=== PATIENT | female | born 1960 | race Caucasian/White ===

== ENCOUNTER 2017-04-11 11:42 | Inpatient (IN) | payer OTHER ==
[2017-04-11] MEDS ORDERED: Sodium Chloride 0.9% 10 ML Syringe FLUSH PRN ×2 (11:57→14:54)
[2017-04-11] MEDS ORDERED: Albuterol/Ipratropium 3.0-0.5 MG/3 ML Neb Soln NEB ONE (11:59)
[2017-04-11] MEDS ORDERED: methylPREDNISolone Sodium Succinate 125 MG/2 ML SDV IVPUSH ONE (12:00)
--- NOTE | 2017-04-11 12:42 | CR ---
Chest: Portable view of the chest was obtained. Comparison: Prior chest x-ray of 04/10/13. Heart size and mediastinum are within normal limits for portable technique. Slight parenchymal density is noted within the right lung base. Lungs otherwise are clear. Bony structures are unremarkable. Impression: 1. Mild increased density within the medial right lung base. Small area of pneumonia is possible if patient has infectious symptoms. Findings otherwise due to mild atelectasis. 2. Nothing acute is otherwise seen on portable chest x-ray. Diagnostic code #3
[2017-04-11] MEDS ORDERED: Levofloxacin/Dextrose 5%-Water 750 MG in Premix Bag 1 BAG IV ONE (13:39)
[2017-04-11] MEDS ORDERED: Sodium Chloride 0.9% 500 ML IV ONE (13:40)
[2017-04-11] MEDS ORDERED: Sodium Chloride 0.9% 1,500 ML IV ONE (13:47)
--- NOTE | 2017-04-11 13:48 | EDM.PDOC ---
ED HPI GENERAL MEDICAL PROBLEM - General Chief Complaint: Respiratory Problem Stated Complaint: CHEST PAIN Time Seen by Provider: 04/11/17 11:48 Source of Information: Reports: Patient, Family History Limitations: Reports: No Limitations - History of Present Illness INITIAL COMMENTS - FREE TEXT/NARRATIVE: The patient presents with right sided chest pain and shortness of breath. This started a few days ago. She also has a cough that started today. She does smoke. She does not have a history of asthma, COPD or emphysema. She has no heart problems. She has no abdominal pain, nausea or vomiting. She has no fever but she does have chills. Onset: Gradual Duration: Day(s): Location: Reports: Chest Quality: Reports: Sharp Severity: Moderate Improves with: Reports: None Worsens with: Reports: None Associated Symptoms: Reports: Chest Pain, Cough, Fever/Chills, Shortness of Breath. Denies: Nausea/Vomiting right under breast/epigastric/midchest Pain Score (Numeric/FACES): 8 - Related Data Allergies Allergy/AdvReac Type Severity Reaction Status Date / Time No Known Allergies Allergy Verified 04/11/17 12:03 Home Meds: Home Meds Calcium Carbonate/Vitamin D3 [Calcium 600 + D Tablet] 1 each PO DAILY 11/27/14 [ History] Ferrous Gluconate 324 mg PO BID 11/27/14 [History] Folic Acid 1 mg PO DAILY 11/27/14 [History] Magnesium Oxide [Magnesium] 400 mg PO BID 11/27/14 [History] Multivitamin [Multi-Vitamin Daily] 1 each PO DAILY 11/27/14 [History] Potassium Chloride [Klor-Con M20] 20 meq PO BID 11/27/14 [History] Vit B1 Mn/B2/B3/B5/B6/B12/C/Fa [B Complex with Vitamin C] 1 each PO DAILY [History] Vit D3 & K/Berberine HCl/Hops [Ostera] 1 tab PO DAILY 11/27/14 [History] Pantoprazole Sodium [Protonix] 40 mg PO DAILY 04/11/17 [History] Past Medical History HEENT History: Reports: Impaired Vision Respiratory History: Reports: SOB, Other (See Below) Other Respiratory History: patient is a 1/2 pack to full pack smoker Musculoskeletal History: Reports: Other (See Below) Other Musculoskeletal History: feet cramps Psychiatric History: Reports: Addiction Other Psychiatric History: currently states has alcohol problem Social & Family History - Family History Family Medical History: Noncontributory - Tobacco Use Smoking Status *Q: Current Every Day Smoker Years of Tobacco use: 30 Packs/Tins Daily: 1 - Caffeine Use Caffeine Use: Reports: Tea - Alcohol Use Days Per Week of Alcohol Use: 7 Number of Drinks Per Day: 4 Total Drinks Per Week: 28 - Recreational Drug Use Recreational Drug Use: No ED ROS GENERAL - Review of Systems Review Of Systems: See Below Constitutional: Reports: Chills, Malaise, Weakness, Fatigue. Denies: Fever HEENT: Reports: No Symptoms Respiratory: Reports: Shortness of Breath, Cough Cardiovascular: Reports: Chest Pain Endocrine: Reports: No Symptoms GI/Abdominal: Reports: No Symptoms : Reports: No Symptoms Musculoskeletal: Reports: No Symptoms ED EXAM, GENERAL - Physical Exam Exam: See Below Exam Limited By: Intoxication General Appearance: Alert, No Apparent Distress Ears: Normal External Exam Nose: Normal Inspection Head: Atraumatic, Normocephalic Neck: Normal Inspection Respiratory/Chest: No Respiratory Distress, Rhonchi Cardiovascular: Regular Rate, Rhythm, No Edema, No Murmur GI/Abdominal: Soft, Non-Tender, No Organomegaly, No Mass Back Exam: Normal Inspection Extremities: Normal Inspection Neurological: Alert, Oriented, No Motor/Sensory Deficits Skin Exam: Warm, Dry EKG INTERPRETATION EKG Date: 04/11/17 Time: 12:38 Rhythm: NSR Rate (Beats/Min): 95 [place]: LAD-Left [place] Deviation P-Wave: Present QRS: Normal ST-T: Normal QT: Normal Course - Vital Signs Last Recorded V/S: Last Vital Signs Temp 96.7 F 04/11/17 11:43 Pulse 96 04/11/17 11:43 Resp 24 H 04/11/17 11:43 BP 137/63 04/11/17 11:43 Pulse Ox 92 L 04/11/17 12:00 - Orders/Labs/Meds Orders: Active Orders 24 hr Category Date Time Status Cardiac Monitoring [RC] . DIRECTED Care 04/11/17 11:57 Active EKG Documentation Completion [RC] STAT Care 04/11/17 11:58 Active Oxygen Therapy [RC] PRN Care 04/11/17 11:58 Active Peripheral IV Care [RC] . DIRECTED Care 04/11/17 11:58 Active RT Aerosol Therapy [RC] ASDIRECTED Care 04/11/17 12:00 Active Ang Chest [CT] Stat Exams 04/11/17 14:40 Taken CULTURE BLOOD [BC] Stat Lab 04/11/17 14:15 Received CULTURE BLOOD [BC] Stat Lab 04/11/17 14:28 Received CULTURE URINE [RM] Stat Lab 04/11/17 13:55 Received UA W/MICROSCOPIC [URIN] Stat Lab 04/11/17 13:55 Results Sodium Chloride 0.9% [Normal Saline] 100 ml Med 04/11/17 15:00 Active IV ASDIRECTED Sodium Chloride 0.9% [Saline Flush] Med 04/11/17 11:57 Active 10 ml FLUSH ASDIRECTED PRN Sodium Chloride 0.9% [Saline Flush] Med 04/11/17 14:54 Active 10 ml FLUSH ONETIME PRN Blood Culture x2 Reflex Set [OM.PC] Stat Oth 04/11/17 13:39 Ordered Peripheral IV Insertion Adult [OM.PC] Stat Oth 04/11/17 11:57 Ordered Medication Orders Sodium Chloride (Normal Saline) 100 mls @ 80 mls/hr IV ASDIRECTED DORINA Last Admin: 04/11/17 14:56 Dose: 80 mls/hr Sodium Chloride (Saline Flush) 10 ml FLUSH ASDIRECTED PRN PRN Reason: Keep Vein Open Last Admin: 04/11/17 12:42 Dose: 10 ml Sodium Chloride (Saline Flush) 10 ml FLUSH ONETIME PRN PRN Reason: IV FLUSH Last Admin: 04/11/17 14:56 Dose: 10 ml Labs: Laboratory Tests 04/11/17 04/11/17 04/11/17 Range/Units 12:27 12:27 12:27 WBC 25.62 H (3.98-10.04) K/mm3 RBC 3.97 L (3.98-5.22) M/mm3 Hgb 13.4 (11.2-15.7) gm/L Hct 39.7 (34.1-44.9) % MCV 100.0 H (79.4-94.8) fl MCH 33.8 H (25.6-32.2) pg MCHC 33.8 (32.2-35.5) g/dl RDW Std Deviation 65.6 H (36.4-46.3) fL Plt Count 52 L (182-369) K/mm3 MPV 11.5 (9.4-12.3) fl Neut % (Auto) 93.5 H (34.0-71.1) % Lymph % (Auto) 1.2 L (19.3-51.7) % [place] % (Auto) 3.8 L (4.7-12.5) % Eos % (Auto) 0 L (0.7-5.8) Baso % (Auto) 0.2 (0.1-1.2) % Neut # (Auto) 23.96 H (1.56-6.13) K/mm3 Lymph # (Auto) 0.31 L (1.18-3.74) K/mm3 [place] # (Auto) 0.97 H (0.24-0.36) K/mm3 Eos # (Auto) 0.01 L (0.04-0.36) K/mm3 Baso # (Auto) 0.04 (0.01-0.08) K/mm3 Manual Slide Review Abnormal smear D-Dimer, Quantitative 2.35 H (0.19-0.59) mg/L Sodium 139 (136-145) mEq/L Potassium 3.9 (3.5-5.1) mEq/L Chloride 104 (98-107) mEq/L Carbon Dioxide 12 L (21-32) mEq/L Anion Gap 26.9 H (5-15) BUN 21 H (7-18) mg/dL Creatinine 1.6 H (0.55-1.02) mg/dL Est Cr Clr Drug Dosing 33.09 mL/min Estimated GFR (MDRD) 33 (>60) mL/min BUN/Creatinine Ratio 13.1 L (14-18) Glucose 92 (74-106) mg/dL Lactic Acid (0.4-2.0) mmol/L Calcium 8.2 L (8.5-10.1) mg/dL Total Bilirubin 6.8 H (0.2-1.0) mg/dL AST 91 H (15-37) U/L ALT 23 (14-59) U/L Alkaline Phosphatase 200 H (46-116) U/L Troponin I < 0.017 (0.00-0.056) ng/mL Total Protein 6.8 (6.4-8.2) g/dl Albumin 2.7 L (3.4-5.0) g/dl Globulin 4.1 gm/dL Albumin/Globulin Ratio 0.7 L (1-2) Urine Color (Yellow) Urine Appearance (Clear) Urine pH (5.0-8.0) Ur Specific [place] (1.005-1.030) Urine Protein (Negative) Urine Glucose (UA) (Negative) Urine Ketones (Negative) Urine Occult Blood (Negative) Urine Nitrite (Negative) Urine Bilirubin (Negative) Urine Urobilinogen (0.2-1.0) Ur Leukocyte Esterase (Negative) Urine RBC (0-5) /hpf Urine WBC (0-5) /hpf Ur Epithelial Cells (0-5) /hpf 04/11/17 04/11/17 Range/Units 13:55 14:15 WBC (3.98-10.04) K/mm3 RBC (3.98-5.22) M/mm3 Hgb (11.2-15.7) gm/L Hct (34.1-44.9) % MCV (79.4-94.8) fl MCH (25.6-32.2) pg MCHC (32.2-35.5) g/dl RDW Std Deviation (36.4-46.3) fL Plt Count (182-369) K/mm3 MPV (9.4-12.3) fl Neut % (Auto) (34.0-71.1) % Lymph % (Auto) (19.3-51.7) % [place] % (Auto) (4.7-12.5) % Eos % (Auto) (0.7-5.8) Baso % (Auto) (0.1-1.2) % Neut # (Auto) (1.56-6.13) K/mm3 Lymph # (Auto) (1.18-3.74) K/mm3 [place] # (Auto) (0.24-0.36) K/mm3 Eos # (Auto) (0.04-0.36) K/mm3 Baso # (Auto) (0.01-0.08) K/mm3 Manual Slide Review D-Dimer, Quantitative (0.19-0.59) mg/L Sodium (136-145) mEq/L Potassium (3.5-5.1) mEq/L Chloride (98-107) mEq/L Carbon Dioxide (21-32) mEq/L Anion Gap (5-15) BUN (7-18) mg/dL Creatinine (0.55-1.02) mg/dL Est Cr Clr Drug Dosing mL/min Estimated GFR (MDRD) (>60) mL/min BUN/Creatinine Ratio (14-18) Glucose (74-106) mg/dL Lactic Acid 6.8 H (0.4-2.0) mmol/L Calcium (8.5-10.1) mg/dL Total Bilirubin (0.2-1.0) mg/dL AST (15-37) U/L ALT (14-59) U/L Alkaline Phosphatase (46-116) U/L Troponin I (0.00-0.056) ng/mL Total Protein (6.4-8.2) g/dl Albumin (3.4-5.0) g/dl Globulin gm/dL Albumin/Globulin Ratio (1-2) Urine Color Dark yellow (Yellow) Urine Appearance Cloudy H (Clear) Urine pH 6.0 (5.0-8.0) Ur Specific [place] 1.025 (1.005-1.030) Urine Protein 1+ H (Negative) Urine Glucose (UA) Negative (Negative) Urine Ketones Negative (Negative) Urine Occult Blood Trace-lysed H (Negative) Urine Nitrite Negative (Negative) Urine Bilirubin 2+ H (Negative) Urine Urobilinogen 1.0 (0.2-1.0) Ur Leukocyte Esterase 1+ H (Negative) Urine RBC 5-10 H (0-5) /hpf Urine WBC 10-20 H (0-5) /hpf Ur Epithelial Cells 20-30 H (0-5) /hpf Meds: Medications Generic Name Dose Route Start Last Admin Trade Name Freq PRN Reason Stop Dose Admin Sodium Chloride 100 mls @ 80 mls/hr 04/11/17 15:00 04/11/17 14:56 Normal Saline IV 80 mls/hr ASDIRECTED DORINA Administration Sodium Chloride 10 ml 04/11/17 11:57 04/11/17 12:42 Saline Flush FLUSH 10 ml ASDIRECTED PRN Administration Keep Vein Open Sodium Chloride 10 ml 04/11/17 14:54 04/11/17 14:56 Saline Flush FLUSH 10 ml ONETIME PRN Administration IV FLUSH Discontinued Medications Generic Name Dose Route Start Last Admin Trade Name Georgina PRN Reason Stop Dose Admin Albuterol/Ipratropium 3 ml 04/11/17 11:59 04/11/17 12:35 Duoneb 3.0-0.5 Mg/3 Ml NEB 04/11/17 12:00 3 ml ONETIME ONE Administration Hydromorphone HCl 0.5 mg 04/11/17 14:44 04/11/17 15:00 Dilaudid IVPUSH 04/11/17 14:45 0.5 mg ONETIME ONE Administration Levofloxacin/Dextrose 750 mg/ 150 mls @ 100 mls/hr 04/11/17 13:39 04/11/17 14 :40 Premix IV 04/11/17 15:08 100 mls/hr ONETIME ONE Administration Sodium Chloride 500 mls @ 1,000 mls/hr 04/11/17 13:40 Normal Saline IV 04/11/17 14:09 .BOLUS ONE Sodium Chloride 1,500 mls @ 1,000 mls/hr 04/11/17 13:47 04/11/17 14:00 Normal Saline IV 04/11/17 15:16 1,000 mls/hr ONETIME ONE Administration Sodium Chloride Confirm 04/11/17 14:55 04/11/17 14:56 Normal Saline Administered 04/11/17 14:56 Not Given Dose 1,000 mls @ as directed .ROUTE .STK-MED ONE Iopamidol 100 ml 04/11/17 14:54 04/11/17 14:55 Isovue-370 (76%) IVPUSH 04/11/17 14:55 100 ml ONETIME ONE Administration Methylprednisolone Sodium Succinate 125 mg 04/11/17 12:00 04/11/17 12:40 Solu-Medrol IVPUSH 04/11/17 12:01 125 mg ONETIME ONE Administration Oseltamivir Phosphate 75 mg 04/11/17 15:00 04/11/17 15:11 Tamiflu PO 04/11/17 15:01 75 mg ONETIME ONE Administration - Re-Assessments/Exams Free Text/Narrative Re-Assessment/Exam: 04/11/17 14:52 I ordered an IV NS, oxygen, duoneb, labs, EKG, and CXR. Her EKG shows a NSR with no acute changes. Her CXR shows a RML infiltrate. Her WBC was elevated at 25.62. Her Hgb was normal at 13.4. Her platelets were low at 52. Her D- dimer was elevated at 2.35. Her anion gap is elevated at 26.9. Her creatinine is elevated at 1.6. Her total bili is elevated at 6.8. Her alk phos was elevated at 200. Her troponin was negative. Her UA shows a UTI. 04/11/17 15:38 I ordered blood cultures and urine culture. I ordered a 2L bolus for the 30mL/ kg bolus and levaquin 750mg IV. She is also influenza A and B positive. I ordered some tamiflu 75mg by move. Her CT shows no definite filling defects are seen to indicate PE. Small right sided pleural effusion which may have some loculations. Consolidation within the right lower lung, difficult to exclude pneumonia as the etiology. Slight parenchymal density within the lingula either due to atelectasis or scarring. I feel she needs to be admitted. I called Dr Pete and she agreed to the admission. She has pneumonia , hypoxia, UTI and influenza A and B. Departure - Departure Time of Disposition: 15:45 Disposition: Admitted As Inpatient 64 Condition: Serious Clinical Impression: Influenza A, Influenza B, Hypoxia Pneumonia Qualifiers: Pneumonia type: due to unspecified organism Laterality: right Lung location: middle lobe of lung Qualified Code(s): J18.1 - Lobar pneumonia, unspecified organism Sepsis Qualifiers: Sepsis type: sepsis due to unspecified organism Qualified Code(s): A41.9 - Sepsis, unspecified organism UTI (urinary tract infection) Qualifiers: Urinary tract infection type: site unspecified Hematuria presence: without hematuria Qualified Code(s): N39.0 - Urinary tract infection, site not specified - Discharge Information Referrals: Goldie Mcclure, [employer] [Primary Care Provider] - Forms: ED Department Discharge - My Orders Last 24 Hours: My Active Orders 04/11/17 11:57 Cardiac Monitoring [RC] . DIRECTED Sodium Chloride 0.9% [Saline Flush] 10 ml FLUSH ASDIRECTED PRN Peripheral IV Insertion Adult [OM.PC] Stat 04/11/17 11:58 EKG Documentation Completion [RC] STAT Oxygen Therapy [RC] PRN Peripheral IV Care [RC] . DIRECTED 04/11/17 12:00 RT Aerosol Therapy [RC] ASDIRECTED 04/11/17 13:39 Blood Culture x2 Reflex Set [OM.PC] Stat 04/11/17 13:55 CULTURE URINE [RM] Stat UA W/MICROSCOPIC [URIN] Stat 04/11/17 14:15 CULTURE BLOOD [BC] Stat 04/11/17 14:28 CULTURE BLOOD [BC] Stat 04/11/17 14:40 Ang Chest [CT] Stat 04/11/17 14:54 Sodium Chloride 0.9% [Saline Flush] 10 ml FLUSH ONETIME PRN 04/11/17 15:00 Sodium Chloride 0.9% [Normal Saline] 100 ml IV ASDIRECTED - Assessment/Plan Last 24 Hours: My Active Orders 04/11/17 11:57 Cardiac Monitoring [RC] . DIRECTED Sodium Chloride 0.9% [Saline Flush] 10 ml FLUSH ASDIRECTED PRN Peripheral IV Insertion Adult [OM.PC] Stat 04/11/17 11:58 EKG Documentation Completion [RC] STAT Oxygen Therapy [RC] PRN Peripheral IV Care [RC] . DIRECTED 04/11/17 12:00 RT Aerosol Therapy [RC] ASDIRECTED 04/11/17 13:39 Blood Culture x2 Reflex Set [OM.PC] Stat 04/11/17 13:55 CULTURE URINE [RM] Stat UA W/MICROSCOPIC [URIN] Stat 04/11/17 14:15 CULTURE BLOOD [BC] Stat 04/11/17 14:28 CULTURE BLOOD [BC] Stat 04/11/17 14:40 Ang Chest [CT] Stat 04/11/17 14:54 Sodium Chloride 0.9% [Saline Flush] 10 ml FLUSH ONETIME PRN 04/11/17 15:00 Sodium Chloride 0.9% [Normal Saline] 100 ml IV ASDIRECTED
[2017-04-11] MEDS ORDERED: HYDROmorphone 0.5 MG/0.5 ML Syringe IVPUSH ONE (14:44)
[2017-04-11] MEDS ORDERED: Iopamidol 755 Mg/ML 100 ML Bottle IVPUSH ONE (14:54)
[2017-04-11] MEDS ORDERED: Sodium Chloride 0.9% 1,000 ML ONE (14:55)
[2017-04-11] MEDS ORDERED: Oseltamivir 75 MG Cap PO ONE (15:00)
[2017-04-11] MEDS ORDERED: Sodium Chloride 0.9% 100 ML IV SCH (15:00)
--- NOTE | 2017-04-11 15:38 | CT ---
CT chest Technique: Multiple axial sections through the chest were obtained. Intravenous contrast was utilized. Study has been performed as a pulmonary angiogram protocol. Findings: Slightly less than optimal opacification of pulmonary arteries are noted. I do not see a discrete filling defect to indicate pulmonary embolism. Small mediastinal lymph nodes are seen which are within normal limits. No axillary adenopathy is seen. Mild coronary artery calcification is seen. Small right sided pleural effusion is seen. Consolidation is seen within a portion of the right lower lung. Some portions of the right-sided pleural effusion may be loculated. Slight parenchymal density is noted within the lingula which is most likely due to scarring or atelectasis. Lungs otherwise are clear. Degenerative spurring is noted within the spine. Impression: 1. No definite filling defects are seen to indicate pulmonary embolism. 2. Small right sided pleural effusion which may have some loculations. 2. Consolidation within the right lower lung, difficult to exclude pneumonia as the etiology. 3. Slight parenchymal density within the lingula either due to atelectasis or scarring. Diagnostic code #3
[2017-04-11] MEDS ORDERED: Albuterol/Ipratropium 3.0-0.5 MG/3 ML Neb Soln NEB PRN (18:31)
[2017-04-11] MEDS ORDERED: Acetaminophen 325 MG Tab PO PRN (18:31)
[2017-04-11] MEDS ORDERED: Bisacodyl 5 MG Tab PO PRN (18:31)
[2017-04-11] MEDS ORDERED: HYDROmorphone 0.5 MG/0.5 ML Syringe IVPUSH PRN (18:31)
[2017-04-11] MEDS ORDERED: Ondansetron 4 MG Tab.DIS PO PRN (18:31)
[2017-04-11] MEDS ORDERED: Polyethylene Glycol 3350 Powder 17 GM Packet PO PRN (18:31)
[2017-04-11] MEDS ORDERED: Ondansetron 4 MG/2 ML SDV IV PRN (18:31)
[2017-04-11] MEDS ORDERED: Docusate Sodium 100 MG Cap PO PRN (18:31)
[2017-04-11] MEDS ORDERED: Piperacillin/Tazobactam 4.5 GM in Sodium Chloride 0.9% 100 ML IV ONE (19:00)
[2017-04-11] MEDS ORDERED: LORazepam 2 MG/ML SDV IVPUSH PRN ×2 (19:18→19:19)
--- NOTE | 2017-04-11 19:30 | PCM.HP ---
H&P History of Present Illness - General Date of Service: 04/11/17 Admit Problem/Dx: Admission Diagnosis/Problem Admission Diagnosis/Problem Sepsis Source of Information: Patient, Old Records, Provider, RN, RN Notes Reviewed History Limitations: Reports: No Limitations - History of Present Illness Initial Comments - Free Text/Narative: Evette Jasso is a 56 yo female who presents to our ED today with right-sided chest pain and shortness of breath has been lasting for a few days. She is also a productive cough today. She is a smoker daily smoker. Denies any history of asthma, COPD, or emphysema. She has no heart problems. Denies abdominal pain, nausea, vomiting, fever, but she has had chills. Upon arrival she was afebrile with a temp of 96.7. Respirations were 24. BP 137/63. Pulse ox is 92%. Heart rate of 96. 12-lead EKG was obtained which shows a normal sinus rhythm at a rate of 95. There is some left axis deviation. Labs are obtained: White count was elevated at 25.62. Hemoglobin normal at 13.4. Hematocrit 39.7. She is macrocytic with MCV of 100.0. Pulse are low at 52,000. Neutrophils are elevated at 93.5%. D-dimer was elevated at 2.35. Sodium was good at 139. Potassium 3.9. Chloride 104. Carbon dioxide 12. Anion gap is very high at 26.9. BUN is high at 21. Creatinine high at 1.6. EGFR is 33. Glucose is normal at 92. Lactic acid was high at 6.8. Calcium low at 8.2. AST is high at 91, ALT 23, alkaline phosphatase 200. Troponin negative at less than 0.017. Albumin is low at 2.7. UA is positive, as it is dark yellow and cloudy, 1+ protein, trace lysed occult blood, 2+ bilirubin, 1+ leukocyte esterase, 5-10 urine RBCs, 10-20 urine WBCs, 20-30 urine epithelial cells. Urine culture is pending. Blood cultures are pending. She was given a DuoNeb, 2.5 Dilaudid, Levaquin, Solu-Medrol 125 mg, Tamiflu 75 mg, and 2 L saline bolus for the 30 mg liter per kilogram bolus. Informed a and B are both positive. Due to the elevated d-dimer a CTA was performed and shows no definite filling defects to indicate a PE. There is a small right- sided pleural effusion which may have some loculations. Consult elevation within the right lower lung is noted and is difficult to exclude pneumonia as etiology. There is also slight parenchymal density within the lingula either due to atelectasis or scarring. She does carry a history of: Impaired vision, tobacco use disorder - one half to one full pack a day smoker, and alcohol addiction, as she underwent in patient treatment 3 years ago in [place]. She subsequently admitted to the medical floor with telemetry. She is a full code. Her PCP is AYAH Francois, here at [facility]. right under breast/epigastric/midchest Pain Score (Numeric/FACES): 2 - Related Data Allergies/Adverse Reactions: Allergies Allergy/AdvReac Type Severity Reaction Status Date / Time No Known Allergies Allergy Verified 04/11/17 12:03 Home Medications: Home Meds Calcium Carbonate/Vitamin D3 [Calcium 600 + D Tablet] 1 each PO DAILY 11/27/14 [ History] Ferrous Gluconate 324 mg PO BID 11/27/14 [History] Folic Acid 1 mg PO DAILY 11/27/14 [History] Magnesium Oxide [Magnesium] 400 mg PO BID 11/27/14 [History] Multivitamin [Multi-Vitamin Daily] 1 each PO DAILY 11/27/14 [History] Potassium Chloride [Klor-Con M20] 20 meq PO BID 11/27/14 [History] Vit B1 Mn/B2/B3/B5/B6/B12/C/Fa [B Complex with Vitamin C] 1 each PO DAILY [History] Vit D3 & K/Berberine HCl/Hops [Ostera] 1 tab PO DAILY 11/27/14 [History] Pantoprazole Sodium [Protonix] 40 mg PO DAILY 04/11/17 [History] Past Medical History HEENT History: Reports: Glaucoma, Impaired Vision Other HEENT History: Wear glasses Respiratory History: Reports: SOB, Other (See Below) Other Respiratory History: patient is a 1/2 pack to full pack smoker Musculoskeletal History: Reports: Other (See Below) Other Musculoskeletal History: feet cramps Psychiatric History: Reports: Addiction Other Psychiatric History: currently states has alcohol problem, patient reports having a couple drinks New Year's [place] Endocrine/Metabolic History: Reports: Vitamin D Deficiency Hematologic History: Reports: Iron Deficiency - Infectious Disease History Infectious Disease History: Reports: Chicken Pox, Measles, Mumps - Past Surgical History HEENT Surgical History: Reports: None Endocrine Surgical History: Reports: None Musculoskeletal Surgical History: Reports: None Social & Family History - Family History Family Medical History: Noncontributory HEENT: Reports: Glaucoma - Tobacco Use Smoking Status *Q: Current Every Day Smoker Years of Tobacco use: 30 Packs/Tins Daily: 0.5 Used Tobacco, but Quit: No Second Hand Smoke Exposure: No - Caffeine Use Caffeine Use: Reports: Tea Other Caffeine Use: daily basis - Alcohol Use Days Per Week of Alcohol Use: 7 Number of Drinks Per Day: 4 Total Drinks Per Week: 28 Date of Last Drink: 04/09/17 Time of Last Drink: 21:00 - Recreational Drug Use Recreational Drug Use: No H&P Review of Systems - Review of Systems: Review Of Systems: See Below General: Reports: Chills, Malaise, Weakness, Fatigue, Diaphoresis, Decreased Appetite. Denies: Fever HEENT: Reports: No Symptoms. Denies: Ear Pain, Eye Pain, Headaches, Rhinitis, Post Nasal Drip, Sinus Congestion, Sore Throat, Visual Changes Pulmonary: Reports: Shortness of Breath, Pleuritic Chest Pain (after coughing ) , Cough, Sputum Cardiovascular: Reports: No Symptoms, Chest Pain, Dyspnea on Exertion. Denies: Palpitations, Orthopnea, Edema, Lightheadedness, Syncope Gastrointestinal: Reports: No Symptoms, Nausea, Vomiting. Denies: Abdominal Pain, Constipation, Diarrhea Genitourinary: Reports: Flank Pain, Other (Foul smelling urine ). Denies: Dysuria, Frequency, Burning, Pain, Urgency Musculoskeletal: Reports: Back Pain (right sided - after coughing ). Denies: Neck Pain, Shoulder Pain, Arm Pain, Leg Pain, Muscle Pain, Muscle Stiffness Skin: Reports: No Symptoms Psychiatric: Reports: No Symptoms Neurological: Reports: No Symptoms Hematologic/Lymphatic: Reports: No Symptoms Immunologic: Reports: No Symptoms Exam - Exam Exam: See Below - Vital Signs Vital Signs: Last Vital Signs Temp 96.7 F 04/11/17 11:43 Pulse 91 04/11/17 17:09 Resp 24 H 04/11/17 17:09 BP 126/62 04/11/17 17:09 Pulse Ox 93 L 04/11/17 17:09 Weight: 158 lb - Exam Quality Assessment: Supplemental Oxygen, DVT Prophylaxis General: Alert, Oriented, Cooperative, Mild Distress HEENT: Conjunctiva Clear, EACs Clear, EOMI, Hearing Intact, Mucosa Moist & [place] , Nares Patent, Normal Nasal Septum, Posterior Pharynx Clear, PERRLA Neck: Supple, Trachea Midline. No: JVD, Thyromegaly Lungs: Rhonchi, Other (tachypneic ). No: Normal Respiratory Effort, Wheezing Cardiovascular: Regular Rate, Regular Rhythm. No: Systolic Murmur, Diastolic Murmur GI/Abdominal Exam: Normal Bowel Sounds, Soft, Non-Tender, No Organomegaly, No Distention, No Abnormal Bruit, No Mass, Pelvis Stable (Female) Exam: Deferred Rectal (Female) Exam: Deferred Back Exam: Normal Inspection, Full Range of Motion. No: CVA Tenderness (L), CVA Tenderness (R) Extremities: Normal Inspection, Normal Range of Motion, Non-Tender, No Pedal Edema, Normal Capillary Refill Peripheral Pulses: 2+: Radial (L), Radial (R), Posterior Tibial (L), Posterior Tibial (R), Dorsalis Pedis (L), Dorsalis Pedis (R) Skin: Warm, Dry, Intact Neurological: Cranial Nerves Intact (Grossly ) Neuro Extensive - Mental Status: Alert, Oriented x3, Normal Mood/Affect, Normal Cognition, Memory Intact Neuro Extensive - Motor, Sensory, Reflexes: CN II-XII Intact (grossly ), Normal Gait Psychiatric: Alert, Normal Affect, Normal Mood - Patient Data Result Diagrams: 04/11/17 12:27 04/11/17 12:27 *Q Meaningful Use (ADM) - VTE *Q VTE Criteria *Q: - Stroke *Q Stroke Criteria *Q: - AMI *Q AMI Criteria *Q: - Problem List (1) Pneumonia SNOMED Code(s): 202373757 ICD Code: J18.9 - PNEUMONIA, UNSPECIFIED ORGANISM Status: Acute Priority : High Current Visit: Yes Qualifiers: Pneumonia type: due to unspecified organism Laterality: right Lung location: middle lobe of lung Qualified Code(s): J18.1 - Lobar pneumonia, unspecified organism (2) UTI (urinary tract infection) SNOMED Code(s): 35632872 ICD Code: N39.0 - URINARY TRACT INFECTION, SITE NOT SPECIFIED Status: Acute Priority: High Current Visit: Yes Qualifiers: Urinary tract infection type: site unspecified Hematuria presence: without hematuria Qualified Code(s): N39.0 - Urinary tract infection, site not specified (3) Sepsis SNOMED Code(s): 74378995 ICD Code: A41.9 - SEPSIS, UNSPECIFIED ORGANISM Status: Acute Priority: High Current Visit: Yes Qualifiers: Sepsis type: sepsis due to unspecified organism Qualified Code(s): A41.9 - Sepsis, unspecified organism (4) Influenza B SNOMED Code(s): 20444921 ICD Code: J10.1 - FLU DUE TO OTH IDENT INFLUENZA VIRUS W OTH RESP MANIFEST Status: Acute Priority: High Current Visit: Yes (5) Influenza A SNOMED Code(s): 486819756 ICD Code: J10.1 - FLU DUE TO OTH IDENT INFLUENZA VIRUS W OTH RESP MANIFEST Status: Acute Priority: High Current Visit: Yes (6) Hypoxia SNOMED Code(s): 127971249 ICD Code: R09.02 - HYPOXEMIA Status: Acute Priority: High Current Visit : Yes (7) Tobacco use disorder SNOMED Code(s): 709716341 ICD Code: F17.200 - NICOTINE DEPENDENCE, UNSPECIFIED, UNCOMPLICATED Status : Chronic Priority: Low Current Visit: Yes (8) Personal history of alcoholism SNOMED Code(s): 860489569 ICD Code: F10.21 - ALCOHOL DEPENDENCE, IN REMISSION Status: Chronic Priority: Low Current Visit: Yes (9) Thrombocytopenia SNOMED Code(s): 590734901 ICD Code: D69.6 - THROMBOCYTOPENIA, UNSPECIFIED Status: Acute Priority: Medium Current Visit: Yes (10) Acute renal failure SNOMED Code(s): 57860662 ICD Code: N17.9 - ACUTE KIDNEY FAILURE, UNSPECIFIED Status: Acute Priority: High Current Visit: Yes Qualifiers: Acute renal failure type: unspecified Qualified Code(s): N17.9 - Acute kidney failure, unspecified Problem List Initiated/Reviewed/Updated: Yes Orders Last 24hrs: Active Orders 24 hr Category Date Time Status Patient Status [ADT] Routine ADT 04/11/17 16:47 Active Acapella [RT Chest Physiotherapy] [RC] ASDIRECTED Care 04/11/17 18:38 Active Ambulate [RC] PER UNIT ROUTINE Care 04/11/17 18:32 Active Antiembolic Devices [RC] PER UNIT ROUTINE Care 04/11/17 18:32 Active Height and Weight [RC] DAILY Care 04/11/17 18:31 Active Incentive Spirometry [RT Incentive Spirometry] [RC] Care 04/11/17 18:39 Active ASDIRECTED Intake and Output [RC] QSHIFT Care 04/11/17 18:32 Active RT Aerosol Therapy [RC] ASDIRECTED Care 04/11/17 18:35 Active Up With Assistance [RC] ASDIRECTED Care 04/11/17 18:31 Active VTE/DVT Education [RC] PER UNIT ROUTINE Care 04/11/17 18:31 Active Vital Signs [RC] Q4HR Care 04/11/17 18:31 Active Consult to Case Management [CONS] Routine Cons 04/11/17 18:31 Active OT Evaluation and Treatment [CONS] Routine Cons 04/11/17 18:31 Active PT Evaluation and Treatment [CONS] Routine Cons 04/11/17 18:31 Active Respiratory Care Assess and Treatment [CONS] Routine Cons 04/11/17 18:31 Active Heart Healthy Diet [DIET] Diet 04/11/17 Dinner Active Chest 2V [CR] AM Exams 04/13/17 05:11 Ordered BASIC METABOLIC PANEL,BMP [CHEM] AM Lab 04/12/17 05:11 Ordered BASIC METABOLIC PANEL,BMP [CHEM] AM Lab 04/13/17 05:11 Ordered BASIC METABOLIC PANEL,BMP [CHEM] AM Lab 04/14/17 05:11 Ordered BASIC METABOLIC PANEL,BMP [CHEM] AM Lab 04/15/17 05:11 Ordered CBC WITH AUTO DIFF [HEME] AM Lab 04/12/17 05:11 Ordered CBC WITH AUTO DIFF [HEME] AM Lab 04/13/17 05:11 Ordered CBC WITH AUTO DIFF [HEME] AM Lab 04/14/17 05:11 Ordered CBC WITH AUTO DIFF [HEME] AM Lab 04/15/17 05:11 Ordered CRP [C-REACTIVE PROTEIN] [CHEM] AM Lab 04/12/17 05:11 Ordered CRP [C-REACTIVE PROTEIN] [CHEM] AM Lab 04/13/17 05:11 Ordered CRP [C-REACTIVE PROTEIN] [CHEM] AM Lab 04/14/17 05:11 Ordered CRP [C-REACTIVE PROTEIN] [CHEM] AM Lab 04/15/17 05:11 Ordered CULTURE SPUTUM + SMEAR [RM] Routine Lab 04/11/17 18:39 Uncollected DRUG SCREEN, URINE [URCHEM] Routine Lab 04/11/17 13:55 Received ETOH [ETHANOL BLOOD MEDICAL] [CHEM] Routine Lab 04/11/17 19:16 Ordered LACTIC ACID [CHEM] Stat Lab 04/11/17 19:16 Ordered MAGNESIUM [CHEM] AM Lab 04/12/17 05:11 Ordered MAGNESIUM [CHEM] AM Lab 04/13/17 05:11 Ordered MAGNESIUM [CHEM] AM Lab 04/14/17 05:11 Ordered MAGNESIUM [CHEM] AM Lab 04/15/17 05:11 Ordered Acetaminophen [Tylenol] Med 04/11/17 18:31 Active 650 mg PO Q4H PRN Acetaminophen/HYDROcodone [[place] 325-5 MG] Med 04/11/17 18:31 Active 1 tab PO Q4H PRN Albuterol/Ipratropium [DuoNeb 3.0-0.5 MG/3 ML] Med 04/11/17 18:31 Active 3 ml NEB Q4H PRN Bisacodyl [Dulcolax] Med 04/11/17 18:31 Active 5 mg PO DAILY PRN Docusate Sodium [Colace] Med 04/11/17 18:31 Active 100 mg PO BID PRN Docusate Sodium/Sennosides [Senna Plus] Med 04/11/17 18:31 Active 1 tab PO BID PRN HYDROmorphone [Dilaudid] Med 04/11/17 18:31 Active 0.25 mg IVPUSH Q2H PRN LORazepam [Ativan] Med 04/11/17 19:19 Active 2 mg IVPUSH Q4H PRN LORazepam [Ativan] Med 04/11/17 19:18 Active See Protocol IVPUSH Q2H PRN Levofloxacin/Dextrose 5%-Water [Levaquin in D5W 750 MG/ Med 04/13/17 12:00 Active 150 ML] 750 mg Premix Bag 1 bag IV Q48H Multivitamins,Therapeutic [Thera] Med 04/11/17 19:30 Active 1 each PO DAILY Nicotine [Habitrol] Med 04/11/17 18:45 Active 21 mg TRDERM DAILY Ondansetron [Zofran ODT] Med 04/11/17 18:31 Active 4 mg PO Q6H PRN Ondansetron [Zofran] Med 04/11/17 18:31 Active 4 mg IV Q6H PRN Oseltamivir [Tamiflu] Med 04/11/17 21:00 Pending 75 mg PO BID Piperacillin/Tazobactam [Zosyn] 4.5 gm Med 04/12/17 03:00 Active Sodium Chloride 0.9% [Normal Saline] 100 ml IV Q8H Polyethylene Glycol 3350 [MiraLAX] Med 04/11/17 18:31 Active 17 gm PO DAILY PRN Remove Patch Med 04/12/17 09:00 Active 1 ea TRDERM DAILY Temazepam [Restoril] Med 04/11/17 18:31 Active 7.5 mg PO BEDTIME PRN Thiamine [Vitamin B-1] Med 04/11/17 19:30 Active 100 mg PO DAILY Antiembolic Hose [OM.PC] Per Unit Routine Oth 04/11/17 18:32 Ordered Resuscitation Status Routine Resus Stat 04/11/17 18:31 Ordered Medication Orders Acetaminophen (Tylenol) 650 mg PO Q4H PRN PRN Reason: Pain (Mild 1-3)/fever Hydrocodone Bitart/Acetaminophen ([place] 325-5 Mg) 1 tab PO Q4H PRN PRN Reason: Pain (moderate 4-6) Albuterol/Ipratropium (Duoneb 3.0-0.5 Mg/3 Ml) 3 ml NEB Q4H PRN PRN Reason: Shortness Of Breath/wheezing Bisacodyl (Dulcolax) 5 mg PO DAILY PRN PRN Reason: Constipation Docusate Sodium (Colace) 100 mg PO BID PRN PRN Reason: Constipation Hydromorphone HCl (Dilaudid) 0.25 mg IVPUSH Q2H PRN PRN Reason: Pain (severe 7-10) Sodium Chloride (Normal Saline) 100 mls @ 80 mls/hr IV ASDIRECTED [facility] Last Admin: 04/11/17 14:56 Dose: 80 mls/hr Levofloxacin/Dextrose 750 mg/ (Premix) 150 mls @ 100 mls/hr IV Q48H DORINA Piperacillin Sod/Tazobactam (Sod 4.5 gm/ Sodium Chloride) 100 mls @ 25 mls/hr IV Q8H DORINA Lorazepam (Ativan) 0 mg IVPUSH Q2H PRN; Protocol PRN Reason: withdrawl Lorazepam (Ativan) 2 mg IVPUSH Q4H PRN PRN Reason: Seizures Miscellaneous Information (Remove Patch) 1 ea TRDERM DAILY [facility] Multivitamins (Thera) 1 each PO DAILY [facility] Nicotine (Habitrol) 21 mg TRDERM DAILY [facility] Ondansetron HCl (Zofran Odt) 4 mg PO Q6H PRN PRN Reason: nausea, able to take PO Ondansetron HCl (Zofran) 4 mg IV Q6H PRN PRN Reason: Nausea/Vomiting Oseltamivir Phosphate (Tamiflu) 75 mg PO BID [facility] Stop: 04/15/17 21:01 Polyethylene Glycol (Miralax) 17 gm PO DAILY PRN PRN Reason: Constipation Senna/Docusate Sodium (Senna Plus) 1 tab PO BID PRN PRN Reason: Constipation Sodium Chloride (Saline Flush) 10 ml FLUSH ASDIRECTED PRN PRN Reason: Keep Vein Open Last Admin: 04/11/17 12:42 Dose: 10 ml Sodium Chloride (Saline Flush) 10 ml FLUSH ONETIME PRN PRN Reason: IV FLUSH Last Admin: 04/11/17 14:56 Dose: 10 ml Temazepam (Restoril) 7.5 mg PO BEDTIME PRN PRN Reason: Sleep Thiamine HCl (Vitamin B-1) 100 mg PO DAILY [facility] Assessment/Plan Comment:: I/P: Acute: Community-acquired pneumonia: -Productive cough, chills, SOB, chest pain with cough -Denies fever -WBC 25.62 -D-dimer 2.35 - CTA negative for PE -CRP- ordered -CXR on 04/11/17 shows RML infiltrate -Chest CTA on 04/11/17 -Right pleural effusion which may have loculations -Consolidation Rlower lung, difficult to exclude PNA as etiology -Slight parenchymal denisty within the lingula either due to atelectasis or scarring -Sputum culture - ordered -Levaquin/zosyn -RT/IS/Acapella -Duo-nebs QID -Solu-medrol -Repeat CXR in 48 hrs Sepsis -likely 2/2 pneumonia -Tachypneic, HR>90, UTI, Pneumonia -eGFR 33, Creatinine 1.6 (Baseline WNL) -Anion gap 26.9 -2L fluid bolus given in ED (30mL/kg) -Lactic acid 6.8 --> Repeat 3.2 -Fluids as ordered -Blood cultures -pending -IV antibiotics and other treatment as above Influenza A and B -Cough, chills, malaise, generalzed weakness, loss of appetite, chest pain with cough -Onset within last 48 hours -Tamiflu 75mg BID for 5 days -Encourage oral hydration -Supportive care UTI -Reports foul smelling urine -Denies increased frequency, dysuria, nocturia, prior UTIs. -UA in ED (04/11/17) suggests UTI, although also suggests some contamination -Urine culture ordered -Levaquin/zosyn as above will cover for this as well Acute Renal Failure -Creatinine 1.6, BUN 21, eGFR 33 -Baseline from prior visits shows creatinine 0.7, eGFR >60 -2L fluid bolus given in ED -IV fluids as ordered -Encourage oral hydration -Pharmacy to renally dose medications -Avoid nephrotoxic medications Hx/o alcohol abuse -Reportedly drank 4 drinks daily -Per patient report underwent inpatient treatment in [place] 3 years ago -She reports she "only drinks socially now" - Last ETOH use over New Years ( 2 days ago) -[facility] protocol - precautionary -Multivitamin, thiamine, folic acid -Ativan as needed for seizure and withdrawl symptoms -UDS negative -Serum ethyl alcohol 0.00 -Continue to monitor -Psychiatric and SA consult if patient displays withdrawl symptoms -Continue to monitor Thrombocytopenia -Acute on chronic -Baseline platelets appear to be around 75-80,000 -Platelets 52,000 in ED -No melena, hematochezia, hematemesis, or obvious bleeding -Continue to monitor -Consider hematology consult after discharge Chronic: Tobacco use disorder - Nicotine patch, smoking cessation counseling Impaired vision Hx/o ETOH addiction - as above Plan: Admit to medical floor with telemetry CM for discharge planning PT/OT Other orders as indicated above Routine AM labs DVT/PE prophylaxis - RUTH hose and Ambulate (Lovenox contraindicated due to thrombocytopenia) Home medications as indicated Code status: Full code, Her PCP is AYAH Leon, here at the [facility]
[2017-04-11] MEDS: Multivitamins,Therapeutic Tab PO SCH (21:21)
[2017-04-11] MEDS: Nicotine 21 MG/24 Hr Patch TRDERM SCH (21:21)
[2017-04-11] MEDS: Thiamine 100 MG Tab PO SCH (21:22)
[2017-04-11] MEDS: Temazepam 7.5 MG Cap PO PRN (21:22)
[2017-04-11] MEDS ORDERED: Sodium Chloride 0.9% 1,000 ML IV SCH ×2 (21:30→22:00)
[2017-04-11] MEDS: Acetaminophen/HYDROcodone 325-5 MG Tab PO PRN (21:33)
[2017-04-11] MEDS: Oseltamivir 30 MG Cap PO SCH (22:22)
[2017-04-11] MEDS: Albuterol/Ipratropium 3.0-0.5 MG/3 ML Neb Soln NEB SCH (23:43)
[2017-04-12] MEDS ORDERED: Piperacillin/Tazobactam 4.5 GM in Sodium Chloride 0.9% 100 ML IV SCH (03:00)
[2017-04-12] MEDS: Albuterol/Ipratropium 3.0-0.5 MG/3 ML Neb Soln NEB SCH ×4 (03:20→20:38)
[2017-04-12] MEDS: Acetaminophen/HYDROcodone 325-5 MG Tab PO PRN ×2 (07:55→16:55)
[2017-04-12] MEDS: methylPREDNISolone Sodium Succinate 125 MG/2 ML SDV IVPUSH SCH (07:59)
[2017-04-12] MEDS: Magnesium Oxide 400 MG Tab PO SCH ×2 (07:59→20:52)
[2017-04-12] MEDS: Thiamine 100 MG Tab PO SCH (08:00)
[2017-04-12] MEDS: Pantoprazole 40 MG Tab.CR PO SCH (08:00)
[2017-04-12] MEDS: Ferrous Sulfate 325 MG Tab PO SCH ×2 (08:00→20:52)
[2017-04-12] MEDS: Oseltamivir 30 MG Cap PO SCH ×2 (08:00→20:52)
[2017-04-12] MEDS: Folic Acid 1 MG Tab PO SCH (08:00)
[2017-04-12] MEDS: Multivitamins,Therapeutic Tab PO SCH (08:00)
[2017-04-12] MEDS: Potassium Chloride 20 MEQ Tab.ER PO SCH ×2 (08:00→20:52)
[2017-04-12] MEDS: Nicotine 21 MG/24 Hr Patch TRDERM SCH (08:39)
[2017-04-12] MEDS ORDERED: Piperacillin/Tazobactam 4.5 GM in Dextrose 5% in Water 100 ML IV SCH ×2 (09:10)
[2017-04-12] MEDS: Piperacillin/Tazobactam 4.5 GM in Dextrose 5% in Water 100 ML IV SCH ×4 (10:05→18:08)
[2017-04-12] MEDS: Sodium Chloride 0.9% 1,000 ML IV SCH ×3 (11:25→21:30)
[2017-04-12] MEDS ORDERED: Sodium Chloride 0.9% 1,000 ML IV SCH (15:45)
[2017-04-12] MEDS ORDERED: Magnesium Oxide 400 MG Tab PO ONE (17:14)
--- NOTE | 2017-04-12 17:22 | PCM.PN ---
- General Info Date of Service: 04/12/17 Admission Dx/Problem (Free Text): Admission Diagnosis/Problem Admission Diagnosis/Problem Sepsis Subjective Update: In to see Evette. She has been transferred to ICU. CIWAs have been 4-6. She has a tremor after movement. She has been receiving aggressive fluid resuscitation. Vitals have been stable although her O2 has been titrated up. Reports SOB with movement. Cough is improving. No complaints or concerns. Magnesium was low and was supplemented. Urine shows gram negative rods. Functional Status: Reports: Pain Controlled, Tolerating Diet, Ambulating, Urinating, Incentive Spirometry. Denies: New Symptoms - Review of Systems General: Reports: Weakness, Fatigue, Malaise. Denies: Fever, Chills, Night Sweats, Appetite HEENT: Denies: Ear Pain, Eye Pain, Glasses, Sore Throat, Visual Changes Pulmonary: Reports: Pleuritic Chest Pain, Cough, Wheezing. Denies: Shortness of Breath (when still ), Sputum Cardiovascular: Reports: Dyspnea on Exertion. Denies: Chest Pain, Palpitations Gastrointestinal: Denies: Abdominal Pain, Constipation, Diarrhea, Nausea, Vomiting Genitourinary: Denies: Dysuria, Frequency, Burning, Urgency Musculoskeletal: Reports: Back Pain (right side when coughing ) Skin: Reports: No Symptoms Neurological: Reports: No Symptoms Psychiatric: Reports: No Symptoms - Patient Data Vitals - Most Recent: Last Vital Signs Temp 98.8 F 04/12/17 16:03 Pulse 88 04/12/17 16:03 Resp 17 04/12/17 16:03 BP 108/65 04/12/17 16:03 Pulse Ox 93 L 04/12/17 16:03 Weight - Most Recent: 155 lb 11.2 oz I&O - Last 24 Hours: Intake & Output 04/12/17 04/12/17 04/12/17 06:59 14:59 22:59 Intake Total 1650 60 3550 Output Total 1050 1200 Balance 950 04 8258 Lab Results Last 24 Hours: Laboratory Results - last 24 hr 04/11/17 04/11/17 04/12/17 Range/Units 19:35 19:35 05:54 WBC 20.12 H (3.98-10.04) K/mm3 RBC 3.76 L (3.98-5.22) M/mm3 Hgb 12.5 (11.2-15.7) gm/L Hct 37.8 (34.1-44.9) % MCV 100.5 H (79.4-94.8) fl MCH 33.2 H (25.6-32.2) pg MCHC 33.1 (32.2-35.5) g/dl RDW Std Deviation 66.8 H (36.4-46.3) fL Plt Count 56 L (182-369) K/mm3 MPV 12.1 (9.4-12.3) fl Neut % (Auto) 93.6 H (34.0-71.1) % Lymph % (Auto) 1.6 L (19.3-51.7) % [place] % (Auto) 3.7 L (4.7-12.5) % Eos % (Auto) 0 L (0.7-5.8) Baso % (Auto) 0.1 (0.1-1.2) % Neut # (Auto) 18.82 H (1.56-6.13) K/mm3 Lymph # (Auto) 0.33 L (1.18-3.74) K/mm3 [place] # (Auto) 0.74 H (0.24-0.36) K/mm3 Eos # (Auto) 0.01 L (0.04-0.36) K/mm3 Baso # (Auto) 0.02 (0.01-0.08) K/mm3 Manual Slide Review Abnormal smear Sodium (136-145) mEq/L Potassium (3.5-5.1) mEq/L Chloride (98-107) mEq/L Carbon Dioxide (21-32) mEq/L Anion Gap (5-15) BUN (7-18) mg/dL Creatinine (0.55-1.02) mg/dL Est Cr Clr Drug Dosing mL/min Estimated GFR (MDRD) (>60) mL/min BUN/Creatinine Ratio (14-18) Glucose (74-106) mg/dL POC Glucose (70-105) mg/dL Lactic Acid 3.2 H (0.4-2.0) mmol/L Calcium (8.5-10.1) mg/dL Magnesium (1.8-2.4) mg/dl C-Reactive Protein (<1.0) mg/dL Ethyl Alcohol 0.00 (0.00) gm% 04/12/17 04/12/17 Range/Units 05:54 16:47 WBC (3.98-10.04) K/mm3 RBC (3.98-5.22) M/mm3 Hgb (11.2-15.7) gm/L Hct (34.1-44.9) % MCV (79.4-94.8) fl MCH (25.6-32.2) pg MCHC (32.2-35.5) g/dl RDW Std Deviation (36.4-46.3) fL Plt Count (182-369) K/mm3 MPV (9.4-12.3) fl Neut % (Auto) (34.0-71.1) % Lymph % (Auto) (19.3-51.7) % [place] % (Auto) (4.7-12.5) % Eos % (Auto) (0.7-5.8) Baso % (Auto) (0.1-1.2) % Neut # (Auto) (1.56-6.13) K/mm3 Lymph # (Auto) (1.18-3.74) K/mm3 [place] # (Auto) (0.24-0.36) K/mm3 Eos # (Auto) (0.04-0.36) K/mm3 Baso # (Auto) (0.01-0.08) K/mm3 Manual Slide Review Sodium 142 (136-145) mEq/L Potassium 3.7 (3.5-5.1) mEq/L Chloride 109 H (98-107) mEq/L Carbon Dioxide 16 L (21-32) mEq/L Anion Gap 20.7 H (5-15) BUN 27 H (7-18) mg/dL Creatinine 1.3 H (0.55-1.02) mg/dL Est Cr Clr Drug Dosing 40.73 mL/min Estimated GFR (MDRD) 42 (>60) mL/min BUN/Creatinine Ratio 20.8 H (14-18) Glucose 138 H (74-106) mg/dL POC Glucose 144 H (70-105) mg/dL Lactic Acid (0.4-2.0) mmol/L Calcium 7.4 L (8.5-10.1) mg/dL Magnesium 1.2 L (1.8-2.4) mg/dl C-Reactive Protein 22.1 H* (<1.0) mg/dL Ethyl Alcohol (0.00) gm% Med Orders - Current: Current Medications Acetaminophen (Tylenol) 650 mg PO Q4H PRN PRN Reason: Pain (Mild 1-3)/fever Hydrocodone Bitart/Acetaminophen (Ivor 325-5 Mg) 1 tab PO Q4H PRN PRN Reason: Pain (moderate 4-6) Last Admin: 04/12/17 16:55 Dose: 1 tab Albuterol/Ipratropium (Duoneb 3.0-0.5 Mg/3 Ml) 3 ml NEB Q4H PRN PRN Reason: Shortness Of Breath/wheezing Albuterol/Ipratropium (Duoneb 3.0-0.5 Mg/3 Ml) 3 ml NEB Q6HRRT [facility] Last Admin: 04/12/17 14:08 Dose: 3 ml Bisacodyl (Dulcolax) 5 mg PO DAILY PRN PRN Reason: Constipation Docusate Sodium (Colace) 100 mg PO BID PRN PRN Reason: Constipation Ferrous Sulfate (Ferrous Sulfate) 325 mg PO BID [facility] Last Admin: 04/12/17 08:00 Dose: 325 mg Folic Acid (Folic Acid) 1 mg PO DAILY [facility] Last Admin: 04/12/17 08:00 Dose: 1 mg Hydromorphone HCl (Dilaudid) 0.25 mg IVPUSH Q2H PRN PRN Reason: Pain (severe 7-10) Levofloxacin/Dextrose 750 mg/ (Premix) 150 mls @ 100 mls/hr IV Q48H [facility] Sodium Chloride (Normal Saline) 1,000 mls @ 100 mls/hr IV ASDIRECTED [facility] Stop: 04/13/17 07:59 Last Admin: 04/12/17 07:35 Dose: 100 mls/hr Piperacillin Sod/Tazobactam (Sod 4.5 gm/ Dextrose/Water) 100 mls @ 25 mls/hr IV Q8H [facility] Last Admin: 04/12/17 10:05 Dose: 25 mls/hr Lorazepam (Ativan) 0 mg IVPUSH Q2H PRN; Protocol PRN Reason: withdrawl Lorazepam (Ativan) 2 mg IVPUSH Q4H PRN PRN Reason: Seizures Magnesium Oxide (Magnesium Oxide) 400 mg PO BID [facility] Last Admin: 04/12/17 07:59 Dose: 400 mg Methylprednisolone Sodium Succinate (Solu-Medrol) 85 mg IVPUSH DAILY [facility] Last Admin: 04/12/17 07:59 Dose: 85 mg Miscellaneous Information (Remove Patch) 0 ea TRDERM DAILY [facility] Last Admin: 04/12/17 07:59 Dose: Not Given Multivitamins (Thera) 1 each PO DAILY [facility] Last Admin: 04/12/17 08:00 Dose: 1 each Nicotine (Habitrol) 21 mg TRDERM DAILY [facility] Last Admin: 04/12/17 08:39 Dose: Not Given Ondansetron HCl (Zofran Odt) 4 mg PO Q6H PRN PRN Reason: nausea, able to take PO Ondansetron HCl (Zofran) 4 mg IV Q6H PRN PRN Reason: Nausea/Vomiting Oseltamivir Phosphate (Tamiflu) 30 mg PO BID [facility] Stop: 04/15/17 21:01 Last Admin: 04/12/17 08:00 Dose: 30 mg Pantoprazole Sodium (Protonix) 40 mg PO DAILY [facility] Last Admin: 04/12/17 08:00 Dose: 40 mg Polyethylene Glycol (Miralax) 17 gm PO DAILY PRN PRN Reason: Constipation Potassium Chloride (Klor-Con M20) 20 meq PO BID [facility] Last Admin: 04/12/17 08:00 Dose: 20 meq Senna/Docusate Sodium (Senna Plus) 1 tab PO BID PRN PRN Reason: Constipation Sodium Chloride (Saline Flush) 10 ml FLUSH ONETIME PRN PRN Reason: IV FLUSH Last Admin: 04/11/17 14:56 Dose: 10 ml Temazepam (Restoril) 7.5 mg PO BEDTIME PRN PRN Reason: Sleep Last Admin: 04/11/17 21:22 Dose: 7.5 mg Thiamine HCl (Vitamin B-1) 100 mg PO DAILY [facility] Last Admin: 04/12/17 08:00 Dose: 100 mg Discontinued Medications Albuterol/Ipratropium (Duoneb 3.0-0.5 Mg/3 Ml) 3 ml NEB ONETIME ONE Stop: 04/11/17 12:00 Last Admin: 04/11/17 12:35 Dose: 3 ml Hydromorphone HCl (Dilaudid) 0.5 mg IVPUSH ONETIME ONE Stop: 04/11/17 14:45 Last Admin: 04/11/17 15:00 Dose: 0.5 mg Levofloxacin/Dextrose 750 mg/ (Premix) 150 mls @ 100 mls/hr IV ONETIME ONE Stop: 04/11/17 15:08 Last Admin: 04/11/17 14:40 Dose: 100 mls/hr Sodium Chloride (Normal Saline) 500 mls @ 1,000 mls/hr IV .BOLUS ONE Stop: 04/11/17 14:09 Last Admin: 04/11/17 15:45 Dose: 1,000 mls/hr Sodium Chloride (Normal Saline) 1,500 mls @ 1,000 mls/hr IV ONETIME ONE Stop: 04/11/17 15:16 Last Admin: 04/11/17 14:00 Dose: 1,000 mls/hr Sodium Chloride (Normal Saline) Confirm Administered Dose 1,000 mls @ as directed .ROUTE [facility] Stop: 04/11/17 14:56 Last Admin: 04/11/17 14:56 Dose: Not Given Sodium Chloride (Normal Saline) 100 mls @ 80 mls/hr IV ASDIRECTED [facility] Last Admin: 04/11/17 14:56 Dose: 80 mls/hr Piperacillin Sod/Tazobactam (Sod 4.5 gm/ Sodium Chloride) 100 mls @ 200 mls/hr IV ONETIME ONE Stop: 04/11/17 19:29 Last Admin: 04/11/17 21:21 Dose: 200 mls/hr Piperacillin Sod/Tazobactam (Sod 4.5 gm/ Sodium Chloride) 100 mls @ 25 mls/hr IV Q8H [facility] Last Admin: 04/12/17 03:59 Dose: 25 mls/hr Sodium Chloride (Normal Saline) 1,000 mls @ 80 mls/hr IV ASDIRECTED [facility] Last Admin: 04/11/17 21:34 Dose: 80 mls/hr Piperacillin Sod/Tazobactam (Sod 4.5 gm/ Dextrose/Water) 100 mls @ 25 mls/hr IV Q8H [facility] Sodium Chloride (Normal Saline) 1,000 mls @ 999 mls/hr IV ASDIRECTED [facility] Stop: 04/12/17 13:00 Last Admin: 04/12/17 13:01 Dose: 999 mls/hr Sodium Chloride (Normal Saline) 1,000 mls @ 999 mls/hr IV ASDIRECTED [facility] Stop: 04/12/17 16:46 Last Admin: 04/12/17 16:10 Dose: 999 mls/hr Iopamidol (Isovue-370 (76%)) 100 ml IVPUSH ONETIME ONE Stop: 04/11/17 14:55 Last Admin: 04/11/17 14:55 Dose: 100 ml Methylprednisolone Sodium Succinate (Solu-Medrol) 125 mg IVPUSH ONETIME ONE Stop: 04/11/17 12:01 Last Admin: 04/11/17 12:40 Dose: 125 mg Oseltamivir Phosphate (Tamiflu) 75 mg PO ONETIME ONE Stop: 04/11/17 15:01 Last Admin: 04/11/17 15:11 Dose: 75 mg Sodium Chloride (Saline Flush) 10 ml FLUSH ASDIRECTED PRN PRN Reason: Keep Vein Open Last Admin: 04/11/17 12:42 Dose: 10 ml - Exam Quality Assessment: Supplemental Oxygen, Urine Catheter, DVT Prophylaxis General: Alert, Oriented, Cooperative, No Acute Distress HEENT: Pupils Equal, Pupils Reactive, EOMI, Mucous Membr. Moist/[place] Neck: Supple, Trachea Midline, No JVD, No Thyromegaly Lungs: Normal Respiratory Effort, Decreased Breath Sounds, Rhonchi, Wheezing Cardiovascular: Regular Rate, Regular Rhythm, No Murmurs GI/Abdominal Exam: Normal Bowel Sounds, Soft, Non-Tender, No Organomegaly, No Distention, No Abnormal Bruit, No Mass, Pelvis Stable (Female) Exam: Deferred Back Exam: Normal Inspection, Full Range of Motion Extremities: Normal Inspection, Normal Range of Motion, Non-Tender, No Pedal Edema, Normal Capillary Refill Peripheral Pulses: 2+: Radial (L), Radial (R), Posterior Tibial (L), Posterior Tibial (R), Dorsalis Pedis (L), Dorsalis Pedis (R) Skin: Warm, Dry, Intact Neurological: No New Focal Deficit Psy/Mental Status: Alert, Normal Affect, Normal Mood - Problem List & Annotations (1) Pneumonia SNOMED Code(s): 487324155 Code(s): J18.9 - PNEUMONIA, UNSPECIFIED ORGANISM Status: Acute Priority: High Current Visit: Yes Qualifiers: Pneumonia type: due to unspecified organism Laterality: right Lung location: middle lobe of lung Qualified Code(s): J18.1 - Lobar pneumonia, unspecified organism (2) UTI (urinary tract infection) SNOMED Code(s): 11882072 Code(s): N39.0 - URINARY TRACT INFECTION, SITE NOT SPECIFIED Status: Acute Priority: High Current Visit: Yes Qualifiers: Urinary tract infection type: site unspecified Hematuria presence: without hematuria Qualified Code(s): N39.0 - Urinary tract infection, site not specified (3) Sepsis SNOMED Code(s): 75796012 Code(s): A41.9 - SEPSIS, UNSPECIFIED ORGANISM Status: Acute Priority: High Current Visit: Yes Qualifiers: Sepsis type: sepsis due to unspecified organism Qualified Code(s): A41.9 - Sepsis, unspecified organism (4) Influenza B SNOMED Code(s): 40255235 Code(s): J10.1 - FLU DUE TO OTH IDENT INFLUENZA VIRUS W OTH RESP MANIFEST Status: Acute Priority: High Current Visit: Yes (5) Influenza A SNOMED Code(s): 631224007 Code(s): J10.1 - FLU DUE TO OTH IDENT INFLUENZA VIRUS W OTH RESP MANIFEST Status: Acute Priority: High Current Visit: Yes (6) Hypoxia SNOMED Code(s): 554763356 Code(s): R09.02 - HYPOXEMIA Status: Acute Priority: High Current Visit : Yes (7) Tobacco use disorder SNOMED Code(s): 267576590 Code(s): F17.200 - NICOTINE DEPENDENCE, UNSPECIFIED, UNCOMPLICATED Status: Chronic Priority: Low Current Visit: Yes (8) Personal history of alcoholism SNOMED Code(s): 846439558 Code(s): F10.21 - ALCOHOL DEPENDENCE, IN REMISSION Status: Chronic Priority: Low Current Visit: Yes (9) Thrombocytopenia SNOMED Code(s): 812819677 Code(s): D69.6 - THROMBOCYTOPENIA, UNSPECIFIED Status: Acute Priority: Medium Current Visit: Yes (10) Acute renal failure SNOMED Code(s): 98644115 Code(s): N17.9 - ACUTE KIDNEY FAILURE, UNSPECIFIED Status: Acute Priority : High Current Visit: Yes Qualifiers: Acute renal failure type: unspecified Qualified Code(s): N17.9 - Acute kidney failure, unspecified (11) Hypomagnesemia SNOMED Code(s): 442015466 Code(s): E83.42 - HYPOMAGNESEMIA Status: Acute Priority: Medium Current Visit: Yes - Problem List Review Problem List Initiated/Reviewed/Updated: Yes - My Orders Last 24 Hours: My Active Orders 04/11/17 18:31 Height and Weight [RC] 04 Up With Assistance [RC] ASDIRECTED VTE/DVT Education [RC] DAILY Vital Signs [RC] Q4HR Consult to Case Management [CONS] Routine OT Evaluation and Treatment [CONS] Routine PT Evaluation and Treatment [CONS] Routine Respiratory Care Assess and Treatment [CONS] Routine Acetaminophen [Tylenol] 650 mg PO Q4H PRN Acetaminophen/HYDROcodone [Ivor 325-5 MG] 1 tab PO Q4H PRN Albuterol/Ipratropium [DuoNeb 3.0-0.5 MG/3 ML] 3 ml NEB Q4H PRN Bisacodyl [Dulcolax] 5 mg PO DAILY PRN Docusate Sodium [Colace] 100 mg PO BID PRN Docusate Sodium/Sennosides [Senna Plus] 1 tab PO BID PRN HYDROmorphone [Dilaudid] 0.25 mg IVPUSH Q2H PRN Ondansetron [Zofran ODT] 4 mg PO Q6H PRN Ondansetron [Zofran] 4 mg IV Q6H PRN Polyethylene Glycol 3350 [MiraLAX] 17 gm PO DAILY PRN Temazepam [Restoril] 7.5 mg PO BEDTIME PRN Resuscitation Status Routine 04/11/17 18:32 Ambulate [RC] PER UNIT ROUTINE Antiembolic Devices [RC] PER UNIT ROUTINE Intake and Output [RC] 04,16 Antiembolic Hose [OM.PC] Per Unit Routine 04/11/17 18:38 Acapella [RT Chest Physiotherapy] [RC] ASDIRECTED 04/11/17 18:39 Incentive Spirometry [RT Incentive Spirometry] [RC] ASDIRECTED CULTURE SPUTUM + SMEAR [RM] Routine 04/11/17 18:45 Nicotine [Habitrol] 21 mg TRDERM DAILY 04/11/17 19:18 LORazepam [Ativan] See Protocol IVPUSH Q2H PRN 04/11/17 19:19 LORazepam [Ativan] 2 mg IVPUSH Q4H PRN 04/11/17 19:30 Multivitamins,Therapeutic [Thera] 1 each PO DAILY Thiamine [Vitamin B-1] 100 mg PO DAILY 04/11/17 20:37 RT Aerosol Therapy [RC] ASDIRECTED 04/11/17 21:00 Albuterol/Ipratropium [DuoNeb 3.0-0.5 MG/3 ML] 3 ml NEB Q6HRRT 04/11/17 22:00 Oseltamivir [Tamiflu] 30 mg PO BID Sodium Chloride 0.9% [Normal Saline] 1,000 ml IV ASDIRECTED 04/11/17 Dinner Heart Healthy Diet [DIET] 04/12/17 05:43 CIWAA Assessment [RC] Q4HR 04/12/17 09:00 Ferrous Sulfate 325 mg PO BID Folic Acid 1 mg PO DAILY Magnesium Oxide 400 mg PO BID Pantoprazole [ProTONIX] 40 mg PO DAILY Potassium Chloride [Klor-Con M20] 20 meq PO BID methylPREDNISolone Sod Succ [Solu-MEDROL] 85 mg IVPUSH DAILY 04/12/17 17:14 Magnesium Oxide 400 mg PO ONETIME ONE 04/13/17 05:11 Chest 2V [CR] AM BASIC METABOLIC PANEL,BMP [CHEM] AM CBC WITH AUTO DIFF [HEME] AM CRP [C-REACTIVE PROTEIN] [CHEM] AM MAGNESIUM [CHEM] AM 04/13/17 12:00 Levofloxacin/Dextrose 5%-Water [Levaquin in D5W 750 MG/150 ML] 750 mg Premix Bag 1 bag IV Q48H 04/14/17 05:11 BASIC METABOLIC PANEL,BMP [CHEM] AM CBC WITH AUTO DIFF [HEME] AM CRP [C-REACTIVE PROTEIN] [CHEM] AM MAGNESIUM [CHEM] AM 04/15/17 05:11 BASIC METABOLIC PANEL,BMP [CHEM] AM CBC WITH AUTO DIFF [HEME] AM CRP [C-REACTIVE PROTEIN] [CHEM] AM MAGNESIUM [CHEM] AM - Plan Plan:: I/P: Acute: Community-acquired pneumonia: -Productive cough, chills, SOB, chest pain with cough -Denies fever -WBC 25.62-->20.17 -D-dimer 2.35 - CTA negative for PE -CRP- 22.1 -CXR on 04/11/17 shows RML infiltrate -Chest CTA on 04/11/17 -Right pleural effusion which may have loculations -Consolidation Rlower lung, difficult to exclude PNA as etiology -Slight parenchymal denisty within the lingula either due to atelectasis or scarring -Sputum culture - ordered -Levaquin/zosyn -RT/IS/Acapella -Duo-nebs QID -Solu-medrol -Repeat CXR in 48 hrs Sepsis, improved -likely 2/2 pneumonia -Tachypneic, HR>90, UTI, Pneumonia -eGFR 33, Creatinine 1.6 (Baseline WNL) -Anion gap 26.9-->20.7 -2L fluid bolus given in ED (30mL/kg) -Lactic acid 6.8 --> Repeat 3.2 -Fluids as ordered -Blood cultures - no growth after one day -IV antibiotics and other treatment as above Influenza A and B -Cough, chills, malaise, generalzed weakness, loss of appetite, chest pain with cough -Onset within last 48 hours -Tamiflu 75mg BID for 5 days -Encourage oral hydration -Supportive care UTI -Reports foul smelling urine -Denies increased frequency, dysuria, nocturia, prior UTIs. -UA in ED (04/11/17) suggests UTI, although also suggests some contamination -Urine culture ordered - Gram negative rods -Levaquin/zosyn as above will likely cover for this Acute Renal Failure -Creatinine 1.6-->1.3, BUN 21-->27, eGFR 33-->42 -Baseline from prior visits shows creatinine 0.7, eGFR >60 -2L fluid bolus given in ED -IV fluids as ordered -Encourage oral hydration -Pharmacy to renally dose medications -Avoid nephrotoxic medications Hx/o alcohol abuse -Reportedly drank 4 drinks daily -Per patient report underwent inpatient treatment in [place] 3 years ago -She reports she "only drinks socially now" - Last ETOH use over New Years -[facility] protocol - precautionary -Multivitamin, thiamine, folic acid -Ativan as needed for seizure and withdrawl symptoms -UDS negative -Serum ethyl alcohol 0.00 -Continue to monitor -Psychiatric and SA consult if patient displays withdrawl symptoms -Continue to monitor Thrombocytopenia -Acute on chronic -Baseline platelets appear to be around 75-80,000 -Platelets 52,000 in ED-->56 -No melena, hematochezia, hematemesis, or obvious bleeding -Continue to monitor -Consider hematology consult after discharge Hypomagnesemia -Acute on chronic -Already on 400mg BID PO supplementation -Will give one additional 400mg dose -Continue to monitor Chronic: Tobacco use disorder - Nicotine patch, smoking cessation counseling Impaired vision Hx/o ETOH addiction - as above Plan: Admit to medical floor with telemetry CM for discharge planning PT/OT Other orders as indicated above Routine AM labs DVT/PE prophylaxis - RUTH hose and Ambulate (Lovenox contraindicated due to thrombocytopenia) Home medications as indicated Code status: Full code, Her PCP is AYAH Leon, here at the [facility]
[2017-04-12] MEDS: Temazepam 7.5 MG Cap PO PRN (20:54)
[2017-04-13] MEDS: Albuterol/Ipratropium 3.0-0.5 MG/3 ML Neb Soln NEB SCH ×4 (02:55→21:13)
[2017-04-13] MEDS: Piperacillin/Tazobactam 4.5 GM in Dextrose 5% in Water 100 ML IV SCH ×6 (04:02→18:08)
[2017-04-13] MEDS: Sodium Chloride 0.9% 1,000 ML IV SCH ×3 (04:06→17:55)
--- NOTE | 2017-04-13 08:47 | CR ---
Chest: Two views of the chest were obtained. Comparison: Prior chest x-ray of 04/11/17. Increased density within the right lung base is seen. This is more prominent than on prior exam. Perihilar markings are also worsening on both sides of the chest. Findings presumably represent worsening areas of pneumonia. Heart size at the upper limits of normal. Bony structures are unremarkable. Small pleural effusion is likely present. Impression: 1. Increasing density within the right lung base as well as increasing perihilar densities on both sides of the chest. Findings presumably represent worsening pneumonia. Please exclude any symptoms of pulmonary vascular congestion. 2. Heart at the upper limits of normal in size. Diagnostic code #3
[2017-04-13] MEDS: Thiamine 100 MG Tab PO SCH (09:20)
[2017-04-13] MEDS: Pantoprazole 40 MG Tab.CR PO SCH (09:21)
[2017-04-13] MEDS: Multivitamins,Therapeutic Tab PO SCH (09:21)
[2017-04-13] MEDS: Magnesium Oxide 400 MG Tab PO SCH ×2 (09:21→20:22)
[2017-04-13] MEDS: Oseltamivir 30 MG Cap PO SCH ×2 (09:22→20:22)
[2017-04-13] MEDS: Potassium Chloride 20 MEQ Tab.ER PO SCH ×2 (09:23→20:22)
[2017-04-13] MEDS: Acetaminophen/HYDROcodone 325-5 MG Tab PO PRN ×2 (09:23→17:55)
[2017-04-13] MEDS: Folic Acid 1 MG Tab PO SCH (09:24)
[2017-04-13] MEDS: Ferrous Sulfate 325 MG Tab PO SCH ×2 (09:24→20:22)
[2017-04-13] MEDS: Nicotine 21 MG/24 Hr Patch TRDERM SCH (09:25)
[2017-04-13] MEDS: methylPREDNISolone Sodium Succinate 125 MG/2 ML SDV IVPUSH SCH (09:25)
[2017-04-13] MEDS: Enoxaparin 40 MG/0.4 ML Syringe SUBCUT SCH (11:13)
[2017-04-13] MEDS ORDERED: Levofloxacin/Dextrose 5%-Water 750 MG in Premix Bag 1 BAG IV SCH (12:00)
[2017-04-13] MEDS ORDERED: Temazepam 15 MG Cap PO PRN (18:15)
--- NOTE | 2017-04-13 19:16 | PCM.PN ---
- General Info Date of Service: 04/13/17 Subjective Update: Patient and daughter are requesting transfer to [facility], spoke to Dr Stephens who has accepted the patient. The patient will be picked up at 0930 on 04/14. Functional Status: Reports: Tolerating Diet, Ambulating - Review of Systems General: Reports: Weakness, Malaise HEENT: Reports: No Symptoms Pulmonary: Reports: Shortness of Breath, Pleuritic Chest Pain Cardiovascular: Reports: No Symptoms Gastrointestinal: Reports: No Symptoms Genitourinary: Reports: No Symptoms Musculoskeletal: Reports: No Symptoms Skin: Reports: No Symptoms Neurological: Reports: No Symptoms Psychiatric: Reports: No Symptoms - Patient Data Vitals - Most Recent: Last Vital Signs Temp 36.5 C 04/13/17 16:00 Pulse 91 04/13/17 16:00 Resp 20 04/13/17 16:00 BP 134/77 04/13/17 16:00 Pulse Ox 91 L 04/13/17 16:00 Weight - Most Recent: 76.748 kg I&O - Last 24 Hours: Intake & Output 04/13/17 04/13/17 04/13/17 06:59 14:59 22:59 Intake Total 4453 018 9780 Output Total 200 Balance 6562 131 1219 Lab Results Last 24 Hours: Laboratory Results - last 24 hr 04/13/17 04/13/17 Range/Units 05:06 05:06 WBC 18.85 H (3.98-10.04) K/mm3 RBC 3.73 L (3.98-5.22) M/mm3 Hgb 12.5 (11.2-15.7) gm/L Hct 37.2 (34.1-44.9) % MCV 99.7 H (79.4-94.8) fl MCH 33.5 H (25.6-32.2) pg MCHC 33.6 (32.2-35.5) g/dl RDW Std Deviation 67.3 H (36.4-46.3) fL Plt Count 63 L (182-369) K/mm3 MPV 12.1 (9.4-12.3) fl Neut % (Auto) 91.4 H (34.0-71.1) % Lymph % (Auto) 2.5 L (19.3-51.7) % Sutton % (Auto) 5.5 (4.7-12.5) % Eos % (Auto) 0 L (0.7-5.8) Baso % (Auto) 0.1 (0.1-1.2) % Neut # (Auto) 17.22 H (1.56-6.13) K/mm3 Lymph # (Auto) 0.48 L (1.18-3.74) K/mm3 Sutton # (Auto) 1.04 H (0.24-0.36) K/mm3 Eos # (Auto) 0.00 L (0.04-0.36) K/mm3 Baso # (Auto) 0.02 (0.01-0.08) K/mm3 Manual Slide Review Abnormal smear Sodium 141 (136-145) mEq/L Potassium 3.9 (3.5-5.1) mEq/L Chloride 113 H (98-107) mEq/L Carbon Dioxide 16 L (21-32) mEq/L Anion Gap 15.9 H (5-15) BUN 26 H (7-18) mg/dL Creatinine 1.0 (0.55-1.02) mg/dL Est Cr Clr Drug Dosing 52.95 mL/min Estimated GFR (MDRD) 57 (>60) mL/min BUN/Creatinine Ratio 26.0 H (14-18) Glucose 128 H (74-106) mg/dL Calcium 7.0 L (8.5-10.1) mg/dL Magnesium 1.5 L (1.8-2.4) mg/dl C-Reactive Protein 20.3 H* (<1.0) mg/dL David Results Last 24 Hours: Microbiology 04/13/17 16:26 Gram Stain - Final Sputum - Expectorated Sputum Culture - Final Med Orders - Current: Current Medications Acetaminophen (Tylenol) 650 mg PO Q4H PRN PRN Reason: Pain (Mild 1-3)/fever Hydrocodone Bitart/Acetaminophen (Lindstrom 325-5 Mg) 1 tab PO Q4H PRN PRN Reason: Pain (moderate 4-6) Last Admin: 04/13/17 17:55 Dose: 1 tab Albuterol/Ipratropium (Duoneb 3.0-0.5 Mg/3 Ml) 3 ml NEB Q4H PRN PRN Reason: Shortness Of Breath/wheezing Albuterol/Ipratropium (Duoneb 3.0-0.5 Mg/3 Ml) 3 ml NEB Q6HRRT [facility] Last Admin: 04/13/17 14:47 Dose: 3 ml Bisacodyl (Dulcolax) 5 mg PO DAILY PRN PRN Reason: Constipation Docusate Sodium (Colace) 100 mg PO BID PRN PRN Reason: Constipation Enoxaparin Sodium (Lovenox) 40 mg SUBCUT DAILY [facility] Last Admin: 04/13/17 11:13 Dose: 40 mg Ferrous Sulfate (Ferrous Sulfate) 325 mg PO BID [facility] Last Admin: 04/13/17 09:24 Dose: 325 mg Folic Acid (Folic Acid) 1 mg PO DAILY [facility] Last Admin: 04/13/17 09:24 Dose: 1 mg Hydromorphone HCl (Dilaudid) 0.25 mg IVPUSH Q2H PRN PRN Reason: Pain (severe 7-10) Levofloxacin/Dextrose 750 mg/ (Premix) 150 mls @ 100 mls/hr IV Q24H [facility] Last Admin: 04/13/17 12:33 Dose: 100 mls/hr Piperacillin Sod/Tazobactam (Sod 4.5 gm/ Dextrose/Water) 100 mls @ 25 mls/hr IV Q8H [facility] Last Admin: 04/13/17 18:08 Dose: 25 mls/hr Sodium Chloride (Normal Saline) 1,000 mls @ 75 mls/hr IV ASDIRECTED [facility] Last Infusion: 04/13/17 18:17 Dose: 75 mls/hr Vancomycin HCl 1 gm/ Sodium (Chloride) 250 mls @ 250 mls/hr IV Q12H [facility] Last Admin: 04/13/17 16:03 Dose: 250 mls/hr Lorazepam (Ativan) 0 mg IVPUSH Q2H PRN; Protocol PRN Reason: withdrawl Lorazepam (Ativan) 2 mg IVPUSH Q4H PRN PRN Reason: Seizures Magnesium Oxide (Magnesium Oxide) 400 mg PO BID [facility] Last Admin: 04/13/17 09:21 Dose: 400 mg Methylprednisolone Sodium Succinate (Solu-Medrol) 80 mg IVPUSH Q12H [facility] Miscellaneous Information (Remove Patch) 0 ea TRDERM DAILY [facility] Last Admin: 04/13/17 11:04 Dose: Not Given Multivitamins (Thera) 1 each PO DAILY [facility] Last Admin: 04/13/17 09:21 Dose: 1 each Nicotine (Habitrol) 21 mg TRDERM DAILY [facility] Last Admin: 04/13/17 09:25 Dose: Not Given Ondansetron HCl (Zofran Odt) 4 mg PO Q6H PRN PRN Reason: nausea, able to take PO Ondansetron HCl (Zofran) 4 mg IV Q6H PRN PRN Reason: Nausea/Vomiting Oseltamivir Phosphate (Tamiflu) 30 mg PO BID [facility] Stop: 04/15/17 21:01 Last Admin: 04/13/17 09:22 Dose: 30 mg Pantoprazole Sodium (Protonix) 40 mg PO DAILY [facility] Last Admin: 04/13/17 09:21 Dose: 40 mg Polyethylene Glycol (Miralax) 17 gm PO DAILY PRN PRN Reason: Constipation Potassium Chloride (Klor-Con M20) 20 meq PO BID [facility] Last Admin: 04/13/17 09:23 Dose: 20 meq Senna/Docusate Sodium (Senna Plus) 1 tab PO BID PRN PRN Reason: Constipation Sodium Chloride (Saline Flush) 10 ml FLUSH ONETIME PRN PRN Reason: IV FLUSH Last Admin: 04/11/17 14:56 Dose: 10 ml Temazepam (Restoril) 15 mg PO BEDTIME PRN PRN Reason: SLEEP Thiamine HCl (Vitamin B-1) 100 mg PO DAILY [facility] Last Admin: 04/13/17 09:20 Dose: 100 mg Vancomycin HCl (Pharmacy To Dose - Vancomycin) 1 dose .XX ASDIRECTED [facility] Discontinued Medications Albuterol/Ipratropium (Duoneb 3.0-0.5 Mg/3 Ml) 3 ml NEB ONETIME ONE Stop: 04/11/17 12:00 Last Admin: 04/11/17 12:35 Dose: 3 ml Hydromorphone HCl (Dilaudid) 0.5 mg IVPUSH ONETIME ONE Stop: 04/11/17 14:45 Last Admin: 04/11/17 15:00 Dose: 0.5 mg Levofloxacin/Dextrose 750 mg/ (Premix) 150 mls @ 100 mls/hr IV ONETIME ONE Stop: 04/11/17 15:08 Last Admin: 04/11/17 14:40 Dose: 100 mls/hr Sodium Chloride (Normal Saline) 500 mls @ 1,000 mls/hr IV .BOLUS ONE Stop: 04/11/17 14:09 Last Admin: 04/11/17 15:45 Dose: 1,000 mls/hr Sodium Chloride (Normal Saline) 1,500 mls @ 1,000 mls/hr IV ONETIME ONE Stop: 04/11/17 15:16 Last Admin: 04/11/17 14:00 Dose: 1,000 mls/hr Sodium Chloride (Normal Saline) Confirm Administered Dose 1,000 mls @ as directed .ROUTE .K-MED ONE Stop: 04/11/17 14:56 Last Admin: 04/11/17 14:56 Dose: Not Given Sodium Chloride (Normal Saline) 100 mls @ 80 mls/hr IV ASDIRECTED [facility] Last Admin: 04/11/17 14:56 Dose: 80 mls/hr Piperacillin Sod/Tazobactam (Sod 4.5 gm/ Sodium Chloride) 100 mls @ 200 mls/hr IV ONETIME ONE Stop: 04/11/17 19:29 Last Admin: 04/11/17 21:21 Dose: 200 mls/hr Piperacillin Sod/Tazobactam (Sod 4.5 gm/ Sodium Chloride) 100 mls @ 25 mls/hr IV Q8H [facility] Last Admin: 04/12/17 03:59 Dose: 25 mls/hr Sodium Chloride (Normal Saline) 1,000 mls @ 80 mls/hr IV ASDIRECTED [facility] Last Admin: 04/11/17 21:34 Dose: 80 mls/hr Sodium Chloride (Normal Saline) 1,000 mls @ 100 mls/hr IV ASDIRECTED [facility] Stop: 04/13/17 07:59 Last Admin: 04/12/17 07:35 Dose: 100 mls/hr Piperacillin Sod/Tazobactam (Sod 4.5 gm/ Dextrose/Water) 100 mls @ 25 mls/hr IV Q8H [facility] Sodium Chloride (Normal Saline) 1,000 mls @ 999 mls/hr IV ASDIRECTED [facility] Stop: 04/12/17 13:00 Last Admin: 04/12/17 13:01 Dose: 999 mls/hr Sodium Chloride (Normal Saline) 1,000 mls @ 999 mls/hr IV ASDIRECTED [facility] Stop: 04/12/17 16:46 Last Admin: 04/12/17 16:10 Dose: 999 mls/hr Iopamidol (Isovue-370 (76%)) 100 ml IVPUSH ONETIME ONE Stop: 04/11/17 14:55 Last Admin: 04/11/17 14:55 Dose: 100 ml Magnesium Oxide (Magnesium Oxide) 400 mg PO ONETIME ONE Stop: 04/12/17 17:15 Last Admin: 04/12/17 18:07 Dose: 400 mg Methylprednisolone Sodium Succinate (Solu-Medrol) 125 mg IVPUSH ONETIME ONE Stop: 04/11/17 12:01 Last Admin: 04/11/17 12:40 Dose: 125 mg Methylprednisolone Sodium Succinate (Solu-Medrol) 85 mg IVPUSH DAILY [facility] Last Admin: 04/13/17 09:25 Dose: 85 mg Oseltamivir Phosphate (Tamiflu) 75 mg PO ONETIME ONE Stop: 04/11/17 15:01 Last Admin: 04/11/17 15:11 Dose: 75 mg Sodium Chloride (Saline Flush) 10 ml FLUSH ASDIRECTED PRN PRN Reason: Keep Vein Open Last Admin: 04/11/17 12:42 Dose: 10 ml Temazepam (Restoril) 7.5 mg PO BEDTIME PRN PRN Reason: Sleep Last Admin: 04/12/17 20:54 Dose: 7.5 mg - Exam Quality Assessment: Supplemental Oxygen, DVT Prophylaxis General: Alert, Oriented, Cooperative, No Acute Distress HEENT: Pupils Equal, Pupils Reactive, EOMI Neck: Trachea Midline Lungs: Decreased Breath Sounds, Wheezing, Other (tachypnea) Cardiovascular: Regular Rate, Regular Rhythm GI/Abdominal Exam: Normal Bowel Sounds, Soft, Non-Tender, No Organomegaly, No Distention (Female) Exam: Deferred Back Exam: Normal Inspection Extremities: Normal Inspection, Normal Capillary Refill Skin: Warm Neurological: No New Focal Deficit, Normal Gait, Normal Speech Psy/Mental Status: Alert, Anxious - Problem List Review Problem List Initiated/Reviewed/Updated: Yes - My Orders Last 24 Hours: My Active Orders 04/13/17 06:30 EKG 12 Lead [EK] Routine 04/13/17 10:00 Enoxaparin [Lovenox] 40 mg SUBCUT DAILY 04/13/17 15:45 Vancomycin Pharmacy to Dose [Pharmacy to Dose - Vancomycin] 1 dose .XX ASDIRECTED 04/13/17 16:00 Vancomycin [Vancocin] 1 gm Sodium Chloride 0.9% [Normal Saline] 250 ml IV Q12H 04/13/17 18:15 Temazepam [Restoril] 15 mg PO BEDTIME PRN 04/13/17 21:00 methylPREDNISolone Sod Succ [Solu-MEDROL] 80 mg IVPUSH Q12H 04/14/17 05:00 LACTIC ACID [CHEM] Routine - Plan Plan:: I/P: Acute: Community-acquired pneumonia: -Productive cough, chills, SOB, chest pain with cough -Denies fever -WBC 25.62-->20.17 -D-dimer 2.35 - CTA negative for PE -CRP- 22.1 -CXR on 04/11/17 shows RML infiltrate -Chest CTA on 04/11/17 -Right pleural effusion which may have loculations -Consolidation Rlower lung, difficult to exclude PNA as etiology -Slight parenchymal denisty within the lingula either due to atelectasis or scarring -Sputum culture - ordered -Levaquin/zosyn/vancomycin -RT/IS/Acapella -Duo-nebs QID -Solu-medrol -Repeat CXR in 48 hrs Sepsis, improved -likely 2/2 pneumonia -Tachypneic, HR>90, UTI, Pneumonia -eGFR 33, Creatinine 1.6 (Baseline WNL) -Anion gap 26.9-->20.7 -2L fluid bolus given in ED (30mL/kg) -Lactic acid 6.8 --> Repeat 3.2 -Fluids as ordered -Blood cultures - no growth after one day -IV antibiotics and other treatment as above Influenza A and B -Cough, chills, malaise, generalzed weakness, loss of appetite, chest pain with cough -Onset within last 48 hours -Tamiflu 75mg BID for 5 days -Encourage oral hydration -Supportive care UTI -Reports foul smelling urine -Denies increased frequency, dysuria, nocturia, prior UTIs. -UA in ED (04/11/17) suggests UTI, although also suggests some contamination -Urine culture ordered - Gram negative rods -Levaquin/zosyn as above will likely cover for this Acute Renal Failure -Creatinine 1.6-->1.3, BUN 21-->27, eGFR 33-->42 -Baseline from prior visits shows creatinine 0.7, eGFR >60 -2L fluid bolus given in ED -IV fluids as ordered -Encourage oral hydration -Pharmacy to renally dose medications -Avoid nephrotoxic medications Hx/o alcohol abuse -Reportedly drank 4 drinks daily -Per patient report underwent inpatient treatment in [place] 3 years ago -She reports she "only drinks socially now" - Last ETOH use over New Years -[facility] protocol - precautionary -Multivitamin, thiamine, folic acid -Ativan as needed for seizure and withdrawl symptoms -UDS negative -Serum ethyl alcohol 0.00 -Continue to monitor -Psychiatric and SA consult if patient displays withdrawl symptoms -Continue to monitor Thrombocytopenia -Acute on chronic -Baseline platelets appear to be around 75-80,000 -Platelets 52,000 in ED-->56 -No melena, hematochezia, hematemesis, or obvious bleeding -Continue to monitor -Consider hematology consult after discharge Hypomagnesemia -Acute on chronic -Already on 400mg BID PO supplementation -Will give one additional 400mg dose -Continue to monitor Chronic: Tobacco use disorder - Nicotine patch, smoking cessation counseling Impaired vision Hx/o ETOH addiction - as above Plan: Admit to medical floor with telemetry CM for discharge planning PT/OT Other orders as indicated above Routine AM labs DVT/PE prophylaxis - RUTH hose and Ambulate (Lovenox contraindicated due to thrombocytopenia) Home medications as indicated Code status: Full code, Her PCP is AYAH Leon, here at the [facility] Transfer to [facility] per patient request; accepting hospitalist, Dr Stephens; notify one call tomorrow of time of departure so her bed will be arranged and Dr Stephens can be notified; ONE CALL: [phone]
[2017-04-13] MEDS: methylPREDNISolone Sodium Succinate 40 MG/1 ML SDV IVPUSH SCH (20:22)
[2017-04-14] MEDS ORDERED: guaiFENesin/Dextromethorphan 100-10 MG/5 ML Soln 5 ML Cup PO PRN (00:52)
[2017-04-14] MEDS: Albuterol/Ipratropium 3.0-0.5 MG/3 ML Neb Soln NEB SCH ×2 (02:39→08:42)
[2017-04-14] MEDS: Piperacillin/Tazobactam 4.5 GM in Dextrose 5% in Water 100 ML IV SCH ×2 (02:51)
[2017-04-14] MEDS: Acetaminophen/HYDROcodone 325-5 MG Tab PO PRN (07:27)
[2017-04-14] MEDS: Sodium Chloride 0.9% 1,000 ML IV SCH (07:30)
[2017-04-14] MEDS: Enoxaparin 40 MG/0.4 ML Syringe SUBCUT SCH (08:23)
[2017-04-14] MEDS: Multivitamins,Therapeutic Tab PO SCH (08:25)
[2017-04-14] MEDS: Thiamine 100 MG Tab PO SCH (08:25)
[2017-04-14] MEDS: Ferrous Sulfate 325 MG Tab PO SCH (08:26)
[2017-04-14] MEDS: Potassium Chloride 20 MEQ Tab.ER PO SCH (08:26)
[2017-04-14] MEDS: Magnesium Oxide 400 MG Tab PO SCH (08:26)
[2017-04-14] MEDS: Folic Acid 1 MG Tab PO SCH (08:27)
[2017-04-14] MEDS: Pantoprazole 40 MG Tab.CR PO SCH (08:27)
[2017-04-14] MEDS: Oseltamivir 30 MG Cap PO SCH (08:27)
[2017-04-14] MEDS: Nicotine 21 MG/24 Hr Patch TRDERM SCH (08:28)
[2017-04-14] MEDS: methylPREDNISolone Sodium Succinate 40 MG/1 ML SDV IVPUSH SCH (08:30)
[2017-04-14] MEDS ORDERED: LORazepam 2 MG/ML SDV IVPUSH PRN (09:36)
[2017-04-14] MEDS ORDERED: hydrALAZINE 20 MG/ML SDV IVPUSH PRN (09:39)
--- NOTE | 2017-04-14 15:46 | PCM.DCSUM1 ---
Discharge Summary - Hospital Course Free Text/Narrative:: 56 yo female who presents to our ED today with right-sided chest pain and shortness of breath has been lasting for a few days. She had a productive cough and is a smoker daily smoker. Denied any history of asthma, COPD, or emphysema. She has no heart problems. Denied abdominal pain, nausea, vomiting , fever, but she had chills. Upon arrival she was afebrile with a temp of 96.7. Respirations were 24. BP 137/63. Pulse ox is 92%. Heart rate of 96. 12-lead EKG was obtained which shows a normal sinus rhythm at a rate of 95. Labs are obtained: White count was elevated at 25.62. Hemoglobin normal at 13.4. Hematocrit 39.7. She was macrocytic with MCV of 100.0. Pulse were low at 52,000. Neutrophils were elevated at 93.5%. D-dimer was elevated at 2.35. Sodium was good at 139. Potassium 3.9. Chloride 104. Carbon dioxide 12. Anion gap was very high at 26.9. BUN,21. Creatinine, 1.6. EGFR, 33. Glucose, 92. Lactic acid, 6.8. Calcium, 8.2. AST, 91, ALT, 23, alkaline phosphatase, 200. Troponin negative at less than 0.017. Albumin, 2.7. UA was positive: dark yellow and cloudy, 1 + protein, trace lysed occult blood, 2+ bilirubin, 1+ leukocyte esterase, 5-10 urine RBCs, 10-20 urine WBCs, 20-30 urine epithelial cells. Blood cultures/UC were drawn. She was given a DuoNeb, 2.5 Dilaudid, Levaquin, Solu-Medrol 125 mg, Tamiflu 75 mg, and 2 L saline bolus for the 30 mg liter per kilogram bolus. Informed a and B are both positive. Due to the elevated d-dimer a CTA was performed and showed no definite filling defects to indicate a PE. There was a small right-sided pleural effusion which may have had loculations. Difficult to exclude pneumonia as etiology; slight parenchymal density within the lingula either due to atelectasis or scarring. She carries a history of: Impaired vision, tobacco use disorder - one half to one full pack a day smoker, and alcohol addiction, as she underwent in patient treatment 3 years ago in [place]. She subsequently was admitted to the medical floor with telemetry. However she was transferred to the ICU, triple antibiotic were provided including vancomycin. CIWA protocol was also being performed for ETOH withdrawal. At the patient's request, [facility]; spoke to Dr Stephens who has accepted the patient. The patient was picked up at 0930 on 04/14/17. - Discharge Data Discharge Date: 04/14/17 Discharge Disposition: DC/Tfer to Acute Hospital 02 Condition: Stable - Patient Summary/Data Consults: Consultations 04/11/17 18:31 Consult to Case Management [CONS] Routine OT Evaluation and Treatment [CONS] Routine PT Evaluation and Treatment [CONS] Routine Respiratory Care Assess and Treatment [CONS] Routine - Patient Instructions Diet: Usual Diet as Tolerated Activity: Bedrest, May Use Bathroom Driving: Do Not Drive Showering/Bathing: May Shower Notify Provider of: Fever, Nausea and/or Vomiting - Discharge Plan Home Medications: Home Meds Calcium Carbonate/Vitamin D3 [Calcium 600 + D Tablet] 1 each PO DAILY 11/27/14 [ History] Ferrous Gluconate 324 mg PO BID 11/27/14 [History] Folic Acid 1 mg PO DAILY 11/27/14 [History] Magnesium Oxide [Magnesium] 400 mg PO BID 11/27/14 [History] Multivitamin [Multi-Vitamin Daily] 1 each PO DAILY 11/27/14 [History] Potassium Chloride [Klor-Con M20] 20 meq PO BID 11/27/14 [History] Vit B1 Mn/B2/B3/B5/B6/B12/C/Fa [B Complex with Vitamin C] 1 each PO DAILY [History] Vit D3 & K/Berberine HCl/Hops [Ostera] 1 tab PO DAILY 11/27/14 [History] Pantoprazole Sodium [Protonix] 40 mg PO DAILY 04/11/17 [History] Patient Handouts: Smoking Cessation, Tips for Success, [id number], Influenza , Adult, [id number], Sepsis, Adult Forms: ED Department Discharge Referrals: Goldie Mcclure, [employer] [Primary Care Provider] - - Discharge Summary/Plan Comment DC Time >30 min.: Yes (45 minutes) Discharge Summary/Plan Comment: Community-acquired pneumonia: -Productive cough, chills, SOB, chest pain with cough -Denies fever -WBC 25.62-->20.17 -D-dimer 2.35 - CTA negative for PE -CRP- 22.1 -CXR on 04/11/17 shows RML infiltrate -Chest CTA on 04/11/17 -Right pleural effusion which may have loculations -Consolidation Rlower lung, difficult to exclude PNA as etiology -Slight parenchymal denisty within the lingula either due to atelectasis or scarring -Sputum culture - ordered -Levaquin/zosyn/vancomycin -RT/IS/Acapella -Duo-nebs QID -Solu-medrol -Repeat CXR in 48 hrs Sepsis, improved -likely 2/2 pneumonia -Tachypneic, HR>90, UTI, Pneumonia -eGFR 33, Creatinine 1.6 (Baseline WNL) -Anion gap 26.9-->20.7 -2L fluid bolus given in ED (30mL/kg) -Lactic acid 6.8 --> Repeat 3.2 -Fluids as ordered -Blood cultures - no growth after one day -IV antibiotics and other treatment as above Influenza A and B -Cough, chills, malaise, generalzed weakness, loss of appetite, chest pain with cough -Onset within last 48 hours -Tamiflu 75mg BID for 5 days -Encourage oral hydration -Supportive care UTI -Reports foul smelling urine -Denies increased frequency, dysuria, nocturia, prior UTIs. -UA in ED (04/11/17) suggests UTI, although also suggests some contamination -Urine culture ordered - Gram negative rods -Levaquin/zosyn as above will likely cover for this cute Renal Failure -Creatinine 1.6-->1.3, BUN 21-->27, eGFR 33-->42 -Baseline from prior visits shows creatinine 0.7, eGFR >60 -2L fluid bolus given in ED -IV fluids as ordered -Encourage oral hydration -Pharmacy to renally dose medications -Avoid nephrotoxic medications Hx/o alcohol abuse -Reportedly drank 4 drinks daily -Per patient report underwent inpatient treatment in [place] 3 years ago -She reports she "only drinks socially now" - Last ETOH use over New Years -[facility] protocol - precautionary -Multivitamin, thiamine, folic acid -Ativan as needed for seizure and withdrawl symptoms -UDS negative -Serum ethyl alcohol 0.00 -Continue to monitor -Psychiatric and SA consult if patient displays withdrawl symptoms -Continue to monitor Thrombocytopenia -Acute on chronic -Baseline platelets appear to be around 75-80,000 -Platelets 52,000 in ED-->56 -No melena, hematochezia, hematemesis, or obvious bleeding -Continue to monitor -Consider hematology consult after discharge Hypomagnesemia -Acute on chronic -Already on 400mg BID PO supplementation -Will give one additional 400mg dose -Continue to monitor Chronic: Tobacco use disorder - Nicotine patch, smoking cessation counseling Impaired vision Hx/o ETOH addiction - as above Plan: SEE ABOVE, ACCEPTED FOR TRANSFER Routine AM labs DVT/PE prophylaxis - RUTH hose and Ambulate (Lovenox contraindicated due to thrombocytopenia) Home medications as indicated Code status: Full code, Her PCP is AYAH Leno, here at the [facility] Transfer to [facility] per patient request; accepting hospitalist, Dr Stephens ; notified [facility] of time of departure; discussed with Dr Stephens; [facility]: [phone] - General Info Date of Service: 04/11/17 Functional Status: Reports: Tolerating Diet, Urinating - Review of Systems General: Reports: Weakness, Fatigue, Malaise HEENT: Reports: No Symptoms Pulmonary: Reports: Shortness of Breath, Cough Cardiovascular: Reports: No Symptoms Gastrointestinal: Reports: No Symptoms Genitourinary: Reports: No Symptoms Musculoskeletal: Reports: No Symptoms Skin: Reports: No Symptoms Neurological: Reports: No Symptoms Psychiatric: Reports: Anxiety - Patient Data Vitals - Most Recent: Last Vital Signs Temp 36.6 C 04/14/17 09:55 Pulse 101 H 04/14/17 09:55 Resp 20 04/14/17 09:55 BP 165/86 H 04/14/17 09:55 Pulse Ox 90 L 04/14/17 09:55 Weight - Most Recent: 77.564 kg I&O - Last 24 hours: Intake & Output 04/14/17 04/14/17 04/14/17 06:59 14:59 22:59 Intake Total 1786 314 Output Total 700 300 Balance 1086 14 Lab Results - Last 24 hrs: Laboratory Results - last 24 hr 04/14/17 04/14/17 04/14/17 Range/Units 06:06 06:06 06:06 WBC 15.77 H (3.98-10.04) K/mm3 RBC 4.15 (3.98-5.22) M/mm3 Hgb 13.8 (11.2-15.7) gm/L Hct 42.0 (34.1-44.9) % MCV 101.2 H (79.4-94.8) fl MCH 33.3 H (25.6-32.2) pg MCHC 32.9 (32.2-35.5) g/dl RDW Std Deviation 68.5 H (36.4-46.3) fL Plt Count 59 L (182-369) K/mm3 MPV 11.3 (9.4-12.3) fl Neut % (Auto) 86.7 H (34.0-71.1) % Lymph % (Auto) 4.0 L (19.3-51.7) % Imperial % (Auto) 8.0 (4.7-12.5) % Eos % (Auto) 0 L (0.7-5.8) Baso % (Auto) 0.2 (0.1-1.2) % Neut # (Auto) 13.67 H (1.56-6.13) K/mm3 Lymph # (Auto) 0.63 L (1.18-3.74) K/mm3 Imperial # (Auto) 1.26 H (0.24-0.36) K/mm3 Eos # (Auto) 0.00 L (0.04-0.36) K/mm3 Baso # (Auto) 0.03 (0.01-0.08) K/mm3 Manual Slide Review Abnormal smear Sodium 141 (136-145) mEq/L Potassium 4.4 (3.5-5.1) mEq/L Chloride 113 H (98-107) mEq/L Carbon Dioxide 13 L (21-32) mEq/L Anion Gap 19.4 H (5-15) BUN 26 H (7-18) mg/dL Creatinine 0.9 (0.55-1.02) mg/dL Est Cr Clr Drug Dosing 58.84 mL/min Estimated GFR (MDRD) > 60 (>60) mL/min BUN/Creatinine Ratio 28.9 H (14-18) Glucose 146 H (74-106) mg/dL Lactic Acid 1.8 (0.4-2.0) mmol/L Calcium 7.7 L (8.5-10.1) mg/dL Magnesium 1.6 L (1.8-2.4) mg/dl C-Reactive Protein 15.4 H* (<1.0) mg/dL CAROL Results - Last 24 hrs: Microbiology 04/14/17 00:43 Gram Stain - Final Sputum - Expectorated Sputum Culture - Final 04/13/17 16:26 Gram Stain - Final Sputum - Expectorated Sputum Culture - Final Med Orders - Current: Current Medications Discontinued Medications Acetaminophen (Tylenol) 650 mg PO Q4H PRN PRN Reason: Pain (Mild 1-3)/fever Hydrocodone Bitart/Acetaminophen ([place] 325-5 Mg) 1 tab PO Q4H PRN PRN Reason: Pain (moderate 4-6) Last Admin: 04/14/17 07:27 Dose: 1 tab Albuterol/Ipratropium (Duoneb 3.0-0.5 Mg/3 Ml) 3 ml NEB ONETIME ONE Stop: 04/11/17 12:00 Last Admin: 04/11/17 12:35 Dose: 3 ml Albuterol/Ipratropium (Duoneb 3.0-0.5 Mg/3 Ml) 3 ml NEB Q4H PRN PRN Reason: Shortness Of Breath/wheezing Last Admin: 04/13/17 21:13 Dose: 3 ml Albuterol/Ipratropium (Duoneb 3.0-0.5 Mg/3 Ml) 3 ml NEB Q6HRRT [facility] Last Admin: 04/14/17 08:42 Dose: 3 ml Bisacodyl (Dulcolax) 5 mg PO DAILY PRN PRN Reason: Constipation Docusate Sodium (Colace) 100 mg PO BID PRN PRN Reason: Constipation Enoxaparin Sodium (Lovenox) 40 mg SUBCUT DAILY [facility] Last Admin: 04/14/17 08:23 Dose: 40 mg Ferrous Sulfate (Ferrous Sulfate) 325 mg PO BID [facility] Last Admin: 04/14/17 08:26 Dose: 325 mg Folic Acid (Folic Acid) 1 mg PO DAILY [facility] Last Admin: 04/14/17 08:27 Dose: 1 mg Guaifenesin/Phenylephrine HCl (Robitussin Dm) 10 ml PO QID PRN PRN Reason: Cough Last Admin: 04/14/17 01:03 Dose: 10 ml Hydralazine HCl (Apresoline) 20 mg IVPUSH Q1H PRN PRN Reason: Hypertension Last Admin: 04/14/17 09:50 Dose: 20 mg Hydromorphone HCl (Dilaudid) 0.5 mg IVPUSH ONETIME ONE Stop: 04/11/17 14:45 Last Admin: 04/11/17 15:00 Dose: 0.5 mg Hydromorphone HCl (Dilaudid) 0.25 mg IVPUSH Q2H PRN PRN Reason: Pain (severe 7-10) Levofloxacin/Dextrose 750 mg/ (Premix) 150 mls @ 100 mls/hr IV ONETIME ONE Stop: 04/11/17 15:08 Last Admin: 04/11/17 14:40 Dose: 100 mls/hr Sodium Chloride (Normal Saline) 500 mls @ 1,000 mls/hr IV .BOLUS ONE Stop: 04/11/17 14:09 Last Admin: 04/11/17 15:45 Dose: 1,000 mls/hr Sodium Chloride (Normal Saline) 1,500 mls @ 1,000 mls/hr IV ONETIME ONE Stop: 04/11/17 15:16 Last Admin: 04/11/17 14:00 Dose: 1,000 mls/hr Sodium Chloride (Normal Saline) Confirm Administered Dose 1,000 mls @ as directed .ROUTE .STK-MED ONE Stop: 04/11/17 14:56 Last Admin: 04/11/17 14:56 Dose: Not Given Sodium Chloride (Normal Saline) 100 mls @ 80 mls/hr IV ASDIRECTED [facility] Last Admin: 04/11/17 14:56 Dose: 80 mls/hr Levofloxacin/Dextrose 750 mg/ (Premix) 150 mls @ 100 mls/hr IV Q24H [facility] Last Admin: 04/13/17 12:33 Dose: 100 mls/hr Piperacillin Sod/Tazobactam (Sod 4.5 gm/ Sodium Chloride) 100 mls @ 200 mls/hr IV ONETIME ONE Stop: 04/11/17 19:29 Last Admin: 04/11/17 21:21 Dose: 200 mls/hr Piperacillin Sod/Tazobactam (Sod 4.5 gm/ Sodium Chloride) 100 mls @ 25 mls/hr IV Q8H [facility] Last Admin: 04/12/17 03:59 Dose: 25 mls/hr Sodium Chloride (Normal Saline) 1,000 mls @ 80 mls/hr IV ASDIRECTED [facility] Last Admin: 04/11/17 21:34 Dose: 80 mls/hr Sodium Chloride (Normal Saline) 1,000 mls @ 100 [facility] Stop: 04/13/17 07:59 Last Admin: 04/12/17 07:35 Dose: 100 mls/hr Piperacillin Sod/Tazobactam (Sod 4.5 gm/ Dextrose/Water) 100 mls @ 25 mls/hr IV Q8H [facility] Piperacillin Sod/Tazobactam (Sod 4.5 gm/ Dextrose/Water) 100 mls @ 25 mls/hr IV Q8H [facility] Last Admin: 04/14/17 02:51 Dose: 25 mls/hr Sodium Chloride (Normal Saline) 1,000 mls @ 999 mls/hr [facility] Stop: 04/12/17 13:00 Last Admin: 04/12/17 13:01 Dose: 999 mls/hr Sodium Chloride (Normal Saline) 1,000 mls @ 999 mls/hr [facility] Stop: 04/12/17 16:46 Last Admin: 04/12/17 16:10 Dose: 999 mls/hr Sodium Chloride (Normal Saline) 1,000 mls @ 75 mls[facility]hr [facility] Last Admin: 04/14/17 07:30 Dose: 75 mls/hr Vancomycin HCl 1 gm/ Sodium (Chloride) 250 mls @ 250 mls/hr IV Q12H [facility] Last Admin: 04/14/17 03:17 Dose: 250 mls/hr Iopamidol (Isovue-370 (76%)) 100 ml IVPUSH ONETIME ONE Stop: 04/11/17 14:55 Last Admin: 04/11/17 14:55 Dose: 100 ml Lorazepam (Ativan) 0 mg IVPUSH Q2H PRN; Protocol PRN Reason: withdrawl Lorazepam (Ativan) 2 mg IVPUSH Q4H PRN PRN Reason: Seizures Lorazepam (Ativan) 1 mg IVPUSH Q1H PRN PRN Reason: Anxiety Last Admin: 04/14/17 09:52 Dose: 1 mg Magnesium Oxide (Magnesium Oxide) 400 mg PO BID [facility] Last Admin: 04/14/17 08:26 Dose: 400 mg Magnesium Oxide (Magnesium Oxide) 400 mg PO ONETIME ONE Stop: 04/12/17 17:15 Last Admin: 04/12/17 18:07 Dose: 400 mg Methylprednisolone Sodium Succinate (Solu-Medrol) 125 mg IVPUSH ONETIME ONE Stop: 04/11/17 12:01 Last Admin: 04/11/17 12:40 Dose: 125 mg Methylprednisolone Sodium Succinate (Solu-Medrol) 85 mg IVPUSH DAILY [facility] Last Admin: 04/13/17 09:25 Dose: 85 mg Methylprednisolone Sodium Succinate (Solu-Medrol) 80 mg IVPUSH Q12H [facility] Last Admin: 04/14/17 08:30 Dose: 80 mg Miscellaneous Information (Remove Patch) 0 ea TRDERM DAILY [facility] Last Admin: 04/13/17 11:04 Dose: Not Given Multivitamins (Thera) 1 each PO DAILY [facility] Last Admin: 04/14/17 08:25 Dose: 1 each Nicotine (Habitrol) 21 mg TRDERM DAILY [facility] Last Admin: 04/14/17 08:28 Dose: Not Given Ondansetron HCl (Zofran Odt) 4 mg PO Q6H PRN PRN Reason: nausea, able to take PO Ondansetron HCl (Zofran) 4 mg IV Q6H PRN PRN Reason: Nausea/Vomiting Oseltamivir Phosphate (Tamiflu) 75 mg PO ONETIME ONE Stop: 04/11/17 15:01 Last Admin: 04/11/17 15:11 Dose: 75 mg Oseltamivir Phosphate (Tamiflu) 30 mg PO BID [facility] Stop: 04/15/17 21:01 Last Admin: 04/14/17 08:27 Dose: 30 mg Pantoprazole Sodium (Protonix) 40 mg PO DAILY [facility] Last Admin: 04/14/17 08:27 Dose: 40 mg Polyethylene Glycol (Miralax) 17 gm PO DAILY PRN PRN Reason: Constipation Potassium Chloride (Klor-Con M20) 20 meq PO BID [facility] Last Admin: 04/14/17 08:26 Dose: 20 meq Senna/Docusate Sodium (Senna Plus) 1 tab PO BID PRN PRN Reason: Constipation Sodium Chloride (Saline Flush) 10 ml FLUSH ASDIRECTED PRN PRN Reason: Keep Vein Open Last Admin: 04/11/17 12:42 Dose: 10 ml Sodium Chloride (Saline Flush) 10 ml FLUSH ONETIME PRN PRN Reason: IV FLUSH Last Admin: 04/11/17 14:56 Dose: 10 ml Temazepam (Restoril) 7.5 mg PO BEDTIME PRN PRN Reason: Sleep Last Admin: 04/12/17 20:54 Dose: 7.5 mg Temazepam (Restoril) 15 mg PO BEDTIME PRN PRN Reason: SLEEP Last Admin: 04/13/17 20:22 Dose: 15 mg Thiamine HCl (Vitamin B-1) 100 mg PO DAILY [facility] Last Admin: 04/14/17 08:25 Dose: 100 mg Vancomycin HCl (Pharmacy To Dose - Vancomycin) 1 dose .XX ASDIRECTED [facility] - Exam Quality Assessment: Reports: Supplemental Oxygen, DVT Prophylaxis General: Reports: Alert, Oriented, No Acute Distress HEENT: Reports: Pupils Equal, Pupils Reactive, EOMI Neck: Reports: Trachea Midline Lungs: Reports: Decreased Breath Sounds, Wheezing Cardiovascular: Reports: Regular Rate, Regular Rhythm, Tachycardia GI/Abdominal Exam: Normal Bowel Sounds, Soft, Non-Tender, No Organomegaly, No Distention (Female) Exam: Deferred Rectal (Female) Exam: Deferred Back Exam: Reports: Normal Inspection Extremities: Normal Inspection, Non-Tender Skin: Reports: Warm Neurological: Reports: Normal Speech Psy/Mental Status: Reports: Alert, Anxious *Q Meaningful Use (DIS) - VTE *Q VTE Criteria *Q: - Stroke *Q Stroke Criteria *Q: - AMI *Q AMI Criteria *Q:
== END 2017-04-14 10:02 | DRG 871 ==
LOC: JD.ED 11:42 → JD.MS 16:28 → JD.ICU 04-12 17:03
PROVIDERS: ADMIT Internal Medicine Cardiovascular Disease; ATTEND Internal Medicine Cardiovascular Disease
DX: A41.9 Sepsis, unspecified organism (principal); J11.00 Influenza due to unidentified influenza virus with unspecified type of pneumonia; N39.0 Urinary tract infection, site not specified; N17.9 Acute kidney failure, unspecified; E83.42 Hypomagnesemia; R09.02 Hypoxemia; F17.210 Nicotine dependence, cigarettes, uncomplicated; H54.7 Unspecified visual loss; E55.9 Vitamin D deficiency, unspecified; F10.21 Alcohol dependence, in remission; D69.6 Thrombocytopenia, unspecified; R53.1 Weakness
CPT/HCPCS: 36415; 71045; 71045-26; 71046; 71046-26; 71275; 71275-26; 80048; 80053; 80306; 81001; 82962; 83605; 83735; 84484; 85025; 85379; 86140; 87040; 87086; 87088; 87186; 87205; 87804; 93005; 93010; 94640; 94667; 94762; 96361; 96365; 96366; 96375; 97116-GP; 97162-GP; 97165-GO; 99285-25; A9270-GY; G0480; J0360; J1170; J1650; J1956; J2060; J2543; J2920; J2930; J3370; J7030; J7040; J7050; J7060; Q9967

== ENCOUNTER 2017-09-26 17:30 | Inpatient (IN) | payer OTHER ==
[2017-09-26] MEDS ORDERED: Potassium Chloride 10% 20 MEQ/15 ML Soln 30 ML UD Cup PO ONE (18:44)
[2017-09-26] MEDS ORDERED: Potassium Chloride 10 MEQ in Premix Bag 1 BAG IV ONE ×4 (18:46)
[2017-09-26] MEDS ORDERED: Lactulose Soln 10 GM/15 ML 30 ML UD Cup PO ONE (18:46)
[2017-09-26] MEDS ORDERED: Magnesium Sulfate/Water 2 GM in Premix Bag 1 BAG IV ONE (18:50)
[2017-09-26] MEDS ORDERED: Folic Acid 1 MG Tab PO ONE (18:53)
[2017-09-26] MEDS ORDERED: Thiamine 100 MG Tab PO ONE (18:53)
--- NOTE | 2017-09-26 18:57 | EDM.PDOC ---
ED HPI GENERAL MEDICAL PROBLEM - General Chief Complaint: Abdominal Pain Stated Complaint: LOW POTASSIUM Time Seen by Provider: 09/26/17 18:34 Source of Information: Reports: Patient, Family, Provider History Limitations: Reports: No Limitations - History of Present Illness INITIAL COMMENTS - FREE TEXT/NARRATIVE: Patient is a 57-year-old female with chronic liver disease secondary to alcohol use was evaluated in the clinic today by PCP with concerns of elevated amonia levels and low potassium.Patient states she ran out of most of her medications 2 months ago. She has been taking the potassium, PPI, and also two inhalers. Labs were obtained earlier today indicating that ammonia levels are quite elevated along with her potassium being low. She was sent to the ED for further evaluation. She has a history of alcohol addiction and admits to drinking alcohol this past . She's had a poor appetite, feeling dizzy, and being unsteady on her feet. Labs obtained today including: UA, CBC, urine drug screen , coag studies, CMP, magnesium, serum EtOH, and ammonia levels. - Related Data Allergies Allergy/AdvReac Type Severity Reaction Status Date / Time No Known Allergies Allergy Verified 09/27/17 00:34 Home Meds: Home Meds Ferrous Gluconate 650 mg PO DAILY 11/27/14 [History] Folic Acid 1 mg PO DAILY 11/27/14 [History] Magnesium Oxide [Magnesium] 400 mg PO BID 11/27/14 [History] Multivitamin [Multi-Vitamin Daily] 1 tab PO DAILY 11/27/14 [History] Potassium Chloride [Klor-Con M20] 40 meq PO BID 11/27/14 [History] Pantoprazole Sodium [Protonix] 40 mg PO BID 04/11/17 [History] Calcium Carbonate [Calcium] 600 mg PO DAILY 09/26/17 [History] Cholecalciferol (Vitamin D3) [Vitamin D3] 5,000 unit PO DAILY 09/26/17 [History] Lactulose [Chronulac] 15 ml PO DAILY 09/26/17 [History] Latanoprost [Xalatan] 1 drop EYEBOTH BEDTIME 09/26/17 [History] Spironolactone [Aldactone] 50 mg PO BID 09/26/17 [History] Tiotropium [Spiriva HandiHaler] 1 cap INH DAILY 09/26/17 [History] Thiamine HCl [Vitamin B-1] 100 mg PO DAILY 09/27/17 [History] Past Medical History HEENT History: Reports: Glaucoma, Impaired Vision Other HEENT History: Wear glasses Respiratory History: Reports: SOB, Other (See Below) Other Respiratory History: patient is a 1/2 pack to full pack smoker Gastrointestinal History: Reports: Hemorrhoids Musculoskeletal History: Reports: Other (See Below) Other Musculoskeletal History: feet cramps Psychiatric History: Reports: Addiction Other Psychiatric History: currently states has alcohol problem, patient reports having a couple drinks New Year's [place] Endocrine/Metabolic History: Reports: Vitamin D Deficiency Hematologic History: Reports: Iron Deficiency - Infectious Disease History Infectious Disease History: Reports: Chicken Pox, Measles, Mumps - Past Surgical History HEENT Surgical History: Reports: None GI Surgical History: Reports: Other (See Below) Other GI Surgeries/Procedures: hemorrhoids removed Endocrine Surgical History: Reports: None Musculoskeletal Surgical History: Reports: None Social & Family History - Family History Family Medical History: Noncontributory HEENT: Reports: Glaucoma - Tobacco Use Smoking Status *Q: Current Every Day Smoker Years of Tobacco use: 39 Packs/Tins Daily: 0.2 - Caffeine Use Caffeine Use: Reports: None Other Caffeine Use: daily basis - Recreational Drug Use Recreational Drug Use: No ED ROS GENERAL - Review of Systems Review Of Systems: See Below Constitutional: Denies: Fever Respiratory: Reports: No Symptoms Cardiovascular: Reports: No Symptoms GI/Abdominal: Reports: No Symptoms : Reports: No Symptoms Musculoskeletal: Reports: No Symptoms - Physical Exam Exam: See Below Exam Limited By: No Limitations General Appearance: Alert, WD/WN, No Apparent Distress Eye Exam: Bilateral Eye: Other (jaundice) Ears: Hearing Grossly Normal Nose: Normal Inspection Throat/Mouth: Normal Voice, No Airway Compromise Head Exam: Atraumatic, Normocephalic Neck: Normal Inspection, Supple Respiratory/Chest: No Respiratory Distress, Lungs Clear, Normal Breath Sounds, No Accessory Muscle Use Cardiovascular: Normal Peripheral Pulses, Regular Rate, Rhythm, No Murmur GI/Abdominal: Normal Bowel Sounds, Soft, Non-Tender, No Organomegaly, No Distention Neuro Exam (Abbreviated): Alert, Oriented, CN II-XII Intact, Normal Cognition, No Motor/Sensory Deficits Back Exam: Normal Inspection Extremities: Non-Tender, No Pedal Edema, Other (bruising to the anterior aspect of the lower legs from bruise sustained from putting together a wheel [place]. ) Psychiatric: Normal Affect, Normal Mood Skin Exam: Warm, Dry, Jaundice (mucous membranes and eyes. ). No: Normal Color (skin is dark in color) Course - Vital Signs Last Recorded V/S: Last Vital Signs Temp 98.4 F 09/27/17 07:32 Pulse 65 09/27/17 07:32 Resp 16 09/27/17 07:32 BP 96/69 09/27/17 07:32 Pulse Ox 99 09/27/17 07:32 - Orders/Labs/Meds Orders: Active Orders 24 hr Category Date Time Status Patient Status [ADT] Routine ADT 09/26/17 22:32 Active CULTURE URINE [RM] Stat Lab 09/26/17 20:54 Results Sodium Chloride 0.9% [Saline Flush] Med 09/26/17 19:08 Active 10 ml FLUSH ONETIME PRN Medication Orders Chlordiazepoxide HCl (Librium) 25 mg PO BID [facility] Erythromycin (Julian-Tab) 250 mg PO Q6HR [facility] Last Admin: 09/27/17 05:19 Dose: Folic Acid (Folic Acid) 1 mg PO DAILY [facility] Hydralazine HCl (Apresoline) 20 mg IVPUSH Q4H PRN PRN Reason: Hypertension Potassium Chloride 10 meq/ (Premix) 100 mls @ 100 mls/hr IV Q1H [facility] Stop: 09/27/17 13:59 Last Admin: 09/27/17 09:33 Dose: 100 mls/hr Infusion: 09/27/17 09:15 Dose: 100 mls/hr Admin: 09/27/17 08:15 Dose: 100 mls/hr Sodium Chloride (Normal Saline) 1,000 mls @ 100 mls/hr IV ASDIRECTED [facility] Last Admin: 09/27/17 08:14 Dose: 100 mls/hr Potassium Chloride/Sodium Chloride (Normal Saline With 20 Meq Kcl) 1,000 mls @ 125 mls/hr IV ASDIRECTED [facility] Magnesium Sulfate 2 gm/ Premix 50 mls @ 25 mls/hr IV Q2H [facility] Stop: 09/27/17 13:30 Ibuprofen (Motrin) 600 mg PO Q8H PRN PRN Reason: Pain/Fever Lactulose (Cephulac) 45 gm PO BID [facility] Last Admin: 06/20/18 08:22 Dose: 45 gm Metoprolol Tartrate (Lopressor) 5 mg IVPUSH Q4H PRN PRN Reason: Tachycardia Multivitamins (Thera) 1 each PO DAILY [facility] Ondansetron HCl (Zofran) 4 mg IVPUSH Q8H PRN PRN Reason: Nausea/Vomiting Ondansetron HCl (Zofran Odt) 4 mg PO Q6H PRN PRN Reason: nausea, able to take PO Potassium Chloride (Klor-Con M20) 40 meq PO DAILY [facility] Last Admin: 09/27/17 08:22 Dose: 40 meq Propranolol HCl (Inderal) 20 mg PO DAILY [facility] Sodium Chloride (Saline Flush) 10 ml FLUSH ONETIME PRN PRN Reason: IV FLUSH Last Admin: 09/26/17 20:34 Dose: 10 ml Spironolactone (Aldactone) 25 mg PO DAILY [facility] Thiamine HCl (Vitamin B-1) 100 mg PO DAILY [facility] Labs: Laboratory Tests 09/26/17 09/26/17 Range/Units 19:05 20:54 Puncture Site Rt radial ABG pH 7.49 H (7.35-7.45) ABG pCO2 18.2 L* (35.0-45.0) mmHg ABG pO2 86.0 (80.0-100.0) mmHg ABG HCO3 13.7 L (22.0-26.0) meq/L ABG O2 Saturation 97.7 H (96.0-97.0) % ABG Base Excess -7.5 L (-2-2.0) A-a Gradient 26 mmHg O2 Delivery Device Room air FiO2 21.00 (21.00-100.00) % Urine Color Yellow (Yellow) Urine Appearance Clear (Clear) Urine pH 7.0 (5.0-8.0) Ur Specific [place] 1.015 (1.005-1.030) Urine Protein Negative (Negative) Urine Glucose (UA) Negative (Negative) Urine Ketones Negative (Negative) Urine Occult Blood Negative (Negative) Urine Nitrite Negative (Negative) Urine Bilirubin Negative (Negative) Urine Urobilinogen 2.0 H (0.2-1.0) Ur Leukocyte Esterase 1+ H (Negative) Urine RBC 0-5 (0-5) /hpf Urine WBC 5-10 H (0-5) /hpf Ur Epithelial Cells 5-10 H (0-5) /hpf Urine Bacteria Many H (FEW) /hpf Urine Mucus Not seen (FEW) /hpf Meds: Medications Generic Name Dose Route Start Last Admin Trade Name Freq PRN Reason Stop Dose Admin Chlordiazepoxide HCl 25 mg 09/27/17 09:30 Librium PO BID [facility] Erythromycin 250 mg 09/27/17 06:00 09/27/17 05:19 Julian-Tab PO Not Given Q6HR [facility] Folic Acid 1 mg 09/27/17 09:30 Folic Acid PO DAILY [facility] Hydralazine HCl 20 mg 09/27/17 09:25 Apresoline IVPUSH Q4H PRN Hypertension Potassium Chloride 10 meq/ 100 mls @ 100 mls/hr 09/27/17 08:00 09/27/17 09:33 Premix IV 09/27/17 13:59 100 mls/hr Q1H [facility] Administration Sodium Chloride 1,000 mls @ 100 mls/hr 09/27/17 08:00 09/27/17 08:14 Normal Saline IV 100 mls/hr ASDIRECTED [facility] Administration Potassium Chloride/Sodium Chloride 1,000 mls @ 125 mls/hr 09/27/17 09:30 Normal Saline With 20 Meq Kcl IV ASDIRECTED [facility] Magnesium Sulfate 2 gm/ Premix 50 mls @ 25 mls/hr 09/27/17 09:31 IV 09/27/17 13:30 Q2H [facility] Ibuprofen 600 mg 09/27/17 00:48 Motrin PO Q8H PRN Pain/Fever Lactulose 45 gm 09/27/17 08:00 09/27/17 08:22 Cephulac PO 45 gm BID [facility] Administration Metoprolol Tartrate 5 mg 09/27/17 09:25 Lopressor IVPUSH Q4H PRN Tachycardia Multivitamins 1 each 09/27/17 09:30 Thera PO DAILY [facility] Ondansetron HCl 4 mg 09/27/17 00:46 Zofran IVPUSH Q8H PRN Nausea/Vomiting Ondansetron HCl 4 mg 09/27/17 09:22 Zofran Odt PO Q6H PRN nausea, able to take PO Potassium Chloride 40 meq 09/27/17 09:00 09/27/17 08:22 Klor-Con M20 PO 40 meq DAILY [facility] Administration Propranolol HCl 20 mg 09/27/17 10:00 Inderal PO DAILY [facility] Sodium Chloride 10 ml 09/26/17 19:08 09/26/17 20:34 Saline Flush FLUSH 10 ml ONETIME PRN Administration IV FLUSH Spironolactone 25 mg 09/28/17 09:00 Aldactone PO DAILY [facility] Thiamine HCl 100 mg 09/27/17 09:30 Vitamin B-1 PO DAILY [facility] Discontinued Medications Generic Name Dose Route Start Last Admin Trade Name Freq PRN Reason Stop Dose Admin Diatrizoate Meglum/Diatrizoate Sod 120 ml 09/26/17 19:08 09/26/17 20:34 Gastrografin 37% PO 09/26/17 19:09 90 ml ONETIME ONE Administration Folic Acid 1 mg 09/26/17 18:53 09/26/17 19:01 Folic Acid PO 09/26/17 18:54 1 mg ONETIME ONE Administration Potassium Chloride 10 meq/ 100 mls @ 100 mls/hr 09/26/17 18:46 09/26/17 18:55 Premix IV 09/26/17 19:45 100 mls/hr ASDIRECTED ONE Administration Potassium Chloride 10 meq/ 100 mls @ 100 mls/hr 09/26/17 18:46 09/26/17 19:17 Premix IV 09/26/17 19:45 100 mls/hr ASDIRECTED ONE Administration Magnesium Sulfate 2 gm/ Premix 50 mls @ 25 mls/hr 09/26/17 18:50 09/26/17 18: 58 IV 09/26/17 20:49 25 mls/hr ONETIME ONE Administration Ceftriaxone Sodium 2 gm/ 100 mls @ 100 mls/hr 09/26/17 23:04 09/26/17 23:27 Sodium Chloride IV 09/27/17 00:03 100 mls/hr ONETIME ONE Administration Magnesium Sulfate 2 gm/ Premix 50 mls @ 50 mls/hr 09/26/17 23:15 09/26/17 23: 27 IV 09/27/17 00:14 50 mls/hr Q1H [facility] Administration Potassium Chloride/Sodium Chloride 1,000 mls @ 75 mls/hr 09/26/17 23:15 09/26 23:26 Normal Saline With 20 Meq Kcl IV 09/27/17 05:15 75 mls/hr ASDIRECTED [facility] Administration Iopamidol 150 ml 09/26/17 19:08 09/26/17 20:34 Isovue-300 (61%) IVPUSH 09/26/17 19:09 100 ml ONETIME ONE Administration Lactulose 30 gm 09/26/17 18:46 09/26/17 19:01 Cephulac PO 09/26/17 18:47 30 gm ONETIME ONE Administration Potassium Chloride 40 meq 09/26/17 18:44 09/26/17 19:01 Potassium Chloride PO 09/26/17 18:45 40 meq ONETIME ONE Administration Thiamine HCl 100 mg 09/26/17 18:53 09/26/17 19:01 Vitamin B-1 PO 09/26/17 18:54 100 mg ONETIME ONE Administration - Re-Assessments/Exams Free Text/Narrative Re-Assessment/Exam: Reviewed todays clinic visit with PCP: UA positive for nitrates, leukocyte Estrace one plus. No micro results present. I have ordered UA be obtained. CBC indicated White blood cell count 4.79, hemoglobin 13.2, platelet count is low at 67, INR 1.40, potassium 1.8, CO2 20, creatinine 1.1, magnesium 1.6, serum EtOH 0.00, ammonia levels 106. Ordered peripheral IV with potassium riders 2. Oral potassium chloride 40 meq. Folic acid 1 mg by mouth, lactulose 30 g by mouth, magnesium sulfate 2 g IV, Thiamine [address] mouth[address] Per [address] Pete requested CT the abdomen and pelvis with IV contrast to evaluate fluid amount. I have also ordered abg. ABG: PH 7.49, PCO2 18.2, PO2 86, appears patient has compensated respiratory alkalosis. EKG sinus bradycardia with a DE interval 169 and QTc of 588. Previous EKG obtained generally second 2017 illustrated QTC of 503. UA came back with 2+ urobilinogen, leukocyte Estrace 1+, urine wbc's 5-10, urine epithelial cells 5-10, urine bacteria many. Appears to be contaminated. Urine culture ordered. For unknown reason there was a delay for the CT of the abdomen and pelvis to be obtained. 2147 CT abdomen/pelvis impression: 1. Hepatomegaly with prominent caudate and left lobes of the liver with a lobular contour along the anterior subcapsular margin consistent with hepatocellular disease such as cirrhosis. Findings stable. 2. Splenomegaly with maximum splenic span of 17.5 cm. No focal abnormalities demonstrated. Finding suggest the presence of portal hypertension. 3. Enlarged main portal vein measuring 1.9 cm. Prominent splenic vein demonstrated as well. No thrombosis. 4. Periportal lymphadenopathy measures up to 1.1 cm. 5. Minimal ascites. 6. Thickened gallbladder wall likely related to the presence of ascites. Small calculus in the lumen of the gallbladder. 7. Mild distention of the right colon. Increased feces in the left colon, findings consistent with constipation. [address] Pete. She has accepted the patient. Requested admission to [facility] with tele. 09/27/17 10:48 Departure - Departure Time of Disposition: 21:48 Disposition: Admitted As Inpatient 64 Condition: Fair Clinical Impression: Hypokalemia, Increased ammonia level, Elevated INR Cirrhosis of liver Qualifiers: Hepatic cirrhosis type: alcoholic cirrhosis Ascites presence: with ascites Qualified Code(s): K70.31 - Alcoholic cirrhosis of liver with ascites - Discharge Information - My Orders Last 24 Hours: My Active Orders 09/26/17 20:54 CULTURE URINE [RM] Stat 09/26/17 22:32 Patient Status [ADT] Routine - Assessment/Plan Last 24 Hours: My Active Orders 09/26/17 20:54 CULTURE URINE [RM] Stat 09/26/17 22:32 Patient Status [ADT] Routine
[2017-09-26] MEDS ORDERED: Diatrizoate Meglumine/Diatrizoate Sodium 37% 120 ML Bottle PO ONE (19:08)
[2017-09-26] MEDS ORDERED: Sodium Chloride 0.9% 10 ML Syringe FLUSH PRN (19:08)
[2017-09-26] MEDS ORDERED: Iopamidol 612 MG/ML 150 ML Bottle IVPUSH ONE (19:08)
[2017-09-26] MEDS ORDERED: cefTRIAXone 2 GM in Sodium Chloride 0.9% 100 ML IV ONE (23:04)
[2017-09-26] MEDS ORDERED: NS + KCl 20mEq/L 1,000 ML IV SCH (23:15)
[2017-09-26] MEDS ORDERED: Magnesium Sulfate/Water 2 GM in Premix Bag 1 BAG IV SCH (23:15)
[2017-09-27] MEDS ORDERED: Ondansetron 4 MG/2 ML SDV IVPUSH PRN (00:46)
[2017-09-27] MEDS ORDERED: Ibuprofen 600 MG Tab PO PRN (00:48)
[2017-09-27] MEDS: Sodium Chloride 0.9% 1,000 ML IV SCH ×2 (08:14→18:35)
[2017-09-27] MEDS: Potassium Chloride 10 MEQ in Premix Bag 1 BAG IV SCH ×6 (08:15→15:38)
[2017-09-27] MEDS: Lactulose Soln 10 GM/15 ML 30 ML UD Cup PO SCH ×3 (08:22→20:29)
--- NOTE | 2017-09-27 08:29 | CT ---
CT abdomen and pelvis Technique: Multiple axial sections were obtained from above the dome of the diaphragm inferiorly through the pubic symphysis. Intravenous contrast was utilized. Delayed images were also obtained through the bladder. Comparison: Prior CT abdomen exam of 01/18/13. Findings: Visualized lung bases show nothing acute. Liver is generous in size. Small low-density lesion noted within the right lobe measuring less than 1 cm. This is nonspecific regarding [employer] unit measurements but most likely represents a small cyst. Liver contour is minimally nodular. Spleen is enlarged. These findings are an interval change from prior study. Fatty infiltration is seen previously within the liver. Portal vein is enlarged which also is an interval change from previous exam. Several splenic varices are seen which are also an interval change. Gallbladder shows a small calcified gallstone. Adrenal glands show no nodule. Kidneys show symmetric contrast enhancement. Small low density finding seen within the mid left kidney which is felt compatible with a small cyst measuring approximately 8 mm. Slightly prominent adenopathy is seen within the upper mediastinum and periportal regions. Some of this is seen on previous exam and this is felt to be incidental. Several small scattered retroperitoneal lymph nodes are seen more inferiorly which are felt to be stable. Small fluid-containing umbilical hernia is noted. No pelvic mass or adenopathy is seen. Minimal ascites is seen. Small hiatal hernia is noted with gastroesophageal reflux of contrast. Delayed images show contrast within the bladder. Increased stool noted throughout the colon. Right colon and cecum are slightly dilated and contain stool. Bone window settings show scattered degenerative change throughout the spine with disc space narrowing and vacuum phenomena noted at L3-L4, L4-L5 and L5-S1. Mild spondylolisthesis noted at L4-L5 due to severe degenerative apophyseal change. Appendix not identified with certainty. Impression: 1. Findings suggest early cirrhosis with portal hypertension and splenomegaly as an interval change from previous exam. Minimal ascites is noted. 2. Mild adenopathy as noted above believed to be incidental and mostly chronic. 3. Small calcified gallstone within the gallbladder. 4. Increased stool within the colon and other incidental findings. Diagnostic code #3 I agree with preliminary report from [facility], finalized at 09/26/17, 10:41 PM Central Time
[2017-09-27] MEDS ORDERED: Potassium Chloride 20 MEQ Tab.ER PO SCH ×3 (09:00→21:00)
[2017-09-27] MEDS ORDERED: Ondansetron 4 MG Tab.DIS PO PRN (09:22)
[2017-09-27] MEDS ORDERED: Metoprolol Tartrate 5 MG/5 ML SDV IVPUSH PRN (09:25)
[2017-09-27] MEDS ORDERED: hydrALAZINE 20 MG/ML SDV IVPUSH PRN (09:25)
[2017-09-27] MEDS ORDERED: NS + KCl 20mEq/L 1,000 ML IV SCH (09:30)
--- NOTE | 2017-09-27 09:56 | PCM.HP ---
H&P History of Present Illness - General Date of Service: 09/26/17 Admit Problem/Dx: Admission Diagnosis/Problem Admission Diagnosis/Problem Hypokalemia Source of Information: Patient (gives conflicting answers), Provider - History of Present Illness Initial Comments - Free Text/Narative: 57 year old female seen by her provider in the clinic was sent to the ED as a possible direct admission. She has been confused and not taking her medication. An additional work up was initiated in the ED to identify treatable causes of her confusion. She has quinn-pulmonary hypertension, and cirrhosis. The patient has hepatic encephalopathy, labs were drawn by her provider to expedite her care. The ammonia level above 120, potassium less than 2, and magnesium level less that 1.5. She apparently has been charged with a DUI, [place] is less than 0.1. The patient changed her story multiple times before the end of the interview. Initially she stated that she had not had a drink since June , her birthday month. Later she stated that it was after moving her grass. She will be admitted for hepatic encephalopathy and abnormal electrolytes. A substance abuse and psychiatric consult will be ordered. Lactulose and her home meds will be resumed. An infectious source superimposed on her hepatic encephalopathy will also be checked. Additionally, a CT of abdomen and pelvis has been ordered. The patient will be admitted. The added testing will be started in the ED to expedite care; she will be admitted to [facility] with telemetry. The patient is a full code. Onset of Symptoms: Reports: Unknown/Unsure Symptom Onset Date: 09/26/17 (acute on chronic) Duration of Symptoms: Reports: Chronic Location: Reports: Generalized Quality: Reports: Same as Previous Episode Severity: Severe Improves with: Reports: Medication Worsens with: Reports: Other (no medication and drinking alcohol) Associated Symptoms: Reports: Confusion, Malaise, Weakness - Related Data Allergies/Adverse Reactions: Allergies Allergy/AdvReac Type Severity Reaction Status Date / Time No Known Allergies Allergy Verified 09/27/17 00:34 Home Medications: Home Meds Potassium Chloride [Klor-Con M20] 40 meq PO BID 11/27/14 [History] Pantoprazole Sodium [Protonix] 40 mg PO BID 04/11/17 [History] Past Medical History HEENT History: Reports: Glaucoma, Impaired Vision Other HEENT History: Wear glasses; has upper denutres and a lower partial Cardiovascular History: Reports: High Cholesterol Respiratory History: Reports: COPD, Pneumonia, Recurrent, SOB Other Respiratory History: patient is a 1/2 pack to full pack smoker Gastrointestinal History: Reports: GERD, Hemorrhoids, Other (See Below) Other Gastrointestinal History: liver disease Genitourinary History: Reports: None Musculoskeletal History: Reports: Other (See Below) Other Musculoskeletal History: feet cramps Psychiatric History: Reports: Addiction Other Psychiatric History: alcohol abuse Endocrine/Metabolic History: Reports: Vitamin D Deficiency, Other (See Below) Other Endocrine/Metabolic History: hypomagnesemia, hypokalemia Hematologic History: Reports: Anemia, Iron Deficiency - Infectious Disease History Infectious Disease History: Reports: Chicken Pox, Measles, Mumps - Past Surgical History HEENT Surgical History: Reports: None Cardiovascular Surgical History: Reports: None Respiratory Surgical History: Reports: None GI Surgical History: Reports: Other (See Below) Other GI Surgeries/Procedures: hemorrhoids removed Female Surgical History: Reports: Tubal Ligation Endocrine Surgical History: Reports: None Musculoskeletal Surgical History: Reports: None Social & Family History - Family History Family Medical History: Noncontributory HEENT: Reports: Glaucoma - Tobacco Use Smoking Status *Q: Current Every Day Smoker Years of Tobacco use: 40 Packs/Tins Daily: 0.2 Used Tobacco, but Quit: No Tobacco Use Comment: Pt. states she smokes 4 cigarettes a day, and refuses any smoking cessation education. - Caffeine Use Caffeine Use: Reports: None Other Caffeine Use: daily basis - Alcohol Use Date of Last Drink: 09/20/17 - Recreational Drug Use Recreational Drug Use: No H&P Review of Systems - Review of Systems: Review Of Systems: See Below General: Reports: Weakness, Decreased Appetite HEENT: Reports: No Symptoms Pulmonary: Reports: No Symptoms Cardiovascular: Reports: Palpitations Gastrointestinal: Reports: Diarrhea Genitourinary: Reports: No Symptoms Musculoskeletal: Reports: No Symptoms Skin: Reports: No Symptoms Psychiatric: Reports: Confusion Neurological: Reports: Confusion Hematologic/Lymphatic: Reports: No Symptoms Immunologic: Reports: No Symptoms Exam - Exam Exam: See Below - Vital Signs Vital Signs: Last Vital Signs Temp 36.9 C 09/27/17 07:32 Pulse 65 09/27/17 07:32 Resp 16 09/27/17 07:32 BP 96/69 09/27/17 07:32 Pulse Ox 99 09/27/17 07:32 Weight: 56.109 kg - Exam Quality Assessment: Supplemental Oxygen General: Lethargic HEENT: Pupils Equal, Pupils Reactive, Scleral Icterus, Other (dry mucosa), PERRLA Neck: Trachea Midline Lungs: Normal Respiratory Effort, Decreased Breath Sounds Cardiovascular: Regular Rate, Tachycardia GI/Abdominal Exam: Normal Bowel Sounds, Soft, Distended (mild), Guarding (no), Rigid (no), Rebound (no), Tender, Hepatomegaly, Splenomegaly (Female) Exam: Deferred Rectal (Female) Exam: Deferred Back Exam: Normal Inspection Extremities: Normal Inspection Skin: Warm Neurological: Cranial Nerves Intact, Normal Speech Neuro Extensive - Mental Status: Alert - Patient Data Lab Results Last 24 hrs: Laboratory Results - last 24 hr 09/26/17 09/26/17 09/27/17 Range/Units 19:05 20:54 06:07 WBC (3.98-10.04) K/mm3 RBC (3.98-5.22) M/mm3 Hgb (11.2-15.7) gm/L Hct (34.1-44.9) % MCV (79.4-94.8) fl MCH (25.6-32.2) pg MCHC (32.2-35.5) g/dl RDW Std Deviation (36.4-46.3) fL Plt Count (182-369) K/mm3 MPV (9.4-12.3) fl Neut % (Auto) (34.0-71.1) % Lymph % (Auto) (19.3-51.7) % [place] % (Auto) (4.7-12.5) % Eos % (Auto) (0.7-5.8) Baso % (Auto) (0.1-1.2) % Neut # (Auto) (1.56-6.13) K/mm3 Lymph # (Auto) (1.18-3.74) K/mm3 [place] # (Auto) (0.24-0.36) K/mm3 Eos # (Auto) (0.04-0.36) K/mm3 Baso # (Auto) (0.01-0.08) K/mm3 Puncture Site Rt radial ABG pH 7.49 H (7.35-7.45) ABG pCO2 18.2 L* (35.0-45.0) mmHg ABG pO2 86.0 (80.0-100.0) mmHg ABG HCO3 13.7 L (22.0-26.0) meq/L ABG O2 Saturation 97.7 H (96.0-97.0) % ABG Base Excess -7.5 L (-2-2.0) A-a Gradient 26 mmHg O2 Delivery Device Room air FiO2 21.00 (21.00-100.00) % Sodium 141 (136-145) mEq/L Potassium 1.7 L* (3.5-5.1) mEq/L Chloride 110 H (98-107) mEq/L Carbon Dioxide 16 L (21-32) mEq/L Anion Gap 16.7 H (5-15) BUN 8 (7-18) mg/dL Creatinine 0.8 (0.55-1.02) mg/dL Est Cr Clr Drug Dosing 62.63 mL/min Estimated GFR (MDRD) > 60 (>60) mL/min BUN/Creatinine Ratio 10.0 L (14-18) Glucose 98 (74-106) mg/dL Calcium 8.0 L (8.5-10.1) mg/dL Magnesium (1.8-2.4) mg/dl Ammonia (11-32) umol/L C-Reactive Protein 0.3 (<1.0) mg/dL Urine Color Yellow (Yellow) Urine Appearance Clear (Clear) Urine pH 7.0 (5.0-8.0) Ur Specific Mark [place] 1.015 (1.005-1.030) Urine Protein Negative (Negative) Urine Glucose (UA) Negative (Negative) Urine Ketones Negative (Negative) Urine Occult Blood Negative (Negative) Urine Nitrite Negative (Negative) Urine Bilirubin Negative (Negative) Urine Urobilinogen 2.0 H (0.2-1.0) Ur Leukocyte Esterase 1+ H (Negative) Urine RBC 0-5 (0-5) /hpf Urine WBC 5-10 H (0-5) /hpf Ur Epithelial Cells 5-10 H (0-5) /hpf Urine Bacteria Many H (FEW) /hpf Urine Mucus Not seen (FEW) /hpf 09/27/17 09/27/17 09/27/17 Range/Units 06:07 06:07 06:07 WBC 3.84 L (3.98-10.04) K/mm3 RBC 3.35 L (3.98-5.22) M/mm3 Hgb 11.7 (11.2-15.7) gm/L Hct 33.7 L (34.1-44.9) % MCV 100.6 H (79.4-94.8) fl MCH 34.9 H (25.6-32.2) pg MCHC 34.7 (32.2-35.5) g/dl RDW Std Deviation 59.8 H (36.4-46.3) fL Plt Count 52 L (182-369) K/mm3 MPV 11.6 (9.4-12.3) fl Neut % (Auto) 65.4 (34.0-71.1) % Lymph % (Auto) 14.8 L (19.3-51.7) % [place] % (Auto) 15.1 H (4.7-12.5) % Eos % (Auto) 2.9 (0.7-5.8) Baso % (Auto) 1.0 (0.1-1.2) % Neut # (Auto) 2.51 (1.56-6.13) K/mm3 Lymph # (Auto) 0.57 L (1.18-3.74) K/mm3 [place] # (Auto) 0.58 H (0.24-0.36) K/mm3 Eos # (Auto) 0.11 (0.04-0.36) K/mm3 Baso # (Auto) 0.04 (0.01-0.08) K/mm3 Puncture Site ABG pH (7.35-7.45) ABG pCO2 (35.0-45.0) mmHg ABG pO2 (80.0-100.0) mmHg ABG HCO3 (22.0-26.0) meq/L ABG O2 Saturation (96.0-97.0) % ABG Base Excess (-2-2.0) A-a Gradient mmHg O2 Delivery Device FiO2 (21.00-100.00) % Sodium (136-145) mEq/L Potassium (3.5-5.1) mEq/L Chloride (98-107) mEq/L Carbon Dioxide (21-32) mEq/L Anion Gap (5-15) BUN (7-18) mg/dL Creatinine (0.55-1.02) mg/dL Est Cr Clr Drug Dosing mL/min Estimated GFR (MDRD) (>60) mL/min BUN/Creatinine Ratio (14-18) Glucose (74-106) mg/dL Calcium (8.5-10.1) mg/dL Magnesium 2.4 (1.8-2.4) mg/dl Ammonia 127 H (11-32) umol/L C-Reactive Protein (<1.0) mg/dL Urine Color (Yellow) Urine Appearance (Clear) Urine pH (5.0-8.0) Ur Specific Mark [place] (1.005-1.030) Urine Protein (Negative) Urine Glucose (UA) (Negative) Urine Ketones (Negative) Urine Occult Blood (Negative) Urine Nitrite (Negative) Urine Bilirubin (Negative) Urine Urobilinogen (0.2-1.0) Ur Leukocyte Esterase (Negative) Urine RBC (0-5) /hpf Urine WBC (0-5) /hpf Ur Epithelial Cells (0-5) /hpf Urine Bacteria (FEW) /hpf Urine Mucus (FEW) /hpf Result Diagrams: 09/28/17 05:52 09/28/17 13:10 David Results Last 24 hrs: Microbiology 09/26/17 20:54 Urine Culture - Preliminary Urine, Clean Catch Gram Negative Rods - Problem List (1) Elevated INR SNOMED Code(s): 114628110 ICD Code: R79.1 - ABNORMAL COAGULATION PROFILE Status: Acute Priority: Medium Current Visit: Yes (2) Hepatic encephalopathy SNOMED Code(s): 18271024 ICD Code: K72.90 - HEPATIC FAILURE, UNSPECIFIED WITHOUT COMA Status: Acute Priority: High Current Visit: Yes (3) Hypokalemia SNOMED Code(s): 36516897 ICD Code: E87.6 - HYPOKALEMIA Status: Acute Priority: High Current Visit: Yes (4) Hypomagnesemia SNOMED Code(s): 024272238 ICD Code: E83.42 - HYPOMAGNESEMIA Status: Acute Priority: High Current Visit: Yes (5) Increased ammonia level SNOMED Code(s): 035776448, 010431552, 214404975 ICD Code: R79.89 - OTHER SPECIFIED ABNORMAL FINDINGS OF BLOOD CHEMISTRY Status: Acute Current Visit: Yes (6) Portal hypertension SNOMED Code(s): 73274106 ICD Code: K76.6 - PORTAL HYPERTENSION Status: Acute Priority: High Current Visit: Yes (7) Splenomegaly SNOMED Code(s): 76951993 ICD Code: R16.1 - SPLENOMEGALY, NOT ELSEWHERE CLASSIFIED Status: Acute Priority: High Current Visit: Yes (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 SNOMED Code(s): 77097240 ICD Code: D68.4 - ACQUIRED COAGULATION FACTOR DEFICIENCY Status: Chronic Priority: Medium Current Visit: Yes (9) Cirrhosis of liver SNOMED Code(s): 55303168 ICD Code: K74.60 - UNSPECIFIED CIRRHOSIS OF LIVER Status: Chronic Priority: High Current Visit: Yes Qualifiers: Hepatic cirrhosis type: alcoholic cirrhosis Ascites presence: with ascites Qualified Code(s): K70.31 - Alcoholic cirrhosis of liver with ascites (10) Personal history of alcoholism SNOMED Code(s): 871597882 ICD Code: F10.21 - ALCOHOL DEPENDENCE, IN REMISSION Status: Chronic Priority: Medium Current Visit: Yes (11) Tobacco use disorder SNOMED Code(s): 810070398 ICD Code: F17.200 - NICOTINE DEPENDENCE, UNSPECIFIED, UNCOMPLICATED Status : Chronic Priority: Medium Current Visit: Yes Problem List Initiated/Reviewed/Updated: Yes Orders Last 24hrs: Active Orders 24 hr Category Date Time Status Patient Status [ADT] Routine ADT 09/26/17 22:32 Active Activity as Tolerated [RC] .Routine Care 09/27/17 00:47 Active Cardiac Monitoring [RC] CONTINUOUS Care 09/27/17 09:22 Active Height and Weight [RC] DAILY Care 09/27/17 09:22 Active Intake and Output [RC] QSHIFT Care 09/27/17 09:22 Active Oxygen Therapy [RC] PRN Care 09/27/17 09:22 Active Pulse Oximetry [RC] PRN Care 09/27/17 09:22 Active Up With Assistance [RC] ASDIRECTED Care 09/27/17 09:22 Active VTE/DVT Education [RC] PER UNIT ROUTINE Care 09/27/17 09:22 Active Vital Signs [RC] Q4H Care 09/27/17 09:22 Active Consult to Case Management [CONS] Routine Cons 09/27/17 00:47 Active Consult to Occupational Therapy [OT Evaluation and Cons 09/27/17 00:48 Active Treatment] [CONS] Routine Consult to Physical Therapy [PT Evaluation and Cons 09/27/17 00:47 Active Treatment] [CONS] Routine Full Liquid Diet [DIET] Diet 09/27/17 Breakfast Active AMMONIA VENOUS [CHEM] Routine Lab 09/28/17 05:11 Ordered BASIC METABOLIC PANEL,BMP [CHEM] AM Lab 09/28/17 05:11 Ordered BASIC METABOLIC PANEL,BMP [CHEM] AM Lab 09/29/17 05:11 Ordered BASIC METABOLIC PANEL,BMP [CHEM] AM Lab 09/30/17 05:11 Ordered BASIC METABOLIC PANEL,BMP [CHEM] AM Lab 10/01/17 05:11 Ordered CBC WITH AUTO DIFF [HEME] AM Lab 09/28/17 05:11 Ordered CBC WITH AUTO DIFF [HEME] AM Lab 09/29/17 05:11 Ordered CBC WITH AUTO DIFF [HEME] AM Lab 09/30/17 05:11 Ordered CBC WITH AUTO DIFF [HEME] AM Lab 10/01/17 05:11 Ordered CBC WITH AUTO DIFF [HEME] Stat Lab 09/27/17 06:07 Results CULTURE URINE [RM] Stat Lab 09/26/17 20:54 Results MAGNESIUM [CHEM] AM Lab 09/28/17 05:11 Ordered MAGNESIUM [CHEM] AM Lab 09/29/17 05:11 Ordered MAGNESIUM [CHEM] AM Lab 09/30/17 05:11 Ordered MAGNESIUM [CHEM] AM Lab 10/01/17 05:11 Ordered Erythromycin Base [Julian-Tab] Med 09/27/17 06:00 Active 250 mg PO Q6HR Folic Acid Med 09/27/17 09:30 Active 1 mg PO DAILY Ibuprofen [Motrin] Med 09/27/17 00:48 Active 600 mg PO Q8H PRN Lactulose [Cephulac] Med 09/27/17 08:00 Active 45 gm PO BID Magnesium Sulfate/Water [Magnesium Sulfate 2 GM in Med 09/27/17 09:31 Active Water 50 ML] 2 gm Premix Bag 1 bag IV Q2H Metoprolol Tartrate [Lopressor] Med 09/27/17 09:25 Active 5 mg IVPUSH Q4H PRN Multivitamins,Therapeutic [Thera] Med 09/27/17 09:30 Active 1 each PO DAILY NS + KCl 20mEq/L [Normal Saline with 20 mEq KCl] 1,000 Med 09/27/17 09:30 Active ml IV ASDIRECTED Ondansetron [Zofran ODT] Med 09/27/17 09:22 Active 4 mg PO Q6H PRN Ondansetron [Zofran] Med 09/27/17 00:46 Active 4 mg IVPUSH Q8H PRN Potassium Chloride [KCl 10 MEQ in Water 100 ML] 10 meq Med 09/27/17 08:00 Active Premix Bag 1 bag IV Q1H Potassium Chloride [Klor-Con M20] Med 09/27/17 09:00 Active 40 meq PO DAILY Propranolol [Inderal] Med 09/27/17 10:00 Active 20 mg PO DAILY Sodium Chloride 0.9% [Normal Saline] 1,000 ml Med 09/27/17 08:00 Active IV ASDIRECTED Sodium Chloride 0.9% [Saline Flush] Med 09/26/17 19:08 Active 10 ml FLUSH ONETIME PRN Spironolactone [Aldactone] Med 09/28/17 09:00 Active 25 mg PO DAILY Thiamine [Vitamin B-1] Med 09/27/17 09:30 Active 100 mg PO DAILY chlordiazePOXIDE [Librium] Med 09/27/17 09:30 Active 25 mg PO BID hydrALAZINE [Apresoline] Med 09/27/17 09:25 Active 20 mg IVPUSH Q4H PRN RUTH Hose [Antiembolic Hose] [OM.PC] Routine Oth 09/27/17 00:47 Ordered Resuscitation Status Routine Resus Stat 09/26/17 23:34 Ordered Medication Orders Chlordiazepoxide HCl (Librium) 25 mg PO BID DORINA Erythromycin (Julian-Tab) 250 mg PO Q6HR DORINA Last Admin: 09/27/17 05:19 Dose: Folic Acid (Folic Acid) 1 mg PO DAILY [facility] Hydralazine HCl (Apresoline) 20 mg IVPUSH Q4H PRN PRN Reason: Hypertension Potassium Chloride 10 meq/ (Premix) 100 mls @ 100 mls/hr IV Q1H DORINA Stop: 09/27/17 13:59 Last Admin: 09/27/17 09:33 Dose: 100 mls/hr Infusion: 09/27/17 09:15 Dose: 100 mls/hr Admin: 09/27/17 08:15 Dose: 100 mls/hr Sodium Chloride (Normal Saline) 1,000 mls @ 100 mls/hr IV ASDIRECTED [facility] Last Admin: 09/27/17 08:14 Dose: 100 mls/hr Potassium Chloride/Sodium Chloride (Normal Saline With 20 Meq Kcl) 1,000 mls @ 125 mls/hr IV ASDIRECTED [facility] Magnesium Sulfate 2 gm/ Premix 50 mls @ 25 mls/hr IV Q2H [facility] Stop: 09/27/17 13:30 Ibuprofen (Motrin) 600 mg PO Q8H PRN PRN Reason: Pain/Fever Lactulose (Cephulac) 45 gm PO BID [facility] Last Admin: 09/27/17 08:22 Dose: 45 gm Metoprolol Tartrate (Lopressor) 5 mg IVPUSH Q4H PRN PRN Reason: Tachycardia Multivitamins (Thera) 1 each PO DAILY [facility] Ondansetron HCl (Zofran) 4 mg IVPUSH Q8H PRN PRN Reason: Nausea/Vomiting Ondansetron HCl (Zofran Odt) 4 mg PO Q6H PRN PRN Reason: nausea, able to take PO Potassium Chloride (Klor-Con M20) 40 meq PO DAILY [facility] Last Admin: 09/27/17 08:22 Dose: 40 meq Propranolol HCl (Inderal) 20 mg PO DAILY [facility] Sodium Chloride (Saline Flush) 10 ml FLUSH ONETIME PRN PRN Reason: IV FLUSH Last Admin: 09/26/17 20:34 Dose: 10 ml Spironolactone (Aldactone) 25 mg PO DAILY [facility] Thiamine HCl (Vitamin B-1) 100 mg PO DAILY [facility] Assessment/Plan Comment:: Impression: Alcohol abuse/dependence Hepatic encephalopathy Alcoholic cirrhosis Hypokalemia Hypomagnesemia Tobacco abuse/dependence CT of abdomen/pelvis Hepatomegaly Spleenomegaly Enlarged portal vein Periportal lymphadenopathy Minimal ascites Thickened gallbladder Plan: Clear liquids Antiemetics Correct electrolytes Benzodiazepines/CIWA protocol Consult SA, and Psychiatry Nicotine replacement and counseling DVT/GI prophylaxis
[2017-09-27] MEDS: Multivitamins,Therapeutic Tab PO SCH (11:19)
[2017-09-27] MEDS: chlordiazePOXIDE 25 MG Cap PO SCH ×2 (11:19→20:30)
[2017-09-27] MEDS: Thiamine 100 MG Tab PO SCH (11:20)
[2017-09-27] MEDS: Folic Acid 1 MG Tab PO SCH (11:20)
[2017-09-27] MEDS: Magnesium Sulfate/Water 2 GM in Premix Bag 1 BAG IV SCH ×2 (11:34→13:13)
[2017-09-27] MEDS ORDERED: LORazepam 2 MG/ML SDV IVPUSH PRN ×2 (11:56)
--- NOTE | 2017-09-27 12:20 | PCM.PN ---
- General Info Date of Service: 09/27/17 Admission Dx/Problem (Free Text): Admission Diagnosis/Problem Admission Diagnosis/Problem Hypokalemia Subjective Update: Discussed the events prior to admission with Evette's PCP who states when she arrived for her office visit yesterday she was very unsteady on her feet and had difficulty walking. She also reportedly had difficulty signing her name and was quite confused. Her labs were found to be very irregular and she was sent to the ED. Her ammonia was very high and her potassium and magnesium were low. In the ED she was found to have a possible UTI (culture returned today shows gram negative rods) and a CT scan of her abdomen was obtained. PCP reports patient does have a history of missing appointments and this is especially true when she is drinking. She has an extensive alcohol abuse history and was reportedly charged with DWI last week. She was hospitalized here in early April with respiratory symptoms and eventually transferred to [place]. She was in [facility] form 04/14/17 till 04/23/17 and was then transferred to [facility] in [place] on 04/23/17 until 05/12/17. She was diagnosed with MSSA sepsis with right sided empyema which required thoracenetsis and chest tube placement from 04/14/17 until 04/18/17. She also was diagnosed with Influenza A and B, acute hypoxemic respiratory failure, severely elevated right ventricular pressures, alcoholic cirrhosis, hepatic encephalopathy, hepatic coagulopathy, anemia and thrombocytopenia due to liver disease, E.coli UTI, and MOUNA. A PICC line was also reportedly placed and utilized. Her PCP reports the patient originally stated that she has not had anything to drink since June of this year, however when pressed further she reports her last drink was 09/20/17. (Of note: Her DWI charges were the afternoon of 09/21/17). Her PCP reports the patient has only been taking some of the medications she was prescribed and self doses many of these. She has reportedly only been taking half her dose of potassium. She has also had very poor follow-up since being discharged in [place]. I went in to talk with Evette about why she was here and her results. She reports she quite drinking hard in June and only has a beer or 2 here or there especially after she mows the grass. She reports she is fighting her DUI as she failed the field sobriety test but only blew a 0.01. She reportedly has a court date Monday afternoon and told me she will be leaving for that no matter what. I explained to her the importance of staying until she is medically ready. I also explained leaving AMA and how her insurance company will likely not pay for any of her stay here if she does that. We went over her CT scan in detail. She reports she knew she had liver problems. We discussed how this is likely directly related to her drinking. She reports she has not been taking most of her meds because there was not a refill listed and she thought she had completed treatment. She also did not like the size of her potassium pills (the are quite large) so she would only take a partial dose. I explained how this is why she is in the situation she is in and how she will likely be on many of those medications for the rest of her life. She reports she feels good now but knew something was not right earlier. We discussed her drinking and she says she only had a beer or two every now and again and does not have a problem. She reports she would like to be discharged tomorrow AM for a work event and I explained how her labs are still not good and she will likely need a few days to "be tuned up." She agrees to this plan but is still adamant about being discharged on Monday morning for her court date. Pharmacy was contacted to verify her medications. Apparently many medications were never filled and as she stated, many were only filled once. She has been refilling a few other medications including her PPI and potassium. Will adjust as necessary. Functional Status: Reports: Pain Controlled, Tolerating Diet, Ambulating, Urinating. Denies: New Symptoms - Review of Systems General: Reports: No Symptoms. Denies: Fever, Weakness, Fatigue, Malaise, Chills HEENT: Reports: No Symptoms. Denies: Eye Pain, Sinus Congestion, Sore Throat, Other Pulmonary: Reports: No Symptoms. Denies: Shortness of Breath, Cough, Sputum, Wheezing Cardiovascular: Reports: No Symptoms. Denies: Chest Pain, Palpitations, Dyspnea on Exertion, Edema, Other Gastrointestinal: Reports: Diarrhea. Denies: Abdominal Pain, Constipation, Nausea, Vomiting Genitourinary: Reports: No Symptoms. Denies: Dysuria, Frequency, Burning, Pain Musculoskeletal: Reports: No Symptoms Skin: Reports: No Symptoms Neurological: Reports: No Symptoms. Denies: Confusion, Dizziness, Headache, Numbness, Pre-Existing Deficit, Trouble Speaking, Difficulty Walking, Weakness, Gait Disturbance Psychiatric: Reports: No Symptoms - Patient Data Vitals - Most Recent: Last Vital Signs Temp 98.4 F 09/27/17 07:32 Pulse 65 09/27/17 07:32 Resp 16 09/27/17 07:32 BP 96/69 09/27/17 07:32 Pulse Ox 99 09/27/17 07:32 Weight - Most Recent: 123 lb 11.2 oz I&O - Last 24 Hours: Intake & Output 09/26/17 09/27/17 09/27/17 22:59 06:59 14:59 Intake Total 1174 780 Balance 1174 780 Lab Results Last 24 Hours: Laboratory Results - last 24 hr 09/26/17 09/26/17 09/27/17 Range/Units 19:05 20:54 06:07 WBC (3.98-10.04) K/mm3 RBC (3.98-5.22) M/mm3 Hgb (11.2-15.7) gm/L Hct (34.1-44.9) % MCV (79.4-94.8) fl MCH (25.6-32.2) pg MCHC (32.2-35.5) g/dl RDW Std Deviation (36.4-46.3) fL Plt Count (182-369) K/mm3 MPV (9.4-12.3) fl Neut % (Auto) (34.0-71.1) % Lymph % (Auto) (19.3-51.7) % [place] % (Auto) (4.7-12.5) % Eos % (Auto) (0.7-5.8) Baso % (Auto) (0.1-1.2) % Neut # (Auto) (1.56-6.13) K/mm3 Lymph # (Auto) (1.18-3.74) K/mm3 [place] # (Auto) (0.24-0.36) K/mm3 Eos # (Auto) (0.04-0.36) K/mm3 Baso # (Auto) (0.01-0.08) K/mm3 Manual Slide Review Puncture Site Rt radial ABG pH 7.49 H (7.35-7.45) ABG pCO2 18.2 L* (35.0-45.0) mmHg ABG pO2 86.0 (80.0-100.0) mmHg ABG HCO3 13.7 L (22.0-26.0) meq/L ABG O2 Saturation 97.7 H (96.0-97.0) % ABG Base Excess -7.5 L (-2-2.0) A-a Gradient 26 mmHg O2 Delivery Device Room air FiO2 21.00 (21.00-100.00) % Sodium 141 (136-145) mEq/L Potassium 1.7 L* (3.5-5.1) mEq/L Chloride 110 H (98-107) mEq/L Carbon Dioxide 16 L (21-32) mEq/L Anion Gap 16.7 H (5-15) BUN 8 (7-18) mg/dL Creatinine 0.8 (0.55-1.02) mg/dL Est Cr Clr Drug Dosing 62.63 mL/min Estimated GFR (MDRD) > 60 (>60) mL/min BUN/Creatinine Ratio 10.0 L (14-18) Glucose 98 (74-106) mg/dL Calcium 8.0 L (8.5-10.1) mg/dL Magnesium (1.8-2.4) mg/dl Ammonia (11-32) umol/L C-Reactive Protein 0.3 (<1.0) mg/dL Urine Color Yellow (Yellow) Urine Appearance Clear (Clear) Urine pH 7.0 (5.0-8.0) Ur Specific [place] 1.015 (1.005-1.030) Urine Protein Negative (Negative) Urine Glucose (UA) Negative (Negative) Urine Ketones Negative (Negative) Urine Occult Blood Negative (Negative) Urine Nitrite Negative (Negative) Urine Bilirubin Negative (Negative) Urine Urobilinogen 2.0 H (0.2-1.0) Ur Leukocyte Esterase 1+ H (Negative) Urine RBC 0-5 (0-5) /hpf Urine WBC 5-10 H (0-5) /hpf Ur Epithelial Cells 5-10 H (0-5) /hpf Urine Bacteria Many H (FEW) /hpf Urine Mucus Not seen (FEW) /hpf 09/27/17 09/27/1709/27/18 Range/Units 06:07 06:07 06:07 WBC 3.84 L (3.98-10.04) K/mm3 RBC 3.35 L (3.98-5.22) M/mm3 Hgb 11.7 (11.2-15.7) gm/L Hct 33.7 L (34.1-44.9) % MCV 100.6 H (79.4-94.8) fl MCH 34.9 H (25.6-32.2) pg MCHC 34.7 (32.2-35.5) g/dl RDW Std Deviation 59.8 H (36.4-46.3) fL Plt Count 52 L (182-369) K/mm3 MPV 11.6 (9.4-12.3) fl Neut % (Auto) 65.4 (34.0-71.1) % Lymph % (Auto) 14.8 L (19.3-51.7) % [place] % (Auto) 15.1 H (4.7-12.5) % Eos % (Auto) 2.9 (0.7-5.8) Baso % (Auto) 1.0 (0.1-1.2) % Neut # (Auto) 2.51 (1.56-6.13) K/mm3 Lymph # (Auto) 0.57 L (1.18-3.74) K/mm3 [place] # (Auto) 0.58 H (0.24-0.36) K/mm3 Eos # (Auto) 0.11 (0.04-0.36) K/mm3 Baso # (Auto) 0.04 (0.01-0.08) K/mm3 Manual Slide Review Abnormal smear Puncture Site ABG pH (7.35-7.45) ABG pCO2 (35.0-45.0) mmHg ABG pO2 (80.0-100.0) mmHg ABG HCO3 (22.0-26.0) meq/L ABG O2 Saturation (96.0-97.0) % ABG Base Excess (-2-2.0) A-a Gradient mmHg O2 Delivery Device FiO2 (21.00-100.00) % Sodium (136-145) mEq/L Potassium (3.5-5.1) mEq/L Chloride (98-107) mEq/L Carbon Dioxide (21-32) mEq/L Anion Gap (5-15) BUN (7-18) mg/dL Creatinine (0.55-1.02) mg/dL Est Cr Clr Drug Dosing mL/min Estimated GFR (MDRD) (>60) mL/min BUN/Creatinine Ratio (14-18) Glucose (74-106) mg/dL Calcium (8.5-10.1) mg/dL Magnesium 2.4 (1.8-2.4) mg/dl Ammonia 127 H (11-32) umol/L C-Reactive Protein (<1.0) mg/dL Urine Color (Yellow) Urine Appearance (Clear) Urine pH (5.0-8.0) Ur Specific [place] (1.005-1.030) Urine Protein (Negative) Urine Glucose (UA) (Negative) Urine Ketones (Negative) Urine Occult Blood (Negative) Urine Nitrite (Negative) Urine Bilirubin (Negative) Urine Urobilinogen (0.2-1.0) Ur Leukocyte Esterase (Negative) Urine RBC (0-5) /hpf Urine WBC (0-5) /hpf Ur Epithelial Cells (0-5) /hpf Urine Bacteria (FEW) /hpf Urine Mucus (FEW) /hpf David Results Last 24 Hours: Microbiology 09/26/17 20:54 Urine Culture - Preliminary Urine, Clean Catch Gram Negative Rods Med Orders - Current: Current Medications Calcium Carbonate/Glycine (Calcium Carbonate) 600 mg PO DAILY [facility] Chlordiazepoxide HCl (Librium) 25 mg PO BID [facility] Last Admin: 09/27/17 11:19 Dose: 25 mg Erythromycin (Julian-Tab) 250 mg PO Q6HR [facility] Last Admin: 09/27/17 11:19 Dose: 250 mg Folic Acid (Folic Acid) 1 mg PO DAILY [facility] Last Admin: 09/27/17 11:20 Dose: 1 mg Hydralazine HCl (Apresoline) 20 mg IVPUSH Q4H PRN PRN Reason: Hypertension Potassium Chloride 10 meq/ (Premix) 100 mls @ 100 mls/hr IV Q1H [facility] Stop: 09/27/17 13:59 Last Admin: 09/27/17 11:19 Dose: 100 mls/hr Sodium Chloride (Normal Saline) 1,000 mls @ 100 mls/hr IV ASDIRECTED [facility] Last Admin: 09/27/17 08:14 Dose: 100 mls/hr Magnesium Sulfate 2 gm/ Premix 50 mls @ 25 mls/hr IV Q2H [facility] Stop: 09/27/17 13:30 Last Admin: 09/27/17 11:34 Dose: 25 mls/hr Ceftriaxone Sodium 2 gm/ (Sodium Chloride) 100 mls @ 100 mls/hr IV Q24H [facility] Ibuprofen (Motrin) 600 mg PO Q8H PRN PRN Reason: Pain/Fever Lactulose (Cephulac) 45 gm PO BID [facility] Last Admin: 09/27/17 11:34 Dose: 45 gm Latanoprost (Xalatan 0.005% Ophth Soln) 0 ml EYEBOTH BEDTIME [facility] Lorazepam (Ativan) 2 mg IVPUSH Q4H PRN PRN Reason: Seizures Lorazepam (Ativan) 0 mg IVPUSH Q4H PRN; Protocol PRN Reason: withdrawl Metoprolol Tartrate (Lopressor) 5 mg IVPUSH Q4H PRN PRN Reason: Tachycardia Multivitamins (Thera) 1 each PO DAILY [facility] Last Admin: 09/27/17 11:19 Dose: 1 each Ondansetron HCl (Zofran) 4 mg IVPUSH Q8H PRN PRN Reason: Nausea/Vomiting Ondansetron HCl (Zofran Odt) 4 mg PO Q6H PRN PRN Reason: nausea, able to take PO Pantoprazole Sodium (Protonix) 40 mg PO BID [facility] Ferrous Gluconate [ Ferrous Gluconate] 650 Mg 0 each PO DAILY [facility] Potassium Chloride (Klor-Con M20) 40 meq PO DAILY [facility] Last Admin: 09/27/17 08:22 Dose: 40 meq Propranolol HCl (Inderal) 20 mg PO DAILY [facility] Sodium Chloride (Saline Flush) 10 ml FLUSH ONETIME PRN PRN Reason: IV FLUSH Last Admin: 09/26/17 20:34 Dose: 10 ml Spironolactone (Aldactone) 25 mg PO DAILY [facility] Thiamine HCl (Vitamin B-1) 100 mg PO DAILY [facility] Last Admin: 09/27/17 11:20 Dose: 100 mg Tiotropium Zoe (Spiriva Handihaler) 18 mcg INH DAILY [facility] Discontinued Medications Diatrizoate Meglum/Diatrizoate Sod (Gastrografin 37%) 120 ml PO ONETIME ONE Stop: 09/26/17 19:09 Last Admin: 09/26/17 20:34 Dose: 90 ml Folic Acid (Folic Acid) 1 mg PO ONETIME ONE Stop: 09/26/17 18:54 Last Admin: 09/26/17 19:01 Dose: 1 mg Potassium Chloride 10 meq/ (Premix) 100 mls @ 100 mls/hr IV ASDIRECTED ONE Stop: 09/26/17 19:45 Last Admin: 09/26/17 18:55 Dose: 100 mls/hr Potassium Chloride 10 meq/ (Premix) 100 mls @ 100 mls/hr IV ASDIRECTED ONE Stop: 09/26/17 19:45 Last Admin: 09/26/17 19:17 Dose: 100 mls/hr Magnesium Sulfate 2 gm/ Premix 50 mls @ 25 mls/hr IV ONETIME ONE Stop: 09/26/17 20:49 Last Admin: 09/26/17 18:58 Dose: 25 mls/hr Ceftriaxone Sodium 2 gm/ (Sodium Chloride) 100 mls @ 100 mls/hr IV ONETIME ONE Stop: 09/27/17 00:03 Last Admin: 09/26/17 23:27 Dose: 100 mls/hr Magnesium Sulfate 2 gm/ Premix 50 mls @ 50 mls/hr IV Q1H [facility] Stop: 09/27/17 00:14 Last Admin: 09/26/17 23:27 Dose: 50 mls/hr Potassium Chloride/Sodium Chloride (Normal Saline With 20 Meq Kcl) 1,000 mls @ 75 mls/hr IV ASDIRECTED [facility] Stop: 09/27/17 05:15 Last Admin: 09/26/17 23:26 Dose: 75 mls/hr Potassium Chloride/Sodium Chloride (Normal Saline With 20 Meq Kcl) 1,000 mls @ 125 mls/hr IV ASDIRECTED [facility] Iopamidol (Isovue-300 (61%)) 150 ml IVPUSH ONETIME ONE Stop: 09/26/17 19:09 Last Admin: 09/26/17 20:34 Dose: 100 ml Lactulose (Cephulac) 30 gm PO ONETIME ONE Stop: 09/26/17 18:47 Last Admin: 09/26/17 19:01 Dose: 30 gm Potassium Chloride (Potassium Chloride) 40 meq PO ONETIME ONE Stop: 09/26/17 18:45 Last Admin: 09/26/17 19:01 Dose: 40 meq Thiamine HCl (Vitamin B-1) 100 mg PO ONETIME ONE Stop: 09/26/17 18:54 Last Admin: 09/26/17 19:01 Dose: 100 mg - Exam Quality Assessment: DVT Prophylaxis General: Alert, Oriented, Cooperative, No Acute Distress HEENT: Pupils Equal, Pupils Reactive, EOMI, Mucous Membr. Moist/[place] Neck: Supple, Trachea Midline, No JVD Lungs: Clear to Auscultation, Normal Respiratory Effort Cardiovascular: Regular Rate, Regular Rhythm GI/Abdominal Exam: Normal Bowel Sounds, Soft, Non-Tender, No Distention, Hepatomegaly, Splenomegaly. No: Guarding (Female) Exam: Deferred Back Exam: Normal Inspection, Full Range of Motion Extremities: Normal Inspection, Normal Range of Motion, Non-Tender, No Pedal Edema, Normal Capillary Refill Peripheral Pulses: 2+: Posterior Tibial (L), Posterior Tibial (R), Dorsalis Pedis (L), Dorsalis Pedis (R), 3+: Radial (L), Radial (R) Skin: Warm, Dry, Intact Neurological: No New Focal Deficit, Cranial Nerves Intact (grossly ), Other ( Somewhat slurred speach, unsure of baseline. ) Psy/Mental Status: Alert, Normal Affect, Normal Mood. No: Anxious, Withdrawal Symptoms - Problem List & Annotations (1) Hypokalemia SNOMED Code(s): 69973935 Code(s): E87.6 - HYPOKALEMIA Status: Acute Priority: High Current Visit : Yes (2) Hepatic encephalopathy SNOMED Code(s): 41686515 Code(s): K72.90 - HEPATIC FAILURE, UNSPECIFIED WITHOUT COMA Status: Acute Priority: High Current Visit: Yes (3) Cirrhosis of liver SNOMED Code(s): 13368894 Code(s): K74.60 - UNSPECIFIED CIRRHOSIS OF LIVER Status: Chronic Priority : High Current Visit: Yes Qualifiers: Hepatic cirrhosis type: alcoholic cirrhosis Ascites presence: with ascites Qualified Code(s): K70.31 - Alcoholic cirrhosis of liver with ascites (4) Splenomegaly SNOMED Code(s): 96959198 Code(s): R16.1 - SPLENOMEGALY, NOT ELSEWHERE CLASSIFIED Status: Acute Priority: High Current Visit: Yes (5) Portal hypertension SNOMED Code(s): 64595071 Code(s): K76.6 - PORTAL HYPERTENSION Status: Acute Priority: High Current Visit: Yes (6) UTI (urinary tract infection) SNOMED Code(s): 09907050 Code(s): N39.0 - URINARY TRACT INFECTION, SITE NOT SPECIFIED Status: Acute Priority: High Current Visit: Yes Qualifiers: Urinary tract infection type: acute cystitis Hematuria presence: without hematuria Qualified Code(s): N30.00 - Acute cystitis without hematuria (7) Hypomagnesemia SNOMED Code(s): 758485603 Code(s): E83.42 - HYPOMAGNESEMIA Status: Acute Priority: High Current Visit: Yes (8) Vitamin D deficiency SNOMED Code(s): 03117987 Code(s): E55.9 - VITAMIN D DEFICIENCY, UNSPECIFIED Status: Chronic Priority: Low Current Visit: No (9) Iron deficiency anemia SNOMED Code(s): 32016351 Code(s): D50.9 - IRON DEFICIENCY ANEMIA, UNSPECIFIED Status: Chronic Priority: Medium Current Visit: Yes Qualifiers: Iron deficiency anemia type: unspecified iron deficiency Qualified Code(s) : D50.9 - Iron deficiency anemia, unspecified (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 SNOMED Code(s): 67038415 Code(s): D68.4 - ACQUIRED COAGULATION FACTOR DEFICIENCY Status: Chronic Priority: Medium Current Visit: Yes (11) Elevated INR SNOMED Code(s): 083472350 Code(s): R79.1 - ABNORMAL COAGULATION PROFILE Status: Acute Priority: Medium Current Visit: Yes (12) Increased ammonia level SNOMED Code(s): 680606945, 000263804, 275220848 Code(s): R79.89 - OTHER SPECIFIED ABNORMAL FINDINGS OF BLOOD CHEMISTRY Status: Acute Current Visit: Yes (13) Thrombocytopenia SNOMED Code(s): 120910176 Code(s): D69.6 - THROMBOCYTOPENIA, UNSPECIFIED Status: Chronic Priority: Medium Current Visit: Yes (14) Personal history of alcoholism SNOMED Code(s): 686814020 Code(s): F10.21 - ALCOHOL DEPENDENCE, IN REMISSION Status: Chronic Priority: Medium Current Visit: Yes (15) Tobacco use disorder SNOMED Code(s): 843775534 Code(s): F17.200 - NICOTINE DEPENDENCE, UNSPECIFIED, UNCOMPLICATED Status: Chronic Priority: Medium Current Visit: Yes - Problem List Review Problem List Initiated/Reviewed/Updated: Yes - My Orders Last 24 Hours: My Active Orders 09/27/17 08:00 Potassium Chloride [KCl 10 MEQ in Water 100 ML] 10 meq Premix Bag 1 bag IV Q1H Sodium Chloride 0.9% [Normal Saline] 1,000 ml IV ASDIRECTED 09/27/17 09:22 Cardiac Monitoring [RC] CONTINUOUS Height and Weight [RC] DAILY Intake and Output [RC] QSHIFT Oxygen Therapy [RC] PRN Pulse Oximetry [RC] PRN Up With Assistance [RC] ASDIRECTED VTE/DVT Education [RC] PER UNIT ROUTINE Vital Signs [RC] Q4H Ondansetron [Zofran ODT] 4 mg PO Q6H PRN 09/27/17 09:25 Metoprolol Tartrate [Lopressor] 5 mg IVPUSH Q4H PRN hydrALAZINE [Apresoline] 20 mg IVPUSH Q4H PRN 09/27/17 09:30 Folic Acid 1 mg PO DAILY Multivitamins,Therapeutic [Thera] 1 each PO DAILY Thiamine [Vitamin B-1] 100 mg PO DAILY chlordiazePOXIDE [Librium] 25 mg PO BID 09/27/17 09:31 Magnesium Sulfate/Water [Magnesium Sulfate 2 GM in Water 50 ML] 2 gm Premix Bag 1 bag IV Q2H 09/27/17 11:44 Notify Provider Consults [RC] ASDIRECTED Consult for Substance Abuse [CONS] Routine Consult to Physician [CONS] Routine Consult to Edgerman [CONS] Routine 09/27/17 11:56 CIWAA Assessment [RC] Q4HR LORazepam [Ativan] 2 mg IVPUSH Q4H PRN LORazepam [Ativan] See Protocol IVPUSH Q4H PRN 09/27/17 21:00 Latanoprost [Xalatan 0.005% Ophth Soln] 0 ml EYEBOTH BEDTIME Pantoprazole [ProTONIX] 40 mg PO BID 09/28/17 05:11 AMMONIA VENOUS [CHEM] Routine BASIC METABOLIC PANEL,BMP [CHEM] AM CBC WITH AUTO DIFF [HEME] AM MAGNESIUM [CHEM] AM 09/28/17 09:00 Calcium Carbonate 600 mg PO DAILY Patient's Own Medication [Ptom] 0 each PO DAILY Tiotropium [Spiriva HandiHaler] 18 mcg INH DAILY 09/29/17 05:11 BASIC METABOLIC PANEL,BMP [CHEM] AM CBC WITH AUTO DIFF [HEME] AM MAGNESIUM [CHEM] AM 09/30/17 05:11 BASIC METABOLIC PANEL,BMP [CHEM] AM CBC WITH AUTO DIFF [HEME] AM MAGNESIUM [CHEM] AM 10/01/17 05:11 BASIC METABOLIC PANEL,BMP [CHEM] AM CBC WITH AUTO DIFF [HEME] AM MAGNESIUM [CHEM] AM - Plan Plan:: I/P: Acute: Hepatic encephalopathy -Confused, difficulty with ambulation, difficulty writing on clinic visit with PCP -2/2 etoh use -CT in ED (09/26/17) 1. Findings suggest early cirrhosis with portal hypertension and splenomegaly as an interval change from previous exam. Minimal acites noted 2. Mild adenopathy as noted above believed to be incidental and mostly chronic 3. Small calcified gallstone within the gallbladder 4. Increased stool within the colon and other incidental findings -Ammonia 106-->127 -Per patient ran out of medication and did not have refills so thought she completed treatment -Lactulose and erythromycin -Investigate home medications and continue them -Spirionolactone for ascites Hypokalemia -Potassium 1.8-->1.7 -Supplement IV and oral route -Telemetry -Monitor and supplement Hypocalcemia -Calcium 8.5-->8.0 -Continue home supplementation Portal hypertension -2/2 ETOH use -Hx/o Hemorrhoids -CT scan as above - interval change from prior CT -Propranolol Transaminitis -AST 107 -ALT50 -Alkaline phosphatase 211 -Avoid heptotoxic medications -2/2 chronic ETOH use -CT scan as above -Hepatomegaly on physical exam -IV fluids as ordered -Resume home medications UTI -Weak UA in ED - 1+ leukocyte esterase, 5-10 WBCs, 5-10 Epithelial cells, Many bacteria -Culture growing gram negative rods, sensitivities pending -On prior visit in April was found to have E. Coli UTI which was booth sensitive -Rocephin 2gm given in ED - continue -IV fluids as ordered Pancytopenia -2/2 chronic ETOH use -Stable -Monitor Chronic ETOH abuse -Longstanding history of ETOH abuse and both inpatient and outpatient treatment -Strongly recommended outpatient treatment and avoiding ETOH at last hospital stay in May ([facility]) -Reportedly told PCP she has not drank since June but then changed story when pressed further; last beer 09/20/17 -"I still have a beer or two here or there... especially after mowing" -Reportedly charged with DUI last -Elevated liver enzymes, cirrhosis, and portal hypertension as above -SW/SA/Psych consult -Home thiamine/multivitamin/folic acid -Librium BID - Hold for sedation -CIWA protocol -PRN Ativan for withdrawl/seizure -IV fluids as ordered Tobacco use disorder -Daily smoker -Nicotine patch -Cessation counseling Chronic: Glaucoma Vitamin D Deficiency Iron Deficiency Anemia GERD Tobacco use disorder ETOH use Discharged form hospital 05/12/17 after lengthy stay for MSSA sepsis, right-sided empyema, Influenza A and B, and respiratory failure Plan: Admit to medical floor on telemetry Other orders as indicated above SW/SA/Psych consult Routine AM labs OT/PT Ambulation DVT/PE prophylaxis: Thrombocytopenia - medications contraindicated; RUTH corral, ambulate, SCDs GI prophylaxis: Home PPI Outpatient f/u with GI Code Status: Full code; PCP: AYAH Leon
[2017-09-27] MEDS: Propranolol 20 MG Tab PO SCH (12:29)
[2017-09-27] MEDS ORDERED: Magnesium Sulfate/Water 2 GM in Premix Bag 1 BAG IV ONE (13:00)
[2017-09-27] MEDS: Nicotine 21 MG/24 Hr Patch TRDERM SCH (13:17)
[2017-09-27] MEDS: Pantoprazole 40 MG Tab.CR PO SCH (20:30)
[2017-09-27] MEDS: Latanoprost 0.005% Ophth Soln 2.5 ML Bottle EYEBOTH SCH (20:30)
[2017-09-27] MEDS: Potassium Chloride 10% 20 MEQ/15 ML Soln 30 ML UD Cup PO SCH (20:30)
[2017-09-27] MEDS: Saccharomyces Boulardii (Probiotic) 250 MG Cap PO SCH (20:30)
[2017-09-27] MEDS: cefTRIAXone 2 GM in Sodium Chloride 0.9% 100 ML IV SCH (23:40)
[2017-09-28] MEDS: Sodium Chloride 0.9% 1,000 ML IV SCH ×2 (05:02→15:39)
--- NOTE | 2017-09-28 07:43 | PCM.PN ---
<Mathtew Moran - Last Filed: 09/28/17 12:31> - General Info Date of Service: 09/28/17 Admission Dx/Problem (Free Text): Admission Diagnosis/Problem Admission Diagnosis/Problem Hypokalemia Subjective Update: In to see Evette. Her potassium has improved very slightly and her ammonia is back up. Repeat labs have been ordered for 1300 today. Potassium and lactulose have been increased to TID. She is very nervous about a meeting with her immigration inspector tomorrow and a court date on Monday. We discussed the possibility of her immigration inspector coming to visit with her here. We had a lengthy discussion about her continued need for treatment and how this condition can be rapidly fatal. We also discussed her future Ayad consult and following up with KETTY about her ETOH use. She is in agreement at this point. Otherwise she has no concerns. No nursing concerns. Functional Status: Reports: Pain Controlled, Tolerating Diet, Ambulating, Urinating. Denies: New Symptoms - Review of Systems General: Reports: No Symptoms. Denies: Fever, Weakness, Fatigue, Malaise HEENT: Reports: No Symptoms. Denies: Ear Pain, Eye Pain, Headaches, Sore Throat Pulmonary: Reports: No Symptoms. Denies: Shortness of Breath, Pleuritic Chest Pain, Cough, Sputum, Wheezing Cardiovascular: Reports: No Symptoms. Denies: Chest Pain, Palpitations, Dyspnea on Exertion Gastrointestinal: Reports: Diarrhea. Denies: Abdominal Pain, Constipation, Nausea, Vomiting Genitourinary: Reports: No Symptoms. Denies: Dysuria, Frequency, Burning, Pain Musculoskeletal: Reports: No Symptoms Skin: Reports: No Symptoms Neurological: Reports: No Symptoms, Other (Still mildy slurred speach). Denies : Confusion, Numbness, Seizure, Tingling, Trouble Speaking, Difficulty Walking, Weakness, Gait Disturbance Psychiatric: Reports: No Symptoms - Patient Data Vitals - Most Recent: Last Vital Signs Temp 97.7 F 09/28/17 03:50 Pulse 58 L 09/28/17 03:50 Resp 15 09/28/17 03:50 BP 102/56 L 09/28/17 03:50 Pulse Ox 97 09/28/17 03:50 Weight - Most Recent: 56.518 kg I&O - Last 24 Hours: Intake & Output 09/27/17 09/28/17 09/28/17 22:59 06:59 14:59 Intake Total 2600 1911 Output Total 600 Balance 1999 1910 Lab Results Last 24 Hours: Laboratory Results - last 24 hr 09/27/17 09/27/17 09/27/17 Range/Units 06:07 06:07 06:07 WBC 3.84 L (3.98-10.04) K/mm3 RBC 3.35 L (3.98-5.22) M/mm3 Hgb 11.7 (11.2-15.7) gm/L Hct 33.7 L (34.1-44.9) % MCV 100.6 H (79.4-94.8) fl MCH 34.9 H (25.6-32.2) pg MCHC 34.7 (32.2-35.5) g/dl RDW Std Deviation 59.8 H (36.4-46.3) fL Plt Count 52 L (182-369) K/mm3 MPV 11.6 (9.4-12.3) fl Neut % (Auto) 65.4 (34.0-71.1) % Lymph % (Auto) 14.8 L (19.3-51.7) % [place] % (Auto) 15.1 H (4.7-12.5) % Eos % (Auto) 2.9 (0.7-5.8) Baso % (Auto) 1.0 (0.1-1.2) % Neut # (Auto) 2.51 (1.56-6.13) K/mm3 Lymph # (Auto) 0.57 L (1.18-3.74) K/mm3 [place] # (Auto) 0.58 H (0.24-0.36) K/mm3 Eos # (Auto) 0.11 (0.04-0.36) K/mm3 Baso # (Auto) 0.04 (0.01-0.08) K/mm3 Manual Slide Review Abnormal smear Sodium 141 (136-145) mEq/L Potassium 1.7 L* (3.5-5.1) mEq/L Chloride 110 H (98-107) mEq/L Carbon Dioxide 16 L (21-32) mEq/L Anion Gap 16.7 H (5-15) BUN 8 (7-18) mg/dL Creatinine 0.8 (0.55-1.02) mg/dL Est Cr Clr Drug Dosing 62.63 mL/min Estimated GFR (MDRD) > 60 (>60) mL/min BUN/Creatinine Ratio 10.0 L (14-18) Glucose 98 (74-106) mg/dL Calcium 8.0 L (8.5-10.1) mg/dL Magnesium (1.8-2.4) mg/dl Ammonia 127 H (11-32) umol/L C-Reactive Protein 0.3 (<1.0) mg/dL 09/27/17 09/27/17 09/27/17 Range/Units 06:07 16:05 16:05 WBC (3.98-10.04) K/mm3 RBC (3.98-5.22) M/mm3 Hgb (11.2-15.7) gm/L Hct (34.1-44.9) % MCV (79.4-94.8) fl MCH (25.6-32.2) pg MCHC (32.2-35.5) g/dl RDW Std Deviation (36.4-46.3) fL Plt Count (182-369) K/mm3 MPV (9.4-12.3) fl Neut % (Auto) (34.0-71.1) % Lymph % (Auto) (19.3-51.7) % [place] % (Auto) (4.7-12.5) % Eos % (Auto) (0.7-5.8) Baso % (Auto) (0.1-1.2) % Neut # (Auto) (1.56-6.13) K/mm3 Lymph # (Auto) (1.18-3.74) K/mm3 [place] # (Auto) (0.24-0.36) K/mm3 Eos # (Auto) (0.04-0.36) K/mm3 Baso # (Auto) (0.01-0.08) K/mm3 Manual Slide Review Sodium 143 (136-145) mEq/L Potassium 2.1 L* (3.5-5.1) mEq/L Chloride 111 H (98-107) mEq/L Carbon Dioxide 15 L (21-32) mEq/L Anion Gap 19.1 H (5-15) BUN 6 L (7-18) mg/dL Creatinine 1.2 H (0.55-1.02) mg/dL Est Cr Clr Drug Dosing 41.76 mL/min Estimated GFR (MDRD) 46 (>60) mL/min BUN/Creatinine Ratio 5.0 L (14-18) Glucose 124 H (74-106) mg/dL Calcium 7.9 L (8.5-10.1) mg/dL Magnesium 2.4 (1.8-2.4) mg/dl Ammonia 57 H (11-32) umol/L C-Reactive Protein (<1.0) mg/dL 09/28/17 09/28/17 09/28/17 Range/Units 05:52 05:52 05:52 WBC 3.27 L (3.98-10.04) K/mm3 RBC 3.20 L (3.98-5.22) M/mm3 Hgb 11.1 L (11.2-15.7) gm/L Hct 32.9 L (34.1-44.9) % MCV 102.8 H (79.4-94.8) fl MCH 34.7 H (25.6-32.2) pg MCHC 33.7 (32.2-35.5) g/dl RDW Std Deviation 62.2 H (36.4-46.3) fL Plt Count 54 L (182-369) K/mm3 MPV 11.6 (9.4-12.3) fl Neut % (Auto) 49.0 (34.0-71.1) % Lymph % (Auto) 26.6 (19.3-51.7) % [place] % (Auto) 18.0 H (4.7-12.5) % Eos % (Auto) 4.9 (0.7-5.8) Baso % (Auto) 1.2 (0.1-1.2) % Neut # (Auto) 1.60 (1.56-6.13) K/mm3 Lymph # (Auto) 0.87 L (1.18-3.74) K/mm3 [place] # (Auto) 0.59 H (0.24-0.36) K/mm3 Eos # (Auto) 0.16 (0.04-0.36) K/mm3 Baso # (Auto) 0.04 (0.01-0.08) K/mm3 Manual Slide Review Abnormal smear Sodium 144 (136-145) mEq/L Potassium 2.2 L* (3.5-5.1) mEq/L Chloride 115 H (98-107) mEq/L Carbon Dioxide 15 L (21-32) mEq/L Anion Gap 16.2 H (5-15) BUN 6 L (7-18) mg/dL Creatinine 0.8 (0.55-1.02) mg/dL Est Cr Clr Drug Dosing 62.63 mL/min Estimated GFR (MDRD) > 60 (>60) mL/min BUN/Creatinine Ratio 7.5 L (14-18) Glucose 97 (74-106) mg/dL Calcium 7.4 L (8.5-10.1) mg/dL Magnesium 1.7 L (1.8-2.4) mg/dl Ammonia 127 H (11-32) umol/L C-Reactive Protein < 0.2 (<1.0) mg/dL David Results Last 24 Hours: Microbiology 09/26/17 20:54 Urine Culture - Preliminary Urine, Clean Catch Gram Negative Rods Med Orders - Current: Current Medications Calcium Carbonate/Glycine (Calcium Carbonate) 600 mg PO DAILY [facility] Chlordiazepoxide HCl (Librium) 25 mg PO BID [facility] Last Admin: 09/27/17 20:30 Dose: 25 mg Erythromycin (Julian-Tab) 250 mg PO Q6HR [facility] Last Admin: 09/28/17 05:02 Dose: 250 mg Folic Acid (Folic Acid) 1 mg PO DAILY [facility] Last Admin: 09/27/17 11:20 Dose: 1 mg Hydralazine HCl (Apresoline) 20 mg IVPUSH Q4H PRN PRN Reason: Hypertension Sodium Chloride (Normal Saline) 1,000 mls @ 100 mls/hr IV ASDIRECTED [facility] Last Admin: 09/28/17 05:02 Dose: 100 mls/hr Ceftriaxone Sodium 2 gm/ (Sodium Chloride) 100 mls @ 100 mls/hr IV Q24H [facility] Last Admin: 09/27/17 23:40 Dose: 100 mls/hr Potassium Chloride 10 meq/ (Premix) 100 mls @ 100 mls/hr IV Q1H [facility] Stop: 09/28/17 13:29 Ibuprofen (Motrin) 600 mg PO Q8H PRN PRN Reason: Pain/Fever Lactulose (Cephulac) 45 gm PO BID [facility] Last Admin: 09/27/17 20:29 Dose: 45 gm Latanoprost (Xalatan 0.005% Ophth Soln) 0 ml EYEBOTH BEDTIME [facility] Last Admin: 09/27/17 20:30 Dose: Not Given Lorazepam (Ativan) 2 mg IVPUSH Q4H PRN PRN Reason: Seizures Lorazepam (Ativan) 0 mg IVPUSH Q4H PRN; Protocol PRN Reason: withdrawl Metoprolol Tartrate (Lopressor) 5 mg IVPUSH Q4H PRN PRN Reason: Tachycardia Multivitamins (Thera) 1 each PO DAILY [facility] Last Admin: 09/27/17 11:19 Dose: 1 each Nicotine (Habitrol) 21 mg TRDERM DAILY [facility] Last Admin: 09/27/17 13:17 Dose: Not Given Ondansetron HCl (Zofran) 4 mg IVPUSH Q8H PRN PRN Reason: Nausea/Vomiting Ondansetron HCl (Zofran Odt) 4 mg PO Q6H PRN PRN Reason: nausea, able to take PO Pantoprazole Sodium (Protonix) 40 mg PO BID [facility] Last Admin: 09/27/17 20:30 Dose: 40 mg Ferrous Gluconate [ Ferrous Gluconate] 650 Mg 0 each PO DAILY [facility] Potassium Chloride (Potassium Chloride) 60 meq PO BID [facility] Last Admin: 09/27/17 20:30 Dose: 60 meq Propranolol HCl (Inderal) 20 mg PO DAILY [facility] Last Admin: 09/27/17 12:29 Dose: Not Given Saccharomyces Boulardii (Florastor) 250 mg PO BID [facility] Last Admin: 09/27/17 20:30 Dose: 250 mg Sodium Chloride (Saline Flush) 10 ml FLUSH ONETIME PRN PRN Reason: IV FLUSH Last Admin: 09/26/17 20:34 Dose: 10 ml Spironolactone (Aldactone) 25 mg PO DAILY [facility] Thiamine HCl (Vitamin B-1) 100 mg PO DAILY [facility] Last Admin: 09/27/17 11:20 Dose: 100 mg Tiotropium [place] (Spiriva Handihaler) 18 mcg INH DAILY [facility] Discontinued Medications Diatrizoate Meglum/Diatrizoate Sod (Gastrografin 37%) 120 ml PO ONETIME ONE Stop: 06/19/18 19:09 Last Admin: 09/26/17 20:34 Dose: 90 ml Folic Acid (Folic Acid) 1 mg PO ONETIME ONE Stop: 09/26/17 18:54 Last Admin: 09/26/17 19:01 Dose: 1 mg Potassium Chloride 10 meq/ (Premix) 100 mls @ 100 mls/hr IV ASDIRECTED ONE Stop: 09/26/17 19:45 Last Admin: 09/26/17 18:55 Dose: 100 mls/hr Potassium Chloride 10 meq/ (Premix) 100 mls @ 100 mls/hr IV ASDIRECTED ONE Stop: 09/26/17 19:45 Last Admin: 09/26/17 19:17 Dose: 100 mls/hr Magnesium Sulfate 2 gm/ Premix 50 mls @ 25 mls/hr IV ONETIME ONE Stop: 09/26/17 20:49 Last Admin: 09/26/17 18:58 Dose: 25 mls/hr Ceftriaxone Sodium 2 gm/ (Sodium Chloride) 100 mls @ 100 mls/hr IV ONETIME ONE Stop: 09/27/17 00:03 Last Admin: 09/26/17 23:27 Dose: 100 mls/hr Magnesium Sulfate 2 gm/ Premix 50 mls @ 50 mls/hr IV Q1H [facility] Stop: 09/27/17 00:14 Last Admin: 09/26/17 23:27 Dose: 50 mls/hr Potassium Chloride/Sodium Chloride (Normal Saline With 20 Meq Kcl) 1,000 mls @ 75 mls/hr IV ASDIRECTED [facility] Stop: 09/27/17 05:15 Last Admin: 09/26/17 23:26 Dose: 75 mls/hr Potassium Chloride 10 meq/ (Premix) 100 mls @ 100 mls/hr IV Q1H [facility] Stop: 09/27/17 13:59 Last Admin: 09/27/17 15:38 Dose: 100 mls/hr Potassium Chloride/Sodium Chloride (Normal Saline With 20 Meq Kcl) 1,000 mls @ 125 mls/hr IV ASDIRECTED [facility] Magnesium Sulfate 2 gm/ Premix 50 mls @ 25 mls/hr IV Q2H [facility] Stop: 09/27/17 13:30 Last Admin: 09/27/17 13:13 Dose: 25 mls/hr Magnesium Sulfate 2 gm/ Premix 50 mls @ 25 mls/hr IV ONETIME ONE Stop: 09/27/17 14:59 Last Admin: 09/27/17 13:17 Dose: Not Given Iopamidol (Isovue-300 (61%)) 150 ml IVPUSH ONETIME ONE Stop: 09/26/17 19:09 Last Admin: 09/26/17 20:34 Dose: 100 ml Lactulose (Cephulac) 30 gm PO ONETIME ONE Stop: 09/26/17 18:47 Last Admin: 09/26/17 19:01 Dose: 30 gm Potassium Chloride (Potassium Chloride) 40 meq PO ONETIME ONE Stop: 09/26/17 18:45 Last Admin: 09/26/17 19:01 Dose: 40 meq Potassium Chloride (Klor-Con M20) 40 meq PO DAILY [facility] Last Admin: 09/27/17 08:22 Dose: 40 meq Potassium Chloride (Klor-Con M20) 40 meq PO BID [facility] Potassium Chloride (Klor-Con M20) 40 meq PO Q4H [facility] Stop: 09/27/17 20:46 Last Admin: 09/27/17 19:32 Dose: Not Given Thiamine HCl (Vitamin B-1) 100 mg PO ONETIME ONE Stop: 09/26/17 18:54 Last Admin: 09/26/17 19:01 Dose: 100 mg - Exam Quality Assessment: DVT Prophylaxis General: Alert, Oriented, Cooperative, No Acute Distress HEENT: Pupils Equal, Pupils Reactive, EOMI, Mucous Membr. Moist/[place] Neck: Supple, Trachea Midline, No JVD Lungs: Clear to Auscultation, Normal Respiratory Effort Cardiovascular: Regular Rate, Regular Rhythm GI/Abdominal Exam: Normal Bowel Sounds, Soft, Non-Tender, No Distention (Female) Exam: Deferred Back Exam: Normal Inspection, Full Range of Motion Extremities: Normal Inspection, Normal Range of Motion, Non-Tender, No Pedal Edema, Normal Capillary Refill Peripheral Pulses: 2+: Posterior Tibial (L), Posterior Tibial (R), Dorsalis Pedis (L), Dorsalis Pedis (R), 3+: Radial (L), Radial (R) Skin: Warm, Dry, Intact Neurological: No New Focal Deficit Psy/Mental Status: Alert, Normal Affect, Normal Mood - Problem List & Annotations (1) Hypokalemia SNOMED Code(s): 33584473 Code(s): E87.6 - HYPOKALEMIA Status: Acute Priority: High Current Visit : Yes (2) Hepatic encephalopathy SNOMED Code(s): 28435625 Code(s): K72.90 - HEPATIC FAILURE, UNSPECIFIED WITHOUT COMA Status: Acute Priority: High Current Visit: Yes (3) Cirrhosis of liver SNOMED Code(s): 52665660 Code(s): K74.60 - UNSPECIFIED CIRRHOSIS OF LIVER Status: Chronic Priority : High Current Visit: Yes Qualifiers: Hepatic cirrhosis type: alcoholic cirrhosis Ascites presence: with ascites Qualified Code(s): K70.31 - Alcoholic cirrhosis of liver with ascites (4) Splenomegaly SNOMED Code(s): 69258143 Code(s): R16.1 - SPLENOMEGALY, NOT ELSEWHERE CLASSIFIED Status: Acute Priority: High Current Visit: Yes (5) Portal hypertension SNOMED Code(s): 28829206 Code(s): K76.6 - PORTAL HYPERTENSION Status: Acute Priority: High Current Visit: Yes (6) UTI (urinary tract infection) SNOMED Code(s): 09127302 Code(s): N39.0 - URINARY TRACT INFECTION, SITE NOT SPECIFIED Status: Acute Priority: High Current Visit: Yes Qualifiers: Urinary tract infection type: acute cystitis Hematuria presence: without hematuria Qualified Code(s): N30.00 - Acute cystitis without hematuria (7) Hypomagnesemia SNOMED Code(s): 901355586 Code(s): E83.42 - HYPOMAGNESEMIA Status: Acute Priority: High Current Visit: Yes (8) Vitamin D deficiency SNOMED Code(s): 29771794 Code(s): E55.9 - VITAMIN D DEFICIENCY, UNSPECIFIED Status: Chronic Priority: Low Current Visit: No (9) Iron deficiency anemia SNOMED Code(s): 74795732 Code(s): D50.9 - IRON DEFICIENCY ANEMIA, UNSPECIFIED Status: Chronic Priority: Medium Current Visit: Yes Qualifiers: Iron deficiency anemia type: unspecified iron deficiency Qualified Code(s) : D50.9 - Iron deficiency anemia, unspecified (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 SNOMED Code(s): 45695192 Code(s): D68.4 - ACQUIRED COAGULATION FACTOR DEFICIENCY Status: Chronic Priority: Medium Current Visit: Yes (11) Elevated INR SNOMED Code(s): 376440870 Code(s): R79.1 - ABNORMAL COAGULATION PROFILE Status: Acute Priority: Medium Current Visit: Yes (12) Increased ammonia level SNOMED Code(s): 001375833, 931676917, 623764924 Code(s): R79.89 - OTHER SPECIFIED ABNORMAL FINDINGS OF BLOOD CHEMISTRY Status: Acute Current Visit: Yes (13) Thrombocytopenia SNOMED Code(s): 779309812 Code(s): D69.6 - THROMBOCYTOPENIA, UNSPECIFIED Status: Chronic Priority: Medium Current Visit: Yes (14) Personal history of alcoholism SNOMED Code(s): 584843912 Code(s): F10.21 - ALCOHOL DEPENDENCE, IN REMISSION Status: Chronic Priority: Medium Current Visit: Yes (15) Tobacco use disorder SNOMED Code(s): 684877472 Code(s): F17.200 - NICOTINE DEPENDENCE, UNSPECIFIED, UNCOMPLICATED Status: Chronic Priority: Medium Current Visit: Yes - Problem List Review Problem List Initiated/Reviewed/Updated: Yes - My Orders Last 24 Hours: My Active Orders 09/27/17 08:00 Sodium Chloride 0.9% [Normal Saline] 1,000 ml IV ASDIRECTED 09/27/17 09:22 Cardiac Monitoring [RC] CONTINUOUS Height and Weight [RC] 04 Intake and Output [RC] 04,16 Oxygen Therapy [RC] PRN Pulse Oximetry [RC] PRN Up With Assistance [RC] ASDIRECTED VTE/DVT Education [RC] PER UNIT ROUTINE Vital Signs [RC] Q4HR Ondansetron [Zofran ODT] 4 mg PO Q6H PRN 09/27/17 09:25 Metoprolol Tartrate [Lopressor] 5 mg IVPUSH Q4H PRN hydrALAZINE [Apresoline] 20 mg IVPUSH Q4H PRN 09/27/17 09:30 Folic Acid 1 mg PO DAILY Multivitamins,Therapeutic [Thera] 1 each PO DAILY Thiamine [Vitamin B-1] 100 mg PO DAILY chlordiazePOXIDE [Librium] 25 mg PO BID 09/27/17 11:44 Notify Provider Consults [RC] ASDIRECTED Consult for Substance Abuse [CONS] Routine Consult to Physician [CONS] Routine Consult to Vice President Of Human Resources [CONS] Routine 09/27/17 11:56 CIWAA Assessment [RC] Q4HR LORazepam [Ativan] 2 mg IVPUSH Q4H PRN LORazepam [Ativan] See Protocol IVPUSH Q4H PRN 09/27/17 12:24 SCD [Sequential Compression Device] [OM.PC] Routine 09/27/17 12:30 Nicotine [Habitrol] 21 mg TRDERM DAILY 09/27/17 21:00 Latanoprost [Xalatan 0.005% Ophth Soln] 0 ml EYEBOTH BEDTIME Pantoprazole [ProTONIX] 40 mg PO BID Saccharomyces Boulardii [Florastor] 250 mg PO BID 09/27/17 Dinner Heart Healthy Diet [DIET] 09/28/17 07:30 Potassium Chloride [KCl 10 MEQ in Water 100 ML] 10 meq Premix Bag 1 bag IV Q1H 09/28/17 09:00 Calcium Carbonate 600 mg PO DAILY Patient's Own Medication [Ptom] 0 each PO DAILY Tiotropium [Spiriva HandiHaler] 18 mcg INH DAILY 09/29/17 05:11 BASIC METABOLIC PANEL,BMP [CHEM] AM CBC WITH AUTO DIFF [HEME] AM CRP [C-REACTIVE PROTEIN] [CHEM] AM MAGNESIUM [CHEM] AM 09/30/17 05:11 BASIC METABOLIC PANEL,BMP [CHEM] AM CBC WITH AUTO DIFF [HEME] AM CRP [C-REACTIVE PROTEIN] [CHEM] AM MAGNESIUM [CHEM] AM 10/01/17 05:11 BASIC METABOLIC PANEL,BMP [CHEM] AM CBC WITH AUTO DIFF [HEME] AM CRP [C-REACTIVE PROTEIN] [CHEM] AM MAGNESIUM [CHEM] AM 10/02/17 05:11 CRP [C-REACTIVE PROTEIN] [CHEM] AM - Plan Plan:: I/P: Acute: Hepatic encephalopathy -Confused, difficulty with ambulation, difficulty writing on clinic visit with PCP -2/2 etoh use -CT in ED (09/26/17) 1. Findings suggest early cirrhosis with portal hypertension and splenomegaly as an interval change from previous exam. Minimal acites noted 2. Mild adenopathy as noted above believed to be incidental and mostly chronic 3. Small calcified gallstone within the gallbladder 4. Increased stool within the colon and other incidental findings -Ammonia 106-->127-->57-->127 -Per patient: ran out of medication and did not have refills so thought she completed treatment -Lactulose and erythromycin -> increase lactulose to TID -Investigate home medications and continue them -Spirionolactone for ascites Hypokalemia -Potassium 1.8-->1.7-->2.1-->2.2 -Supplement IV and oral route -> Increase oral to TID -Telemetry -Monitor and supplement Hypocalcemia -Calcium 8.5-->8.0-->7.4 -Continue home supplementation Portal hypertension -2/2 ETOH use -Hx/o Hemorrhoids -CT scan as above - interval change from prior CT -Propranolol Transaminitis -AST 107 -ALT 50 -Alkaline phosphatase 211 -Avoid heptotoxic medications -2/2 chronic ETOH use -CT scan as above -Hepatomegaly on physical exam -IV fluids as ordered -Resume home medications -Gallbladder ultrasound 09/28/17 UTI -Weak UA in ED - 1+ leukocyte esterase, 5-10 WBCs, 5-10 Epithelial cells, Many bacteria -Culture growing E. coli sensitive to Rocephin -On prior visit in April was found to have E. Coli UTI which was booth sensitive -Rocephin 2gm given in ED - continue -IV fluids as ordered Pancytopenia -2/2 chronic ETOH use -Stable -Monitor Chronic ETOH abuse -Longstanding history of ETOH abuse and both inpatient and outpatient treatment -Strongly recommended outpatient treatment and avoiding ETOH at last hospital stay in May ([facility]) -Reportedly told PCP she has not drank since June but then changed story when pressed further; last beer 09/20/17 -"I still have a beer or two here or there... especially after mowing" -Reportedly charged with DUI last -Elevated liver enzymes, cirrhosis, and portal hypertension as above -SW/SA/Psych consult -Home thiamine/multivitamin/folic acid -Librium BID - Hold for sedation if needed -CIWA protocol -PRN Ativan for withdrawl/seizure -IV fluids as ordered Tobacco use disorder -Daily smoker -Nicotine patch -Cessation counseling Chronic: Glaucoma Vitamin D Deficiency Iron Deficiency Anemia GERD Tobacco use disorder ETOH use Discharged form hospital 05/12/17 after lengthy stay for MSSA sepsis, right-sided empyema, Influenza A and B, and respiratory failure Plan: Admit to medical floor on telemetry Other orders as indicated above SW/SA/Psych consult Routine AM labs OT/PT Ambulation DVT/PE prophylaxis: Thrombocytopenia - medications contraindicated; RUTH cindye, ambulate, SCDs GI prophylaxis: Home PPI Outpatient f/u with GI Code Status: Full code; PCP: AYAH Leon <Riana Pete - Last Filed: 09/28/17 18:01> - Patient Data Vitals - Most Recent: Last Vital Signs Temp 36.3 C 09/28/17 15:50 Pulse 51 L 09/28/17 15:50 Resp 14 09/28/17 15:50 BP 100/63 09/28/17 15:50 Pulse Ox 100 09/28/17 15:50 I&O - Last 24 Hours: Intake & Output 09/28/17 09/28/17 09/28/17 06:59 14:59 22:59 Intake Total 1347 889 0657 Output Total 900 Balance 6715 949 3814 Lab Results Last 24 Hours: Laboratory Results - last 24 hr 09/28/17 09/28/17 09/28/17 Range/Units 05:52 05:52 05:52 WBC 3.27 L (3.98-10.04) K/mm3 RBC 3.20 L (3.98-5.22) M/mm3 Hgb 11.1 L (11.2-15.7) gm/L Hct 32.9 L (34.1-44.9) % MCV 102.8 H (79.4-94.8) fl MCH 34.7 H (25.6-32.2) pg MCHC 33.7 (32.2-35.5) g/dl RDW Std Deviation 62.2 H (36.4-46.3) fL Plt Count 54 L (182-369) K/mm3 MPV 11.6 (9.4-12.3) fl Neut % (Auto) 49.0 (34.0-71.1) % Lymph % (Auto) 26.6 (19.3-51.7) % [place] % (Auto) 18.0 H (4.7-12.5) % Eos % (Auto) 4.9 (0.7-5.8) Baso % (Auto) 1.2 (0.1-1.2) % Neut # (Auto) 1.60 (1.56-6.13) K/mm3 Lymph # (Auto) 0.87 L (1.18-3.74) K/mm3 [place] # (Auto) 0.59 H (0.24-0.36) K/mm3 Eos # (Auto) 0.16 (0.04-0.36) K/mm3 Baso # (Auto) 0.04 (0.01-0.08) K/mm3 Manual Slide Review Abnormal smear Sodium 144 (136-145) mEq/L Potassium 2.2 L* (3.5-5.1) mEq/L Chloride 115 H (98-107) mEq/L Carbon Dioxide 15 L (21-32) mEq/L Anion Gap 16.2 H (5-15) BUN 6 L (7-18) mg/dL Creatinine 0.8 (0.55-1.02) mg/dL Est Cr Clr Drug Dosing 62.63 mL/min Estimated GFR (MDRD) > 60 (>60) mL/min BUN/Creatinine Ratio 7.5 L (14-18) Glucose 97 (74-106) mg/dL Calcium 7.4 L (8.5-10.1) mg/dL Magnesium 1.7 L (1.8-2.4) mg/dl Total Bilirubin (0.2-1.0) mg/dL GGT (5-55) U/L AST (15-37) U/L ALT (14-59) U/L Alkaline Phosphatase (46-116) U/L Ammonia 127 H (11-32) umol/L C-Reactive Protein < 0.2 (<1.0) mg/dL Total Protein (6.4-8.2) g/dl Albumin (3.4-5.0) g/dl Globulin gm/dL Albumin/Globulin Ratio (1-2) 09/28/17 09/28/17 Range/Units 13:10 13:10 WBC (3.98-10.04) K/mm3 RBC (3.98-5.22) M/mm3 Hgb (11.2-15.7) gm/L Hct (34.1-44.9) % MCV (79.4-94.8) fl MCH (25.6-32.2) pg MCHC (32.2-35.5) g/dl RDW Std Deviation (36.4-46.3) fL Plt Count (182-369) K/mm3 MPV (9.4-12.3) fl Neut % (Auto) (34.0-71.1) % Lymph % (Auto) (19.3-51.7) % [place] % (Auto) (4.7-12.5) % Eos % (Auto) (0.7-5.8) Baso % (Auto) (0.1-1.2) % Neut # (Auto) (1.56-6.13) K/mm3 Lymph # (Auto) (1.18-3.74) K/mm3 [place] # (Auto) (0.24-0.36) K/mm3 Eos # (Auto) (0.04-0.36) K/mm3 Baso # (Auto) (0.01-0.08) K/mm3 Manual Slide Review Sodium 141 (136-145) mEq/L Potassium 3.7 (3.5-5.1) mEq/L Chloride 113 H (98-107) mEq/L Carbon Dioxide 15 L (21-32) mEq/L Anion Gap 16.7 H (5-15) BUN 6 L (7-18) mg/dL Creatinine 1.0 (0.55-1.02) mg/dL Est Cr Clr Drug Dosing 50.11 mL/min Estimated GFR (MDRD) 57 (>60) mL/min BUN/Creatinine Ratio 6.0 L (14-18) Glucose 116 H (74-106) mg/dL Calcium 7.7 L (8.5-10.1) mg/dL Magnesium (1.8-2.4) mg/dl Total Bilirubin 4.2 H (0.2-1.0) mg/dL GGT 317 H (5-55) U/L AST 81 H (15-37) U/L ALT 43 (14-59) U/L Alkaline Phosphatase 153 H (46-116) U/L Ammonia 83 H (11-32) umol/L C-Reactive Protein (<1.0) mg/dL Total Protein 6.6 (6.4-8.2) g/dl Albumin 2.9 L (3.4-5.0) g/dl Globulin 3.7 gm/dL Albumin/Globulin Ratio 0.8 L (1-2) David Results Last 24 Hours: Microbiology 09/26/17 20:54 Urine Culture - Final Urine, Clean Catch Escherichia Coli Med Orders - Current: Current Medications Calcium Carbonate/Glycine (Calcium Carbonate) 600 mg PO DAILY [facility] Last Admin: 09/28/17 09:04 Dose: 600 mg Chlordiazepoxide HCl (Librium) 25 mg PO BID [facility] Last Admin: 09/28/17 09:04 Dose: 25 mg Erythromycin (Julian-Tab) 250 mg PO Q6HR [facility] Last Admin: 09/28/17 17:45 Dose: 250 mg Folic Acid (Folic Acid) 1 mg PO DAILY [facility] Last Admin: 09/28/17 09:04 Dose: 1 mg Hydralazine HCl (Apresoline) 20 mg IVPUSH Q4H PRN PRN Reason: Hypertension Sodium Chloride (Normal Saline) 1,000 mls @ 100 mls/hr IV ASDIRECTED [facility] Last Admin: 09/28/17 15:39 Dose: 100 mls/hr Ceftriaxone Sodium 2 gm/ (Sodium Chloride) 100 mls @ 100 mls/hr IV Q24H [facility] Last Admin: 09/27/17 23:40 Dose: 100 mls/hr Ibuprofen (Motrin) 600 mg PO Q8H PRN PRN Reason: Pain/Fever Lactulose (Cephulac) 45 gm PO TID [facility] Last Admin: 09/28/17 14:37 Dose: 45 gm Latanoprost (Xalatan 0.005% Ophth Soln) 0 ml EYEBOTH BEDTIME [facility] Last Admin: 09/27/17 20:30 Dose: Not Given Lorazepam (Ativan) 2 mg IVPUSH Q4H PRN PRN Reason: Seizures Lorazepam (Ativan) 0 mg IVPUSH Q4H PRN; Protocol PRN Reason: withdrawl Metoprolol Tartrate (Lopressor) 5 mg IVPUSH Q4H PRN PRN Reason: Tachycardia Multivitamins (Thera) 1 each PO DAILY [facility] Last Admin: 09/28/17 09:04 Dose: 1 each Nicotine (Habitrol) 21 mg TRDERM DAILY [facility] Last Admin: 09/28/17 09:09 Dose: Not Given Ondansetron HCl (Zofran) 4 mg IVPUSH Q8H PRN PRN Reason: Nausea/Vomiting Ondansetron HCl (Zofran Odt) 4 mg PO Q6H PRN PRN Reason: nausea, able to take PO Pantoprazole Sodium (Protonix) 40 mg PO BID [facility] Last Admin: 09/28/17 09:04 Dose: 40 mg Ferrous Gluconate [ Ferrous Gluconate] 650 Mg 0 each PO DAILY [facility] Last Admin: 09/28/17 09:09 Dose: Not Given Potassium Chloride (Potassium Chloride) 60 meq PO BID [facility] Last Admin: 09/28/17 09:04 Dose: 60 meq Potassium Chloride (Potassium Chloride) 60 meq PO TID [facility] Last Admin: 09/28/17 14:36 Dose: 60 meq Propranolol HCl (Inderal) 20 mg PO DAILY [facility] Last Admin: 09/28/17 09:04 Dose: 20 mg Saccharomyces Boulardii (Florastor) 250 mg PO BID [facility] Last Admin: 09/28/17 09:04 Dose: 250 mg Sodium Chloride (Saline Flush) 10 ml FLUSH ONETIME PRN PRN Reason: IV FLUSH Last Admin: 09/26/17 20:34 Dose: 10 ml Spironolactone (Aldactone) 25 mg PO DAILY [facility] Last Admin: 09/28/17 09:04 Dose: 25 mg Thiamine HCl (Vitamin B-1) 100 mg PO DAILY [facility] Last Admin: 09/28/17 09:04 Dose: 100 mg Tiotropium [place] (Spiriva Handihaler) 18 mcg INH DAILY [facility] Last Admin: 09/28/17 08:41 Dose: 1 cap Discontinued Medications Diatrizoate Meglum/Diatrizoate Sod (Gastrografin 37%) 120 ml PO ONETIME ONE Stop: 09/26/17 19:09 Last Admin: 09/26/17 20:34 Dose: 90 ml Folic Acid (Folic Acid) 1 mg PO ONETIME ONE Stop: 09/26/17 18:54 Last Admin: 09/26/17 19:01 Dose: 1 mg Potassium Chloride 10 meq/ (Premix) 100 mls @ 100 mls/hr IV ASDIRECTED ONE Stop: 09/26/17 19:45 Last Admin: 09/26/17 18:55 Dose: 100 mls/hr Potassium Chloride 10 meq/ (Premix) 100 mls @ 100 mls/hr IV ASDIRECTED ONE Stop: 09/26/17 19:45 Last Admin: 09/26/17 19:17 Dose: 100 mls/hr Magnesium Sulfate 2 gm/ Premix 50 mls @ 25 mls/hr IV ONETIME ONE Stop: 09/26/17 20:49 Last Admin: 09/26/17 18:58 Dose: 25 mls/hr Ceftriaxone Sodium 2 gm/ (Sodium Chloride) 100 mls @ 100 mls/hr IV ONETIME ONE Stop: 09/27/17 00:03 Last Admin: 09/26/17 23:27 Dose: 100 mls/hr Magnesium Sulfate 2 gm/ Premix 50 mls @ 50 mls/hr IV Q1H [facility] Stop: 09/27/17 00:14 Last Admin: 09/26/17 23:27 Dose: 50 mls/hr Potassium Chloride/Sodium Chloride (Normal Saline With 20 Meq Kcl) 1,000 mls @ 75 mls/hr IV ASDIRECTED [facility] Stop: 09/27/17 05:15 Last Admin: 09/26/17 23:26 Dose: 75 mls/hr Potassium Chloride 10 meq/ (Premix) 100 mls @ 100 mls/hr IV Q1H [facility] Stop: 09/27/17 13:59 Last Admin: 09/27/17 15:38 Dose: 100 mls/hr Potassium Chloride/Sodium Chloride (Normal Saline With 20 Meq Kcl) 1,000 mls @ 125 mls/hr IV ASDIRECTED [facility] Magnesium Sulfate 2 gm/ Premix 50 mls @ 25 mls/hr IV Q2H [facility] Stop: 09/27/17 13:30 Last Admin: 09/27/17 13:13 Dose: 25 mls/hr Magnesium Sulfate 2 gm/ Premix 50 mls @ 25 mls/hr IV ONETIME ONE Stop: 09/27/17 14:59 Last Admin: 09/27/17 13:17 Dose: Not Given Potassium Chloride 10 meq/ (Premix) 100 mls @ 100 mls/hr IV Q1H [facility] Stop: 09/28/17 13:29 Last Admin: 09/28/17 14:01 Dose: 100 mls/hr Magnesium Sulfate 2 gm/ Premix 50 mls @ 25 mls/hr IV ONETIME ONE Stop: 09/28/17 09:59 Last Admin: 09/28/17 09:09 Dose: 25 mls/hr Magnesium Sulfate 2 gm/ Premix 50 mls @ 25 mls/hr IV ONETIME ONE Stop: 09/28/17 12:43 Last Admin: 09/28/17 11:28 Dose: 25 mls/hr Iopamidol (Isovue-300 (61%)) 150 ml IVPUSH ONETIME ONE Stop: 09/26/17 19:09 Last Admin: 09/26/17 20:34 Dose: 100 ml Lactulose (Cephulac) 30 gm PO ONETIME ONE Stop: 09/26/17 18:47 Last Admin: 09/26/17 19:01 Dose: 30 gm Lactulose (Cephulac) 45 gm PO BID [facility] Last Admin: 09/28/17 09:07 Dose: 45 gm Potassium Chloride (Potassium Chloride) 40 meq PO ONETIME ONE Stop: 09/26/17 18:45 Last Admin: 09/26/17 19:01 Dose: 40 meq Potassium Chloride (Klor-Con M20) 40 meq PO DAILY [facility] Last Admin: 09/27/17 08:22 Dose: 40 meq Potassium Chloride (Klor-Con M20) 40 meq PO BID [facility] Potassium Chloride (Klor-Con M20) 40 meq PO Q4H [facility] Stop: 09/27/17 20:46 Last Admin: 09/27/17 19:32 Dose: Not Given Thiamine HCl (Vitamin B-1) 100 mg PO ONETIME ONE Stop: 09/26/17 18:54 Last Admin: 09/26/17 19:01 Dose: 100 mg - Problem List & Annotations (1) Elevated INR SNOMED Code(s): 486707116 Code(s): R79.1 - ABNORMAL COAGULATION PROFILE Status: Acute Priority: Medium Current Visit: Yes (2) Hepatic encephalopathy SNOMED Code(s): 17126223 Code(s): K72.90 - HEPATIC FAILURE, UNSPECIFIED WITHOUT COMA Status: Acute Priority: High Current Visit: Yes (3) Hypokalemia SNOMED Code(s): 44081249 Code(s): E87.6 - HYPOKALEMIA Status: Acute Priority: High Current Visit : Yes (4) Hypomagnesemia SNOMED Code(s): 991949443 Code(s): E83.42 - HYPOMAGNESEMIA Status: Acute Priority: High Current Visit: Yes (5) Increased ammonia level SNOMED Code(s): 886958201, 586325654, 095776640 Code(s): R79.89 - OTHER SPECIFIED ABNORMAL FINDINGS OF BLOOD CHEMISTRY Status: Acute Current Visit: Yes (6) Portal hypertension SNOMED Code(s): 09789560 Code(s): K76.6 - PORTAL HYPERTENSION Status: Acute Priority: High Current Visit: Yes (7) Splenomegaly SNOMED Code(s): 13466985 Code(s): R16.1 - SPLENOMEGALY, NOT ELSEWHERE CLASSIFIED Status: Acute Priority: High Current Visit: Yes (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 SNOMED Code(s): 62409227 Code(s): D68.4 - ACQUIRED COAGULATION FACTOR DEFICIENCY Status: Chronic Priority: Medium Current Visit: Yes (9) Cirrhosis of liver SNOMED Code(s): 14692190 Code(s): K74.60 - UNSPECIFIED CIRRHOSIS OF LIVER Status: Chronic Priority : High Current Visit: Yes Qualifiers: Hepatic cirrhosis type: alcoholic cirrhosis Ascites presence: with ascites Qualified Code(s): K70.31 - Alcoholic cirrhosis of liver with ascites (10) Personal history of alcoholism SNOMED Code(s): 865360219 Code(s): F10.21 - ALCOHOL DEPENDENCE, IN REMISSION Status: Chronic Priority: Medium Current Visit: Yes (11) Tobacco use disorder SNOMED Code(s): 605102285 Code(s): F17.200 - NICOTINE DEPENDENCE, UNSPECIFIED, UNCOMPLICATED Status: Chronic Priority: Medium Current Visit: Yes - My Orders Last 24 Hours: My Active Orders 09/27/17 21:00 Potassium Chloride 60 meq PO BID 09/27/17 23:00 cefTRIAXone [Rocephin] 2 gm Sodium Chloride 0.9% [Normal Saline] 100 ml IV Q24H 09/28/17 09:00 Spironolactone [Aldactone] 25 mg PO DAILY - Plan Plan:: Patient displays poor insight with alcoholic disease process. Will try to reach additional providers for assessment of probable depression/anxiety. Substance Abuse counseling has been declined; the patient is aware that she would probably not be a candidate for outpatient rehab after multiple unsuccessful treatments.
[2017-09-28] MEDS: Potassium Chloride 10 MEQ in Premix Bag 1 BAG IV SCH ×6 (07:59→14:01)
[2017-09-28] MEDS ORDERED: Magnesium Sulfate/Water 2 GM in Premix Bag 1 BAG IV ONE ×2 (08:00→10:44)
[2017-09-28] MEDS: Tiotropium Inhaler 18 MCG Inhalation Powder Cap Kit of 5 INH SCH (08:41)
[2017-09-28] MEDS: Spironolactone 25 MG Tab PO SCH (09:04)
[2017-09-28] MEDS: Saccharomyces Boulardii (Probiotic) 250 MG Cap PO SCH ×2 (09:04→20:37)
[2017-09-28] MEDS: chlordiazePOXIDE 25 MG Cap PO SCH ×2 (09:04→20:37)
[2017-09-28] MEDS: Thiamine 100 MG Tab PO SCH (09:04)
[2017-09-28] MEDS: Pantoprazole 40 MG Tab.CR PO SCH ×2 (09:04→20:37)
[2017-09-28] MEDS: Calcium Carbonate 600 MG Tab PO SCH (09:04)
[2017-09-28] MEDS: Folic Acid 1 MG Tab PO SCH (09:04)
[2017-09-28] MEDS: Propranolol 20 MG Tab PO SCH (09:04)
[2017-09-28] MEDS: Multivitamins,Therapeutic Tab PO SCH (09:04)
[2017-09-28] MEDS: Potassium Chloride 10% 20 MEQ/15 ML Soln 30 ML UD Cup PO SCH ×4 (09:04→21:14)
[2017-09-28] MEDS: Lactulose Soln 10 GM/15 ML 30 ML UD Cup PO SCH ×3 (09:07→20:38)
[2017-09-28] MEDS: FERROUS GLUCONATE PO SCH (09:09)
[2017-09-28] MEDS: Nicotine 21 MG/24 Hr Patch TRDERM SCH (09:09)
--- NOTE | 2017-09-28 12:27 | US ---
Limited abdominal ultrasound: Multiple real-time images were obtained of the upper right abdomen. Comparison: Prior CT abdomen and pelvis exam of 09/26/17. Liver is slightly nodular in its contour. No focal abnormality is appreciated within the liver. Gallbladder wall is thickened with what appears to be small polyps or adherent sludge. No shadowing gallstones are seen. Common bile duct measures within normal limits. Gallbladder is not well distended. Small calcified gallstone seen on prior CT study is not visualized on this exam. Right kidney shows no hydronephrosis or mass and has a length of 13.4 cm. Pancreas appears within normal limits. Impression: 1. Gallbladder not well distended with gallbladder wall thickening. Several small intraluminal abnormalities are seen within the gallbladder either due to adherent sludge or small gallbladder polyps. Small stone noted on prior CT study is not appreciated with certainty on this exam. Gallbladder wall thickening could be further examined by biliary HIDA scan and ejection fraction. 2. Slightly nodular contour within the liver suggesting early cirrhosis. Diagnostic code #3
[2017-09-28] MEDS: Latanoprost 0.005% Ophth Soln 2.5 ML Bottle EYEBOTH SCH ×2 (20:37→21:30)
[2017-09-28] MEDS: cefTRIAXone 2 GM in Sodium Chloride 0.9% 100 ML IV SCH (23:40)
[2017-09-29] MEDS: Sodium Chloride 0.9% 1,000 ML IV SCH ×3 (00:46→23:10)
[2017-09-29] MEDS ORDERED: Magnesium Oxide 400 MG Tab PO ONE (08:03)
[2017-09-29] MEDS: Potassium Chloride 10% 20 MEQ/15 ML Soln 30 ML UD Cup PO SCH ×3 (08:36→20:56)
[2017-09-29] MEDS: Lactulose Soln 10 GM/15 ML 30 ML UD Cup PO SCH ×3 (08:38→20:54)
[2017-09-29] MEDS: Thiamine 100 MG Tab PO SCH (08:39)
[2017-09-29] MEDS: Multivitamins,Therapeutic Tab PO SCH (08:39)
[2017-09-29] MEDS: chlordiazePOXIDE 25 MG Cap PO SCH ×2 (08:39→20:56)
[2017-09-29] MEDS: Folic Acid 1 MG Tab PO SCH (08:39)
[2017-09-29] MEDS: Saccharomyces Boulardii (Probiotic) 250 MG Cap PO SCH ×2 (08:39→20:55)
[2017-09-29] MEDS: Propranolol 20 MG Tab PO SCH (08:39)
[2017-09-29] MEDS: Pantoprazole 40 MG Tab.CR PO SCH ×2 (08:39→20:58)
[2017-09-29] MEDS: Calcium Carbonate 600 MG Tab PO SCH (08:39)
[2017-09-29] MEDS: Spironolactone 25 MG Tab PO SCH (08:39)
[2017-09-29] MEDS: Nicotine 21 MG/24 Hr Patch TRDERM SCH (08:40)
[2017-09-29] MEDS: FERROUS GLUCONATE PO SCH (08:42)
[2017-09-29] MEDS: Tiotropium Inhaler 18 MCG Inhalation Powder Cap Kit of 5 INH SCH (09:00)
[2017-09-29] MEDS: Topiramate 25 MG Tab PO SCH ×2 (09:25→20:58)
[2017-09-29] MEDS ORDERED: Spironolactone 25 MG Tab PO ONE (12:25)
--- NOTE | 2017-09-29 13:27 | PCM.PN ---
- General Info Date of Service: 09/29/17 Admission Dx/Problem (Free Text): Admission Diagnosis/Problem Admission Diagnosis/Problem Hypokalemia Subjective Update: In to see Evette. She is sitting in bed about to get her morning medication from nursing. This is my first visit with Evette and she is not happy to see me. She feels that the other providers have "jumped ship" and does not want to be here but feels she has "no choice" as insurance won't pay for her stay if she leaves [place]. She also feels very anxious about meeting with her customer assistant but states she has not told him that she is in the hospital. I explained to her that the other providers are on scheduled leave and that it has nothing to do with her and that I am part of the care team. I also stated we are not forcing her to stay, but are only giving our professional opinion and we are only here to help her. I also explained that if she tells her customer assistant that she's in the hospital they can move both her meeting and court date until she is medically cleared. She would not look me in the eye and while I was talking with her she started looking up her customer assistant on her phone to call and hopefully reschedule. She has not yet agreed to meet with Neal in , but we did discuss the importance of it. Case Management also discussed this with her. Based off my interaction with her , she does not seem to understand the severity of her situation and seems to be in denial no matter what anyone says to her. I discussed the fatality of her situation and she did not react. She also had a consult with Dr. Lion this morning- he suggests AA office services representative to talk to her, Pastoral Care, Outpt psych, and started her on Abilify 1mg Q Daily, Topamax 25 BID, Remeron 15mg QHS. Her NH3 was highly elevated again today at 126, so we will increase her Lactulose 45 TID to 60 TID. Her potassium dropped from 3.8 to 3.3 and magnesium dropped from 2.2 to 1.5 today. We will replenish both. We will also increase her Aldactone from 25mg to 50mg daily starting tomorrow- her BP and pulse are too low right now (95/49 and 49bpm) to start it today, though she is asymptomatic. We will monitor her vitals for now. She will also be d/c'd off Rocephin and Erythromycin today. Repeat labs this afternoon. No other nursing concerns. Functional Status: Reports: Pain Controlled, Tolerating Diet, Ambulating, Urinating - Review of Systems General: Reports: No Symptoms. Denies: Fever, Chills HEENT: Reports: No Symptoms Pulmonary: Reports: No Symptoms. Denies: Shortness of Breath, Cough Cardiovascular: Reports: No Symptoms. Denies: Chest Pain, Palpitations, Dyspnea on Exertion Gastrointestinal: Reports: No Symptoms. Denies: Abdominal Pain, Diarrhea, Nausea, Vomiting Genitourinary: Reports: No Symptoms. Denies: Dysuria, Frequency, Burning, Pain , Urgency Musculoskeletal: Reports: No Symptoms Skin: Reports: No Symptoms Neurological: Reports: No Symptoms. Denies: Confusion, Dizziness, Weakness Psychiatric: Reports: Agitation - Patient Data Vitals - Most Recent: Last Vital Signs Temp 98.1 F 09/29/17 11:09 Pulse 49 L 09/29/17 11:09 Resp 20 09/29/17 11:09 BP 95/49 L 09/29/17 11:44 Pulse Ox 100 09/29/17 11:09 Weight - Most Recent: 131 lb I&O - Last 24 Hours: Intake & Output 09/28/17 09/29/17 09/29/17 22:59 06:59 14:59 Intake Total 3849 2975 270 Output Total 900 1850 Balance 2949 1125 270 Lab Results Last 24 Hours: Laboratory Results - last 24 hr 09/28/17 09/28/17 09/28/17 Range/Units 13:10 13:10 19:05 WBC (3.98-10.04) K/mm3 RBC (3.98-5.22) M/mm3 Hgb (11.2-15.7) gm/L Hct (34.1-44.9) % MCV (79.4-94.8) fl MCH (25.6-32.2) pg MCHC (32.2-35.5) g/dl RDW Std Deviation (36.4-46.3) fL Plt Count (182-369) K/mm3 MPV (9.4-12.3) fl Neut % (Auto) (34.0-71.1) % Lymph % (Auto) (19.3-51.7) % [place] % (Auto) (4.7-12.5) % Eos % (Auto) (0.7-5.8) Baso % (Auto) (0.1-1.2) % Neut # (Auto) (1.56-6.13) K/mm3 Lymph # (Auto) (1.18-3.74) K/mm3 [place] # (Auto) (0.24-0.36) K/mm3 Eos # (Auto) (0.04-0.36) K/mm3 Baso # (Auto) (0.01-0.08) K/mm3 Manual Slide Review Sodium 141 (136-145) mEq/L Potassium 3.7 3.8 (3.5-5.1) mEq/L Chloride 113 H (98-107) mEq/L Carbon Dioxide 15 L (21-32) mEq/L Anion Gap 16.7 H (5-15) BUN 6 L (7-18) mg/dL Creatinine 1.0 (0.55-1.02) mg/dL Est Cr Clr Drug Dosing 50.11 mL/min Estimated GFR (MDRD) 57 (>60) mL/min BUN/Creatinine Ratio 6.0 L (14-18) Glucose 116 H (74-106) mg/dL Calcium 7.7 L (8.5-10.1) mg/dL Magnesium 2.2 (1.8-2.4) mg/dl Total Bilirubin 4.2 H (0.2-1.0) mg/dL GGT 317 H (5-55) U/L AST 81 H (15-37) U/L ALT 43 (14-59) U/L Alkaline Phosphatase 153 H (46-116) U/L Ammonia 83 H (11-32) umol/L C-Reactive Protein (<1.0) mg/dL Total Protein 6.6 (6.4-8.2) g/dl Albumin 2.9 L (3.4-5.0) g/dl Globulin 3.7 gm/dL Albumin/Globulin Ratio 0.8 L (1-2) 09/28/17 09/29/17 09/29/17 Range/Units 19:05 06:45 06:45 WBC 3.62 L (3.98-10.04) K/mm3 RBC 3.38 L (3.98-5.22) M/mm3 Hgb 11.8 (11.2-15.7) gm/L Hct 35.5 (34.1-44.9) % MCV 105.0 H (79.4-94.8) fl MCH 34.9 H (25.6-32.2) pg MCHC 33.2 (32.2-35.5) g/dl RDW Std Deviation 63.1 H (36.4-46.3) fL Plt Count 55 L (182-369) K/mm3 MPV 11.4 (9.4-12.3) fl Neut % (Auto) 48.6 (34.0-71.1) % Lymph % (Auto) 25.4 (19.3-51.7) % [place] % (Auto) 18.8 H (4.7-12.5) % Eos % (Auto) 5.8 (0.7-5.8) Baso % (Auto) 1.4 H (0.1-1.2) % Neut # (Auto) 1.76 (1.56-6.13) K/mm3 Lymph # (Auto) 0.92 L (1.18-3.74) K/mm3 [place] # (Auto) 0.68 H (0.24-0.36) K/mm3 Eos # (Auto) 0.21 (0.04-0.36) K/mm3 Baso # (Auto) 0.05 (0.01-0.08) K/mm3 Manual Slide Review Abnormal smear Sodium 141 (136-145) mEq/L Potassium 3.3 L (3.5-5.1) mEq/L Chloride 115 H (98-107) mEq/L Carbon Dioxide 13 L (21-32) mEq/L Anion Gap 16.3 H (5-15) BUN 6 L (7-18) mg/dL Creatinine 0.8 (0.55-1.02) mg/dL Est Cr Clr Drug Dosing 62.63 mL/min Estimated GFR (MDRD) > 60 (>60) mL/min BUN/Creatinine Ratio 7.5 L (14-18) Glucose 97 (74-106) mg/dL Calcium 7.4 L (8.5-10.1) mg/dL Magnesium 1.5 L (1.8-2.4) mg/dl Total Bilirubin 3.2 H (0.2-1.0) mg/dL GGT (5-55) U/L AST 62 H (15-37) U/L ALT 37 (14-59) U/L Alkaline Phosphatase 136 H (46-116) U/L Ammonia 114 H (11-32) umol/L C-Reactive Protein < 0.2 (<1.0) mg/dL Total Protein 5.8 L (6.4-8.2) g/dl Albumin 2.4 L (3.4-5.0) g/dl Globulin 3.4 gm/dL Albumin/Globulin Ratio 0.7 L (1-2) 09/29/17 Range/Units 06:45 WBC (3.98-10.04) K/mm3 RBC (3.98-5.22) M/mm3 Hgb (11.2-15.7) gm/L Hct (34.1-44.9) % MCV (79.4-94.8) fl MCH (25.6-32.2) pg MCHC (32.2-35.5) g/dl RDW Std Deviation (36.4-46.3) fL Plt Count (182-369) K/mm3 MPV (9.4-12.3) fl Neut % (Auto) (34.0-71.1) % Lymph % (Auto) (19.3-51.7) % [place] % (Auto) (4.7-12.5) % Eos % (Auto) (0.7-5.8) Baso % (Auto) (0.1-1.2) % Neut # (Auto) (1.56-6.13) K/mm3 Lymph # (Auto) (1.18-3.74) K/mm3 [place] # (Auto) (0.24-0.36) K/mm3 Eos # (Auto) (0.04-0.36) K/mm3 Baso # (Auto) (0.01-0.08) K/mm3 Manual Slide Review Sodium (136-145) mEq/L Potassium (3.5-5.1) mEq/L Chloride (98-107) mEq/L Carbon Dioxide (21-32) mEq/L Anion Gap (5-15) BUN (7-18) mg/dL Creatinine (0.55-1.02) mg/dL Est Cr Clr Drug Dosing mL/min Estimated GFR (MDRD) (>60) mL/min BUN/Creatinine Ratio (14-18) Glucose (74-106) mg/dL Calcium (8.5-10.1) mg/dL Magnesium (1.8-2.4) mg/dl Total Bilirubin (0.2-1.0) mg/dL GGT (5-55) U/L AST (15-37) U/L ALT (14-59) U/L Alkaline Phosphatase (46-116) U/L Ammonia 126 H (11-32) umol/L C-Reactive Protein (<1.0) mg/dL Total Protein (6.4-8.2) g/dl Albumin (3.4-5.0) g/dl Globulin gm/dL Albumin/Globulin Ratio (1-2) David Results Last 24 Hours: Microbiology 09/26/17 20:54 Urine Culture - Final Urine, Clean Catch Escherichia Coli Med Orders - Current: Current Medications Aripiprazole (Abilify) 1 mg PO DAILY [facility] Last Admin: 09/29/17 09:24 Dose: 1 mg Calcium Carbonate/Glycine (Calcium Carbonate) 600 mg PO DAILY [facility] Last Admin: 09/29/17 08:39 Dose: 600 mg Chlordiazepoxide HCl (Librium) 25 mg PO BID [facility] Last Admin: 09/29/17 08:39 Dose: 25 mg Folic Acid (Folic Acid) 1 mg PO DAILY [facility] Last Admin: 09/29/17 08:39 Dose: 1 mg Hydralazine HCl (Apresoline) 20 mg IVPUSH Q4H PRN PRN Reason: Hypertension Sodium Chloride (Normal Saline) 1,000 mls @ 100 mls/hr IV ASDIRECTED [facility] Last Admin: 09/29/17 11:03 Dose: 100 mls/hr Ibuprofen (Motrin) 600 mg PO Q8H PRN PRN Reason: Pain/Fever Lactulose (Cephulac) 60 gm PO TID [facility] Last Admin: 09/29/17 08:38 Dose: 60 gm Latanoprost (Xalatan 0.005% Ophth Soln) 0 ml EYEBOTH BEDTIME [facility] Last Admin: 09/28/17 21:30 Dose: Not Given Lorazepam (Ativan) 2 mg IVPUSH Q4H PRN PRN Reason: Seizures Lorazepam (Ativan) 0 mg IVPUSH Q4H PRN; Protocol PRN Reason: withdrawl Metoprolol Tartrate (Lopressor) 5 mg IVPUSH Q4H PRN PRN Reason: Tachycardia Mirtazapine (Remeron) 15 mg PO BEDTIME [facility] Multivitamins (Thera) 1 each PO DAILY [facility] Last Admin: 09/29/17 08:39 Dose: 1 each Nicotine (Habitrol) 21 mg TRDERM DAILY [facility] Last Admin: 09/29/17 08:40 Dose: Not Given Ondansetron HCl (Zofran) 4 mg IVPUSH Q8H PRN PRN Reason: Nausea/Vomiting Ondansetron HCl (Zofran Odt) 4 mg PO Q6H PRN PRN Reason: nausea, able to take PO Pantoprazole Sodium (Protonix) 40 mg PO BID [facility] Last Admin: 09/29/17 08:39 Dose: 40 mg Ferrous Gluconate [ Ferrous Gluconate] 650 Mg 0 each PO DAILY [facility] Last Admin: 09/29/17 08:42 Dose: Not Given Potassium Chloride (Potassium Chloride) 60 meq PO TID [facility] Last Admin: 09/29/17 08:36 Dose: 60 meq Propranolol HCl (Inderal) 20 mg PO DAILY [facility] Last Admin: 09/29/17 08:39 Dose: 20 mg Saccharomyces Boulardii (Florastor) 250 mg PO BID [facility] Last Admin: 09/29/17 08:39 Dose: 250 mg Sodium Chloride (Saline Flush) 10 ml FLUSH ONETIME PRN PRN Reason: IV FLUSH Last Admin: 09/26/17 20:34 Dose: 10 ml Spironolactone (Aldactone) 50 mg PO DAILY [facility] Thiamine HCl (Vitamin B-1) 100 mg PO DAILY [facility] Last Admin: 09/29/17 08:39 Dose: 100 mg Tiotropium Homer (Spiriva Handihaler) 18 mcg INH DAILY [facility] Last Admin: 09/29/17 09:00 Dose: 1 cap Topiramate (Topamax) 25 mg PO BID [facility] Last Admin: 09/29/17 09:25 Dose: 25 mg Discontinued Medications Diatrizoate Meglum/Diatrizoate Sod (Gastrografin 37%) 120 ml PO ONETIME ONE Stop: 09/26/17 19:09 Last Admin: 09/26/17 20:34 Dose: 90 ml Erythromycin (Julina-Tab) 250 mg PO Q6HR [facility] Last Admin: 09/29/17 05:51 Dose: 250 mg Folic Acid (Folic Acid) 1 mg PO ONETIME ONE Stop: 09/26/17 18:54 Last Admin: 09/26/17 19:01 Dose: 1 mg Potassium Chloride 10 meq/ (Premix) 100 mls @ 100 mls/hr IV ASDIRECTED ONE Stop: 09/26/17 19:45 Last Admin: 09/26/17 18:55 Dose: 100 mls/hr Potassium Chloride 10 meq/ (Premix) 100 mls @ 100 mls/hr IV ASDIRECTED ONE Stop: 09/26/17 19:45 Last Admin: 09/26/17 19:17 Dose: 100 mls/hr Magnesium Sulfate 2 gm/ Premix 50 mls @ 25 mls/hr IV ONETIME ONE Stop: 09/26/17 20:49 Last Admin: 09/26/17 18:58 Dose: 25 mls/hr Ceftriaxone Sodium 2 gm/ (Sodium Chloride) 100 mls @ 100 mls/hr IV ONETIME ONE Stop: 09/27/17 00:03 Last Admin: 09/26/17 23:27 Dose: 100 mls/hr Magnesium Sulfate 2 gm/ Premix 50 mls @ 50 mls/hr IV Q1H [facility] Stop: 09/27/17 00:14 Last Admin: 09/26/17 23:27 Dose: 50 mls/hr Potassium Chloride/Sodium Chloride (Normal Saline With 20 Meq Kcl) 1,000 mls @ 75 mls/hr IV ASDIRECTED [facility] Stop: 09/27/17 05:15 Last Admin: 09/26/17 23:26 Dose: 75 mls/hr Potassium Chloride 10 meq/ (Premix) 100 mls @ 100 mls/hr IV Q1H [facility] Stop: 09/27/17 13:59 Last Admin: 09/27/17 15:38 Dose: 100 mls/hr Potassium Chloride/Sodium Chloride (Normal Saline With 20 Meq Kcl) 1,000 mls @ 125 mls/hr IV ASDIRECTED [facility] Magnesium Sulfate 2 gm/ Premix 50 mls @ 25 mls/hr IV Q2H [facility] Stop: 09/27/17 13:30 Last Admin: 09/27/17 13:13 Dose: 25 mls/hr Ceftriaxone Sodium 2 gm/ (Sodium Chloride) 100 mls @ 100 mls/hr IV Q24H [facility] Last Admin: 09/28/17 23:40 Dose: 100 mls/hr Magnesium Sulfate 2 gm/ Premix 50 mls @ 25 mls/hr IV ONETIME ONE Stop: 09/27/17 14:59 Last Admin: 09/27/17 13:17 Dose: Not Given Potassium Chloride 10 meq/ (Premix) 100 mls @ 100 mls/hr IV Q1H [facility] Stop: 09/28/17 13:29 Last Admin: 09/28/17 14:01 Dose: 100 mls/hr Magnesium Sulfate 2 gm/ Premix 50 mls @ 25 mls/hr IV ONETIME ONE Stop: 09/28/17 09:59 Last Admin: 09/28/17 09:09 Dose: 25 mls/hr Magnesium Sulfate 2 gm/ Premix 50 mls @ 25 mls/hr IV ONETIME ONE Stop: 09/28/17 12:43 Last Admin: 09/28/17 11:28 Dose: 25 mls/hr Iopamidol (Isovue-300 (61%)) 150 ml IVPUSH ONETIME ONE Stop: 09/26/17 19:09 Last Admin: 09/26/17 20:34 Dose: 100 ml Lactulose (Cephulac) 30 gm PO ONETIME ONE Stop: 09/26/17 18:47 Last Admin: 09/26/17 19:01 Dose: 30 gm Lactulose (Cephulac) 45 gm PO BID [facility] Last Admin: 09/28/17 09:07 Dose: 45 gm Lactulose (Cephulac) 45 gm PO TID [facility] Last Admin: 09/28/17 20:38 Dose: 45 gm Magnesium Oxide (Magnesium Oxide) 400 mg PO ONETIME ONE Stop: 09/29/17 08:04 Last Admin: 09/29/17 08:39 Dose: 400 mg Potassium Chloride (Potassium Chloride) 40 meq PO ONETIME ONE Stop: 09/26/17 18:45 Last Admin: 09/26/17 19:01 Dose: 40 meq Potassium Chloride (Klor-Con M20) 40 meq PO DAILY [facility] Last Admin: 09/27/17 08:22 Dose: 40 meq Potassium Chloride (Klor-Con M20) 40 meq PO BID [facility] Potassium Chloride (Potassium Chloride) 60 meq PO BID [facility] Last Admin: 09/28/17 21:14 Dose: Not Given Potassium Chloride (Klor-Con M20) 40 meq PO Q4H [facility] Stop: 09/27/17 20:46 Last Admin: 09/27/17 19:32 Dose: Not Given Spironolactone (Aldactone) 25 mg PO DAILY [facility] Last Admin: 09/29/17 08:39 Dose: 25 mg Spironolactone (Aldactone) 25 mg PO ONETIME ONE Stop: 09/29/17 12:26 Thiamine HCl (Vitamin B-1) 100 mg PO ONETIME ONE Stop: 09/26/17 18:54 Last Admin: 09/26/17 19:01 Dose: 100 mg - Exam Quality Assessment: DVT Prophylaxis General: Alert, Oriented. No: Cooperative (agitated with staff, does not want to be here) HEENT: Pupils Equal, Pupils Reactive, EOMI, Mucous Membr. Moist/[place] Neck: Supple Lungs: Clear to Auscultation, Normal Respiratory Effort Cardiovascular: Regular Rate, Regular Rhythm GI/Abdominal Exam: Normal Bowel Sounds, Soft, Non-Tender, No Organomegaly, No Distention, No Abnormal Bruit, No Mass, Pelvis Stable (Female) Exam: Deferred Back Exam: Normal Inspection, Full Range of Motion Extremities: Normal Inspection, Normal Range of Motion, Non-Tender, No Pedal Edema, Normal Capillary Refill Peripheral Pulses: 3+: Posterior Tibial (L), Posterior Tibial (R), Dorsalis Pedis (L), Dorsalis Pedis (R) Skin: Warm, Dry, Intact Neurological: No New Focal Deficit Psy/Mental Status: Alert, Agitated - Problem List & Annotations (1) Hepatic encephalopathy SNOMED Code(s): 05608601 Code(s): K72.90 - HEPATIC FAILURE, UNSPECIFIED WITHOUT COMA Status: Acute Priority: High Current Visit: Yes (2) Hypokalemia SNOMED Code(s): 81066569 Code(s): E87.6 - HYPOKALEMIA Status: Acute Priority: High Current Visit : Yes (3) Hypomagnesemia SNOMED Code(s): 656968011 Code(s): E83.42 - HYPOMAGNESEMIA Status: Acute Priority: High Current Visit: Yes (4) Increased ammonia level SNOMED Code(s): 039347970, 020714128, 537167293 Code(s): R79.89 - OTHER SPECIFIED ABNORMAL FINDINGS OF BLOOD CHEMISTRY Status: Acute Current Visit: Yes - Problem List Review Problem List Initiated/Reviewed/Updated: Yes - My Orders Last 24 Hours: My Active Orders 09/29/17 09:00 Lactulose [Cephulac] 60 gm PO TID 09/30/17 09:00 Spironolactone [Aldactone] 50 mg PO DAILY - Plan Plan:: I/P: Acute: Hepatic encephalopathy, Improving -Confused, difficulty with ambulation, difficulty writing on clinic visit with PCP--> improving -2/2 etoh use -CT in ED (09/26/17) 1. Findings suggest early cirrhosis with portal hypertension and splenomegaly as an interval change from previous exam. Minimal acites noted 2. Mild adenopathy as noted above believed to be incidental and mostly chronic 3. Small calcified gallstone within the gallbladder 4. Increased stool within the colon and other incidental findings -Ammonia 106-->126 -Per patient ran out of medication and did not have refills so thought she completed treatment -Lactulose and erythromycin--> DC erythromycin, increase lactulose from 45mg TID to 60mg TID -Investigate home medications and continue them -Spirionolactone for ascites--> Increase from 25mg to 50mg daily tomorrow ( BP too low today) Hypokalemia -Potassium 1.8-->1.7-->3.3 -Supplement IV and oral route -Telemetry -Monitor and supplement Hypocalcemia -Calcium 8.5-->8.0-->7.4 -Continue home supplementation Portal hypertension -2/2 ETOH use -Hx/o Hemorrhoids -CT scan as above - interval change from prior CT -Propranolol Transaminitis -AST 107 -ALT 50 -Alkaline phosphatase 211 -Avoid heptotoxic medications -2/2 chronic ETOH use -CT scan as above -Hepatomegaly on physical exam -IV fluids as ordered -Resume home medications Pancytopenia -2/2 chronic ETOH use -Stable -Monitor Chronic ETOH abuse -Longstanding history of ETOH abuse and both inpatient and outpatient treatment -Strongly recommended outpatient treatment and avoiding ETOH at last hospital stay in May ([facility]hupinder Donovan) -Reportedly told PCP she has not drank since June but then changed story when pressed further; last beer 09/20/17 -"I still have a beer or two here or there... especially after mowing" -Reportedly charged with DUI last -Elevated liver enzymes, cirrhosis, and portal hypertension as above -SW/SA/Psych consult--> Dr. Lion recommends AA rep, Pastoral Care, Outpt Psych, Abilify 1mg Qdaily, Topamax 25mg BID, Remeron 15mg QHS; Pt still refusing SA consult, but CM did discuss her going outpt and asked her to make an appointment for Monday or Monday -Home thiamine/multivitamin/folic acid -Librium BID - Hold for sedation -CIWA protocol -PRN Ativan for withdrawl/seizure -IV fluids as ordered Tobacco use disorder -Daily smoker -Nicotine patch -Cessation counseling Resolved: UTI -Weak UA in ED - 1+ leukocyte esterase, 5-10 WBCs, 5-10 Epithelial cells, Many bacteria -Urine Culture--> E Coli -On prior visit in April was found to have E. Coli UTI which was booth sensitive -Rocephin 2gm given in ED --> D/C today -IV fluids as ordered Chronic: Glaucoma Vitamin D Deficiency Iron Deficiency Anemia GERD Tobacco use disorder ETOH use Discharged form hospital 05/12/17 after lengthy stay for MSSA sepsis, right-sided empyema, Influenza A and B, and respiratory failure Plan: Admit to medical floor on telemetry Other orders as indicated above SW/SA/Psych consult Routine AM labs OT/PT Ambulation DVT/PE prophylaxis: Thrombocytopenia - medications contraindicated; RUTH corral, ambulate, SCDs GI prophylaxis: Home PPI Outpatient f/u with GI Code Status: Full code; PCP: AYAH Leon Patient displays poor insight with alcoholic disease process. Will try to reach additional providers for assessment of probable depression/anxiety. Substance Abuse counseling has been declined; the patient is aware that she would probably not be a candidate for outpatient rehab after multiple unsuccessful treatments.
[2017-09-29] MEDS ORDERED: Sodium Chloride 0.9% 1,000 ML IV ONE (16:00)
[2017-09-29] MEDS: Mirtazapine 15 MG Tab PO SCH (20:58)
[2017-09-29] MEDS: Latanoprost 0.005% Ophth Soln 2.5 ML Bottle EYEBOTH SCH (20:59)
--- NOTE | 2017-09-30 07:11 | PCM.PN ---
- General Info Date of Service: 09/30/17 Admission Dx/Problem (Free Text): Admission Diagnosis/Problem Admission Diagnosis/Problem Hypokalemia Subjective Update: Follow Up Functional Status: Reports: Pain Controlled, Tolerating Diet, Ambulating, Urinating. Denies: New Symptoms - Review of Systems General: Denies: Fever, Weakness, Fatigue, Malaise, Chills HEENT: Reports: No Symptoms Pulmonary: Denies: Shortness of Breath Cardiovascular: Denies: Chest Pain, Dyspnea on Exertion, Lightheadedness Gastrointestinal: Reports: Diarrhea. Denies: Abdominal Pain, Decreased Appetite , Nausea, Vomiting Genitourinary: Reports: No Symptoms Musculoskeletal: Reports: No Symptoms, Other (maybe mild palmar erythema) Skin: Reports: Other (Could not appreciate spider angiomata ). Denies: Cyanosis , Pallor, Diaphoresis, Pruritis, Rash Neurological: Reports: Confusion. Denies: Syncope, Weakness, Gait Disturbance Psychiatric: Denies: Depression, Anxiety, Agitation, Hallucinations Systems Review Comment:: No significant overnight or acute issues. She is somewhat lethargic with mild- moderate confusion. Her speech and response is slow. She wants to go home. Her morning labs is essentially the same. She remains bradycardia with relative hypotension. - Patient Data Vitals - Most Recent: Last Vital Signs Temp 37.0 C 09/30/17 00:10 Pulse 55 L 09/30/17 00:10 Resp 12 09/30/17 00:10 BP 100/51 L 09/30/17 00:10 Pulse Ox 99 09/30/17 00:10 Weight - Most Recent: 59.421 kg I&O - Last 24 Hours: Intake & Output 09/29/17 09/30/17 09/30/17 22:59 06:59 14:59 Intake Total 3480 Output Total 1700 Balance 1780 Lab Results Last 24 Hours: Laboratory Results - last 24 hr 09/29/17 09/29/17 09/29/17 Range/Units 06:45 06:45 06:45 WBC 3.62 L (3.98-10.04) K/mm3 RBC 3.38 L (3.98-5.22) M/mm3 Hgb 11.8 (11.2-15.7) gm/L Hct 35.5 (34.1-44.9) % MCV 105.0 H (79.4-94.8) fl MCH 34.9 H (25.6-32.2) pg MCHC 33.2 (32.2-35.5) g/dl RDW Std Deviation 63.1 H (36.4-46.3) fL Plt Count 55 L (182-369) K/mm3 MPV 11.4 (9.4-12.3) fl Neut % (Auto) 48.6 (34.0-71.1) % Lymph % (Auto) 25.4 (19.3-51.7) % [place] % (Auto) 18.8 H (4.7-12.5) % Eos % (Auto) 5.8 (0.7-5.8) Baso % (Auto) 1.4 H (0.1-1.2) % Neut # (Auto) 1.76 (1.56-6.13) K/mm3 Lymph # (Auto) 0.92 L (1.18-3.74) K/mm3 [place] # (Auto) 0.68 H (0.24-0.36) K/mm3 Eos # (Auto) 0.21 (0.04-0.36) K/mm3 Baso # (Auto) 0.05 (0.01-0.08) K/mm3 Manual Slide Review Abnormal smear Sodium 141 (136-145) mEq/L Potassium 3.3 L (3.5-5.1) mEq/L Chloride 115 H (98-107) mEq/L Carbon Dioxide 13 L (21-32) mEq/L Anion Gap 16.3 H (5-15) BUN 6 L (7-18) mg/dL Creatinine 0.8 (0.55-1.02) mg/dL Est Cr Clr Drug Dosing 62.63 mL/min Estimated GFR (MDRD) > 60 (>60) mL/min BUN/Creatinine Ratio 7.5 L (14-18) Glucose 97 (74-106) mg/dL Calcium 7.4 L (8.5-10.1) mg/dL Magnesium 1.5 L (1.8-2.4) mg/dl Total Bilirubin 3.2 H (0.2-1.0) mg/dL AST 62 H (15-37) U/L ALT 37 (14-59) U/L Alkaline Phosphatase 136 H (46-116) U/L Ammonia 126 H (11-32) umol/L C-Reactive Protein < 0.2 (<1.0) mg/dL Total Protein 5.8 L (6.4-8.2) g/dl Albumin 2.4 L (3.4-5.0) g/dl Globulin 3.4 gm/dL Albumin/Globulin Ratio 0.7 L (1-2) 09/29/17 09/30/17 Range/Units 13:44 05:50 WBC 3.21 L (3.98-10.04) K/mm3 RBC 3.48 L (3.98-5.22) M/mm3 Hgb 12.2 (11.2-15.7) gm/L Hct 36.9 (34.1-44.9) % MCV 106.0 H (79.4-94.8) fl MCH 35.1 H (25.6-32.2) pg MCHC 33.1 (32.2-35.5) g/dl RDW Std Deviation 62.9 H (36.4-46.3) fL Plt Count 61 L (182-369) K/mm3 MPV 11.2 (9.4-12.3) fl Neut % (Auto) 50.6 (34.0-71.1) % Lymph % (Auto) 24.9 (19.3-51.7) % [place] % (Auto) 16.8 H (4.7-12.5) % Eos % (Auto) 6.5 H (0.7-5.8) Baso % (Auto) 1.2 (0.1-1.2) % Neut # (Auto) 1.62 (1.56-6.13) K/mm3 Lymph # (Auto) 0.80 L (1.18-3.74) K/mm3 [place] # (Auto) 0.54 H (0.24-0.36) K/mm3 Eos # (Auto) 0.21 (0.04-0.36) K/mm3 Baso # (Auto) 0.04 (0.01-0.08) K/mm3 Manual Slide Review Abnormal smear Sodium 140 (136-145) mEq/L Potassium 4.3 (3.5-5.1) mEq/L Chloride 115 H (98-107) mEq/L Carbon Dioxide 13 L (21-32) mEq/L Anion Gap 16.3 H (5-15) BUN 6 L (7-18) mg/dL Creatinine 1.0 (0.55-1.02) mg/dL Est Cr Clr Drug Dosing 50.11 mL/min Estimated GFR (MDRD) 57 (>60) mL/min BUN/Creatinine Ratio 6.0 L (14-18) Glucose 105 (74-106) mg/dL Calcium 7.7 L (8.5-10.1) mg/dL Magnesium (1.8-2.4) mg/dl Total Bilirubin 3.2 H (0.2-1.0) mg/dL AST 65 H (15-37) U/L ALT 39 (14-59) U/L Alkaline Phosphatase 143 H (46-116) U/L Ammonia (11-32) umol/L C-Reactive Protein (<1.0) mg/dL Total Protein 6.2 L (6.4-8.2) g/dl Albumin 2.6 L (3.4-5.0) g/dl Globulin 3.6 gm/dL Albumin/Globulin Ratio 0.7 L (1-2) Med Orders - Current: Current Medications Aripiprazole (Abilify) 1 mg PO DAILY [facility] Last Admin: 09/29/17 09:24 Dose: 1 mg Calcium Carbonate/Glycine (Calcium Carbonate) 600 mg PO DAILY [facility] Last Admin: 09/29/17 08:39 Dose: 600 mg Chlordiazepoxide HCl (Librium) 25 mg PO BID [facility] Last Admin: 09/29/17 20:56 Dose: 25 mg Folic Acid (Folic Acid) 1 mg PO DAILY [facility] Last Admin: 09/29/17 08:39 Dose: 1 mg Hydralazine HCl (Apresoline) 20 mg IVPUSH Q4H PRN PRN Reason: Hypertension Sodium Chloride (Normal Saline) 1,000 mls @ 100 mls/hr IV ASDIRECTED [facility] Last Admin: 09/29/17 23:10 Dose: 100 mls/hr Ibuprofen (Motrin) 600 mg PO Q8H PRN PRN Reason: Pain/Fever Lactulose (Cephulac) 60 gm PO TID [facility] Last Admin: 09/29/17 20:54 Dose: 60 gm Latanoprost (Xalatan 0.005% Ophth Soln) 0 ml EYEBOTH BEDTIME [facility] Last Admin: 09/29/17 20:59 Dose: Not Given Lorazepam (Ativan) 2 mg IVPUSH Q4H PRN PRN Reason: Seizures Lorazepam (Ativan) 0 mg IVPUSH Q4H PRN; Protocol PRN Reason: withdrawl Metoprolol Tartrate (Lopressor) 5 mg IVPUSH Q4H PRN PRN Reason: Tachycardia Mirtazapine (Remeron) 15 mg PO BEDTIME [facility] Last Admin: 09/29/17 20:58 Dose: 15 mg Multivitamins (Thera) 1 each PO DAILY [facility] Last Admin: 09/29/17 08:39 Dose: 1 each Nicotine (Habitrol) 21 mg TRDERM DAILY [facility] Last Admin: 09/29/17 08:40 Dose: Not Given Ondansetron HCl (Zofran) 4 mg IVPUSH Q8H PRN PRN Reason: Nausea/Vomiting Ondansetron HCl (Zofran Odt) 4 mg PO Q6H PRN PRN Reason: nausea, able to take PO Pantoprazole Sodium (Protonix) 40 mg PO BID [facility] Last Admin: 09/29/17 20:58 Dose: 40 mg Ferrous Gluconate [ Ferrous Gluconate] 650 Mg 0 each PO DAILY [facility] Last Admin: 09/29/17 08:42 Dose: Not Given Potassium Chloride (Potassium Chloride) 60 meq PO TID [facility] Last Admin: 09/29/17 20:56 Dose: 60 meq Propranolol HCl (Inderal) 20 mg PO DAILY [facility] Last Admin: 09/29/17 08:39 Dose: 20 mg Saccharomyces Boulardii (Florastor) 250 mg PO BID [facility] Last Admin: 09/29/17 20:55 Dose: 250 mg Sodium Chloride (Saline Flush) 10 ml FLUSH ONETIME PRN PRN Reason: IV FLUSH Last Admin: 09/26/17 20:34 Dose: 10 ml Spironolactone (Aldactone) 50 mg PO DAILY [facility] Thiamine HCl (Vitamin B-1) 100 mg PO DAILY [facility] Last Admin: 09/29/17 08:39 Dose: 100 mg Tiotropium [place] (Spiriva Handihaler) 18 mcg INH DAILY [facility] Last Admin: 09/29/17 09:00 Dose: 1 cap Topiramate (Topamax) 25 mg PO BID [facility] Last Admin: 09/29/17 20:58 Dose: 25 mg Discontinued Medications Diatrizoate Meglum/Diatrizoate Sod (Gastrografin 37%) 120 ml PO ONETIME ONE Stop: 09/26/17 19:09 Last Admin: 09/26/17 20:34 Dose: 90 ml Erythromycin (Julian-Tab) 250 mg PO Q6HR [facility] Last Admin: 09/29/17 05:51 Dose: 250 mg Folic Acid (Folic Acid) 1 mg PO ONETIME ONE Stop: 09/26/17 18:54 Last Admin: 09/26/17 19:01 Dose: 1 mg Potassium Chloride 10 meq/ (Premix) 100 mls @ 100 mls/hr IV ASDIRECTED ONE Stop: 09/26/17 19:45 Last Admin: 09/26/17 18:55 Dose: 100 mls/hr Potassium Chloride 10 meq/ (Premix) 100 mls @ 100 mls/hr IV ASDIRECTED ONE Stop: 09/26/17 19:45 Last Admin: 09/26/17 19:17 Dose: 100 mls/hr Magnesium Sulfate 2 gm/ Premix 50 mls @ 25 mls/hr IV ONETIME ONE Stop: 09/26/17 20:49 Last Admin: 09/26/17 18:58 Dose: 25 mls/hr Ceftriaxone Sodium 2 gm/ (Sodium Chloride) 100 mls @ 100 mls/hr IV ONETIME ONE Stop: 09/27/17 00:03 Last Admin: 09/26/17 23:27 Dose: 100 mls/hr Magnesium Sulfate 2 gm/ Premix 50 mls @ 50 mls/hr IV Q1H [facility] Stop: 09/27/17 00:14 Last Admin: 09/26/17 23:27 Dose: 50 mls/hr Potassium Chloride/Sodium Chloride (Normal Saline With 20 Meq Kcl) 1,000 mls @ 75 mls/hr IV ASDIRECTED [facility] Stop: 09/27/17 05:15 Last Admin: 09/26/17 23:26 Dose: 75 mls/hr Potassium Chloride 10 meq/ (Premix) 100 mls @ 100 mls/hr IV Q1H [facility] Stop: 09/27/17 13:59 Last Admin: 09/27/17 15:38 Dose: 100 mls/hr Potassium Chloride/Sodium Chloride (Normal Saline With 20 Meq Kcl) 1,000 mls @ 125 mls/hr IV ASDIRECTED [facility] Magnesium Sulfate 2 gm/ Premix 50 mls @ 25 mls/hr IV Q2H [facility] Stop: 09/27/17 13:30 Last Admin: 09/27/17 13:13 Dose: 25 mls/hr Ceftriaxone Sodium 2 gm/ (Sodium Chloride) 100 mls @ 100 mls/hr IV Q24H [facility] Last Admin: 09/28/17 23:40 Dose: 100 mls/hr Magnesium Sulfate 2 gm/ Premix 50 mls @ 25 mls/hr IV ONETIME ONE Stop: 09/27/17 14:59 Last Admin: 09/27/17 13:17 Dose: Not Given Potassium Chloride 10 meq/ (Premix) 100 mls @ 100 mls/hr IV Q1H [facility] Stop: 09/28/17 13:29 Last Admin: 09/28/17 14:01 Dose: 100 mls/hr Magnesium Sulfate 2 gm/ Premix 50 mls @ 25 mls/hr IV ONETIME ONE Stop: 09/28/17 09:59 Last Admin: 09/28/17 09:09 Dose: 25 mls/hr Magnesium Sulfate 2 gm/ Premix 50 mls @ 25 mls/hr IV ONETIME ONE Stop: 09/28/17 12:43 Last Admin: 09/28/17 11:28 Dose: 25 mls/hr Sodium Chloride (Normal Saline) 1,000 mls @ 999 mls/hr IV ONETIME ONE Stop: 09/29/17 17:00 Last Admin: 09/29/17 16:19 Dose: 999 mls/hr Iopamidol (Isovue-300 (61%)) 150 ml IVPUSH ONETIME ONE Stop: 09/26/17 19:09 Last Admin: 09/26/17 20:34 Dose: 100 ml Lactulose (Cephulac) 30 gm PO ONETIME ONE Stop: 09/26/17 18:47 Last Admin: 09/26/17 19:01 Dose: 30 gm Lactulose (Cephulac) 45 gm PO BID [facility] Last Admin: 09/28/17 09:07 Dose: 45 gm Lactulose (Cephulac) 45 gm PO TID [facility] Last Admin: 06/21/18 20:38 Dose: 45 gm Magnesium Oxide (Magnesium Oxide) 400 mg PO ONETIME ONE Stop: 09/29/17 08:04 Last Admin: 09/29/17 08:39 Dose: 400 mg Potassium Chloride (Potassium Chloride) 40 meq PO ONETIME ONE Stop: 09/26/17 18:45 Last Admin: 09/26/17 19:01 Dose: 40 meq Potassium Chloride (Klor-Con M20) 40 meq PO DAILY [facility] Last Admin: 09/27/17 08:22 Dose: 40 meq Potassium Chloride (Klor-Con M20) 40 meq PO BID [facility] Potassium Chloride (Potassium Chloride) 60 meq PO BID [facility] Last Admin: 09/28/17 21:14 Dose: Not Given Potassium Chloride (Klor-Con M20) 40 meq PO Q4H [facility] Stop: 09/27/17 20:46 Last Admin: 09/27/17 19:32 Dose: Not Given Spironolactone (Aldactone) 25 mg PO DAILY [facility] Last Admin: 09/29/17 08:39 Dose: 25 mg Spironolactone (Aldactone) 25 mg PO ONETIME ONE Stop: 09/29/17 12:26 Last Admin: 09/29/17 14:27 Dose: Not Given Thiamine HCl (Vitamin B-1) 100 mg PO ONETIME ONE Stop: 09/26/17 18:54 Last Admin: 09/26/17 19:01 Dose: 100 mg - Exam General: Cooperative, No Acute Distress, Lethargic, Other (slow in response and speech) HEENT: Pupils Equal, Pupils Reactive, Mucous Membr. Moist/[place]. No: Scleral Icterus Neck: Supple, Trachea Midline, No JVD Lungs: Normal Respiratory Effort, Decreased Breath Sounds Cardiovascular: Regular Rate GI/Abdominal Exam: Normal Bowel Sounds, Soft, Non-Tender, No Organomegaly, No Distention, No Abnormal Bruit, No Mass (Female) Exam: Deferred Back Exam: Normal Inspection, Decreased Range of Motion Extremities: Normal Inspection, Normal Range of Motion, Normal Capillary Refill , Other (No asterixis) Peripheral Pulses: 2+: Dorsalis Pedis (L), Dorsalis Pedis (R) Skin: Warm, Dry, Intact, Other (no obvious jaundice) Neurological: No New Focal Deficit. No: Normal Gait Psy/Mental Status: Normal Affect, Normal Mood. 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 Her grand-daughter found her laying in bed unresponsive and could not move -Abdominal CT scan: enlarged liver, small low density lesion within the right lobe, and liver contour is minimally nodular; portal vein is enlarged (new ); enlarged spleen and several splenic varices are seen (new); minimal ascites-- > all point to early cirrhosis -Discontinue NSAIDs, Avoid Sedatives and Hepatotoxic drugs -Hepatitis Panel, Alpha-1- Anti-trypsin level, Iron Panel as well as INR -Increased Aldactone to 50 mg po BID -GI eval after discharge Refractory Hepatic Encephalopathy, Grade 2, Worse today--> Maddrey Discriminant Score of 18: she does not need steroid at this time -Confused, difficulty with ambulation, difficulty writing on clinic visit with PCP -2/2 Liver Cirrhosis -CT in ED (09/26/17) 1. Findings suggest early cirrhosis with portal hypertension and splenomegaly as an interval change from previous exam. Minimal ascites noted 2. Mild adenopathy as noted above believed to be incidental and mostly chronic 3. Small calcified gallstone within the gallbladder 4. Increased stool within the colon and other incidental findings -Ammonia 106-->126--> now 102 -Per patient ran out of medication and did not have refills so thought she completed treatment -Received erythromycin but now discontinued, will decrease lactulose to 45 mg TID form 60 mg -Spirionolactone for ascites and Hypokalemia--> Increase from 25 mg to 50 mg BID today -Start Rifaximin 500 mg po BID first dose tonight--> refractory HE and in preparation for discharge -Seizure Precautions End Stage Liver Disease -Likely 2/2 ETOH Cirrhosis -MELD score of 15 with 6% estimated 3-month mortality -Per patient she used to see GI in [place] and stop going in to see them because all they do is do scope her (an upper endoscopy) -Now it seems she is showing early signs of hepatic decompensation Hypocalcemia, Improved -Calcium 8.5-->8.0-->7.4--> now 8.4 -Continue home supplementation Portal hypertension -2/2 Liver Cirrhosis likely form long hx/o ETOH Abuse -Hx/o Hemorrhoids -CT scan as above - interval change from prior CT -Will change Propranolol dose to 10 mg po TID due to bradycardia Early Pancytopenia -2/2 Liver Cirrhosis -Hgb and Hct stable but RBC, WBC and Platelet are considerably low -Iron Panel in AM -Continue to Monitor Chronic ETOH Abuse -Longstanding history of ETOH abuse and both inpatient and outpatient treatment -Strongly recommended outpatient treatment and avoiding [facility] -Reportedly told PCP she has not drank since June but then changed story when pressed further; last beer 09/20/17 -"I still have a beer or two here or there... especially after mowing" -Reportedly charged with DUI last -Elevated liver enzymes, cirrhosis, and portal hypertension as above -SW/SA/Psych consult--> Dr. Lion recommends AA rep, Pastoral Care, Outpt Psych, Abilify 1mg Qdaily, and Remeron 15mg QHS; Pt still refusing SA consult, but CM did discuss her going outpt and asked her to make an appointment for Monday or Monday -Home thiamine/multivitamin/folic acid -Discontinue Librium, Topamax and CIWA Protocol-she has been here for 5 days now -PRN Ativan for withdrawl/seizure -IV fluids as ordered Tobacco Use Disorder -Daily smoker -Nicotine patch daily -Cessation counseling Resolved: UTI -Weak UA in ED - 1+ leukocyte esterase, 5-10 WBCs, 5-10 Epithelial cells, Many bacteria -Urine Culture--> E Coli -On prior visit in April was found to have E. Coli UTI which was booth sensitive -Rocephin 2gm given in ED --> D/C today -IV fluids as ordered S/p Hypokalemia -Potassium 1.8-->1.7--> 3.3 --> now 4.2 -2/2 GI loss from frequent diarrhea -Optimize K sparing medication -Replete and monitor Chronic: Glaucoma Vitamin D Deficiency Iron Deficiency Anemia GERD Tobacco use disorder ETOH use Discharged form hospital 05/12/17 after lengthy stay for MSSA sepsis, right-sided empyema, Influenza A and B, and respiratory failure Plan: Patient is clinically worse today than yesterday Will adjust treatment as above SA/Psych consulted Routine AM labs Ambulation as tolerated DVT/PE prophylaxis: Thrombocytopenia - medications contraindicated; RUTH hose, ambulate, SCDs GI prophylaxis: Home PPI Outpatient f/u with GI Code Status: Full code; PCP: AYAH Leon Patient is essentially not responding to current treatment. She has been here for 4 days now. I made changes to her routine inpatient medications. Also called and spoke to patient's daughter (Louise) and updated her briefly about mom's diagnosis, prognosis, current treatment and discharge care plan. Patient' s prognosis is guarded to very poor. Daughter was informed that patient's current clinical status is fairly stable but not good. I assured Louise that we will do everything we could to get Evette better but expect clinical deteriorate in the next 24-48 hours if she does not respond to current medical treatment. Encouraged Louise to call her brother and both come down here tomorrow to discuss further care and help direct treatment plan for Evette.
[2017-09-30] MEDS: Tiotropium Inhaler 18 MCG Inhalation Powder Cap Kit of 5 INH SCH (08:33)
[2017-09-30] MEDS ORDERED: Spironolactone 25 MG Tab PO SCH ×2 (09:00→10:00)
[2017-09-30] MEDS: Lactulose Soln 10 GM/15 ML 30 ML UD Cup PO SCH ×3 (09:06→21:53)
[2017-09-30] MEDS: Multivitamins,Therapeutic Tab PO SCH (09:07)
[2017-09-30] MEDS: Calcium Carbonate 600 MG Tab PO SCH (09:07)
[2017-09-30] MEDS: Folic Acid 1 MG Tab PO SCH (09:08)
[2017-09-30] MEDS: Pantoprazole 40 MG Tab.CR PO SCH ×2 (09:08→21:45)
[2017-09-30] MEDS: Thiamine 100 MG Tab PO SCH (09:08)
[2017-09-30] MEDS: Sodium Chloride 0.9% 1,000 ML IV SCH ×3 (09:25→22:10)
[2017-09-30] MEDS: FERROUS GLUCONATE PO SCH (09:48)
[2017-09-30] MEDS: Nicotine 21 MG/24 Hr Patch TRDERM SCH (09:48)
[2017-09-30] MEDS: Magnesium Sulfate/Water 2 GM in Premix Bag 1 BAG IV SCH ×2 (11:18→13:18)
[2017-09-30] MEDS ORDERED: Hydrocortisone 1% Crm 30 GM Tube TOP PRN (18:54)
[2017-09-30] MEDS ORDERED: Witch Hazel Medicated Pads 100/Jar TOP PRN (18:56)
[2017-09-30] MEDS ORDERED: LORazepam 2 MG/ML SDV IVPUSH PRN (20:34)
[2017-09-30] MEDS: Spironolactone 25 MG Tab PO SCH (21:44)
[2017-09-30] MEDS: Rifaximin 550 MG Tab PO SCH (21:45)
[2017-09-30] MEDS: Mirtazapine 15 MG Tab PO SCH (21:46)
[2017-09-30] MEDS: Latanoprost 0.005% Ophth Soln 2.5 ML Bottle EYEBOTH SCH (21:47)
[2017-10-01] MEDS: Sodium Chloride 0.9% 1,000 ML IV SCH ×5 (03:48→21:33)
[2017-10-01] MEDS: Spironolactone 25 MG Tab PO SCH ×2 (08:21→21:32)
[2017-10-01] MEDS: Rifaximin 550 MG Tab PO SCH ×2 (08:21→21:32)
[2017-10-01] MEDS: Multivitamins,Therapeutic Tab PO SCH (08:22)
[2017-10-01] MEDS: Propranolol 10 MG Tab PO SCH ×2 (08:22→16:08)
[2017-10-01] MEDS: Calcium Carbonate 600 MG Tab PO SCH (08:22)
[2017-10-01] MEDS: Folic Acid 1 MG Tab PO SCH (08:22)
[2017-10-01] MEDS: Pantoprazole 40 MG Tab.CR PO SCH ×2 (08:22→21:32)
[2017-10-01] MEDS: Lactulose Soln 10 GM/15 ML 30 ML UD Cup PO SCH ×3 (08:22→21:33)
[2017-10-01] MEDS: Thiamine 100 MG Tab PO SCH (08:22)
[2017-10-01] MEDS: Nicotine 21 MG/24 Hr Patch TRDERM SCH (08:23)
[2017-10-01] MEDS: FERROUS GLUCONATE PO SCH (08:23)
--- NOTE | 2017-10-01 08:33 | PCM.PN ---
- General Info Date of Service: 10/01/17 Admission Dx/Problem (Free Text): Admission Diagnosis/Problem Admission Diagnosis/Problem Hypokalemia Subjective Update: Follow Up Functional Status: Reports: Pain Controlled, Tolerating Diet, Ambulating, Urinating. Denies: New Symptoms - Review of Systems General: Reports: Weakness. Denies: Fever, Chills HEENT: Reports: No Symptoms Pulmonary: Denies: Shortness of Breath Cardiovascular: Denies: Chest Pain, Dyspnea on Exertion, Lightheadedness Gastrointestinal: Reports: Diarrhea. Denies: Abdominal Pain, Nausea, Vomiting Genitourinary: Reports: No Symptoms Musculoskeletal: Reports: No Symptoms Skin: Denies: Cyanosis, Mottled, Pallor, Diaphoresis, Rash Neurological: Reports: Confusion, Weakness, Gait Disturbance. Denies: Seizure, Difficulty Walking Psychiatric: Denies: No Symptoms, Depression, Mood Lability, Anxiety, Agitation , Hallucinations Systems Review Comment:: No significant overnight or acute issues. She slept pretty good last night. She is alert and awake. Her morning labs K, Ca and Mg are low and her Ammonia is now 73. - Patient Data Vitals - Most Recent: Last Vital Signs Temp 36.9 C 10/01/17 08:21 Pulse 69 10/01/17 08:22 Resp 16 10/01/17 08:21 BP 124/66 10/01/17 08:22 Pulse Ox 99 10/01/17 08:21 Weight - Most Recent: 59.421 kg I&O - Last 24 Hours: Intake & Output 09/30/17 10/01/17 10/01/17 22:59 06:59 14:59 Intake Total 3301 4262 Output Total 1700 1900 Balance 1601 2362 Lab Results Last 24 Hours: Laboratory Results - last 24 hr 09/30/17 10/01/17 10/01/17 Range/Units 20:10 05:10 05:10 WBC 4.06 (3.98-10.04) K/mm3 RBC 3.44 L (3.98-5.22) M/mm3 Hgb 12.8 (11.2-15.7) gm/L Hct 35.5 (34.1-44.9) % MCV 103.2 H (79.4-94.8) fl MCH 37.2 H (25.6-32.2) pg MCHC 36.1 H (32.2-35.5) g/dl RDW Std Deviation 59.3 H (36.4-46.3) fL Plt Count 56 L (182-369) K/mm3 MPV 11.1 (9.4-12.3) fl Neut % (Auto) 57.4 (34.0-71.1) % Lymph % (Auto) 20.0 (19.3-51.7) % [place] % (Auto) 16.7 H (4.7-12.5) % Eos % (Auto) 5.2 (0.7-5.8) Baso % (Auto) 0.7 (0.1-1.2) % Neut # (Auto) 2.33 (1.56-6.13) K/mm3 Lymph # (Auto) 0.81 L (1.18-3.74) K/mm3 [place] # (Auto) 0.68 H (0.24-0.36) K/mm3 Eos # (Auto) 0.21 (0.04-0.36) K/mm3 Baso # (Auto) 0.03 (0.01-0.08) K/mm3 Manual Slide Review Abnormal smear PT 15.1 H (9.5-12.1) SECONDS INR 1.39 Sodium 141 (136-145) mEq/L Potassium 3.2 L (3.5-5.1) mEq/L Chloride 114 H (98-107) mEq/L Carbon Dioxide 18 L (21-32) mEq/L Anion Gap 12.2 (5-15) BUN 6 L (7-18) mg/dL Creatinine 0.9 (0.55-1.02) mg/dL Est Cr Clr Drug Dosing 55.68 mL/min Estimated GFR (MDRD) > 60 (>60) mL/min BUN/Creatinine Ratio 6.7 L (14-18) Glucose 98 (74-106) mg/dL Calcium 7.9 L (8.5-10.1) mg/dL Magnesium 1.4 L (1.8-2.4) mg/dl Iron (50-170) ug/dL TIBC (100-400) ug/dL % Saturation (20-55) % Transferrin (202-364) mg/dL Total Bilirubin 3.9 H (0.2-1.0) mg/dL AST 49 H (15-37) U/L ALT 33 (14-59) U/L Alkaline Phosphatase 132 H (46-116) U/L Ammonia (11-32) umol/L C-Reactive Protein < 0.2 (<1.0) mg/dL Total Protein 5.9 L (6.4-8.2) g/dl Albumin 2.4 L (3.4-5.0) g/dl Globulin 3.5 gm/dL Albumin/Globulin Ratio 0.7 L (1-2) 10/01/17 10/01/17 10/01/17 Range/Units 05:10 05:10 05:10 WBC (3.98-10.04) K/mm3 RBC (3.98-5.22) M/mm3 Hgb (11.2-15.7) gm/L Hct (34.1-44.9) % MCV (79.4-94.8) fl MCH (25.6-32.2) pg MCHC (32.2-35.5) g/dl RDW Std Deviation (36.4-46.3) fL Plt Count (182-369) K/mm3 MPV (9.4-12.3) fl Neut % (Auto) (34.0-71.1) % Lymph % (Auto) (19.3-51.7) % Candler % (Auto) (4.7-12.5) % Eos % (Auto) (0.7-5.8) Baso % (Auto) (0.1-1.2) % Neut # (Auto) (1.56-6.13) K/mm3 Lymph # (Auto) (1.18-3.74) K/mm3 Candler # (Auto) (0.24-0.36) K/mm3 Eos # (Auto) (0.04-0.36) K/mm3 Baso # (Auto) (0.01-0.08) K/mm3 Manual Slide Review PT 15.3 H (9.5-12.1) SECONDS INR 1.41 Sodium (136-145) mEq/L Potassium (3.5-5.1) mEq/L Chloride (98-107) mEq/L Carbon Dioxide (21-32) mEq/L Anion Gap (5-15) BUN (7-18) mg/dL Creatinine (0.55-1.02) mg/dL Est Cr Clr Drug Dosing mL/min Estimated GFR (MDRD) (>60) mL/min BUN/Creatinine Ratio (14-18) Glucose (74-106) mg/dL Calcium (8.5-10.1) mg/dL Magnesium (1.8-2.4) mg/dl Iron 113 (50-170) ug/dL TIBC 218 (100-400) ug/dL % Saturation 52 (20-55) % Transferrin 174 L (202-364) mg/dL Total Bilirubin (0.2-1.0) mg/dL AST (15-37) U/L ALT (14-59) U/L Alkaline Phosphatase (46-116) U/L Ammonia 73 H (11-32) umol/L C-Reactive Protein (<1.0) mg/dL Total Protein (6.4-8.2) g/dl Albumin (3.4-5.0) g/dl Globulin gm/dL Albumin/Globulin Ratio (1-2) Med Orders - Current: Current Medications Aripiprazole (Abilify) 1 mg PO DAILY [facility] Last Admin: 10/01/17 08:21 Dose: 1 mg Calcium Carbonate/Glycine (Calcium Carbonate) 600 mg PO DAILY [facility] Last Admin: 10/01/17 08:22 Dose: 600 mg Folic Acid (Folic Acid) 1 mg PO DAILY [facility] Last Admin: 10/01/17 08:22 Dose: 1 mg Hydralazine HCl (Apresoline) 20 mg IVPUSH Q4H PRN PRN Reason: Hypertension Hydrocortisone (Hydrocortisone 1% Crm) 0 gm TOP ASDIRECTED PRN PRN Reason: Other Sodium Chloride (Normal Saline) 1,000 mls @ 250 mls/hr IV ASDIRECTED [facility] Last Admin: 10/01/17 06:18 Dose: 250 mls/hr Lactulose (Cephulac) 45 gm PO TID [facility] Last Admin: 10/01/17 08:22 Dose: 45 gm Latanoprost (Xalatan 0.005% Ophth Soln) 0 ml EYEBOTH BEDTIME [facility] Last Admin: 09/30/17 21:47 Dose: 1 drop Lorazepam (Ativan) 2 mg IVPUSH Q4H PRN PRN Reason: Seizures Lorazepam (Ativan) 2 mg IVPUSH Q4H PRN PRN Reason: Seizures Magnesium Sulfate (Pharmacy To Dose - Magnesium Replacement) 1 dose .XX ASDIRECTED PRN PRN Reason: RX to Dose Metoprolol Tartrate (Lopressor) 5 mg IVPUSH Q4H PRN PRN Reason: Tachycardia Mirtazapine (Remeron) 15 mg PO BEDTIME [facility] Last Admin: 09/30/17 21:46 Dose: 15 mg Multivitamins (Thera) 1 each PO DAILY [facility] Last Admin: 10/01/17 08:22 Dose: 1 each Nicotine (Habitrol) 21 mg TRDERM DAILY [facility] Last Admin: 10/01/17 08:23 Dose: Not Given Ondansetron HCl (Zofran) 4 mg IVPUSH Q8H PRN PRN Reason: Nausea/Vomiting Ondansetron HCl (Zofran Odt) 4 mg PO Q6H PRN PRN Reason: nausea, able to take PO Pantoprazole Sodium (Protonix) 40 mg PO BID [facility] Last Admin: 10/01/17 08:22 Dose: 40 mg Ferrous Gluconate [ Ferrous Gluconate] 650 Mg 0 each PO DAILY [facility] Last Admin: 10/01/17 08:23 Dose: Not Given Potassium Chloride (Pharmacy To Dose - Potassium Replacement) 1 dose .XX ASDIRECTED PRN PRN Reason: RX to Dose Propranolol HCl (Inderal) 10 mg PO Q8H [facility] Last Admin: 10/01/17 08:22 Dose: 10 mg Rifaximin (Xifaxan) 550 mg PO BID [facility] Last Admin: 10/01/17 08:21 Dose: 550 mg Sodium Chloride (Saline Flush) 10 ml FLUSH ONETIME PRN PRN Reason: IV FLUSH Last Admin: 09/26/17 20:34 Dose: 10 ml Spironolactone (Aldactone) 50 mg PO BID [facility] Last Admin: 10/01/17 08:21 Dose: 50 mg Thiamine HCl (Vitamin B-1) 100 mg PO DAILY [facility] Last Admin: 10/01/17 08:22 Dose: 100 mg Tiotropium [place] (Spiriva Handihaler) 18 mcg INH DAILY [facility] Last Admin: 09/30/17 08:33 Dose: 1 cap Witch Sunshine (Tucks) 1 pad TOP ASDIRECTED PRN PRN Reason: rectal excoriation Discontinued Medications Carvedilol (Coreg) 6.25 mg PO BID [facility] Chlordiazepoxide HCl (Librium) 25 mg PO BID [facility] Last Admin: 09/29/17 20:56 Dose: 25 mg Diatrizoate Meglum/Diatrizoate Sod (Gastrografin 37%) 120 ml PO ONETIME ONE Stop: 09/26/17 19:09 Last Admin: 09/26/17 20:34 Dose: 90 ml Erythromycin (Julian-Tab) 250 mg PO Q6HR [facility] Last Admin: 09/29/17 05:51 Dose: 250 mg Folic Acid (Folic Acid) 1 mg PO ONETIME ONE Stop: 09/26/17 18:54 Last Admin: 09/26/17 19:01 Dose: 1 mg Potassium Chloride 10 meq/ (Premix) 100 mls @ 100 mls/hr IV ASDIRECTED ONE Stop: 09/26/17 19:45 Last Admin: 09/26/17 18:55 Dose: 100 mls/hr Potassium Chloride 10 meq/ (Premix) 100 mls @ 100 mls/hr IV ASDIRECTED ONE Stop: 09/26/17 19:45 Last Admin: 09/26/17 19:17 Dose: 100 mls/hr Magnesium Sulfate 2 gm/ Premix 50 mls @ 25 mls/hr IV ONETIME ONE Stop: 09/26/17 20:49 Last Admin: 09/26/17 18:58 Dose: 25 mls/hr Ceftriaxone Sodium 2 gm/ (Sodium Chloride) 100 mls @ 100 mls/hr IV ONETIME ONE Stop: 09/27/17 00:03 Last Admin: 09/26/17 23:27 Dose: 100 mls/hr Magnesium Sulfate 2 gm/ Premix 50 mls @ 50 mls/hr IV Q1H [facility] Stop: 09/27/17 00:14 Last Admin: 09/26/17 23:27 Dose: 50 mls/hr Potassium Chloride/Sodium Chloride (Normal Saline With 20 Meq Kcl) 1,000 mls @ 75 mls/hr IV ASDIRECTED [facility] Stop: 09/27/17 05:15 Last Admin: 09/26/17 23:26 Dose: 75 mls/hr Potassium Chloride 10 meq/ (Premix) 100 mls @ 100 mls/hr IV Q1H [facility] Stop: 09/27/17 13:59 Last Admin: 09/27/17 15:38 Dose: 100 mls/hr Sodium Chloride (Normal Saline) 1,000 mls @ 100 mls/hr IV ASDIRECTED [facility] Last Admin: 09/30/17 09:25 Dose: 100 mls/hr Potassium Chloride/Sodium Chloride (Normal Saline With 20 Meq Kcl) 1,000 mls @ 125 mls/hr IV ASDIRECTED [facility] Magnesium Sulfate 2 gm/ Premix 50 mls @ 25 mls/hr IV Q2H [facility] Stop: 09/27/17 13:30 Last Admin: 09/27/17 13:13 Dose: 25 mls/hr Ceftriaxone Sodium 2 gm/ (Sodium Chloride) 100 mls @ 100 mls/hr IV Q24H [facility] Last Admin: 09/28/17 23:40 Dose: 100 mls/hr Magnesium Sulfate 2 gm/ Premix 50 mls @ 25 mls/hr IV ONETIME ONE Stop: 09/27/17 14:59 Last Admin: 09/27/17 13:17 Dose: Not Given Potassium Chloride 10 meq/ (Premix) 100 mls @ 100 mls/hr IV Q1H [facility] Stop: 09/28/17 13:29 Last Admin: 09/28/17 14:01 Dose: 100 mls/hr Magnesium Sulfate 2 gm/ Premix 50 mls @ 25 mls/hr IV ONETIME ONE Stop: 09/28/17 09:59 Last Admin: 09/28/17 09:09 Dose: 25 mls/hr Magnesium Sulfate 2 gm/ Premix 50 mls @ 25 mls/hr IV ONETIME ONE Stop: 09/28/17 12:43 Last Admin: 09/28/17 11:28 Dose: 25 mls/hr Sodium Chloride (Normal Saline) 1,000 mls @ 999 mls/hr IV ONETIME ONE Stop: 09/29/17 17:00 Last Admin: 09/29/17 16:19 Dose: 999 mls/hr Magnesium Sulfate 2 gm/ Premix 50 mls @ 25 mls/hr IV Q2H [facility] Stop: 09/30/17 13:59 Last Admin: 09/30/17 13:18 Dose: 25 mls/hr Ibuprofen (Motrin) 600 mg PO Q8H PRN PRN Reason: Pain/Fever Iopamidol (Isovue-300 (61%)) 150 ml IVPUSH ONETIME ONE Stop: 09/26/17 19:09 Last Admin: 09/26/17 20:34 Dose: 100 ml Lactulose (Cephulac) 30 gm PO ONETIME ONE Stop: 09/26/17 18:47 Last Admin: 09/26/17 19:01 Dose: 30 gm Lactulose (Cephulac) 45 gm PO BID [facility] Last Admin: 09/28/17 09:07 Dose: 45 gm Lactulose (Cephulac) 45 gm PO TID [facility] Last Admin: 09/28/17 20:38 Dose: 45 gm Lactulose (Cephulac) 60 gm PO TID [facility] Last Admin: 09/30/17 16:00 Dose: 60 gm Lorazepam (Ativan) 0 mg IVPUSH Q4H PRN; Protocol PRN Reason: withdrawl Magnesium Oxide (Magnesium Oxide) 400 mg PO ONETIME ONE Stop: 09/29/17 08:04 Last Admin: 09/29/17 08:39 Dose: 400 mg Potassium Chloride (Potassium Chloride) 40 meq PO ONETIME ONE Stop: 09/26/17 18:45 Last Admin: 09/26/17 19:01 Dose: 40 meq Potassium Chloride (Klor-Con M20) 40 meq PO DAILY [facility] Last Admin: 09/27/17 08:22 Dose: 40 meq Potassium Chloride (Klor-Con M20) 40 meq PO BID [facility] Potassium Chloride (Potassium Chloride) 60 meq PO BID [facility] Last Admin: 09/28/17 21:14 Dose: Not Given Potassium Chloride (Klor-Con M20) 40 meq PO Q4H [facility] Stop: 09/27/17 20:46 Last Admin: 09/27/17 19:32 Dose: Not Given Potassium Chloride (Potassium Chloride) 60 meq PO TID [facility] Last Admin: 09/29/17 20:56 Dose: 60 meq Propranolol HCl (Inderal) 20 mg PO DAILY [facility] Last Admin: 09/29/17 08:39 Dose: 20 mg Saccharomyces Boulardii (Florastor) 250 mg PO BID [facility] Last Admin: 09/29/17 20:55 Dose: 250 mg Spironolactone (Aldactone) 25 mg PO DAILY [facility] Last Admin: 09/29/17 08:39 Dose: 25 mg Spironolactone (Aldactone) 50 mg PO DAILY [facility] Spironolactone (Aldactone) 25 mg PO ONETIME ONE Stop: 09/29/17 12:26 Last Admin: 09/29/17 14:27 Dose: Not Given Spironolactone (Aldactone) 50 mg PO DAILY [facility] Last Admin: 09/30/17 09:34 Dose: 50 mg Thiamine HCl (Vitamin B-1) 100 mg PO ONETIME ONE Stop: 09/26/17 18:54 Last Admin: 09/26/17 19:01 Dose: 100 mg Topiramate (Topamax) 25 mg PO BID [facility] Last Admin: 09/29/17 20:58 Dose: 25 mg - Exam General: Alert, Cooperative, No Acute Distress, Other (no asterixis) HEENT: Pupils Equal, Pupils Reactive, EOMI, Mucous Membr. Moist/[place] Neck: Supple, Trachea Midline, No JVD, No Thyromegaly Lungs: Normal Respiratory Effort, Crackles (at the bases) Cardiovascular: Regular Rate, Regular Rhythm GI/Abdominal Exam: Normal Bowel Sounds, Soft, Non-Tender, No Distention, No Abnormal Bruit, No Mass, Hepatomegaly, Splenomegaly. No: Guarding, Rigid, Rebound (Female) Exam: Deferred Back Exam: Normal Inspection, Decreased Range of Motion Extremities: Normal Inspection, Normal Range of Motion, Non-Tender, No Pedal Edema, Normal Capillary Refill, Other (skin discoloration on bilateral lower extremity) Peripheral Pulses: 2+: Dorsalis Pedis (L), Dorsalis Pedis (R) Skin: Warm, Dry, Intact Neurological: No New Focal Deficit. No: Normal Gait Psy/Mental Status: Alert, Normal Affect, Normal Mood. No: Anxious, Agitated, Homicidal Ideation, Hallucinations - Problem List Review Problem List Initiated/Reviewed/Updated: Yes - My Orders Last 24 Hours: My Active Orders 09/30/17 09:30 Magnesium Rep Pharmacy to Dose [Pharmacy to Dose - Magnesium Replacement] 1 dose .XX ASDIRECTED PRN Potassium Rep Pharmacy to Dose [Pharmacy to Dose - Potassium Replacement] 1 dose .XX ASDIRECTED PRN 09/30/17 18:00 Sodium Chloride 0.9% [Normal Saline] 1,000 ml IV ASDIRECTED 09/30/17 18:54 Hydrocortisone [Hydrocortisone 1% Crm] 0 gm TOP ASDIRECTED PRN 09/30/17 18:56 Witch Sunshine [Samcks] 1 pad TOP ASDIRECTED PRN 09/30/17 20:34 LORazepam [Ativan] 2 mg IVPUSH Q4H PRN Precautions [COMM] Routine 09/30/17 21:00 Lactulose [Cephulac] 45 gm PO TID Rifaximin [Xifaxan] 550 mg PO BID Spironolactone [Aldactone] 50 mg PO BID 10/01/17 08:30 Propranolol [Inderal] 10 mg PO Q8H - Plan Plan:: I/P: Acute: Acute: Subacute Liver Failure with Early Signs of Hepatic Decompensation -Has persistent Hepatic Encephalopathy, Mild Abdominal Ascites, Elevated Bilirubin, Relative Hypotension and Persistent Bradycardia -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 Her grand-daughter found her laying in bed unresponsive and could not move -Abdominal CT scan: enlarged liver, small low density lesion within the right lobe, and liver contour is minimally nodular; portal vein is enlarged (new ); enlarged spleen and several splenic varices are seen (new); minimal ascites-- > all point to early cirrhosis -Discontinue NSAIDs, Avoid Sedatives and Hepatotoxic drugs -Hepatitis Panel, Alpha-1- Anti-trypsin level, Iron Panel as well as INR -Continue Aldactone to 50 mg po BID -GI eval after discharge Refractory Hepatic Encephalopathy, Grade 2, Worse today--> Maddrey Discriminant Score of 18: she does not need steroid at this time -Confused, difficulty with ambulation, difficulty writing on clinic visit with PCP -2/2 Liver Cirrhosis -CT in ED (09/26/17) 1. Findings suggest early cirrhosis with portal hypertension and splenomegaly as an interval change from previous exam. Minimal ascites noted 2. Mild adenopathy as noted above believed to be incidental and mostly chronic 3. Small calcified gallstone within the gallbladder 4. Increased stool within the colon and other incidental findings -Ammonia 106-->126--> now 102 -Per patient ran out of medication and did not have refills so thought she completed treatment -Received erythromycin but now discontinued, will decrease lactulose to 45 mg TID from 60 mg -Spirinolactone for ascites and Hypokalemia--> Continue 50 mg BID -Continue Rifaximin 500 mg po BID--> refractory HE and in preparation for discharge; Goal is BID on lactulose and augment with Rifaximin -Seizure Precautions End Stage Liver Disease -Likely 2/2 ETOH Cirrhosis -MELD score of 15 with 6% estimated 3-month mortality -Per patient she used to see GI in [place] and stop going in to see them because all they do is scope her (upper endoscopy) -Now it seems she is showing early signs of hepatic decompensation Hypocalcemia, Chronic -Calcium 8.5-->8.0-->7.4--> 8.4--> 7.9 -Continue home supplementation Portal hypertension -2/2 Liver Cirrhosis likely form long hx/o ETOH Abuse -Hx/o Hemorrhoids -CT scan as above - interval change from prior CT -Continue Propranolol dose to 10 mg po TID due to bradycardia Early Pancytopenia -2/2 Liver Cirrhosis -Hgb and Hct stable but RBC, WBC and Platelet are considerably low -Iron Panel -mostly normal except transferrin level whic is low -Continue to Monitor Chronic ETOH Abuse -Longstanding history of ETOH abuse and both inpatient and outpatient treatment -Strongly recommended outpatient treatment and avoiding ETOH at last hospital stay in May ([facility]) -Reportedly told PCP she has not drank since June but then changed story when pressed further; last beer 09/20/17 -"I still have a beer or two here or there... especially after mowing" -Reportedly charged with DUI last -Elevated liver enzymes, cirrhosis, and portal hypertension as above -SW/SA/Psych consult--> Dr. Lion recommends AA rep, Pastoral Care, Outpt Psych, Abilify 1mg Qdaily, and Remeron 15mg QHS; Pt still refusing SA consult, but CM did discuss her going outpt and asked her to make an appointment for Monday or Monday -Home thiamine/multivitamin/folic acid -Discontinue Librium, Topamax and CIWA Protocol-she has been here for 5 days now -PRN Ativan for withdrawl/seizure -IV fluids as ordered Tobacco Use Disorder -Daily smoker -Nicotine patch daily -Cessation counseling Resolved: UTI -Weak UA in ED - 1+ leukocyte esterase, 5-10 WBCs, 5-10 Epithelial cells, Many bacteria -Urine Culture--> E Coli -On prior visit in April was found to have E. Coli UTI which was booth sensitive -Rocephin 2gm given in ED --> D/C today -IV fluids as ordered S/p Hypokalemia -Potassium 1.8-->1.7--> 3.3 --> now 4.2 -2/2 GI loss from frequent diarrhea -Optimize K sparing medication -Replete and monitor Chronic: Glaucoma Vitamin D Deficiency Iron Deficiency Anemia GERD Tobacco use disorder ETOH use Discharged form hospital 05/12/17 after lengthy stay for MSSA sepsis, right-sided empyema, Influenza A and B, and respiratory failure Plan: Patient is clinically better today SA/Psych consulted Routine AM labs Ambulation as tolerated DVT/PE prophylaxis: Thrombocytopenia - medications contraindicated; RUTH corral, ambulate, SCDs GI prophylaxis: Home PPI Outpatient f/u with GI Code Status: Full code; PCP: AYAH Leon Spoke to her children today and updated them about her diagnosis, prognosis, current treatment and discharge care plan. Informed them about the severity of her liver disease at this point and she is now showing signs of early hepatic decompensation, unclear if this chronic or new. She will continue to have chronic electrolytes abnormality from chronic GI loss. Our goal is make her Lactulose BID instead of 3-4x /day and add Rifaximin so she can have a decent qualify of life. If this regimen would not work then she could try TIPS procedure but this invasive treatment is known to worsen hepatic encephalopathy. Her only option is liver transplant but she is unlikely be a good candidate due to medical non-compliance and chronic etoh use/abuse. At this point, she would not do well going home on her own w/o any support. According to her family, she has been to inpatient rehab before x 2 and felt like she did not benefit at all. In fact her last hospitalization back 6-7 months ago, she stayed for a good amount of time in the hospital and then inpatient rehab (30 days) before she was sent home. Currently, patient is refusing rehab and wants to go home. She has been wanting to leave since Monday. After talking to her children, they now want her to go to [place] but patient is not in agreement. We informed her daughter, transfer is an option but does not guarantees acceptance of care. Overall prognosis is very poor. Will touch base with PCP in AM for further input.
[2017-10-01] MEDS: Tiotropium Inhaler 18 MCG Inhalation Powder Cap Kit of 5 INH SCH (08:54)
[2017-10-01] MEDS ORDERED: Carvedilol 6.25 MG Tab PO SCH (09:00)
[2017-10-01] MEDS ORDERED: Potassium Chloride 20 MEQ Tab.ER PO ONE (09:00)
[2017-10-01] MEDS: Magnesium Sulfate/Water 2 GM in Premix Bag 1 BAG IV SCH ×2 (09:07→11:28)
[2017-10-01] MEDS: Potassium Chloride 10% 20 MEQ/15 ML Soln 30 ML UD Cup PO SCH ×2 (10:05→21:33)
[2017-10-01] MEDS: Latanoprost 0.005% Ophth Soln 2.5 ML Bottle EYEBOTH SCH (21:34)
[2017-10-01] MEDS: Mirtazapine 15 MG Tab PO SCH (21:34)
[2017-10-02] MEDS: Sodium Chloride 0.9% 1,000 ML IV SCH ×2 (01:34→05:59)
[2017-10-02] MEDS: Propranolol 10 MG Tab PO SCH ×3 (01:38→17:37)
[2017-10-02] MEDS: Thiamine 100 MG Tab PO SCH (08:37)
[2017-10-02] MEDS: Rifaximin 550 MG Tab PO SCH ×2 (08:37→20:31)
[2017-10-02] MEDS: Spironolactone 25 MG Tab PO SCH ×2 (08:37→20:31)
[2017-10-02] MEDS: Calcium Carbonate 600 MG Tab PO SCH (08:37)
[2017-10-02] MEDS: Folic Acid 1 MG Tab PO SCH (08:37)
[2017-10-02] MEDS: Pantoprazole 40 MG Tab.CR PO SCH ×2 (08:37→20:31)
[2017-10-02] MEDS: Multivitamins,Therapeutic Tab PO SCH (08:38)
[2017-10-02] MEDS: Nicotine 21 MG/24 Hr Patch TRDERM SCH (08:40)
[2017-10-02] MEDS: Potassium Chloride 10% 20 MEQ/15 ML Soln 30 ML UD Cup PO SCH ×2 (08:40→20:30)
[2017-10-02] MEDS: Lactulose Soln 10 GM/15 ML 30 ML UD Cup PO SCH ×2 (08:42→20:29)
[2017-10-02] MEDS: FERROUS GLUCONATE PO SCH (08:45)
[2017-10-02] MEDS: Tiotropium Inhaler 18 MCG Inhalation Powder Cap Kit of 5 INH SCH (09:04)
[2017-10-02] MEDS: Magnesium Sulfate/Water 2 GM in Premix Bag 1 BAG IV SCH ×3 (11:14→14:56)
--- NOTE | 2017-10-02 12:15 | PCM.PN ---
- General Info Date of Service: 10/02/17 Admission Dx/Problem (Free Text): Admission Diagnosis/Problem Admission Diagnosis/Problem Hypokalemia Subjective Update: Follow Up Functional Status: Reports: Pain Controlled, Tolerating Diet, Ambulating, Urinating. Denies: New Symptoms - Review of Systems General: Denies: Fever, Chills HEENT: Reports: No Symptoms Pulmonary: Denies: Shortness of Breath Cardiovascular: Denies: Chest Pain, Dyspnea on Exertion, Lightheadedness Gastrointestinal: Reports: Diarrhea, Flatus. Denies: Abdominal Pain, Decreased Appetite, Nausea, Vomiting Genitourinary: Reports: No Symptoms Musculoskeletal: Reports: No Symptoms Skin: Denies: Cyanosis, Mottled, Pallor, Diaphoresis, Rash Neurological: Reports: Confusion (baseline intermittent confusion). Denies: Difficulty Walking, Weakness, Gait Disturbance Psychiatric: Reports: Depression, Hallucinations. Denies: Anxiety, Agitation Systems Review Comment:: No overnight or acute issues. She is alert and awake. She appears stable and appropriate with conversation. Her electrolytes are essentially the same. She has no acute issues. - Patient Data Vitals - Most Recent: Last Vital Signs Temp 36.7 C 10/02/17 08:33 Pulse 62 10/02/17 08:37 Resp 16 10/02/17 08:00 BP 116/61 10/02/17 08:37 Pulse Ox 97 10/02/17 09:04 Weight - Most Recent: 59.421 kg I&O - Last 24 Hours: Intake & Output 10/01/17 10/02/17 10/02/17 22:59 06:59 14:59 Intake Total 4565 2842 420 Output Total 2200 2050 Balance 2365 792 420 Lab Results Last 24 Hours: Laboratory Results - last 24 hr 10/02/17 10/02/17 10/02/17 Range/Units 05:30 05:30 05:30 PT 15.3 H (9.5-12.1) SECONDS INR 1.41 Sodium 147 H (136-145) mEq/L Potassium 4.0 (3.5-5.1) mEq/L Chloride 120 H (98-107) mEq/L Carbon Dioxide 13 L (21-32) mEq/L Anion Gap 18.0 H (5-15) BUN 7 (7-18) mg/dL Creatinine 0.8 (0.55-1.02) mg/dL Est Cr Clr Drug Dosing 62.63 mL/min Estimated GFR (MDRD) > 60 (>60) mL/min BUN/Creatinine Ratio 8.8 L (14-18) Glucose 109 H (74-106) mg/dL Calcium 8.0 L (8.5-10.1) mg/dL Magnesium 1.4 L (1.8-2.4) mg/dl Total Bilirubin 3.3 H (0.2-1.0) mg/dL AST 44 H (15-37) U/L ALT 26 (14-59) U/L Alkaline Phosphatase 128 H (46-116) U/L C-Reactive Protein < 0.2 (<1.0) mg/dL Total Protein 5.7 L (6.4-8.2) g/dl Albumin 2.3 L (3.4-5.0) g/dl Globulin 3.4 gm/dL Albumin/Globulin Ratio 0.7 L (1-2) Med Orders - Current: Current Medications Aripiprazole (Abilify) 1 mg PO DAILY [facility] Last Admin: 10/02/17 08:38 Dose: 1 mg Calcium Carbonate/Glycine (Calcium Carbonate) 600 mg PO DAILY [facility] Last Admin: 10/02/17 08:37 Dose: 600 mg Folic Acid (Folic Acid) 1 mg PO DAILY [facility] Last Admin: 10/02/17 08:37 Dose: 1 mg Hydralazine HCl (Apresoline) 20 mg IVPUSH Q4H PRN PRN Reason: Hypertension Hydrocortisone (Hydrocortisone 1% Crm) 0 gm TOP ASDIRECTED PRN PRN Reason: Other Magnesium Sulfate 2 gm/ Premix 50 mls @ 25 mls/hr IV Q2H [facility] Stop: 10/02/17 16:59 Last Admin: 10/02/17 11:14 Dose: 25 mls/hr Lactulose (Cephulac) 45 gm PO BID [facility] Last Admin: 10/02/17 08:42 Dose: 45 gm Latanoprost (Xalatan 0.005% Ophth Soln) 0 ml EYEBOTH BEDTIME [facility] Last Admin: 10/01/17 21:34 Dose: 1 drop Lorazepam (Ativan) 2 mg IVPUSH Q4H PRN PRN Reason: Seizures Lorazepam (Ativan) 2 mg IVPUSH Q4H PRN PRN Reason: Seizures Magnesium Sulfate (Pharmacy To Dose - Magnesium Replacement) 1 dose .XX ASDIRECTED PRN PRN Reason: RX to Dose Metoprolol Tartrate (Lopressor) 5 mg IVPUSH Q4H PRN PRN Reason: Tachycardia Mirtazapine (Remeron) 15 mg PO BEDTIME [facility] Last Admin: 10/01/17 21:34 Dose: 15 mg Multivitamins (Thera) 1 each PO DAILY [facility] Last Admin: 10/02/17 08:38 Dose: 1 each Nicotine (Habitrol) 21 mg TRDERM DAILY [facility] Last Admin: 10/02/17 08:40 Dose: Not Given Ondansetron HCl (Zofran) 4 mg IVPUSH Q8H PRN PRN Reason: Nausea/Vomiting Ondansetron HCl (Zofran Odt) 4 mg PO Q6H PRN PRN Reason: nausea, able to take PO Pantoprazole Sodium (Protonix) 40 mg PO BID [facility] Last Admin: 10/02/17 08:37 Dose: 40 mg Ferrous Gluconate [ Ferrous Gluconate] 650 Mg 0 each PO DAILY [facility] Last Admin: 10/02/17 08:45 Dose: Not Given Potassium Chloride (Pharmacy To Dose - Potassium Replacement) 1 dose .XX ASDIRECTED PRN PRN Reason: RX to Dose Potassium Chloride (Potassium Chloride) 40 meq PO BID [facility] Last Admin: 10/02/17 08:40 Dose: 40 meq Propranolol HCl (Inderal) 10 mg PO Q8H [facility] Last Admin: 10/02/17 08:37 Dose: 10 mg Rifaximin (Xifaxan) 550 mg PO BID [facility] Last Admin: 10/02/17 08:37 Dose: 550 mg Sodium Chloride (Saline Flush) 10 ml FLUSH ONETIME PRN PRN Reason: IV FLUSH Last Admin: 09/26/17 20:34 Dose: 10 ml Spironolactone (Aldactone) 50 mg PO BID [facility] Last Admin: 10/02/17 08:37 Dose: 50 mg Thiamine HCl (Vitamin B-1) 100 mg PO DAILY [facility] Last Admin: 10/02/17 08:37 Dose: 100 mg Tiotropium [place] (Spiriva Handihaler) 18 mcg INH DAILY [facility] Last Admin: 10/02/17 09:04 Dose: 1 cap Witch Sunshine (Tucks) 1 pad TOP ASDIRECTED PRN PRN Reason: rectal excoriation Discontinued Medications Carvedilol (Coreg) 6.25 mg PO BID [facility] Chlordiazepoxide HCl (Librium) 25 mg PO BID [facility] Last Admin: 09/29/17 20:56 Dose: 25 mg Diatrizoate Meglum/Diatrizoate Sod (Gastrografin 37%) 120 ml PO ONETIME ONE Stop: 09/26/17 19:09 Last Admin: 09/26/17 20:34 Dose: 90 ml Erythromycin (Julian-Tab) 250 mg PO Q6HR [facility] Last Admin: 09/29/17 05:51 Dose: 250 mg Folic Acid (Folic Acid) 1 mg PO ONETIME ONE Stop: 09/26/17 18:54 Last Admin: 09/26/17 19:01 Dose: 1 mg Potassium Chloride 10 meq/ (Premix) 100 mls @ 100 mls/hr IV ASDIRECTED ONE Stop: 09/26/17 19:45 Last Admin: 09/26/17 18:55 Dose: 100 mls/hr Potassium Chloride 10 meq/ (Premix) 100 mls @ 100 mls/hr IV ASDIRECTED ONE Stop: 09/26/17 19:45 Last Admin: 09/26/17 19:17 Dose: 100 mls/hr Magnesium Sulfate 2 gm/ Premix 50 mls @ 25 mls/hr IV ONETIME ONE Stop: 09/26/17 20:49 Last Admin: 09/26/17 18:58 Dose: 25 mls/hr Ceftriaxone Sodium 2 gm/ (Sodium Chloride) 100 mls @ 100 mls/hr IV ONETIME ONE Stop: 09/27/17 00:03 Last Admin: 09/26/17 23:27 Dose: 100 mls/hr Magnesium Sulfate 2 gm/ Premix 50 mls @ 50 mls/hr IV Q1H [facility] Stop: 09/27/17 00:14 Last Admin: 09/26/17 23:27 Dose: 50 mls/hr Potassium Chloride/Sodium Chloride (Normal Saline With 20 Meq Kcl) 1,000 mls @ 75 mls/hr IV ASDIRECTED [facility] Stop: 09/27/17 05:15 Last Admin: 09/26/17 23:26 Dose: 75 mls/hr Potassium Chloride 10 meq/ (Premix) 100 mls @ 100 mls/hr IV Q1H [facility] Stop: 09/27/17 13:59 Last Admin: 09/27/17 15:38 Dose: 100 mls/hr Sodium Chloride (Normal Saline) 1,000 mls @ 100 mls/hr IV ASDIRECTED [facility] Last Admin: 09/30/17 09:25 Dose: 100 mls/hr Potassium Chloride/Sodium Chloride (Normal Saline With 20 Meq Kcl) 1,000 mls @ 125 mls/hr IV ASDIRECTED [facility] Magnesium Sulfate 2 gm/ Premix 50 mls @ 25 mls/hr IV Q2H [facility] Stop: 09/27/17 13:30 Last Admin: 09/27/17 13:13 Dose: 25 mls/hr Ceftriaxone Sodium 2 gm/ (Sodium Chloride) 100 mls @ 100 mls/hr IV Q24H [facility] Last Admin: 09/28/17 23:40 Dose: 100 mls/hr Magnesium Sulfate 2 gm/ Premix 50 mls @ 25 mls/hr IV ONETIME ONE Stop: 09/27/17 14:59 Last Admin: 09/27/17 13:17 Dose: Not Given Potassium Chloride 10 meq/ (Premix) 100 mls @ 100 mls/hr IV Q1H [facility] Stop: 09/28/17 13:29 Last Admin: 09/28/17 14:01 Dose: 100 mls/hr Magnesium Sulfate 2 gm/ Premix 50 mls @ 25 mls/hr IV ONETIME ONE Stop: 09/28/17 09:59 Last Admin: 09/28/17 09:09 Dose: 25 mls/hr Magnesium Sulfate 2 gm/ Premix 50 mls @ 25 mls/hr IV ONETIME ONE Stop: 09/28/17 12:43 Last Admin: 09/28/17 11:28 Dose: 25 mls/hr Sodium Chloride (Normal Saline) 1,000 mls @ 999 mls/hr IV ONETIME ONE Stop: 09/29/17 17:00 Last Admin: 09/29/17 16:19 Dose: 999 mls/hr Magnesium Sulfate 2 gm/ Premix 50 mls @ 25 mls/hr IV Q2H [facility] Stop: 09/30/17 13:59 Last Admin: 09/30/17 13:18 Dose: 25 mls/hr Sodium Chloride (Normal Saline) 1,000 mls @ 250 mls/hr IV ASDIRECTED [facility] Last Admin: 10/02/17 05:59 Dose: 250 mls/hr Magnesium Sulfate 2 gm/ Premix 50 mls @ 25 mls/hr IV Q2H [facility] Stop: 10/01/17 12:59 Last Admin: 10/01/17 11:28 Dose: 25 mls/hr Ibuprofen (Motrin) 600 mg PO Q8H PRN PRN Reason: Pain/Fever Iopamidol (Isovue-300 (61%)) 150 ml IVPUSH ONETIME ONE Stop: 09/26/17 19:09 Last Admin: 09/26/17 20:34 Dose: 100 ml Lactulose (Cephulac) 30 gm PO ONETIME ONE Stop: 09/26/17 18:47 Last Admin: 09/26/17 19:01 Dose: 30 gm Lactulose (Cephulac) 45 gm PO BID [facility] Last Admin: 09/28/17 09:07 Dose: 45 gm Lactulose (Cephulac) 45 gm PO TID [facility] Last Admin: 09/28/17 20:38 Dose: 45 gm Lactulose (Cephulac) 60 gm PO TID [facility] Last Admin: 09/30/17 16:00 Dose: 60 gm Lactulose (Cephulac) 45 gm PO TID [facility] Stop: 10/01/17 21:30 Last Admin: 10/01/17 21:33 Dose: 45 gm Lorazepam (Ativan) 0 mg IVPUSH Q4H PRN; Protocol PRN Reason: withdrawl Magnesium Oxide (Magnesium Oxide) 400 mg PO ONETIME ONE Stop: 09/29/17 08:04 Last Admin: 09/29/17 08:39 Dose: 400 mg Potassium Chloride (Potassium Chloride) 40 meq PO ONETIME ONE Stop: 09/26/17 18:45 Last Admin: 09/26/17 19:01 Dose: 40 meq Potassium Chloride (Klor-Con M20) 40 meq PO DAILY [facility] Last Admin: 09/27/17 08:22 Dose: 40 meq Potassium Chloride (Klor-Con M20) 40 meq PO BID [facility] Potassium Chloride (Potassium Chloride) 60 meq PO BID [facility] Last Admin: 09/28/17 21:14 Dose: Not Given Potassium Chloride (Klor-Con M20) 40 meq PO Q4H [facility] Stop: 06/20/18 20:46 Last Admin: 09/27/17 19:32 Dose: Not Given Potassium Chloride (Potassium Chloride) 60 meq PO TID [facility] Last Admin: 09/29/17 20:56 Dose: 60 meq Potassium Chloride (Klor-Con M20) 60 meq PO ONETIME ONE Stop: 10/01/17 09:01 Last Admin: 10/01/17 09:07 Dose: 60 meq Propranolol HCl (Inderal) 20 mg PO DAILY [facility] Last Admin: 09/29/17 08:39 Dose: 20 mg Saccharomyces Boulardii (Florastor) 250 mg PO BID [facility] Last Admin: 09/29/17 20:55 Dose: 250 mg Spironolactone (Aldactone) 25 mg PO DAILY [facility] Last Admin: 09/29/17 08:39 Dose: 25 mg Spironolactone (Aldactone) 50 mg PO DAILY [facility] Spironolactone (Aldactone) 25 mg PO ONETIME ONE Stop: 09/29/17 12:26 Last Admin: 09/29/17 14:27 Dose: Not Given Spironolactone (Aldactone) 50 mg PO DAILY [facility] Last Admin: 09/30/17 09:34 Dose: 50 mg Thiamine HCl (Vitamin B-1) 100 mg PO ONETIME ONE Stop: 09/26/17 18:54 Last Admin: 09/26/17 19:01 Dose: 100 mg Topiramate (Topamax) 25 mg PO BID [facility] Last Admin: 09/29/17 20:58 Dose: 25 mg - Exam General: Alert, Oriented, Cooperative, No Acute Distress HEENT: Pupils Equal, Pupils Reactive, EOMI, Mucous Membr. Moist/[place]ck: Supple Lungs: Normal Respiratory Effort, Decreased Breath Sounds, Crackles Cardiovascular: Regular Rate, Regular Rhythm GI/Abdominal Exam: Normal Bowel Sounds, Soft, Non-Tender, No Organomegaly, No Distention, No Abnormal Bruit (Female) Exam: Deferred Back Exam: Normal Inspection, Decreased Range of Motion Extremities: Normal Inspection, Normal Range of Motion, Non-Tender, No Pedal Edema, Normal Capillary Refill, Other (lower extremity skin pigmentation) Peripheral Pulses: 2+: Dorsalis Pedis (L), Dorsalis Pedis (R) Skin: Warm, Dry, Intact Neurological: No New Focal Deficit Psy/Mental Status: Alert, Normal Affect, Normal Mood Physical Findings Comments:: AA/Ox3 and appropriate and reasonable with conversation. - Problem List Review Problem List Initiated/Reviewed/Updated: Yes - My Orders Last 24 Hours: My Active Orders 10/02/17 09:00 Lactulose [Cephulac] 45 gm PO BID 10/02/17 11:00 Magnesium Sulfate/Water [Magnesium Sulfate 2 GM in Water 50 ML] 2 gm Premix Bag 1 bag IV Q2H 10/03/17 05:11 CMP [COMPREHENSIVE METABOLIC PN,CMP] [CHEM] AM MG [MAGNESIUM] [CHEM] AM 10/04/17 05:11 CMP [COMPREHENSIVE METABOLIC PN,CMP] [CHEM] AM MG [MAGNESIUM] [CHEM] AM 10/05/17 05:11 CMP [COMPREHENSIVE METABOLIC PN,CMP] [CHEM] AM MG [MAGNESIUM] [CHEM] AM 10/06/17 05:11 CMP [COMPREHENSIVE METABOLIC PN,CMP] [CHEM] AM MG [MAGNESIUM] [CHEM] AM - Plan Plan:: I/P: Acute: Acute: Subacute Liver Failure with Early Signs of Hepatic Decompensation -After talking to her GI specialist in [place], this maybe her baseline -Has persistent Hepatic Encephalopathy, Mild Abdominal Ascites, Elevated Bilirubin, Relative Hypotension and Persistent Bradycardia -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 Her grand-daughter found her laying in bed unresponsive and could not move -Abdominal CT scan: enlarged liver, small low density lesion within the right lobe, and liver contour is minimally nodular; portal vein is enlarged (new ); enlarged spleen and several splenic varices are seen (new); minimal ascites-- > all point to early cirrhosis -Discontinue NSAIDs, Avoid Sedatives and Hepatotoxic drugs -Hepatitis Panel, Alpha-1- Anti-trypsin level, Iron Panel as well as INR -Continue Aldactone to 50 mg po BID -GI eval after discharge Refractory Hepatic Encephalopathy, Grade 1 - Maddrey Discriminant Score of 18: she does not need steroid at this time -Confused, difficulty with ambulation, difficulty writing on clinic visit with PCP -2/2 Liver Cirrhosis -CT in ED (09/26/17) 1. Findings suggest early cirrhosis with portal hypertension and splenomegaly as an interval change from previous exam. Minimal ascites noted 2. Mild adenopathy as noted above believed to be incidental and mostly chronic 3. Small calcified gallstone within the gallbladder 4. Increased stool within the colon and other incidental findings -Ammonia 106-->126--> now 102 -Per patient ran out of medication and did not have refills so thought she completed treatment -Received erythromycin but now discontinued, will decrease lactulose to 45 mg TID from 60 mg -Spirinolactone for ascites and Hypokalemia--> Continue 50 mg BID -Continue Rifaximin 500 mg po BID--> refractory HE and in preparation for discharge; Goal is BID on lactulose and augment with Rifaximin -Seizure Precautions End Stage Liver Disease -Likely 2/2 ETOH Cirrhosis -MELD score of 15 with 6% estimated 3-month mortality -Per patient she used to see GI in [place] and stop going in to see them because all they do is scope her (upper endoscopy) -She maybe at her baseline Hypocalcemia, Chronic -Calcium 8.5-->8.0-->7.4--> 8.4--> 7.9 -Continue home supplementation Portal hypertension, Stable -2/2 Liver Cirrhosis likely form long hx/o ETOH Abuse -Hx/o Hemorrhoids -CT scan as above - interval change from prior CT -Continue Propranolol dose to 10 mg po TID due to bradycardia Pancytopenia, Stable -2/2 Liver Cirrhosis -Hgb and Hct stable but RBC, WBC and Platelet are considerably low -Iron Panel -mostly normal except transferrin level whic is low -Continue to Monitor Chronic ETOH Abuse -Longstanding history of ETOH abuse and both inpatient and outpatient treatment -Strongly recommended outpatient treatment and avoiding ETOH at last hospital stay in May ([facility]) -Reportedly told PCP she has not drank since June but then changed story when pressed further; last beer 09/20/17 -"I still have a beer or two here or there... especially after mowing" -Reportedly charged with DUI last -Elevated liver enzymes, cirrhosis, and portal hypertension as above -SW/SA/Psych consult--> Dr. Lion recommends AA rep, Pastoral Care, Outpt Psych, Abilify 1mg Qdaily, and Remeron 15mg QHS; Pt still refusing SA consult, but CM did discuss her going outpt and asked her to make an appointment for Monday or Monday -Home thiamine/multivitamin/folic acid -Discontinue Librium, Topamax and CIWA Protocol-she has been here for 5 days now -PRN Ativan for withdrawl/seizure -IV fluids as ordered Tobacco Use Disorder -Daily smoker -Nicotine patch daily -Cessation counseling Resolved: UTI -Weak UA in ED - 1+ leukocyte esterase, 5-10 WBCs, 5-10 Epithelial cells, Many bacteria -Urine Culture--> E Coli -On prior visit in April was found to have E. Coli UTI which was booth sensitive -Rocephin 2gm given in ED --> D/C today -IV fluids as ordered S/p Hypokalemia -Potassium 1.8-->1.7--> 3.3 --> now 4.2 -2/2 GI loss from frequent diarrhea -Optimize K sparing medication -Replete and monitor Chronic: Glaucoma Vitamin D Deficiency Iron Deficiency Anemia GERD Tobacco use disorder ETOH use Discharged form hospital 05/12/17 after lengthy stay for MSSA sepsis, right-sided empyema, Influenza A and B, and respiratory failure Plan: Patient remains clinically SA/Psych consulted Routine AM labs Ambulation as tolerated DVT/PE prophylaxis: Thrombocytopenia - medications contraindicated; RUTH corral, ambulate, SCDs GI prophylaxis: Home PPI Outpatient f/u with GI Code Status: Full code; PCP: AYAH Leon Spoke to patient this morning and she was very reasonable. If discharged today, she was asked how is she going to take care of herself. She responded, "I want to quit drinking" she further states that she would like to get better and see her grand-children grow up. I stressed the need for home support since she is by herself, she mentioned about her brother in [place] who agreed to move in with her. However she is unsure how soon can he come over. I did offer rehab/SNF for deconditioning in the meantime until she can get a clear answer from him. We'll try to reach her PCP and find out the specialist who she saw in the past for her Liver Disease.
--- NOTE | 2017-10-02 12:41 | PCM.SN ---
- Free Text/Narrative Note: Got a hold of her PCP (DEIDRE Leon) this morning morning and able to discuss care and obtained more health information about her. Her PCP told me patient has been non-compliant with medications as well as follow up or routine appointment. Goldie however told me she had seen Dr. Pino and Ms. De La Fuente, CHITO in the past regarding her liver disease.
--- NOTE | 2017-10-02 14:02 | CONS ---
CONSULTING PHYSICIAN: Fernando Lion MD DATE OF CONSULTATION: 09/29/2017 This is a 60-minute inpatient clinical event. IDENTIFICATION: The patient is a 57-year-old female who is admitted to the inpatient MICU at [facility] in [place], [place]. She is seen for psychiatric consult. CHIEF COMPLAINT: "My right foot was swollen. My daughter and son thought I should have it checked out." HISTORY OF PRESENT ILLNESS: The patient is a 57-year-old female who is admitted to the inpatient MICU at [facility] in [place], [place] on 09/26/2017, secondary to complications of hypokalemia, increased ammonia, and then low magnesium in the face of possible increased alcohol intake. For her part, the patient is stating that she likes to "have a beer after my yard work" and states that she has not been drinking more than that lately, although she does state in the past she had a problem where she was drinking pretty heavily, "but not in a long time." She does state that she may have picked up some DWI charges "last week" after she did finish her yard work and evidently drove after having drank some alcohol. She denies that she is suicidal or homicidal. She denies any psychotic, delusional, or paranoid symptoms. She does report that "according my daughter" she has significant mood swings. She does feel her mood is generally "okay" in her estimation, though she does state that she spends most of her time staying "busy at work." The patient does report low energy levels where she is "dragging" quite a bit of the time and she has "awful sleep" patterns involving poor sleep initiation and maintenance. The patient also states that she has a lot of racing thoughts, ruminations, particularly when she wakes up in the middle of the evening. She does have lack of appetite. Again, she is denying suicidal or homicidal ideation or any psychotic, delusional, or paranoid symptoms. She denies any illicit substance use complicating her clinical picture. She is open to talking with AA resources for her drinking and trying medications that might help reduce her worries and mood swings as well as improve her mood and energy going forward. MEDICATIONS: Prior to admission, 1. Protonix. 2. Potassium supplement. ALLERGIES: No known drug allergies. PAST MEDICAL HISTORY: Negative according to the patient. The patient is admitted for metabolic abnormalities and having high ammonia levels, hypokalemia, hypomagnesemia. REVIEW OF SYSTEMS: Aside from endocrine in past history of GI, all other major organ systems are negative at this point in time for acute difficulties or complications. FAMILY PSYCHIATRIC AND CD HISTORY: None reported. PAST PSYCHIATRIC AND CD HISTORY: The patient denies any previous psychiatric hospitalizations. She reports 3 chemical dependency treatments in the past for alcohol. She is drinking "every so often now" and states that her alcohol intake is "a beer here and there" and states that she usually stops at 1 beer at a time. She denies any previous detox admissions or any previous DWIs, although she states she is facing charges now. She denies any previous suicide attempts. Denies any past psychiatric medication history. SOCIAL HISTORY: The patient was born and raised in [place], [place]. She is x1, x1. She has a son and a daughter and a number of grandchildren. She lives in [place], [place] by herself. 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 Denies any prior service. Again, may be facing charges and possible DWI. She is raised [place]. She enjoys doing yard work in her spare time. MENTAL STATUS EXAM: The patient is a 57-year-old, soft-spoken, white female in no apparent distress. Speech is of regular rate and rhythm. The patient is cognitively oriented. Psychomotor activity is within normal limits. There is no abnormal motor movements or tics observed. Gait and station are not observed as this patient is lying in bed during the course of the interview. Mood is "okay." Affect is restricted, but cooperative overall for the purposes of the inpatient consult. There is no behavioral or stated evidence of acute suicidal or homicidal ideation or acute psychotic, delusional, or paranoid symptoms. Thought processes are significant for racing thoughts, ruminations, particularly in the evening. There are no manic symptoms or loose associations evident. Judgment and insight appear poor likely into the severity of her alcohol issues. Motivation for help appears fair to good. VITAL SIGNS: 100/63, 51, 14, 97.5 degrees. IMPRESSION: [place] I: 1. Alcohol dependence, F10.20. 2. Bipolar affective disease, mixed type, F31.60. 3. Rule out major depressive disorder. [place] II: None. [place] III: 1. Hypokalemia. 2. Hypomagnesemia. 3. High ammonia levels. 4. Report of swollen lower extremity. Coloma IV: Severe. Coloma V: 55-60. PLAN: 1. Sobriety. 2. Begin trial of Topamax 25 mg b.i.d. for mood instability, anxiety reduction and seizure prophylaxis. 3. Begin trial of Remeron 15 mg at bedtime to help with sleep initiation and maintenance and any symptoms of depression as well as for anxiety reduction and appetite stimulation. 4. Begin trial of Abilify 1 mg q.a.m. for clarity of thought and mood stability as well as energy production. 5. Recommend the AA rep to visit the patient while on unit. 6. Pastoral guidance. 7. Thiamine and folic acid supplementation. 8. Librium 25 mg b.i.d. for withdrawal symptoms. 9. Ativan per [facility] protocol; also for withdrawal symptoms. 10.Recommend that the patient is medically stabilized and ready for discharge back to community that she has an appointment scheduled with Outpatient Psychiatry. 11.If the patient is unable to stay sober on her own that inpatient chemical dependency treatment resources be made available for the patient going forward. 12.I will continue to follow up the patient on an as-needed basis while she remains on the inpatient MICU at [facility]. 13.We will follow up with the patient sooner if any complications in the interim. 14.Crisis plan is in place. FLAVIA /[id number]
[2017-10-02] MEDS: Latanoprost 0.005% Ophth Soln 2.5 ML Bottle EYEBOTH SCH (20:31)
[2017-10-02] MEDS: Mirtazapine 15 MG Tab PO SCH (20:31)
[2017-10-03] MEDS: Propranolol 10 MG Tab PO SCH ×2 (01:05→08:21)
[2017-10-03] MEDS ORDERED: Magnesium Sulfate/Water 2 GM in Premix Bag 1 BAG IV ONE (08:00)
[2017-10-03] MEDS: Tiotropium Inhaler 18 MCG Inhalation Powder Cap Kit of 5 INH SCH (08:03)
--- NOTE | 2017-10-03 08:13 | PCM.DCSUM1 ---
Discharge Summary - Hospital Course HPI Initial Comments: 57 year old female seen by her provider in the clinic was sent to the ED as a possible direct admission. She has been confused and not taking her medication. An additional work up was initiated in the ED to identify treatable causes of her confusion. She has quinn-pulmonary hypertension, and cirrhosis. The patient has hepatic encephalopathy, labs were drawn by her provider to expedite her care. The ammonia level above 120, potassium less than 2, and magnesium level less that 1.5. She apparently has been charged with a DUI, LAKEISHA is less than 0.1. The patient changed her story multiple times before the end of the interview. Initially she stated that she had not had a drink since June , her birthday month. Later she stated that it was after moving her grass. She will be admitted for hepatic encephalopathy and abnormal electrolytes. A substance abuse and psychiatric consult will be ordered. Lactulose and her home meds will be resumed. An infectious source superimposed on her hepatic encephalopathy will also be checked. Additionally, a CT of abdomen and pelvis has been ordered. The patient will be admitted. The added testing will be started in the ED to expedite care; she will be admitted to [facility] with telemetry. The patient is a full code. Diagnosis: Stroke: No - Discharge Data Discharge Date: 10/03/17 (Admit Date: 09/26/17) Discharge Disposition: Home, [facility] Condition: Poor - Discharge Diagnosis/Problem(s) (1) Hypokalemia SNOMED Code(s): 72622236 ICD Code: E87.6 - HYPOKALEMIA Status: Acute Priority: High Current Visit: Yes (2) Hepatic encephalopathy SNOMED Code(s): 09903930 ICD Code: K72.90 - HEPATIC FAILURE, UNSPECIFIED WITHOUT COMA Status: Acute Priority: High Current Visit: Yes (3) Cirrhosis of liver SNOMED Code(s): 64704039 ICD Code: K74.60 - UNSPECIFIED CIRRHOSIS OF LIVER Status: Chronic Priority: High Current Visit: Yes Qualifiers: Hepatic cirrhosis type: alcoholic cirrhosis Ascites presence: with ascites Qualified Code(s): K70.31 - Alcoholic cirrhosis of liver with ascites (4) Splenomegaly SNOMED Code(s): 96972904 ICD Code: R16.1 - SPLENOMEGALY, NOT ELSEWHERE CLASSIFIED Status: Acute Priority: High Current Visit: Yes (5) Portal hypertension SNOMED Code(s): 55404605 ICD Code: K76.6 - PORTAL HYPERTENSION Status: Acute Priority: High Current Visit: Yes (6) UTI (urinary tract infection) SNOMED Code(s): 70179893 ICD Code: N39.0 - URINARY TRACT INFECTION, SITE NOT SPECIFIED Status: Resolved Priority: High Current Visit: Yes Qualifiers: Urinary tract infection type: acute cystitis Hematuria presence: without hematuria Qualified Code(s): N30.00 - Acute cystitis without hematuria (7) Hypomagnesemia SNOMED Code(s): 171283977 ICD Code: E83.42 - HYPOMAGNESEMIA Status: Acute Priority: High Current Visit: Yes (8) Vitamin D deficiency SNOMED Code(s): 20362866 ICD Code: E55.9 - VITAMIN D DEFICIENCY, UNSPECIFIED Status: Chronic Priority: Low Current Visit: No (9) Iron deficiency anemia SNOMED Code(s): 16914261 ICD Code: D50.9 - IRON DEFICIENCY ANEMIA, UNSPECIFIED Status: Chronic Priority: Medium Current Visit: Yes Qualifiers: Iron deficiency anemia type: unspecified iron deficiency Qualified Code(s) : D50.9 - Iron deficiency anemia, unspecified (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 SNOMED Code(s): 13005133 ICD Code: D68.4 - ACQUIRED COAGULATION FACTOR DEFICIENCY Status: Chronic Priority: Medium Current Visit: Yes (11) Elevated INR SNOMED Code(s): 950548802 ICD Code: R79.1 - ABNORMAL COAGULATION PROFILE Status: Acute Priority: Medium Current Visit: Yes (12) Increased ammonia level SNOMED Code(s): 685670094, 164408644, 155499205 ICD Code: R79.89 - OTHER SPECIFIED ABNORMAL FINDINGS OF BLOOD CHEMISTRY Status: Acute Current Visit: Yes (13) Thrombocytopenia SNOMED Code(s): 989594317 ICD Code: D69.6 - THROMBOCYTOPENIA, UNSPECIFIED Status: Chronic Priority : Medium Current Visit: Yes (14) Personal history of alcoholism SNOMED Code(s): 349055818 ICD Code: F10.21 - ALCOHOL DEPENDENCE, IN REMISSION Status: Chronic Priority: Medium Current Visit: Yes (15) Tobacco use disorder SNOMED Code(s): 069329799 ICD Code: F17.200 - NICOTINE DEPENDENCE, UNSPECIFIED, UNCOMPLICATED Status : Chronic Priority: Medium Current Visit: Yes - Patient Summary/Data Consults: Consultations 09/27/17 00:47 Consult to Case Management [CONS] Routine Consult to Physical Therapy [PT Evaluation and Treatment] [CONS] Routine 09/27/17 00:48 Consult to Occupational Therapy [OT Evaluation and Treatment] [CONS] Routine 09/27/17 11:44 Consult for Substance Abuse [CONS] Routine Consult to Physician [CONS] Routine Consult to Pr Manager [CONS] Routine 09/28/17 12:10 Consult to Inseamer [CONS] Routine 09/29/17 08:48 Consult to Spiritual Care [CONS] Routine Labs Pending at D/C: None Recommended Follow-up Testing/Procedures: Follow-up with PCP within 7-10 days of discharge. Recommending follow-up with outpatient psychiatry as needed Hospital Course: I/P: Acute: Acute: Subacute Liver Failure with Early Signs of Hepatic Decompensation -After talking to her GI specialist in [place], this maybe her baseline -Has persistent Hepatic Encephalopathy, Mild Abdominal Ascites, Elevated Bilirubin, Relative Hypotension and Persistent Bradycardia -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 Her grand-daughter found her laying in bed unresponsive and could not move -Abdominal CT scan: enlarged liver, small low density lesion within the right lobe, and liver contour is minimally nodular; portal vein is enlarged (new ); enlarged spleen and several splenic varices are seen (new); minimal ascites-- > all point to early cirrhosis -Discontinue NSAIDs, Avoid Sedatives and Hepatotoxic drugs -Hepatitis Panel, Alpha-1- Anti-trypsin level, Iron Panel as well as INR -Continue Aldactone to 50 mg po BID -GI eval after discharge Refractory Hepatic Encephalopathy, Grade 1 - Maddrey Discriminant Score of 18: she does not need steroid at this time -Confused, difficulty with ambulation, difficulty writing on clinic visit with PCP -2/2 Liver Cirrhosis -CT in ED (09/26/17) 1. Findings suggest early cirrhosis with portal hypertension and splenomegaly as an interval change from previous exam. Minimal ascites noted 2. Mild adenopathy as noted above believed to be incidental and mostly chronic 3. Small calcified gallstone within the gallbladder 4. Increased stool within the colon and other incidental findings -Ammonia 106-->126--> 102-->73 -Per patient: ran out of medication and did not have refills so thought she completed treatment -Received erythromycin but now discontinued, will decrease lactulose to 45 mg TID from 60 mg -Spirinolactone for ascites and Hypokalemia--> Continue 50 mg BID -Continue Rifaximin 500 mg po BID--> refractory HE and in preparation for discharge; Goal is BID on lactulose and augment with Rifaximin -Seizure Precautions End Stage Liver Disease -Likely 2/2 ETOH Cirrhosis -MELD score of 15 with 6% estimated 3-month mortality -Per patient she used to see GI in [place] and stop going in to see them because all they do is scope her (upper endoscopy) -She maybe at her baseline Hypocalcemia, Chronic -Calcium 8.5-->8.0-->7.4--> 8.4--> 7.9-->8.0-->8.5 -Continue home supplementation Portal hypertension, Stable -2/2 Liver Cirrhosis likely form long hx/o ETOH Abuse -Hx/o Hemorrhoids -CT scan as above - interval change from prior CT -Change Propranolol dose to 10 mg po TID due to bradycardia Pancytopenia, Stable -2/2 Liver Cirrhosis -Hgb and Hct stable but RBC, WBC and Platelet are considerably low -Iron Panel -mostly normal except transferrin level which is low -Continue to Monitor Chronic ETOH Abuse -Longstanding history of ETOH abuse and both inpatient and outpatient treatment -Strongly recommended outpatient treatment and avoiding ETOH at last hospital stay in May ([facility]) -Reportedly told PCP she has not drank since June but then changed story when pressed further; last beer 09/20/17 -"I still have a beer or two here or there... especially after mowing" -Reportedly charged with DUI last -Elevated liver enzymes, cirrhosis, and portal hypertension as above -SW/SA/Psych consult--> Dr. Lion recommends AA rep, Pastoral Care, Outpt Psych, Abilify 1mg Qdaily, and Remeron 15mg QHS; Pt still refusing SA consult, but CM did discuss her going outpt and asked her to make an appointment for Monday or Monday -Home thiamine/multivitamin/folic acid -Discontinue Librium, Topamax and CIWA Protocol-she has been here for 5 days now -PRN Ativan for withdrawl/seizure -IV fluids as ordered Tobacco Use Disorder -Daily smoker -Nicotine patch daily -> refusing -Cessation counseling Medical non-compliance -Has had very poor follow-up after discharge from last hospital stay -PCP reports patient frequently misses appointments- especially when drinking -Stopped taking many home medications, reportedly thought she finished treatment Resolved: UTI -Weak UA in ED - 1+ leukocyte esterase, 5-10 WBCs, 5-10 Epithelial cells, Many bacteria -Urine Culture--> E Coli -On prior visit in April was found to have E. Coli UTI which was booth sensitive -Rocephin 2gm given in ED --> D/C today -IV fluids as ordered S/p Hypokalemia -Potassium 1.8-->1.7--> 3.3 --> now 4.2 -2/2 GI loss from frequent diarrhea -Optimize K sparing medication -Replete and monitor Chronic: Glaucoma Vitamin D Deficiency Iron Deficiency Anemia GERD Tobacco use disorder ETOH use Discharged form hospital 05/12/17 after lengthy stay for MSSA sepsis, right-sided empyema, Influenza A and B, and respiratory failure Plan: Patient remains clinically SA/Psych consulted Routine AM labs Ambulation as tolerated DVT/PE prophylaxis: Thrombocytopenia - medications contraindicated; RUTH corral, ambulate, SCDs GI prophylaxis: Home PPI Outpatient f/u with GI Code Status: Full code; PCP: AYAH Leon Overall Evette did ok. Her mental status has improved to where she can have a reasonable conversation, however she has been receiving large doses of lactulose and has essentially had non-stop diarrhea. Her lactulose was decreased to BID and Rifaximin as above. Dr. Del Rosario had a conversation with the patient and family about mentation and how decreasing her lactulose will likely improve the diarrhea frequency, however her mentation will wax and wane. The decision was made to decrease the lactulose as it will improve her quality of life. She will be sent home on multiple supplements including calcium, and magnesium. Refills were also sent for medications she was supposed to be taking for supplementation and her conditions. This includes multivitamin, folic acid, thiamine, and her spiriva. Dr. Lion was consulted and started her on abilify and remeron. She can follow-up with outpatient psych services as needed. She reported having multiple prior potassium pills, as she has just refilled these and was not taking them as prescribed. She was instructed to take 40mg BID. Over the weekend Evette's son and daughter came to visit and were updated on the patients status by Dr. Del Rosario. A meeting was held and Evette was included. The plan is to discharge home today with home health. Hospice was discussed and this is something the patient and her family would like to explore. This can be set-up through home health and her PCP when ready/needed. Her grim prognosis and condition were explained multiple times to Evette and her family. I personally contacted her PCP multiple times to provide updates and plan for after discharge. I personally met with Evette today prior to discharge to discuss her plan of care and discharge. She should not be driving due to her fluctuations in mentation. Due to the above listed conditions I feel she will be homebound. This is due to her difficulty with travel and living alone. 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 This can be monitored by Evette's PCP , AYAH Leon and adjusted as needed. I met with Evette to discuss her smoking status. She has not requested any nicotine patches while here however they were ordered. She states she was a very heavy smoker prior to her last hospitalization and then she started again slowly. She is not up to a quarter pack-a-day. She feels like patches would be a great option for her. She will be sent a prescription for one box of 14mg nicotine patches. We discussed practical ways to quit, including the [place] Tobacco Quit line and her PCP. Of course this all depends on her choice as she will likely be hospice before long due to her medical conditions. However, at this time she is in agreement to help with quitting. - Patient Instructions Diet: Heart Healthy Diet, No Alcoholic Beverages Activity: As Tolerated Driving: Do Not Drive Showering/Bathing: May Shower Notify Provider of: Fever, Increased Pain, Nausea and/or Vomiting - Discharge Plan Prescriptions/Med Rec: ARIPiprazole [Abilify] 1 mg PO DAILY #30 tablet Calcium Carbonate 600 mg PO DAILY #30 tablet Folic Acid 1 mg PO DAILY #30 tablet Lactulose [Cephulac] 45 gm PO BID #5 cup Latanoprost [Xalatan 0.005% Ophth Soln] 0 ml EYEBOTH BEDTIME #1 bottle Magnesium Oxide 400 mg PO BID #60 tab Mirtazapine [Remeron] 15 mg PO BEDTIME #30 tablet Multivitamins,Therapeutic [Thera] 1 each PO DAILY #30 tablet Nicotine [Nicotine Patch] 14 mg TD DAILY #1 box Propranolol HCl [Propranolol] 10 mg PO TID #60 tablet Rifaximin [Xifaxan] 550 mg PO BID #30 tablet Spironolactone [Aldactone] 50 mg PO BID #30 tablet Thiamine [Vitamin B-1] 100 mg PO DAILY #30 tablet Tiotropium [Spiriva HandiHaler] 18 mcg INH DAILY #30 cap Home Medications: Home Meds Potassium Chloride [Klor-Con M20] 40 meq PO BID 11/27/14 [History] Pantoprazole Sodium [Protonix] 40 mg PO BID 04/11/17 [History] ARIPiprazole [Abilify] 1 mg PO DAILY #30 tablet 10/03/17 [Rx] Calcium Carbonate 600 mg PO DAILY #30 tablet 10/03/17 [Rx] Folic Acid 1 mg PO DAILY #30 tablet 10/03/17 [Rx] Lactulose [Cephulac] 45 gm PO BID #5 cup 10/03/17 [Rx] Latanoprost [Xalatan 0.005% Ophth Soln] 0 ml EYEBOTH BEDTIME #1 bottle 10/03/17 [Rx] Magnesium Oxide 400 mg PO BID #60 tab 10/03/17 [Rx] Mirtazapine [Remeron] 15 mg PO BEDTIME #30 tablet 10/03/17 [Rx] Multivitamins,Therapeutic [Thera] 1 each PO DAILY #30 tablet 10/03/17 [Rx] Nicotine [Nicotine Patch] 14 mg TD DAILY #1 box 10/03/17 [Rx] Patient's Own Medication [Ptom] 0 each PO DAILY each 10/03/17 [Rx] Propranolol HCl [Propranolol] 10 mg PO TID #60 tablet 10/03/17 [Rx] Rifaximin [Xifaxan] 550 mg PO BID #30 tablet 10/03/17 [Rx] Spironolactone [Aldactone] 50 mg PO BID #30 tablet 10/03/17 [Rx] Thiamine [Vitamin B-1] 100 mg PO DAILY #30 tablet 10/03/17 [Rx] Tiotropium [Spiriva HandiHaler] 18 mcg INH DAILY #30 cap 10/03/17 [Rx] Patient Handouts: Alcoholic Liver Disease, Usga-kp-Loml, Hypomagnesemia, Hypokalemia, Steps to Quit Smoking Referrals: Goldie Mcclure, PROTECTIVE SIGNAL REPAIRER HELPER [Primary Care Provider] - 10/13/17 4:00 pm (Please follow up with Goldie Mcclure on October 13 at 1600.) - Discharge Summary/Plan Comment DC Time >30 min.: Yes (45 mins ) - General Info Date of Service: 10/03/17 Admission Dx/Problem (Free Text: Admission Diagnosis/Problem Admission Diagnosis/Problem Hypokalemia Subjective Update: In to see Evette. She is lying in bed. We had a long talk about her prognosis and plan of care, although she continues to say she is going to improve her life and take everything prescribed. We discussed how she is very sick and the damage is done. We also discussed how her condition will progress. We discussed her medications and refills needed for home meds that she has not been taking. She has no complaints. She is still having frequent bowel movements. Dr. Del Rosario discussed cutting down her lactulose for quality of life and this was agreed upon by the patient and her family. Her BP has been low and Dr. Del Rosario is aware however this is likely due to continuation of the disease process and treatment. No other nursing concerns. She will be discharged home today on home health with the likely need for hospice care in the near future. This was discussed with her PCP, Goldie Mcclure as well. Functional Status: Reports: Pain Controlled, Tolerating Diet, Ambulating, Urinating. Denies: New Symptoms - Review of Systems General: Reports: No Symptoms. Denies: Fever, Weakness, Fatigue, Malaise HEENT: Reports: No Symptoms. Denies: Eye Pain, Sinus Congestion, Sore Throat Pulmonary: Reports: No Symptoms. Denies: Cough, Sputum Cardiovascular: Reports: No Symptoms. Denies: Chest Pain, Palpitations, Dyspnea on Exertion, Edema Gastrointestinal: Reports: Diarrhea. Denies: Abdominal Pain, Constipation, Nausea, Vomiting Genitourinary: Reports: No Symptoms. Denies: Dysuria, Frequency, Burning, Pain Musculoskeletal: Reports: No Symptoms Skin: Reports: No Symptoms Neurological: Reports: Confusion (at times - forgetful of prior conversations ) . Denies: Dizziness, Headache, Numbness, Seizure, Syncope, Tingling, Trouble Speaking, Gait Disturbance Psychiatric: Reports: No Symptoms - Patient Data Vitals - Most Recent: Last Vital Signs Temp 99.0 F 10/03/17 03:57 Pulse 55 L 10/03/17 03:57 Resp 16 10/03/17 03:57 BP 93/47 L 10/03/17 03:57 Pulse Ox 100 10/03/17 08:04 Weight - Most Recent: 131 lb 8 oz I&O - Last 24 hours: Intake & Output 10/02/17 10/03/17 10/03/17 22:59 06:59 14:59 Intake Total 3490 800 Output Total 500 Balance 2990 800 Lab Results - Last 24 hrs: Laboratory Results - last 24 hr 10/02/17 10/03/17 Range/Units 05:30 04:51 Sodium 147 H 140 (136-145) mEq/L Potassium 4.0 4.2 (3.5-5.1) mEq/L Chloride 120 H 113 H (98-107) mEq/L Carbon Dioxide 13 L 14 L (21-32) mEq/L Anion Gap 18.0 H 17.2 H (5-15) BUN 7 7 (7-18) mg/dL Creatinine 0.8 0.8 (0.55-1.02) mg/dL Est Cr Clr Drug Dosing 62.63 62.63 mL/min Estimated GFR (MDRD) > 60 > 60 (>60) mL/min BUN/Creatinine Ratio 8.8 L 8.8 L (14-18) Glucose 109 H 98 (74-106) mg/dL Calcium 8.0 L 8.5 (8.5-10.1) mg/dL Magnesium 1.4 L 1.8 (1.8-2.4) mg/dl Total Bilirubin 3.3 H 3.6 H (0.2-1.0) mg/dL AST 44 H 48 H (15-37) U/L ALT 26 28 (14-59) U/L Alkaline Phosphatase 128 H 140 H (46-116) U/L Total Protein 5.7 L 6.0 L (6.4-8.2) g/dl Albumin 2.3 L 2.6 L (3.4-5.0) g/dl Globulin 3.4 3.4 gm/dL Albumin/Globulin Ratio 0.7 L 0.8 L (1-2) Med Orders - Current: Current Medications Aripiprazole (Abilify) 1 mg PO DAILY [facility] Last Admin: 10/02/17 08:38 Dose: 1 mg Calcium Carbonate/Glycine (Calcium Carbonate) 600 mg PO DAILY [facility] Last Admin: 10/02/17 08:37 Dose: 600 mg Folic Acid (Folic Acid) 1 mg PO DAILY [facility] Last Admin: 10/02/17 08:37 Dose: 1 mg Hydralazine HCl (Apresoline) 20 mg IVPUSH Q4H PRN PRN Reason: Hypertension Hydrocortisone (Hydrocortisone 1% Crm) 0 gm TOP ASDIRECTED PRN PRN Reason: Other Magnesium Sulfate 2 gm/ Premix 50 mls @ 25 mls/hr IV ONETIME ONE Stop: 10/03/17 09:59 Lactulose (Cephulac) 45 gm PO BID [facility] Last Admin: 10/02/17 20:29 Dose: 45 gm Latanoprost (Xalatan 0.005% Ophth Soln) 0 ml EYEBOTH BEDTIME [facility] Last Admin: 10/02/17 20:31 Dose: 1 drop Lorazepam (Ativan) 2 mg IVPUSH Q4H PRN PRN Reason: Seizures Magnesium Sulfate (Pharmacy To Dose - Magnesium Replacement) 1 dose .XX ASDIRECTED PRN PRN Reason: RX to Dose Metoprolol Tartrate (Lopressor) 5 mg IVPUSH Q4H PRN PRN Reason: Tachycardia Mirtazapine (Remeron) 15 mg PO BEDTIME [facility] Last Admin: 10/02/17 20:31 Dose: 15 mg Multivitamins (Thera) 1 each PO DAILY [facility] Last Admin: 10/02/17 08:38 Dose: 1 each Nicotine (Habitrol) 21 mg TRDERM DAILY [facility] Last Admin: 10/02/17 08:40 Dose: Not Given Ondansetron HCl (Zofran) 4 mg IVPUSH Q8H PRN PRN Reason: Nausea/Vomiting Ondansetron HCl (Zofran Odt) 4 mg PO Q6H PRN PRN Reason: nausea, able to take PO Pantoprazole Sodium (Protonix) 40 mg PO BID [facility] Last Admin: 10/02/17 20:31 Dose: 40 mg Ferrous Gluconate [ Ferrous Gluconate] 650 Mg 0 each PO DAILY [facility] Last Admin: 10/02/17 08:45 Dose: Not Given Potassium Chloride (Pharmacy To Dose - Potassium Replacement) 1 dose .XX ASDIRECTED PRN PRN Reason: RX to Dose Potassium Chloride (Potassium Chloride) 40 meq PO BID [facility] Last Admin: 10/02/17 20:30 Dose: 40 meq Propranolol HCl (Inderal) 10 mg PO Q8H [facility] Last Admin: 10/03/17 01:05 Dose: Not Given Rifaximin (Xifaxan) 550 mg PO BID [facility] Last Admin: 10/02/17 20:31 Dose: 550 mg Sodium Chloride (Saline Flush) 10 ml FLUSH ONETIME PRN PRN Reason: IV FLUSH Last Admin: 09/26/17 20:34 Dose: 10 ml Spironolactone (Aldactone) 50 mg PO BID [facility] Last Admin: 10/02/17 20:31 Dose: 50 mg Thiamine HCl (Vitamin B-1) 100 mg PO DAILY [facility] Last Admin: 10/02/17 08:37 Dose: 100 mg Tiotropium [place] (Spiriva Handihaler) 18 mcg INH DAILY [facility] Last Admin: 10/03/17 08:03 Dose: 1 cap Kevyn Gonsalez (Samcks) 1 pad TOP ASDIRECTED PRN PRN Reason: rectal excoriation Discontinued Medications Carvedilol (Coreg) 6.25 mg PO BID [facility] Chlordiazepoxide HCl (Librium) 25 mg PO BID [facility] Last Admin: 09/29/17 20:56 Dose: 25 mg Diatrizoate Meglum/Diatrizoate Sod (Gastrografin 37%) 120 ml PO ONETIME ONE Stop: 09/26/17 19:09 Last Admin: 09/26/17 20:34 Dose: 90 ml Erythromycin (Julian-Tab) 250 mg PO Q6HR [facility] Last Admin: 09/29/17 05:51 Dose: 250 mg Folic Acid (Folic Acid) 1 mg PO ONETIME ONE Stop: 09/26/17 18:54 Last Admin: 09/26/17 19:01 Dose: 1 mg Potassium Chloride 10 meq/ (Premix) 100 mls @ 100 mls/hr IV ASDIRECTED ONE Stop: 09/26/17 19:45 Last Admin: 09/26/17 18:55 Dose: 100 mls/hr Potassium Chloride 10 meq/ (Premix) 100 mls @ 100 mls/hr IV ASDIRECTED ONE Stop: 09/26/17 19:45 Last Admin: 09/26/17 19:17 Dose: 100 mls/hr Magnesium Sulfate 2 gm/ Premix 50 mls @ 25 mls/hr IV ONETIME ONE Stop: 09/26/17 20:49 Last Admin: 09/26/17 18:58 Dose: 25 mls/hr Ceftriaxone Sodium 2 gm/ (Sodium Chloride) 100 mls @ 100 mls/hr IV ONETIME ONE Stop: 09/27/17 00:03 Last Admin: 09/26/17 23:27 Dose: 100 mls/hr Magnesium Sulfate 2 gm/ Premix 50 mls @ 50 mls/hr IV Q1H [facility] Stop: 09/27/17 00:14 Last Admin: 09/26/17 23:27 Dose: 50 mls/hr Potassium Chloride/Sodium Chloride (Normal Saline With 20 Meq Kcl) 1,000 mls @ 75 mls/hr IV ASDIRECTED DORINA Stop: 09/27/17 05:15 Last Admin: 09/26/17 23:26 Dose: 75 mls/hr Potassium Chloride 10 meq/ (Premix) 100 mls @ 100 mls/hr IV Q1H [facility] Stop: 09/27/17 13:59 Last Admin: 09/27/17 15:38 Dose: 100 mls/hr Sodium Chloride (Normal Saline) 1,000 mls @ 100 mls/hr IV ASDIRECTED [facility] Last Admin: 09/30/17 09:25 Dose: 100 mls/hr Potassium Chloride/Sodium Chloride (Normal Saline With 20 Meq Kcl) 1,000 mls @ 125 mls/hr IV ASDIRECTED [facility] Magnesium Sulfate 2 gm/ Premix 50 mls @ 25 mls/hr IV Q2H [facility] Stop: 09/27/17 13:30 Last Admin: 09/27/17 13:13 Dose: 25 mls/hr Ceftriaxone Sodium 2 gm/ (Sodium Chloride) 100 mls @ 100 mls/hr IV Q24H [facility] Last Admin: 09/28/17 23:40 Dose: 100 mls/hr Magnesium Sulfate 2 gm/ Premix 50 mls @ 25 mls/hr IV ONETIME ONE Stop: 09/27/17 14:59 Last Admin: 09/27/17 13:17 Dose: Not Given Potassium Chloride 10 meq/ (Premix) 100 mls @ 100 mls/hr IV Q1H [facility] Stop: 09/28/17 13:29 Last Admin: 09/28/17 14:01 Dose: 100 mls/hr Magnesium Sulfate 2 gm/ Premix 50 mls @ 25 mls/hr IV ONETIME ONE Stop: 09/28/17 09:59 Last Admin: 09/28/17 09:09 Dose: 25 mls/hr Magnesium Sulfate 2 gm/ Premix 50 mls @ 25 mls/hr IV ONETIME ONE Stop: 09/28/17 12:43 Last Admin: 09/28/17 11:28 Dose: 25 mls/hr Sodium Chloride (Normal Saline) 1,000 mls @ 999 mls/hr IV ONETIME ONE Stop: 09/29/17 17:00 Last Admin: 09/29/17 16:19 Dose: 999 mls/hr Magnesium Sulfate 2 gm/ Premix 50 mls @ 25 mls/hr IV Q2H [facility] Stop: 09/30/17 13:59 Last Admin: 09/30/17 13:18 Dose: 25 mls/hr Sodium Chloride (Normal Saline) 1,000 mls @ 250 mls/hr IV ASDIRECTED [facility] Last Admin: 10/02/17 05:59 Dose: 250 mls/hr Magnesium Sulfate 2 gm/ Premix 50 mls @ 25 mls/hr IV Q2H [facility] Stop: 10/01/17 12:59 Last Admin: 10/01/17 11:28 Dose: 25 mls/hr Magnesium Sulfate 2 gm/ Premix 50 mls @ 25 mls/hr IV Q2H [facility] Stop: 10/02/17 16:59 Last Admin: 10/02/17 14:56 Dose: 25 mls/hr Ibuprofen (Motrin) 600 mg PO Q8H PRN PRN Reason: Pain/Fever Iopamidol (Isovue-300 (61%)) 150 ml IVPUSH ONETIME ONE Stop: 09/26/17 19:09 Last Admin: 09/26/17 20:34 Dose: 100 ml Lactulose (Cephulac) 30 gm PO ONETIME ONE Stop: 09/26/17 18:47 Last Admin: 09/26/17 19:01 Dose: 30 gm Lactulose (Cephulac) 45 gm PO BID [facility] Last Admin: 09/28/17 09:07 Dose: 45 gm Lactulose (Cephulac) 45 gm PO TID [facility] Last Admin: 09/28/17 20:38 Dose: 45 gm Lactulose (Cephulac) 60 gm PO TID [facility] Last Admin: 09/30/17 16:00 Dose: 60 gm Lactulose (Cephulac) 45 gm PO TID [facility] Stop: 10/01/17 21:30 Last Admin: 10/01/17 21:33 Dose: 45 gm Lorazepam (Ativan) 2 mg IVPUSH Q4H PRN PRN Reason: Seizures Lorazepam (Ativan) 0 mg IVPUSH Q4H PRN; Protocol PRN Reason: withdrawl Magnesium Oxide (Magnesium Oxide) 400 mg PO ONETIME ONE Stop: 09/29/17 08:04 Last Admin: 09/29/17 08:39 Dose: 400 mg Potassium Chloride (Potassium Chloride) 40 meq PO ONETIME ONE Stop: 09/26/17 18:45 Last Admin: 09/26/17 19:01 Dose: 40 meq Potassium Chloride (Klor-Con M20) 40 meq PO DAILY [facility] Last Admin: 09/27/17 08:22 Dose: 40 meq Potassium Chloride (Klor-Con M20) 40 meq PO BID [facility] Potassium Chloride (Potassium Chloride) 60 meq PO BID [facility] Last Admin: 09/28/17 21:14 Dose: Not Given Potassium Chloride (Klor-Con M20) 40 meq PO Q4H [facility] Stop: 09/27/17 20:46 Last Admin: 09/27/17 19:32 Dose: Not Given Potassium Chloride (Potassium Chloride) 60 meq PO TID [facility] Last Admin: 09/29/17 20:56 Dose: 60 meq Potassium Chloride (Klor-Con M20) 60 meq PO ONETIME ONE Stop: 10/01/17 09:01 Last Admin: 10/01/17 09:07 Dose: 60 meq Propranolol HCl (Inderal) 20 mg PO DAILY [facility] Last Admin: 09/29/17 08:39 Dose: 20 mg Saccharomyces Boulardii (Florastor) 250 mg PO BID [facility] Last Admin: 09/29/17 20:55 Dose: 250 mg Spironolactone (Aldactone) 25 mg PO DAILY [facility] Last Admin: 09/29/17 08:39 Dose: 25 mg Spironolactone (Aldactone) 50 mg PO DAILY [facility] Spironolactone (Aldactone) 25 mg PO ONETIME ONE Stop: 09/29/17 12:26 Last Admin: 09/29/17 14:27 Dose: Not Given Spironolactone (Aldactone) 50 mg PO DAILY [facility] Last Admin: 09/30/17 09:34 Dose: 50 mg Thiamine HCl (Vitamin B-1) 100 mg PO ONETIME ONE Stop: 09/26/17 18:54 Last Admin: 09/26/17 19:01 Dose: 100 mg Topiramate (Topamax) 25 mg PO BID [facility] Last Admin: 09/29/17 20:58 Dose: 25 mg - Exam Quality Assessment: Reports: DVT Prophylaxis General: Reports: Alert, Oriented, Cooperative, No Acute Distress, Other ( occasional confusion and forgetful of prior conversations, however overall A& Ox3.) HEENT: Reports: Pupils Equal, Pupils Reactive, EOMI Neck: Reports: Supple, Trachea Midline, No JVD, No Thyromegaly Lungs: Reports: Clear to Auscultation, Normal Respiratory Effort Cardiovascular: Reports: Regular Rate, Regular Rhythm GI/Abdominal Exam: Normal Bowel Sounds, Soft, Non-Tender, No Organomegaly, No Distention, No Abnormal Bruit, No Mass, Pelvis Stable (Female) Exam: Deferred Rectal (Female) Exam: Deferred Back Exam: Reports: Normal Inspection, Full Range of Motion Extremities: Normal Inspection, Normal Range of Motion, Non-Tender, No Pedal Edema, Normal Capillary Refill Skin: Reports: Warm, Dry, Intact Neurological: Reports: No New Focal Deficit Psy/Mental Status: Reports: Alert, Normal Affect, Depressed
[2017-10-03] MEDS: Multivitamins,Therapeutic Tab PO SCH (08:19)
[2017-10-03] MEDS: Potassium Chloride 10% 20 MEQ/15 ML Soln 30 ML UD Cup PO SCH (08:19)
[2017-10-03] MEDS: Lactulose Soln 10 GM/15 ML 30 ML UD Cup PO SCH (08:19)
[2017-10-03] MEDS: Calcium Carbonate 600 MG Tab PO SCH (08:20)
[2017-10-03] MEDS: Thiamine 100 MG Tab PO SCH (08:20)
[2017-10-03] MEDS: Rifaximin 550 MG Tab PO SCH (08:20)
[2017-10-03] MEDS: Pantoprazole 40 MG Tab.CR PO SCH (08:20)
[2017-10-03] MEDS: Nicotine 21 MG/24 Hr Patch TRDERM SCH ×2 (08:21→08:31)
[2017-10-03] MEDS: Folic Acid 1 MG Tab PO SCH (08:22)
[2017-10-03] MEDS: Spironolactone 25 MG Tab PO SCH (08:23)
[2017-10-03] MEDS: FERROUS GLUCONATE PO SCH (08:27)
== END 2017-10-03 15:05 | disposition home health service (06) | DRG 442 ==
LOC: JD.ED 17:30 → JD.MS 22:42
PROVIDERS: ADMIT Internal Medicine Cardiovascular Disease; ATTEND Internal Medicine Cardiovascular Disease
DX: K72.90 Hepatic failure, unspecified without coma (principal); K76.6 Portal hypertension; F31.60 Bipolar disorder, current episode mixed, unspecified; E87.3 Alkalosis; D61.818 Other pancytopenia; N39.0 Urinary tract infection, site not specified; E87.6 Hypokalemia; K70.31 Alcoholic cirrhosis of liver with ascites; E83.42 Hypomagnesemia; I27.20 Pulmonary hypertension, unspecified; F10.20 Alcohol dependence, uncomplicated; R00.1 Bradycardia, unspecified; Y90.0 Blood alcohol level of less than 20 mg/100 ml; E83.51 Hypocalcemia; F17.210 Nicotine dependence, cigarettes, uncomplicated; B96.20 Unspecified Escherichia coli [E. coli] as the cause of diseases classified elsewhere; J44.9 Chronic obstructive pulmonary disease, unspecified; H40.9 Unspecified glaucoma; D50.9 Iron deficiency anemia, unspecified; K80.20 Calculus of gallbladder without cholecystitis without obstruction; R79.1 Abnormal coagulation profile; Z79.899 Other long term (current) drug therapy; Z91.19 Patient's noncompliance with other medical treatment and regimen; Z86.19 Personal history of other infectious and parasitic diseases
CPT/HCPCS: 36415; 36600; 74177; 74177-26; 76705; 76705-26; 80048; 80053; 80074; 81001; 82103; 82140; 82803; 82977; 83540; 83735; 84132; 84466; 85025; 85610; 86140; 87086; 87088; 87186; 93005; 94640; 94664; 94760; 96365; 96368; 97112-GP; 97116-GP; 97161-GP; 97165-GO; 99285; 99285-25; A9270; A9270-GY; J0696; J3475; J3480; J7030; J7040; J7050; Q9963; Q9967

== ENCOUNTER 2019-06-19 17:24 | Emergency (ER) | payer OTHER ==
[2019-06-19] MEDS ORDERED: Sodium Chloride 0.9% 10 ML Syringe FLUSH PRN (18:11)
--- NOTE | 2019-06-19 18:20 | EDM.PDOC ---
ED HPI GENERAL MEDICAL PROBLEM - General Chief Complaint: General Stated Complaint: PT STS SHE NEEDS HER LEVELS IN HER BLOOD CHECKED Time Seen by Provider: 06/19/19 17:52 Source of Information: Reports: Patient, RN Notes Reviewed History Limitations: Reports: No Limitations - History of Present Illness INITIAL COMMENTS - FREE TEXT/NARRATIVE: Patient is a 58-year-old female who presents to the ED for evaluation of a couple different complaints. Patient does drink wine nightly, and states that her last intake was 1 glass at around 2 PM today. Patient states she has been drinking more in the last week, she cannot really relate why she has this increase in alcohol intake take. She is brought in by her family members as they are concerned that her electrolytes may be low, and that she might be sicker than she is letting on. Family states that she is not really been going to work or leaving her house much for the past 2 weeks, she has been a little bit more lethargic at home, and has had increasing cough with congestion. Patient notes that she last had a visit by her primary care provider, Danielle Mcclure, in April and her magnesium was found to be low so she was started on a magnesium supplement for this, she has not had her blood levels checked since then. Patient states she is also having some mild diarrhea-like symptoms for the past 4 days. She is not complaining of any chest pain or shortness of breath. She states she does have depression, she was on Remeron and Abilify for this, but Goldie Mcclure stopped her Remeron, the patient stopped her Abilify by herself, but recently started again last night. Patient states she has not had any falls, or hit her head at all. She is not complaining of any other symptoms at this time. - Related Data Allergies Allergy/AdvReac Type Severity Reaction Status Date / Time No Known Allergies Allergy Verified 06/19/19 17:49 Home Meds: Home Meds Potassium Chloride [Klor-Con M20] 40 meq PO BID 11/27/14 [History] Pantoprazole Sodium [Protonix] 40 mg PO BID 04/11/17 [History] Calcium Carbonate 600 mg PO DAILY #30 tablet 10/03/17 [Rx] Folic Acid 1 mg PO DAILY #30 tablet 10/03/17 [Rx] Latanoprost [Xalatan 0.005% Ophth Soln] 0 ml EYEBOTH BEDTIME #1 bottle 10/03/17 [Rx] Magnesium Oxide 400 mg PO BID #60 tab 10/03/17 [Rx] Multivitamins,Therapeutic [Thera] 1 each PO DAILY #30 tablet 10/03/17 [Rx] Propranolol HCl [Propranolol] 10 mg PO TID #60 tablet 10/03/17 [Rx] Rifaximin [Xifaxan] 550 mg PO BID #30 tablet 10/03/17 [Rx] Spironolactone [Aldactone] 50 mg PO BID #30 tablet 10/03/17 [Rx] Thiamine [Vitamin B-1] 100 mg PO DAILY #30 tablet 10/03/17 [Rx] Tiotropium [Spiriva HandiHaler] 18 mcg INH DAILY #30 cap 10/03/17 [Rx] Past Medical History HEENT History: Reports: Glaucoma, Impaired Vision Other HEENT History: Wear glasses; has upper denutres and a lower partial Cardiovascular History: Reports: High Cholesterol Respiratory History: Reports: COPD, Pneumonia, Recurrent, SOB Other Respiratory History: patient is a 1/2 pack to full pack smoker Gastrointestinal History: Reports: GERD, Hemorrhoids, Other (See Below) Other Gastrointestinal History: liver disease Genitourinary History: Reports: None Musculoskeletal History: Reports: Other (See Below) Other Musculoskeletal History: feet cramps Psychiatric History: Reports: Addiction Other Psychiatric History: alcohol abuse Endocrine/Metabolic History: Reports: Vitamin D Deficiency, Other (See Below) Other Endocrine/Metabolic History: hypomagnesemia, hypokalemia Hematologic History: Reports: Anemia, Iron Deficiency - Infectious Disease History Infectious Disease History: Reports: Chicken Pox, Measles, Mumps - Past Surgical History HEENT Surgical History: Reports: None Cardiovascular Surgical History: Reports: None Respiratory Surgical History: Reports: None GI Surgical History: Reports: Other (See Below) Other GI Surgeries/Procedures: hemorrhoids removed Female Surgical History: Reports: Tubal Ligation Endocrine Surgical History: Reports: None Musculoskeletal Surgical History: Reports: None Social & Family History - Family History Family Medical History: Noncontributory HEENT: Reports: Glaucoma - Tobacco Use Smoking Status *Q: Current Every Day Smoker Years of Tobacco use: 20 Packs/Tins Daily: 0.5 - Caffeine Use Caffeine Use: Reports: None Other Caffeine Use: daily basis - Recreational Drug Use Recreational Drug Use: No ED ROS GENERAL - Review of Systems Review Of Systems: See Below Constitutional: Reports: Decreased Appetite. Denies: Fever, Chills Respiratory: Reports: Cough. Denies: Shortness of Breath Cardiovascular: Denies: Chest Pain GI/Abdominal: Reports: Diarrhea. Denies: Abdominal Pain, Nausea, Vomiting : Denies: Dysuria, Frequency, Urgency Neurological: Denies: Confusion, Dizziness, Headache, Seizure, Syncope, Difficulty Walking Psychiatric: Reports: Depression. Denies: Suicidal Ideation ED EXAM, GENERAL - Physical Exam Exam: See Below Exam Limited By: No Limitations General Appearance: Alert, WD/WN, No Apparent Distress (pt appears acutely intoxicated from alcohol) Eye Exam: Bilateral Eye: EOMI, Normal Inspection, PERRL Ears: Normal External Exam Nose: Normal Inspection Throat/Mouth: Normal Inspection, Normal Lips, Normal Teeth, Normal Gums, Normal Oropharynx, Normal Voice, No Airway Compromise Head: Atraumatic, Normocephalic Neck: Normal Inspection Respiratory/Chest: No Respiratory Distress, Lungs Clear, Normal Breath Sounds, No Accessory Muscle Use, Chest Non-Tender Cardiovascular: Normal Peripheral Pulses, Regular Rate, Rhythm, No Edema, No Murmur Peripheral Pulses: 3+: Radial (L), Radial (R) GI/Abdominal: Normal Bowel Sounds, Soft, Non-Tender, No Distention, No Mass Extremities: Normal Inspection, Normal Capillary Refill Neurological: Alert, Oriented, Normal Cognition, No Motor/Sensory Deficits Psychiatric: Normal Affect, Normal Mood Skin Exam: Warm, Dry, Intact, Normal Color, No Rash Course - Vital Signs Last Recorded V/S: Last Vital Signs Temp 98.1 F 06/19/19 17:45 Pulse 72 06/19/19 17:45 Resp 20 06/19/19 17:45 BP 126/77 06/19/19 17:45 Pulse Ox 91 L 06/19/19 17:45 - Orders/Labs/Meds Orders: Active Orders 24 hr Category Date Time Status Peripheral IV Care [RC] . DIRECTED Care 06/19/19 18:11 Ordered Chest 2V [CR] Stat Exams 06/19/19 18:12 Ordered Sodium Chloride 0.9% [Saline Flush] Med 06/19/19 18:11 Ordered 10 ml FLUSH ASDIRECTED PRN Peripheral IV Insertion Adult [OM.PC] Stat Oth 06/19/19 18:11 Ordered Medication Orders Sodium Chloride (Saline Flush) 10 ml FLUSH ASDIRECTED PRN PRN Reason: Keep Vein Open Labs: Laboratory Tests 06/19/19 06/19/19 06/19/19 Range/Units 18:27 18:27 18:27 WBC 4.97 (3.98-10.04) K/mm3 RBC 4.53 (3.98-5.22) M/mm3 Hgb 16.2 H D (11.2-15.7) gm/dl Hct 47.6 H (34.1-44.9) % MCV 105.1 H D (79.4-94.8) fl MCH 35.8 H (25.6-32.2) pg MCHC 34.0 (32.2-35.5) g/dl RDW Std Deviation 60.8 H (36.4-46.3) fL Plt Count 39 L (182-369) K/mm3 MPV 10.4 (9.4-12.3) fl Neut % (Auto) 69.0 (34.0-71.1) % Lymph % (Auto) 14.7 L (19.3-51.7) % [place] % (Auto) 14.3 H (4.7-12.5) % Eos % (Auto) 1.0 (0.7-5.8) Baso % (Auto) 1.0 (0.1-1.2) % Neut # (Auto) 3.43 (1.56-6.13) K/mm3 Lymph # (Auto) 0.73 L (1.18-3.74) K/mm3 [place] # (Auto) 0.71 H (0.24-0.36) K/mm3 Eos # (Auto) 0.05 (0.04-0.36) K/mm3 Baso # (Auto) 0.05 (0.01-0.08) K/mm3 Manual Slide Review Abnormal smear PT 13.0 H (9.7-12.0) SECONDS INR 1.21 Sodium 139 (136-145) mEq/L Potassium 4.7 (3.5-5.1) mEq/L Chloride 103 (98-107) mEq/L Carbon Dioxide 22 (21-32) mEq/L Anion Gap 18.7 H (5-15) BUN 13 (7-18) mg/dL Creatinine 0.6 (0.55-1.02) mg/dL Est Cr Clr Drug Dosing 82.48 mL/min Estimated GFR (MDRD) > 60 (>60) mL/min BUN/Creatinine Ratio 21.7 H (14-18) Glucose 106 (74-106) mg/dL Calcium 9.1 (8.5-10.1) mg/dL Magnesium 1.6 L (1.8-2.4) mg/dl Total Bilirubin 3.5 H (0.2-1.0) mg/dL AST 165 H (15-37) U/L ALT 77 H (14-59) U/L Alkaline Phosphatase 240 H (46-116) U/L Total Protein 8.0 (6.4-8.2) g/dl Albumin 3.8 (3.4-5.0) g/dl Globulin 4.2 gm/dL Albumin/Globulin Ratio 0.9 L (1-2) Ethyl Alcohol 0.27 (0.00) gm% Meds: Medications Generic Name Dose Route Start Last Admin Trade Name Freq PRN Reason Stop Dose Admin Sodium Chloride 10 ml 06/19/19 18:11 Saline Flush FLUSH ASDIRECTED PRN Keep Vein Open - Re-Assessments/Exams Free Text/Narrative Re-Assessment/Exam: 06/19/19 18:20 Patient presents to the ED for basically laboratory evaluation per request of the family members. I will have an IV be placed, and get basic labs to include CBC, CMP, magnesium level, and PT/INR and PTT with blood alcohol level to be obtained. Chest x-ray will also be obtained as the family states that she had pneumonia in the past, and she presented similarly, so they were worried that she might be sicker than she thinks she is. 06/19/19 19:14 Patient's laboratory evaluation is back, demonstrates a white blood cell count within normal limits, macrocytic anemia. Metabolic panel demonstrates potassium within normal limits, magnesium is mildly low at 1.6. She is on magnesium supplementation for this. Liver enzymes are elevated, but she did just drinks of alcohol at 2 PM. Blood alcohol level 0.27. Anion gap is mildly elevated at 18.7. Patient's not having any nausea, or vomiting. I will see if she would like to stay for some IV fluids versus discharge home due to laboratory evaluation that is nonemergent at today's visit. Chest x-ray also demonstrates no obvious abnormalities, or consolidations. This was reviewed by myself and Dr. Toscano. Departure - Departure Time of Disposition: 19:29 Disposition: Home, Self-Care 01 Condition: Fair Clinical Impression: Encounter for laboratory test Alcohol intoxication Qualifiers: Complication of substance-induced condition: uncomplicated Qualified Code(s): F10.920 - Alcohol use, unspecified with intoxication, uncomplicated - Discharge Information *PRESCRIPTION DRUG MONITORING PROGRAM REVIEWED*: No *COPY OF PRESCRIPTION DRUG MONITORING REPORT IN PATIENT HOA: No Instructions: Alcohol Abuse and Nutrition Referrals: Goldie Mcclure [facility] [Primary Care Provider] - Forms: ED Department Discharge Additional Instructions: You were evaluated in the ER today regarding some laboratory evaluation. Labs were obtained at this time, and demonstrate no bacterial infection, a slightly low magnesium at 1.6. For which you are already taking magnesium., Slight liver enzyme abnormalities, but you did admit to drinking alcohol so this would be the reason for that. Blood alcohol was 0.27 at today's visit. Recommend you go home and drink some fluids that do not contain alcohol, and eat some foods that are high in magnesium/potassium. Like green leafy vegetables. Recommend that [facility], their telephone number [phone], their emergency crisis number [phone]. Recommend you call there tomorrow, to see about evaluation of your alcohol use and intake. As always please return to the ER at any time if your symptoms change or worsen. Sepsis Event Note - Evaluation Sepsis Screening Result: No Definite Risk - Focused Exam Vital Signs: Vital Signs Temp Pulse Resp BP Pulse Ox 06/19/19 17:45 98.1 F 72 20 126/77 91 L Date Exam was Performed: 06/19/19 Time Exam was Performed: 19:29 - My Orders Last 24 Hours: My Active Orders 06/19/19 18:11 Peripheral IV Care [RC] . DIRECTED Sodium Chloride 0.9% [Saline Flush] 10 ml FLUSH ASDIRECTED PRN Peripheral IV Insertion Adult [OM.PC] Stat 06/19/19 18:12 Chest 2V [CR] Stat - Assessment/Plan Last 24 Hours: My Active Orders 06/19/19 18:11 Peripheral IV Care [RC] . DIRECTED Sodium Chloride 0.9% [Saline Flush] 10 ml FLUSH ASDIRECTED PRN Peripheral IV Insertion Adult [OM.PC] Stat 06/19/19 18:12 Chest 2V [CR] Stat
--- NOTE | 2019-06-20 07:30 | CR ---
Chest: Two views of the chest were obtained. Comparison: Prior chest x-ray of 04/13/17. Heart size and mediastinum are within normal limits. Lungs are clear with no acute parenchymal change. Slight degenerative change is scattered within the spine with minimal scoliosis. Impression: 1. Nothing acute is appreciated on two-view chest x-ray. Chest x-ray is improved from previous exam. Diagnostic code #2 This report was dictated in MDT
== END 2019-06-19 19:55 | disposition home or self-care (01) ==
LOC: JD.ED 17:24
DX: F10.920 Alcohol use, unspecified with intoxication, uncomplicated (principal); J44.9 Chronic obstructive pulmonary disease, unspecified; K21.9 Gastro-esophageal reflux disease without esophagitis; F17.210 Nicotine dependence, cigarettes, uncomplicated; Z79.899 Other long term (current) drug therapy
CPT/HCPCS: 36415; 71046; 71046-26; 80053; 80307; 83735; 85025; 85610; 99283; 99284-25

== ENCOUNTER 2020-06-10 15:15 | Inpatient (IN) | payer OTHER ==
[2020-06-10] MEDS ORDERED: Sodium Chloride 0.9% 10 ML Syringe FLUSH PRN (16:02)
[2020-06-10] MEDS: Sodium Chloride 0.9% 1,000 ML IV SCH (16:48)
--- NOTE | 2020-06-10 16:48 | EDM.PDOCBH ---
ED HPI GENERAL MEDICAL PROBLEM - General Chief Complaint: Drug or Alcohol Abuse Stated Complaint: SHAKING/DISCOLORATION OF SKIN Time Seen by Provider: 06/10/20 15:36 Source of Information: Reports: Patient, Family History Limitations: Reports: No Limitations - History of Present Illness INITIAL COMMENTS - FREE TEXT/NARRATIVE: The patient presents with her son for possible liver failure. The patient is an alcoholic and she has been drinking heavily for about 6 weeks. She said she has been drinking 1/2 a fifth per day. She started noticing her skin turning yellow about 3 weeks ago and now it is worse. Her last drink was on Monday. She has a slight tremor now. She has no fever but she does have chills. She has no chest pain or shortness of breath. She has no abdominal pain, nausea or vomiting. She has no dysuria or diarrhea. Onset: Gradual Duration: Week(s): Severity: Moderate Improves with: Reports: None Worsens with: Reports: None Associated Symptoms: Reports: Fever/Chills. Denies: Chest Pain, Cough, Heada ches, Nausea/Vomiting, Shortness of Breath Left Upper Leg Pain Score (Numeric/FACES): 3 - Related Data Allergies Allergy/AdvReac Type Severity Reaction Status Date / Time No Known Allergies Allergy Verified 06/10/20 15:30 Home Meds: Home Meds Potassium Chloride [Klor-Con M20] 40 meq PO BID 11/27/14 [History] Pantoprazole Sodium [Protonix] 40 mg PO BID 04/11/17 [History] Calcium Carbonate 600 mg PO DAILY #30 tablet 10/03/17 [Rx] Folic Acid 1 mg PO DAILY #30 tablet 10/03/17 [Rx] Latanoprost [Xalatan 0.005% Ophth Soln] 0 ml EYEBOTH BEDTIME #1 bottle 10/03/17 [Rx] Magnesium Oxide 400 mg PO BID #60 tab 10/03/17 [Rx] Multivitamins,Therapeutic [Thera] 1 each PO DAILY #30 tablet 10/03/17 [Rx] Propranolol HCl [Propranolol] 10 mg PO TID #60 tablet 10/03/17 [Rx] Rifaximin [Xifaxan] 550 mg PO BID #30 tablet 10/03/17 [Rx] Spironolactone [Aldactone] 50 mg PO BID #30 tablet 10/03/17 [Rx] Thiamine [Vitamin B-1] 100 mg PO DAILY #30 tablet 10/03/17 [Rx] Tiotropium [Spiriva HandiHaler] 18 mcg INH DAILY #30 cap 10/03/17 [Rx] Past Medical History HEENT History: Reports: Glaucoma, Impaired Vision Other HEENT History: Wear glasses; has upper denutres and a lower partial Cardiovascular History: Reports: High Cholesterol Respiratory History: Reports: COPD, Pneumonia, Recurrent, SOB Other Respiratory History: patient is a 1/2 pack to full pack smoker Gastrointestinal History: Reports: Cirrhosis, GERD, Hemorrhoids, Other (See Below) Other Gastrointestinal History: liver disease, enlarged spleen. 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: Reports: Musculoskeletal History: Reports: Fracture, Other (See Below) Other Musculoskeletal History: feet cramps Psychiatric History: Reports: Addiction Other Psychiatric History: alcohol abuse Endocrine/Metabolic History: Reports: Vitamin D Deficiency, Other (See Below) Other Endocrine/Metabolic History: hypomagnesemia, hypokalemia Hematologic History: Reports: Anemia, Iron Deficiency - Infectious Disease History Infectious Disease History: Reports: Chicken Pox, Influenza, Measles, Mumps - Past Surgical History GI Surgical History: Reports: Other (See Below) Other GI Surgeries/Procedures: hemorrhoids removed Female Surgical History: Reports: Tubal Ligation Social & Family History - Family History Family Medical History: No Pertinent Family History HEENT: Reports: Glaucoma - Tobacco Use Tobacco Use Status *Q: Current Every Day Tobacco User Years of Tobacco use: 48 Packs/Tins Daily: 0.2 - Caffeine Use Caffeine Use: Reports: Coffee Other Caffeine Use: daily basis - Alcohol Use Days Per Week of Alcohol Use: 7 Number of Drinks Per Day: 10 Total Drinks Per Week: 70 Date of Last Drink: 06/08/20 - Recreational Drug Use Recreational Drug Use: No ED ROS GENERAL - Review of Systems Review Of Systems: See Below Constitutional: Reports: Chills, Weakness. Denies: Fever HEENT: Reports: No Symptoms Respiratory: Reports: No Symptoms Cardiovascular: Reports: No Symptoms Endocrine: Reports: No Symptoms GI/Abdominal: Reports: No Symptoms : Reports: No Symptoms Musculoskeletal: Reports: No Symptoms ED EXAM, BEHAVIORAL HEALTH - Physical Exam Exam: See Below Exam Limited By: No Limitations General Appearance: Alert, No Apparent Distress Eye Exam: Bilateral Eye: Other (Scleral ictirus) Ears: Normal External Exam Nose: Normal Inspection Head: Atraumatic, Normocephalic Neck: Normal Inspection Respiratory/Chest: No Respiratory Distress, Lungs Clear, Normal Breath Sounds Cardiovascular: Regular Rate, Rhythm, No Edema, No Murmur GI/Abdominal: Soft, Non-Tender, No Organomegaly, No Mass Back Exam: Normal Inspection Extremities: Normal Inspection Skin Exam: Jaundice COURSE, BEHAVIORAL HEALTH COMP - Course Vital Signs: Last Vital Signs Temp 100.5 F 06/10/20 15:20 Pulse 80 06/10/20 15:20 Resp 24 H 06/10/20 15:20 BP 100/79 06/10/20 15:20 Pulse Ox 97 06/10/20 15:20 Orders, Labs, Meds: Active Orders 24 hr Category Date Time Status Cardiac Monitoring [RC] . DIRECTED Care 06/10/20 16:02 Active Peripheral IV Care [RC] . DIRECTED Care 06/10/20 16:02 Active Abdomen Ltd [US] Stat Exams 06/10/20 16:04 Taken CULTURE URINE [RM] Stat Lab 06/10/20 18:15 Received Sodium Chloride 0.9% [Normal Saline] 1,000 ml Med 06/10/20 16:15 Active IV ASDIRECTED Sodium Chloride 0.9% [Saline Flush] Med 06/10/20 16:02 Active 10 ml FLUSH ASDIRECTED PRN cefTRIAXone [Rocephin] 2 gm Med 06/10/20 18:45 Active Sodium Chloride 0.9% [Normal Saline] 100 ml IV ONETIME Peripheral IV Insertion Adult [OM.PC] Stat Oth 06/10/20 16:02 Ordered Medication Orders Sodium Chloride (Normal Saline) 1,000 mls @ 125 mls/hr IV ASDIRECTED DORINA Last Admin: 06/10/20 16:48 Dose: 125 mls/hr Documented by: SANDRO Ceftriaxone Sodium 2 gm/ (Sodium Chloride) 100 mls @ 200 mls/hr IV ONETIME ONE Stop: 06/10/20 19:14 Sodium Chloride (Saline Flush) 10 ml FLUSH ASDIRECTED PRN PRN Reason: Keep Vein Open Last Admin: 06/10/20 16:51 Dose: 10 ml Documented by: SANDRO Laboratory Tests 06/10/20 06/10/20 06/10/20 Range/Units 16:45 16:45 16:45 WBC 5.96 (3.98-10.04) K/mm3 RBC 4.06 (3.98-5.22) M/mm3 Hgb 15.0 (11.2-15.7) gm/dl Hct 44.1 (34.1-44.9) % MCV 108.6 H D (79.4-94.8) fl MCH 36.9 H (25.6-32.2) pg MCHC 34.0 (32.2-35.5) g/dl RDW Std Deviation 77.4 H (36.4-46.3) fL Plt Count 48 L (182-369) K/mm3 MPV 11.8 (9.4-12.3) fl Neut % (Auto) 78.0 H (34.0-71.1) % Lymph % (Auto) 5.9 L (19.3-51.7) % [place] % (Auto) 15.1 H (4.7-12.5) % Eos % (Auto) 0.2 L (0.7-5.8) Baso % (Auto) 0.3 (0.1-1.2) % Neut # (Auto) 4.65 (1.56-6.13) K/mm3 Lymph # (Auto) 0.35 L (1.18-3.74) K/mm3 [place] # (Auto) 0.90 H (0.24-0.36) K/mm3 Eos # (Auto) 0.01 L (0.04-0.36) K/mm3 Baso # (Auto) 0.02 (0.01-0.08) K/mm3 Manual Slide Review Abnormal smear PT 19.8 H (9.7-12.0) SECONDS INR 1.87 APTT 30.9 (21.7-31.4) SECONDS Sodium 137 (136-145) mEq/L Potassium 3.8 (3.5-5.1) mEq/L Chloride 100 (98-107) mEq/L Carbon Dioxide 20 L (21-32) mEq/L Anion Gap 20.8 H (5-15) BUN 48 H D (7-18) mg/dL Creatinine 1.1 H (0.55-1.02) mg/dL Est Cr Clr Drug Dosing 44.43 mL/min Estimated GFR (MDRD) 50 (>60) mL/min BUN/Creatinine Ratio 43.6 H (14-18) Glucose 105 (80-115) mg/dL Calcium 9.2 (8.5-10.1) mg/dL Magnesium 1.2 L (1.8-2.4) mg/dl Total Bilirubin 31.2 H (0.2-1.0) mg/dL AST 131 H (15-37) U/L ALT 41 (14-59) U/L Alkaline Phosphatase 172 H (46-116) U/L Ammonia (11-32) umol/L Total Protein 6.4 (6.4-8.2) g/dl Albumin 2.6 L (3.4-5.0) g/dl Globulin 3.8 gm/dL Albumin/Globulin Ratio 0.7 L (1-2) Lipase 336 (73-393) U/L Urine Color (Yellow) Urine Appearance (Clear) Urine pH (5.0-8.0) Ur Specific [place] (1.005-1.030) Urine Protein (Negative) Urine Glucose (UA) (Negative) Urine Ketones (Negative) Urine Occult Blood (Negative) Urine Nitrite (Negative) Urine Bilirubin (Negative) Urine Urobilinogen (0.2-1.0) Ur Leukocyte Esterase (Negative) Urine RBC (0-5) /hpf Urine WBC (0-5) /hpf Ur Squamous Epith Cells (0-5) /hpf Urine Bacteria (FEW) /hpf Urine Mucus (FEW) /hpf Salicylates (2.8-20) mg/dL Urine Opiates Screen (ZHTEMH=787) Ur Buprenorphine Scrn (CUTOFF=10) Ur Oxycodone Screen (UUH9SE=573) Urine Methadone Screen (XJLJOF=453) Ur Propoxyphene Screen (JRSOHN=338) Acetaminophen 0 L (10-30) ug/mL Ur Barbiturates Screen (CCTFRX=748) Ur Tricyclics Screen (EPKGLU=335) Ur Phencyclidine Scrn (CUTOFF=25) Ur Amphetamine Screen (BKFUIS=387) U Methamphetamines Scrn (SSKULE=708) U Benzodiazepines Scrn (UJDCGW=440) U Cocaine Metab Screen (CJHOHP=128) U Marijuana (THC) Screen (CUTOFF=50) Ethyl Alcohol 0.00 (0.00) gm% SARS-CoV-2 RNA (JESENIA) (NEGATIVE) 06/10/20 06/10/20 06/10/20 Range/Units 16:45 16:45 16:45 WBC (3.98-10.04) K/mm3 RBC (3.98-5.22) M/mm3 Hgb (11.2-15.7) gm/dl Hct (34.1-44.9) % MCV (79.4-94.8) fl MCH (25.6-32.2) pg MCHC (32.2-35.5) g/dl RDW Std Deviation (36.4-46.3) fL Plt Count (182-369) K/mm3 MPV (9.4-12.3) fl Neut % (Auto) (34.0-71.1) % Lymph % (Auto) (19.3-51.7) % [place] % (Auto) (4.7-12.5) % Eos % (Auto) (0.7-5.8) Baso % (Auto) (0.1-1.2) % Neut # (Auto) (1.56-6.13) K/mm3 Lymph # (Auto) (1.18-3.74) K/mm3 [place] # (Auto) (0.24-0.36) K/mm3 Eos # (Auto) (0.04-0.36) K/mm3 Baso # (Auto) (0.01-0.08) K/mm3 Manual Slide Review PT (9.7-12.0) SECONDS INR APTT (21.7-31.4) SECONDS Sodium (136-145) mEq/L Potassium (3.5-5.1) mEq/L Chloride (98-107) mEq/L Carbon Dioxide (21-32) mEq/L Anion Gap (5-15) BUN (7-18) mg/dL Creatinine (0.55-1.02) mg/dL Est Cr Clr Drug Dosing mL/min Estimated GFR (MDRD) (>60) mL/min BUN/Creatinine Ratio (14-18) Glucose (80-115) mg/dL Calcium (8.5-10.1) mg/dL Magnesium (1.8-2.4) mg/dl Total Bilirubin (0.2-1.0) mg/dL AST (15-37) U/L ALT (14-59) U/L Alkaline Phosphatase (46-116) U/L Ammonia 14 (11-32) umol/L Total Protein (6.4-8.2) g/dl Albumin (3.4-5.0) g/dl Globulin gm/dL Albumin/Globulin Ratio (1-2) Lipase (73-393) U/L Urine Color (Yellow) Urine Appearance (Clear) Urine pH (5.0-8.0) Ur Specific [place] (1.005-1.030) Urine Protein (Negative) Urine Glucose (UA) (Negative) Urine Ketones (Negative) Urine Occult Blood (Negative) Urine Nitrite (Negative) Urine Bilirubin (Negative) Urine Urobilinogen (0.2-1.0) Ur Leukocyte Esterase (Negative) Urine RBC (0-5) /hpf Urine WBC (0-5) /hpf Ur Squamous Epith Cells (0-5) /hpf Urine Bacteria (FEW) /hpf Urine Mucus (FEW) /hpf Salicylates < 0.2 L (2.8-20) mg/dL Urine Opiates Screen (ECGLCQ=914) Ur Buprenorphine Scrn (CUTOFF=10) Ur Oxycodone Screen (YYM7JR=338) Urine Methadone Screen (CKPGXW=828) Ur Propoxyphene Screen (MWJMMJ=015) Acetaminophen (10-30) ug/mL Ur Barbiturates Screen (HWOQUT=784) Ur Tricyclics Screen (UQZUAV=887) Ur Phencyclidine Scrn (CUTOFF=25) Ur Amphetamine Screen (TIIPTV=434) U Methamphetamines Scrn (VXPWTT=776) U Benzodiazepines Scrn (YMZXGN=910) U Cocaine Metab Screen (OBPNJJ=501) U Marijuana (THC) Screen (CUTOFF=50) Ethyl Alcohol (0.00) gm% SARS-CoV-2 RNA (JESENIA) Negative (NEGATIVE) 06/10/20 06/10/20 Range/Units 18:15 18:15 WBC (3.98-10.04) K/mm3 RBC (3.98-5.22) M/mm3 Hgb (11.2-15.7) gm/dl Hct (34.1-44.9) % MCV (79.4-94.8) fl MCH (25.6-32.2) pg MCHC (32.2-35.5) g/dl RDW Std Deviation (36.4-46.3) fL Plt Count (182-369) K/mm3 MPV (9.4-12.3) fl Neut % (Auto) (34.0-71.1) % Lymph % (Auto) (19.3-51.7) % [place] % (Auto) (4.7-12.5) % Eos % (Auto) (0.7-5.8) Baso % (Auto) (0.1-1.2) % Neut # (Auto) (1.56-6.13) K/mm3 Lymph # (Auto) (1.18-3.74) K/mm3 [place] # (Auto) (0.24-0.36) K/mm3 Eos # (Auto) (0.04-0.36) K/mm3 Baso # (Auto) (0.01-0.08) K/mm3 Manual Slide Review PT (9.7-12.0) SECONDS INR APTT (21.7-31.4) SECONDS Sodium (136-145) mEq/L Potassium (3.5-5.1) mEq/L Chloride (98-107) mEq/L Carbon Dioxide (21-32) mEq/L Anion Gap (5-15) BUN (7-18) mg/dL Creatinine (0.55-1.02) mg/dL Est Cr Clr Drug Dosing mL/min Estimated GFR (MDRD) (>60) mL/min BUN/Creatinine Ratio (14-18) Glucose (80-115) mg/dL Calcium (8.5-10.1) mg/dL Magnesium (1.8-2.4) mg/dl Total Bilirubin (0.2-1.0) mg/dL AST (15-37) U/L ALT (14-59) U/L Alkaline Phosphatase (46-116) U/L Ammonia (11-32) umol/L Total Protein (6.4-8.2) g/dl Albumin (3.4-5.0) g/dl Globulin gm/dL Albumin/Globulin Ratio (1-2) Lipase (73-393) U/L Urine Color Jeana H (Yellow) Urine Appearance Slt cloudy H (Clear) Urine pH 6.5 (5.0-8.0) Ur Specific [place] 1.020 (1.005-1.030) Urine Protein 1+ H (Negative) Urine Glucose (UA) Trace H (Negative) Urine Ketones Trace H (Negative) Urine Occult Blood Trace-lysed H (Negative) Urine Nitrite Positive H (Negative) Urine Bilirubin 3+ H (Negative) Urine Urobilinogen 4.0 H (0.2-1.0) Ur Leukocyte Esterase 1+ H (Negative) Urine RBC 5-10 H (0-5) /hpf Urine WBC 10-20 H (0-5) /hpf Ur Squamous Epith Cells 0-5 (0-5) /hpf Urine Bacteria Many H (FEW) /hpf Urine Mucus Few (FEW) /hpf Salicylates (2.8-20) mg/dL Urine Opiates Screen Negative (XSKDTP=963) Ur Buprenorphine Scrn Negative (CUTOFF=10) Ur Oxycodone Screen Negative (LVF5JG=961) Urine Methadone Screen Negative (CKHQZR=564) Ur Propoxyphene Screen Negative (PVTAIJ=144) Acetaminophen (10-30) ug/mL Ur Barbiturates Screen Negative (PSJTUE=376) Ur Tricyclics Screen Negative (HFRUIT=017) Ur Phencyclidine Scrn Negative (CUTOFF=25) Ur Amphetamine Screen Negative (RSBFAD=526) U Methamphetamines Scrn Negative (NQFIAA=172) U Benzodiazepines Scrn Negative (FZFZNB=955) U Cocaine Metab Screen Negative (MRZWHF=357) U Marijuana (THC) Screen Negative (CUTOFF=50) Ethyl Alcohol (0.00) gm% SARS-CoV-2 RNA (JESENIA) (NEGATIVE) Medications Generic Name Dose Route Start Last Admin Trade Name Freq PRN Reason Stop Dose Admin Sodium Chloride 1,000 mls @ 125 mls/hr 06/10/20 16:15 06/10/20 16:48 Normal Saline IV 125 mls/hr ASDIRECTED DORINA Administration Ceftriaxone Sodium 2 gm/ 100 mls @ 200 mls/hr 06/10/20 18:45 Sodium Chloride IV 06/10/20 19:14 ONETIME ONE Sodium Chloride 10 ml 06/10/20 16:02 06/10/20 16:51 Saline Flush FLUSH 10 ml ASDIRECTED PRN Administration Keep Vein Open Re-Assessment/Re-Exam: I ordered an IV NS at 125mL/hr, labs, and an US of her right upper abdomen. Her WBC and Hgb look good. Her platelets are low at 48. Her PT is elevated at 19.8. Her INR is elevated at 1.87. Her COVID 19 is negative. Her US shows a 10mm stone in the gallbladder but no obstruction. There is also signs of cirrhosis. Her creatinine is 1.1. Her magnesium is low at 1.2. Her total bili is elevated at 31.2. Her AST is elevated at 131. Her alk phos is elevated at 172. Her albumin is low at 2.6. Her UA was positive for UTI. I have ordered rocephin 2 grams IV. Her UDS was negative. Her ETOH was negative. I feel she needs to be admitted. I talked with Dr Del Rosario and he agreed to the admission. He ammonia is 14. Departure - Departure Time of Disposition: 19:00 Disposition: Admitted As Inpatient 64 Condition: Poor Clinical Impression: Thrombocytopenia, Elevated INR, Hypomagnesemia, Elevated bilirubin, Jaundice Liver failure Qualifiers: Liver failure chronicity: acute Hepatic coma status: without hepatic coma Qualified Code(s): K72.00 - Acute and subacute hepatic failure without coma Alcohol dependence Qualifiers: Substance use status: unspecified alcohol-induced disorder Qualified Code(s): F10.29 - Alcohol dependence with unspecified alcohol-induced disorder - Discharge Information Referrals: Goldie Mcclure [employer] [Primary Care Provider] - Forms: ED Department Discharge Sepsis Event Note (ED) - Evaluation Sepsis Screening Result: No Definite Risk - Focused Exam Vital Signs: Vital Signs Temp Pulse Resp BP Pulse Ox 06/10/20 15:20 100.5 F 80 24 H 100/79 97 - My Orders Last 24 Hours: My Active Orders 06/10/20 16:02 Cardiac Monitoring [RC] . DIRECTED Peripheral IV Care [RC] . DIRECTED Sodium Chloride 0.9% [Saline Flush] 10 ml FLUSH ASDIRECTED PRN Peripheral IV Insertion Adult [OM.PC] Stat 06/10/20 16:04 Abdomen Ltd [US] Stat 06/10/20 16:15 Sodium Chloride 0.9% [Normal Saline] 1,000 ml IV ASDIRECTED 06/10/20 18:15 CULTURE URINE [RM] Stat 06/10/20 18:45 cefTRIAXone [Rocephin] 2 gm Sodium Chloride 0.9% [Normal Saline] 100 ml IV ONETIME - Assessment/Plan Last 24 Hours: My Active Orders 06/10/20 16:02 Cardiac Monitoring [RC] . DIRECTED Peripheral IV Care [RC] . DIRECTED Sodium Chloride 0.9% [Saline Flush] 10 ml FLUSH ASDIRECTED PRN Peripheral IV Insertion Adult [OM.PC] Stat 06/10/20 16:04 Abdomen Ltd [US] Stat 06/10/20 16:15 Sodium Chloride 0.9% [Normal Saline] 1,000 ml IV ASDIRECTED 06/10/20 18:15 CULTURE URINE [RM] Stat 06/10/20 18:45 cefTRIAXone [Rocephin] 2 gm Sodium Chloride 0.9% [Normal Saline] 100 ml IV ONETIME
[2020-06-10] MEDS ORDERED: cefTRIAXone 2 GM in Sodium Chloride 0.9% 100 ML IV ONE (18:45)
--- NOTE | 2020-06-10 19:16 | PCM.HP.2 ---
H&P History of Present Illness - General Date of Service: 06/10/20 Admit Problem/Dx: Admission Diagnosis/Problem Admission Diagnosis/Problem Liver failure Source of Information: Patient, Family, Old Records, Provider, RN Notes Reviewed History Limitations: Reports: Physical Impairment - History of Present Illness Initial Comments - Free Text/Narative: This is a 59 yo white female with past medical hx/o Impaired Vision, Liver Cirrhosis, Hypertension, Recurrent Pneumonia, Chronic SOB, Active Smoker, Chronic GERD, Hemorrhoids, Enlarged spleen, Recurrent UTI, Substance Abuse, Hx/o Gallstone, Vit D Deficiency, Anemia of chronic Disease, Chronic electrolytes abnormality and Chronic ETOH Abuse/Dependence who was brought in by family for evaluation of 2 week history of generalized weakness, gait instability as well as disorientation along with worsening yellowish color. She carries a hx/o liver cirrhosis. She still drinks hard liquor heavily. She apparently quit this past Monday. Her appetite has not been great. She was not having chest pain or shortness of breath. No GI or complaints. Her initial work up in ED shows a CBC remarkable for MCV of 1058.6, RDW of 77.4, Neutrophils of 78%, Lymphocyte of 5.9%, Monocytes of 15.1% and Eosinophils of 0.2%. Her coagulation study is notable for PT of 19.8. Her chemistry is significant for CO2 of 20, BUN of 48, Cr of 1.1, Mg of 1.2, Total Bilirubin of 31.2, AST of 131, ALT of 41, Alk Phos of 172, Total protein of 6.0 and Albumin of 2.6. Her UA is positive for UTI. Her UDS is < 0.2 for salicylates. Her LAKEISHA level is 0. Her Covid test is negative. Patient is coming in for further evaluation of jaundice and management of chronic alcohol abuse. Left Upper Leg Pain Score (Numeric/FACES): 3 - Related Data Allergies/Adverse Reactions: Allergies Allergy/AdvReac Type Severity Reaction Status Date / Time No Known Allergies Allergy Verified 06/10/20 15:30 Home Medications: Home Meds Potassium Chloride [Klor-Con M20] 20 meq PO BID 11/27/14 [History] Pantoprazole Sodium [Protonix] 40 mg PO BID 04/11/17 [History] Folic Acid 1 mg PO DAILY #30 tablet 06/26/18 [Rx] Magnesium Oxide 400 mg PO BID #60 tab 10/03/17 [Rx] Multivitamins,Therapeutic [Thera] 1 each PO DAILY #30 tablet 10/03/17 [Rx] Propranolol HCl [Propranolol] 10 mg PO TID #60 tablet 10/03/17 [Rx] Rifaximin [Xifaxan] 550 mg PO BID #30 tablet 10/03/17 [Rx] Spironolactone [Aldactone] 50 mg PO BID #30 tablet 10/03/17 [Rx] Thiamine [Vitamin B-1] 100 mg PO DAILY #30 tablet 10/03/17 [Rx] ARIPiprazole [Abilify] 1 mg PO DAILY 06/11/20 [History] Calcium Carbonate 600 mg PO BID 06/11/20 [History] Latanoprost [Xalatan 0.005% Ophth Soln] 1 drop EYEBOTH BEDTIME 06/11/20 [History] Tiotropium [place] [Spiriva Respimat] 2 inh PO DAILY 06/11/20 [History] Past Medical History HEENT History: Reports: Glaucoma, Impaired Vision Other HEENT History: Wear glasses; has upper denutres and a lower partial Cardiovascular History: Reports: High Cholesterol Respiratory History: Reports: COPD, Pneumonia, Recurrent, SOB Other Respiratory History: patient is a 1/2 pack to full pack smoker Gastrointestinal History: Reports: Cirrhosis, GERD, Hemorrhoids, Other (See Below) Other Gastrointestinal History: liver disease, enlarged spleen. 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: Musculoskeletal History: Reports: Fracture, Other (See Below) Other Musculoskeletal History: feet cramps Psychiatric History: Reports: Addiction Other Psychiatric History: alcohol abuse Endocrine/Metabolic History: Reports: Vitamin D Deficiency, Other (See Below) Other Endocrine/Metabolic History: hypomagnesemia, hypokalemia Hematologic History: Reports: Anemia, Iron Deficiency - Infectious Disease History Infectious Disease History: Reports: Chicken Pox, Influenza, Measles, Mumps - Past Surgical History GI Surgical History: Reports: Other (See Below) Other GI Surgeries/Procedures: hemorrhoids removed Female Surgical History: Reports: Tubal Ligation Social & Family History - Family History Family Medical History: No Pertinent Family History HEENT: Reports: Glaucoma - Tobacco Use Tobacco Use Status *Q: Current Every Day Tobacco User Years of Tobacco use: 48 Packs/Tins Daily: 0.2 - Caffeine Use Caffeine Use: Reports: Coffee Other Caffeine Use: daily basis - Alcohol Use Days Per Week of Alcohol Use: 7 Number of Drinks Per Day: 10 Total Drinks Per Week: 70 Date of Last Drink: 06/08/20 - Recreational Drug Use Recreational Drug Use: No H&P Review of Systems - Review of Systems: Review Of Systems: See Below General: Reports: Weakness. Denies: Fever, Chills, Malaise, Fatigue HEENT: Reports: No Symptoms Pulmonary: Reports: Cough. Denies: Shortness of Breath Cardiovascular: Denies: Chest Pain, Edema, Lightheadedness, Syncope Gastrointestinal: Denies: Abdominal Pain, Nausea, Vomiting Genitourinary: Denies: Frequency Musculoskeletal: Reports: Other (muscle weakness) Skin: Reports: Jaundice Psychiatric: Reports: Confusion. Denies: Depression, Anxiety Neurological: Reports: Difficulty Walking, Weakness, Gait Disturbance Hematologic/Lymphatic: Reports: No Symptoms Immunologic: Reports: No Symptoms Exam - Exam Exam: See Below - Vital Signs Vital Signs: Last Vital Signs Temp 38.1 C 06/10/20 15:20 Pulse 80 06/10/20 15:20 Resp 24 H 06/10/20 15:20 BP 100/79 06/10/20 15:20 Pulse Ox 97 06/10/20 15:20 Weight: 63.503 kg - Exam General: Alert, Oriented, Cooperative HEENT: Conjunctiva Clear, EACs Clear, EOMI, Hearing Intact, Mucosa Moist & [place], Nares Patent, Normal Nasal Septum, Posterior Pharynx Clear, Pupils Equal, Pupils Reactive, Scleral Icterus Neck: Supple, Trachea Midline Lungs: Normal Respiratory Effort, Decreased Breath Sounds Cardiovascular: Regular Rate, Regular Rhythm GI/Abdominal Exam: Normal Bowel Sounds, Soft, Non-Tender, No Organomegaly, No Abnormal Bruit, No Mass, Hepatomegaly, Splenomegaly, Other (no abdominal ascites). No: Distended, Hernia (Female) Exam: Deferred Rectal (Female) Exam: Deferred Back Exam: Normal Inspection, Decreased Range of Motion Extremities: Normal Inspection, Normal Range of Motion, Non-Tender, No Pedal Edema, Normal Capillary Refill Peripheral Pulses: 2+: Dorsalis Pedis (L), Dorsalis Pedis (R) Skin: Warm, Dry, Intact Neuro Extensive - Mental Status: Oriented x3, Normal Cognition, Memory Intact Neuro Extensive - Motor, Sensory, Reflexes: CN II-XII Intact, Abnormal Gait Psychiatric: Alert, Normal Affect, Normal Mood - Patient Data Lab Results Last 24 hrs: Laboratory Results - last 24 hr 06/10/20 06/10/20 06/10/20 Range/Units 16:45 16:45 16:45 WBC 5.96 (3.98-10.04) K/mm3 RBC 4.06 (3.98-5.22) M/mm3 Hgb 15.0 (11.2-15.7) gm/dl Hct 44.1 (34.1-44.9) % MCV 108.6 H D (79.4-94.8) fl MCH 36.9 H (25.6-32.2) pg MCHC 34.0 (32.2-35.5) g/dl RDW Std Deviation 77.4 H (36.4-46.3) fL Plt Count 48 L (182-369) K/mm3 MPV 11.8 (9.4-12.3) fl Neut % (Auto) 78.0 H (34.0-71.1) % Lymph % (Auto) 5.9 L (19.3-51.7) % Pershing % (Auto) 15.1 H (4.7-12.5) % Eos % (Auto) 0.2 L (0.7-5.8) Baso % (Auto) 0.3 (0.1-1.2) % Neut # (Auto) 4.65 (1.56-6.13) K/mm3 Lymph # (Auto) 0.35 L (1.18-3.74) K/mm3 Pershing # (Auto) 0.90 H (0.24-0.36) K/mm3 Eos # (Auto) 0.01 L (0.04-0.36) K/mm3 Baso # (Auto) 0.02 (0.01-0.08) K/mm3 Manual Slide Review Abnormal smear PT 19.8 H (9.7-12.0) SECONDS INR 1.87 APTT 30.9 (21.7-31.4) SECONDS Sodium 137 (136-145) mEq/L Potassium 3.8 (3.5-5.1) mEq/L Chloride 100 (98-107) mEq/L Carbon Dioxide 20 L (21-32) mEq/L Anion Gap 20.8 H (5-15) BUN 48 H D (7-18) mg/dL Creatinine 1.1 H (0.55-1.02) mg/dL Est Cr Clr Drug Dosing 44.43 mL/min Estimated GFR (MDRD) 50 (>60) mL/min BUN/Creatinine Ratio 43.6 H (14-18) Glucose 105 (80-115) mg/dL Calcium 9.2 (8.5-10.1) mg/dL Magnesium 1.2 L (1.8-2.4) mg/dl Total Bilirubin 31.2 H (0.2-1.0) mg/dL AST 131 H (15-37) U/L ALT 41 (14-59) U/L Alkaline Phosphatase 172 H (46-116) U/L Ammonia (11-32) umol/L Total Protein 6.0 L (6.4-8.2) g/dl Albumin 2.6 L (3.4-5.0) g/dl Globulin 3.4 gm/dL Albumin/Globulin Ratio 0.8 L (1-2) Lipase 336 (73-393) U/L Urine Color (Yellow) Urine Appearance (Clear) Urine pH (5.0-8.0) Ur Specific [place] (1.005-1.030) Urine Protein (Negative) Urine Glucose (UA) (Negative) Urine Ketones (Negative) Urine Occult Blood (Negative) Urine Nitrite (Negative) Urine Bilirubin (Negative) Urine Urobilinogen (0.2-1.0) Ur Leukocyte Esterase (Negative) Urine RBC (0-5) /hpf Urine WBC (0-5) /hpf Ur Squamous Epith Cells (0-5) /hpf Urine Bacteria (FEW) /hpf Urine Mucus (FEW) /hpf Salicylates (2.8-20) mg/dL Urine Opiates Screen (GQNOFD=758) Ur Buprenorphine Scrn (CUTOFF=10) Ur Oxycodone Screen (OAI8PV=786) Urine Methadone Screen (ZMVRQI=525) Ur Propoxyphene Screen (HCHZKY=134) Acetaminophen 0 L (10-30) ug/mL Ur Barbiturates Screen (PBWCUP=183) Ur Tricyclics Screen (CXDJND=730) Ur Phencyclidine Scrn (CUTOFF=25) Ur Amphetamine Screen (BNACSL=414) U Methamphetamines Scrn (UZCZTR=283) U Benzodiazepines Scrn (SVOILW=847) U Cocaine Metab Screen (ZFNKEN=029) U Marijuana (THC) Screen (CUTOFF=50) Ethyl Alcohol 0.00 (0.00) gm% SARS-CoV-2 RNA (JESENIA) (NEGATIVE) 06/10/20 06/10/20 06/10/20 Range/Units 16:45 16:45 16:45 WBC (3.98-10.04) K/mm3 RBC (3.98-5.22) M/mm3 Hgb (11.2-15.7) gm/dl Hct (34.1-44.9) % MCV (79.4-94.8) fl MCH (25.6-32.2) pg MCHC (32.2-35.5) g/dl RDW Std Deviation (36.4-46.3) fL Plt Count (182-369) K/mm3 MPV (9.4-12.3) fl Neut % (Auto) (34.0-71.1) % Lymph % (Auto) (19.3-51.7) % [place] % (Auto) (4.7-12.5) % Eos % (Auto) (0.7-5.8) Baso % (Auto) (0.1-1.2) % Neut # (Auto) (1.56-6.13) K/mm3 Lymph # (Auto) (1.18-3.74) K/mm3 [place] # (Auto) (0.24-0.36) K/mm3 Eos # (Auto) (0.04-0.36) K/mm3 Baso # (Auto) (0.01-0.08) K/mm3 Manual Slide Review PT (9.7-12.0) SECONDS INR APTT (21.7-31.4) SECONDS Sodium (136-145) mEq/L Potassium (3.5-5.1) mEq/L Chloride (98-107) mEq/L Carbon Dioxide (21-32) mEq/L Anion Gap (5-15) BUN (7-18) mg/dL Creatinine (0.55-1.02) mg/dL Est Cr Clr Drug Dosing mL/min Estimated GFR (MDRD) (>60) mL/min BUN/Creatinine Ratio (14-18) Glucose (80-115) mg/dL Calcium (8.5-10.1) mg/dL Magnesium (1.8-2.4) mg/dl Total Bilirubin (0.2-1.0) mg/dL AST (15-37) U/L ALT (14-59) U/L Alkaline Phosphatase (46-116) U/L Ammonia 14 (11-32) umol/L Total Protein (6.4-8.2) g/dl Albumin (3.4-5.0) g/dl Globulin gm/dL Albumin/Globulin Ratio (1-2) Lipase (73-393) U/L Urine Color (Yellow) Urine Appearance (Clear) Urine pH (5.0-8.0) Ur Specific [place] (1.005-1.030) Urine Protein (Negative) Urine Glucose (UA) (Negative) Urine Ketones (Negative) Urine Occult Blood (Negative) Urine Nitrite (Negative) Urine Bilirubin (Negative) Urine Urobilinogen (0.2-1.0) Ur Leukocyte Esterase (Negative) Urine RBC (0-5) /hpf Urine WBC (0-5) /hpf Ur Squamous Epith Cells (0-5) /hpf Urine Bacteria (FEW) /hpf Urine Mucus (FEW) /hpf Salicylates < 0.2 L (2.8-20) mg/dL Urine Opiates Screen (XIYLFJ=695) Ur Buprenorphine Scrn (CUTOFF=10) Ur Oxycodone Screen (GOC3GF=618) Urine Methadone Screen (DWSTMW=555) Ur Propoxyphene Screen (URVWNW=933) Acetaminophen (10-30) ug/mL Ur Barbiturates Screen (DRBSYB=182) Ur Tricyclics Screen (TLGAQK=890) Ur Phencyclidine Scrn (CUTOFF=25) Ur Amphetamine Screen (GEOLZL=282) U Methamphetamines Scrn (ORZFZO=740) U Benzodiazepines Scrn (JZDIBC=044) U Cocaine Metab Screen (SFGSVP=426) U Marijuana (THC) Screen (CUTOFF=50) Ethyl Alcohol (0.00) gm% SARS-CoV-2 RNA (JESENIA) Negative (NEGATIVE) 06/10/20 06/10/20 Range/Units 18:15 18:15 WBC (3.98-10.04) K/mm3 RBC (3.98-5.22) M/mm3 Hgb (11.2-15.7) gm/dl Hct (34.1-44.9) % MCV (79.4-94.8) fl MCH (25.6-32.2) pg MCHC (32.2-35.5) g/dl RDW Std Deviation (36.4-46.3) fL Plt Count (182-369) K/mm3 MPV (9.4-12.3) fl Neut % (Auto) (34.0-71.1) % Lymph % (Auto) (19.3-51.7) % [place] % (Auto) (4.7-12.5) % Eos % (Auto) (0.7-5.8) Baso % (Auto) (0.1-1.2) % Neut # (Auto) (1.56-6.13) K/mm3 Lymph # (Auto) (1.18-3.74) K/mm3 [place] # (Auto) (0.24-0.36) K/mm3 Eos # (Auto) (0.04-0.36) K/mm3 Baso # (Auto) (0.01-0.08) K/mm3 Manual Slide Review PT (9.7-12.0) SECONDS INR APTT (21.7-31.4) SECONDS Sodium (136-145) mEq/L Potassium (3.5-5.1) mEq/L Chloride (98-107) mEq/L Carbon Dioxide (21-32) mEq/L Anion Gap (5-15) BUN (7-18) mg/dL Creatinine (0.55-1.02) mg/dL Est Cr Clr Drug Dosing mL/min Estimated GFR (MDRD) (>60) mL/min BUN/Creatinine Ratio (14-18) Glucose (80-115) mg/dL Calcium (8.5-10.1) mg/dL Magnesium (1.8-2.4) mg/dl Total Bilirubin (0.2-1.0) mg/dL AST (15-37) U/L ALT (14-59) U/L Alkaline Phosphatase (46-116) U/L Ammonia (11-32) umol/L Total Protein (6.4-8.2) g/dl Albumin (3.4-5.0) g/dl Globulin gm/dL Albumin/Globulin Ratio (1-2) Lipase (73-393) U/L Urine Color Jeana H (Yellow) Urine Appearance Slt cloudy H (Clear) Urine pH 6.5 (5.0-8.0) Ur Specific [place] 1.020 (1.005-1.030) Urine Protein 1+ H (Negative) Urine Glucose (UA) Trace H (Negative) Urine Ketones Trace H (Negative) Urine Occult Blood Trace-lysed H (Negative) Urine Nitrite Positive H (Negative) Urine Bilirubin 3+ H (Negative) Urine Urobilinogen 4.0 H (0.2-1.0) Ur Leukocyte Esterase 1+ H (Negative) Urine RBC 5-10 H (0-5) /hpf Urine WBC 10-20 H (0-5) /hpf Ur Squamous Epith Cells 0-5 (0-5) /hpf Urine Bacteria Many H (FEW) /hpf Urine Mucus Few (FEW) /hpf Salicylates (2.8-20) mg/dL Urine Opiates Screen Negative (LJACUX=633) Ur Buprenorphine Scrn Negative (CUTOFF=10) Ur Oxycodone Screen Negative (FNV6QT=417) Urine Methadone Screen Negative (MIJRXJ=964) Ur Propoxyphene Screen Negative (XMJBWQ=784) Acetaminophen (10-30) ug/mL Ur Barbiturates Screen Negative (USABGK=643) Ur Tricyclics Screen Negative (BKZEIS=200) Ur Phencyclidine Scrn Negative (CUTOFF=25) Ur Amphetamine Screen Negative (AIWTHU=264) U Methamphetamines Scrn Negative (SIKWWL=884) U Benzodiazepines Scrn Negative (QXLDVW=532) U Cocaine Metab Screen Negative (VWOGBS=477) U Marijuana (THC) Screen Negative (CUTOFF=50) Ethyl Alcohol (0.00) gm% SARS-CoV-2 RNA (JESENIA) (NEGATIVE) Result Diagrams: 06/11/20 04:48 06/11/20 04:48 Sepsis Event Note - Evaluation Sepsis Screening Result: No Definite Risk - Focused Exam Vital Signs: Vital Signs Temp Pulse Resp BP Pulse Ox 06/10/20 15:20 38.1 C 80 24 H 100/79 97 Problem List Initiated/Reviewed/Updated: Yes Orders Last 24hrs: Active Orders 24 hr Category Date Time Status Patient Status [ADT] Routine ADT 06/10/20 19:08 Active Cardiac Monitoring [RC] . DIRECTED Care 06/10/20 16:02 Active Peripheral IV Care [RC] . DIRECTED Care 06/10/20 16:02 Active Abdomen Ltd [US] Stat Exams 06/10/20 16:04 Taken CULTURE URINE [RM] Stat Lab 06/10/20 18:15 Received Sodium Chloride 0.9% [Normal Saline] 1,000 ml Med 06/10/20 16:15 Active IV ASDIRECTED Sodium Chloride 0.9% [Saline Flush] Med 06/10/20 16:02 Active 10 ml FLUSH ASDIRECTED PRN Peripheral IV Insertion Adult [OM.PC] Stat Oth 06/10/20 16:02 Ordered Medication Orders Sodium Chloride (Normal Saline) 1,000 mls @ 125 mls/hr IV ASDIRECTED DORINA Last Admin: 06/10/20 16:48 Dose: 125 mls/hr Documented by: SANDRO Sodium Chloride (Saline Flush) 10 ml FLUSH ASDIRECTED PRN PRN Reason: Keep Vein Open Last Admin: 06/10/20 16:51 Dose: 10 ml Documented by: SANDRO Assessment/Plan Comment:: This is a 59 yo white female with past medical hx/o Impaired Vision, Liver Cirrhosis, Hypertension, Recurrent Pneumonia, Chronic SOB, Active Smoker, Chronic GERD, Hemorrhoids, Enlarged spleen, Recurrent UTI, Substance Abuse, Hx /o Gallstone, Vit D Deficiency, Anemia of chronic Disease, Chronic electrolytes abnormalities and Chronic ETOH Abuse/Dependence who was brought in by family for evaluation of 2 week history of generalized weakness, gaits instability as well as disorientation along with worsening yellowish color Assessment: Acute: Toxic-metabolic vs Hepatic encephalopathy Acute on chronic Liver failure Thrombocytopenia with Platelet of 48k, likely from chronic liver disease exacerbated by recent alcohol abuse -Abdominal US: report read as nodular capsular contour of the liver with a prominent left lobe and heterogenous echotexture consistent with chronic liver disease likely represents cirrhosis ETOH hepatitis -Maddrey Score is 67.08 -Carries poor prognosis with one month mortality ranging form 30-50% -Hepatitis work in the past was negative -She may benefit with glucocorticoid therapy: Prednisolone 40 mg po daily R/o Choledocholithiasis or Biliary Obstruction Jaundice -Abdominal U/S report read as 10 mm gallstone within the lumen of the gallbladder. Mild gallbladder wall thickening. negative for sonographic Romero sign. No significant pericholecystic fluid. -No fever or chills -No leukocytosis -Able to eat and drink fine -No GI symptoms Elevated MCV of 108.6 Elevated PT of 19.8 Mild hypercapnia with CO2 of 20 Increased AG Metabolic Acidosis Acute Kidney Injury Hypomagnesemia with Mg of 1.2 hyperbilirubinemia with T Bili of 31.2 Elevated Alk Phos of 172 Hypoalbuminemia with Albumin of 2.6 Generalized Weakness Malnutrition due to Chronic alcoholism UTI Proteinuria Ketonuria Bilirubinuria Nicotine Dependence Chronic: Impaired Vision, Liver Cirrhosis, Hypertension, Recurrent Pneumonia, Ch ronic SOB, Active Smoker, Chronic GERD, Hemorrhoids, Enlarged spleen, Recurrent UTI, Substance Abuse, Hx/o Gall Stone, Vit D Deficiency, Anemia of chronic Disease, Chronic electrolytes abnormalities and Chronic ETOH Abuse/Dependence Plan: Admit to [facility]. Regular diet. IV fluids for hydration. Continue IV antibiotic. Urine culture with sensitivity. Replete Mg level. Fractionated bili levels. Ammonia level in AM. Fall/Seizure precautions. MVI, Folate, Vit B12 and Iron supplements. Vit B12, Vit D, and Thyroid panel. Dietary consult for protein calorie malnutrition. Vit K for elevated PT level. Chest x-ray for cough. Counseled on smoking cessation. Will offer nicotine patch. DVT/GI prophylaxis: SCDs and PPI. Her blood is thin with elevated PT level not on anticoagulation. MRCP in AM. NPO midnight. Code status is full. Prognosis is guarded but overall is poor.
[2020-06-10] MEDS ORDERED: Polyethylene Glycol 3350 Powder 17 GM Packet PO PRN (20:08)
[2020-06-10] MEDS ORDERED: Ondansetron 4 MG/2 ML SDV IV PRN (20:08)
[2020-06-10] MEDS ORDERED: oxyCODONE 5 MG Tab PO PRN (20:08)
[2020-06-10] MEDS ORDERED: Zolpidem 5 MG Tab PO PRN (20:08)
[2020-06-10] MEDS ORDERED: HYDROmorphone 0.5 MG/0.5 ML Syringe IVPUSH PRN (20:08)
[2020-06-10] MEDS ORDERED: Ibuprofen 600 MG Tab PO PRN (20:08)
[2020-06-10] MEDS ORDERED: Promethazine 12.5 MG in Sodium Chloride 0.9% 50 ML IV PRN (20:08)
[2020-06-10] MEDS ORDERED: Albuterol/Ipratropium 3.0-0.5 MG/3 ML Neb Soln NEB PRN (20:08)
[2020-06-10] MEDS ORDERED: Phytonadione 5 MG in Sodium Chloride 0.9% 50 ML IV ONE ×2 (20:11→21:00)
[2020-06-10] MEDS ORDERED: prednisoLONE Soln 15 MG/5 ML UD Cup PO ONE (20:12)
[2020-06-10] MEDS ORDERED: Folic Acid 50 MG/10 ML MDV SUBCUT ONE ×2 (20:15→23:00)
[2020-06-10] MEDS ORDERED: Thiamine 100 MG in Sodium Chloride 0.9% 50 ML IV ONE (20:15)
[2020-06-10] MEDS ORDERED: cloNIDine 0.1 MG Tab PO PRN (20:15)
[2020-06-10] MEDS ORDERED: Haloperidol Lactate 5 MG/ML SDV IM PRN (20:15)
[2020-06-10] MEDS ORDERED: Magnesium Sulfate/Water 2 GM/50 ML BAG IV ONE (20:20)
[2020-06-10] MEDS ORDERED: Folic Acid 1 MG Tab PO ONE (23:52)
[2020-06-11] MEDS: Sodium Chloride 0.9% 1,000 ML IV SCH ×3 (00:41→18:12)
--- NOTE | 2020-06-11 07:54 | PCM.PN ---
- General Info Date of Service: 06/11/20 Admission Dx/Problem (Free Text): Admission Diagnosis/Problem Admission Diagnosis/Problem Liver failure Subjective Update: No overnight or acute issues. She looks clinically much better this AM. She still feels weak and remains jaundiced. She just completed her MRCP. Chest x-ray taken yesterday showed no acute abnormal findings. She is afebrile but her WBC drops to 3.71 this morning. Her PT remains elevated at 17.5. Vit B12 is elevated at 5806. Reviewed fractionated bilirubin levels. Her repeat ammonia level is wnl. She has no acute issues or concerns. Functional Status: Reports: Pain Controlled, Tolerating Diet, Ambulating, Urinating. Denies: New Symptoms - Review of Systems General: Reports: Weakness. Denies: Fever, Fatigue, Malaise, Chills HEENT: Denies: Contact Lenses Pulmonary: Denies: Shortness of Breath Cardiovascular: Denies: Chest Pain Gastrointestinal: Denies: Abdominal Pain, Nausea, Vomiting Genitourinary: Denies: Dysuria, Burning Musculoskeletal: Reports: No Symptoms Skin: Reports: Jaundice. Denies: Cyanosis, Pallor, Diaphoresis, Pruritis Neurological: Reports: Weakness, Gait Disturbance. Denies: Confusion Psychiatric: Denies: Depression, Anxiety, Agitation, Hallucinations, Suicidal Ideation, Homicidal Ideation - Patient Data Vitals - Most Recent: Last Vital Signs Temp 36.6 C 06/11/20 05:07 Pulse 65 06/11/20 05:07 Resp 16 06/11/20 05:07 BP 97/53 L 06/11/20 05:07 Pulse Ox 94 L 06/11/20 05:07 Weight - Most Recent: 69.445 kg I&O - Last 24 Hours: Intake & Output 06/10/20 06/11/20 06/11/20 22:59 06:59 14:59 Intake Total 1604 Output Total 250 Balance 1354 Lab Results Last 24 Hours: Laboratory Results - last 24 hr 06/10/20 06/10/20 06/10/20 Range/Units 16:45 16:45 16:45 WBC 5.96 (3.98-10.04) K/mm3 RBC 4.06 (3.98-5.22) M/mm3 Hgb 15.0 (11.2-15.7) gm/dl Hct 44.1 (34.1-44.9) % MCV 108.6 H D (79.4-94.8) fl MCH 36.9 H (25.6-32.2) pg MCHC 34.0 (32.2-35.5) g/dl RDW Std Deviation 77.4 H (36.4-46.3) fL Plt Count 48 L (182-369) K/mm3 MPV 11.8 (9.4-12.3) fl Neut % (Auto) 78.0 H (34.0-71.1) % Lymph % (Auto) 5.9 L (19.3-51.7) % [place] % (Auto) 15.1 H (4.7-12.5) % Eos % (Auto) 0.2 L (0.7-5.8) Baso % (Auto) 0.3 (0.1-1.2) % Neut # (Auto) 4.65 (1.56-6.13) K/mm3 Lymph # (Auto) 0.35 L (1.18-3.74) K/mm3 [place] # (Auto) 0.90 H (0.24-0.36) K/mm3 Eos # (Auto) 0.01 L (0.04-0.36) K/mm3 Baso # (Auto) 0.02 (0.01-0.08) K/mm3 Manual Slide Review Abnormal smear PT 19.8 H (9.7-12.0) SECONDS INR 1.87 APTT 30.9 (21.7-31.4) SECONDS Sodium 137 (136-145) mEq/L Potassium 3.8 (3.5-5.1) mEq/L Chloride 100 (98-107) mEq/L Carbon Dioxide 20 L (21-32) mEq/L Anion Gap 20.8 H (5-15) BUN 48 H D (7-18) mg/dL Creatinine 1.1 H (0.55-1.02) mg/dL Est Cr Clr Drug Dosing 44.43 mL/min Estimated GFR (MDRD) 50 (>60) mL/min BUN/Creatinine Ratio 43.6 H (14-18) Glucose 105 (80-115) mg/dL Calcium 9.2 (8.5-10.1) mg/dL Magnesium 1.2 L (1.8-2.4) mg/dl Iron (50-170) ug/dL TIBC (100-400) ug/dL % Saturation (20-55) % Transferrin (202-364) mg/dL Total Bilirubin 31.2 H (0.2-1.0) mg/dL Direct Bilirubin (0.0-0.2) mg/dl Indirect Bilirubin AST 131 H (15-37) U/L ALT 41 (14-59) U/L Alkaline Phosphatase 172 H (46-116) U/L Ammonia (11-32) umol/L Total Protein 6.0 L (6.4-8.2) g/dl Albumin 2.6 L (3.4-5.0) g/dl Globulin 3.4 gm/dL Albumin/Globulin Ratio 0.8 L (1-2) Lipase 336 (73-393) U/L Free T4 (0.76-1.46) ng/dL TSH 3rd Generation (0.358-3.74) uIU/mL Urine Color (Yellow) Urine Appearance (Clear) Urine pH (5.0-8.0) Ur Specific [place] (1.005-1.030) Urine Protein (Negative) Urine Glucose (UA) (Negative) Urine Ketones (Negative) Urine Occult Blood (Negative) Urine Nitrite (Negative) Urine Bilirubin (Negative) Urine Urobilinogen (0.2-1.0) Ur Leukocyte Esterase (Negative) Urine RBC (0-5) /hpf Urine WBC (0-5) /hpf Ur Squamous Epith Cells (0-5) /hpf Urine Bacteria (FEW) /hpf Urine Mucus (FEW) /hpf Salicylates (2.8-20) mg/dL Urine Opiates Screen (UNMTDL=078) Ur Buprenorphine Scrn (CUTOFF=10) Ur Oxycodone Screen (JTT0HX=456) Urine Methadone Screen (OGURBR=711) Ur Propoxyphene Screen (DNRMKU=957) Acetaminophen 0 L (10-30) ug/mL Ur Barbiturates Screen (SFOCWH=417) Ur Tricyclics Screen (KTTSRJ=602) Ur Phencyclidine Scrn (CUTOFF=25) Ur Amphetamine Screen (EVMRPI=576) U Methamphetamines Scrn (VDUPSH=099) U Benzodiazepines Scrn (VZKHBQ=513) U Cocaine Metab Screen (CWUUWR=253) U Marijuana (THC) Screen (CUTOFF=50) Ethyl Alcohol 0.00 (0.00) gm% SARS-CoV-2 RNA (JESENIA) (NEGATIVE) 06/10/20 06/10/20 06/10/20 Range/Units 16:45 16:45 16:45 WBC (3.98-10.04) K/mm3 RBC (3.98-5.22) M/mm3 Hgb (11.2-15.7) gm/dl Hct (34.1-44.9) % MCV (79.4-94.8) fl MCH (25.6-32.2) pg MCHC (32.2-35.5) g/dl RDW Std Deviation (36.4-46.3) fL Plt Count (182-369) K/mm3 MPV (9.4-12.3) fl Neut % (Auto) (34.0-71.1) % Lymph % (Auto) (19.3-51.7) % [place] % (Auto) (4.7-12.5) % Eos % (Auto) (0.7-5.8) Baso % (Auto) (0.1-1.2) % Neut # (Auto) (1.56-6.13) K/mm3 Lymph # (Auto) (1.18-3.74) K/mm3 [place] # (Auto) (0.24-0.36) K/mm3 Eos # (Auto) (0.04-0.36) K/mm3 Baso # (Auto) (0.01-0.08) K/mm3 Manual Slide Review PT (9.7-12.0) SECONDS INR APTT (21.7-31.4) SECONDS Sodium (136-145) mEq/L Potassium (3.5-5.1) mEq/L Chloride (98-107) mEq/L Carbon Dioxide (21-32) mEq/L Anion Gap (5-15) BUN (7-18) mg/dL Creatinine (0.55-1.02) mg/dL Est Cr Clr Drug Dosing mL/min Estimated GFR (MDRD) (>60) mL/min BUN/Creatinine Ratio (14-18) Glucose (80-115) mg/dL Calcium (8.5-10.1) mg/dL Magnesium (1.8-2.4) mg/dl Iron (50-170) ug/dL TIBC (100-400) ug/dL % Saturation (20-55) % Transferrin (202-364) mg/dL Total Bilirubin (0.2-1.0) mg/dL Direct Bilirubin (0.0-0.2) mg/dl Indirect Bilirubin AST (15-37) U/L ALT (14-59) U/L Alkaline Phosphatase (46-116) U/L Ammonia 14 (11-32) umol/L Total Protein (6.4-8.2) g/dl Albumin (3.4-5.0) g/dl Globulin gm/dL Albumin/Globulin Ratio (1-2) Lipase (73-393) U/L Free T4 (0.76-1.46) ng/dL TSH 3rd Generation (0.358-3.74) uIU/mL Urine Color (Yellow) Urine Appearance (Clear) Urine pH (5.0-8.0) Ur Specific [place] (1.005-1.030) Urine Protein (Negative) Urine Glucose (UA) (Negative) Urine Ketones (Negative) Urine Occult Blood (Negative) Urine Nitrite (Negative) Urine Bilirubin (Negative) Urine Urobilinogen (0.2-1.0) Ur Leukocyte Esterase (Negative) Urine RBC (0-5) /hpf Urine WBC (0-5) /hpf Ur Squamous Epith Cells (0-5) /hpf Urine Bacteria (FEW) /hpf Urine Mucus (FEW) /hpf Salicylates < 0.2 L (2.8-20) mg/dL Urine Opiates Screen (UQRPVO=642) Ur Buprenorphine Scrn (CUTOFF=10) Ur Oxycodone Screen (LAF1XN=765) Urine Methadone Screen (RKXSUX=436) Ur Propoxyphene Screen (DPNNJN=071) Acetaminophen (10-30) ug/mL Ur Barbiturates Screen (EAJWTM=252) Ur Tricyclics Screen (XREBTN=613) Ur Phencyclidine Scrn (CUTOFF=25) Ur Amphetamine Screen (RLDBVQ=188) U Methamphetamines Scrn (ONMDQT=191) U Benzodiazepines Scrn (MURQMU=887) U Cocaine Metab Screen (LVKTCE=518) U Marijuana (THC) Screen (CUTOFF=50) Ethyl Alcohol (0.00) gm% SARS-CoV-2 RNA (JESENIA) Negative (NEGATIVE) 06/10/20 06/10/20 06/10/20 Range/Units 18:03 18:15 18:15 WBC (3.98-10.04) K/mm3 RBC (3.98-5.22) M/mm3 Hgb (11.2-15.7) gm/dl Hct (34.1-44.9) % MCV (79.4-94.8) fl MCH (25.6-32.2) pg MCHC (32.2-35.5) g/dl RDW Std Deviation (36.4-46.3) fL Plt Count (182-369) K/mm3 MPV (9.4-12.3) fl Neut % (Auto) (34.0-71.1) % Lymph % (Auto) (19.3-51.7) % [place] % (Auto) (4.7-12.5) % Eos % (Auto) (0.7-5.8) Baso % (Auto) (0.1-1.2) % Neut # (Auto) (1.56-6.13) K/mm3 Lymph # (Auto) (1.18-3.74) K/mm3 [place] # (Auto) (0.24-0.36) K/mm3 Eos # (Auto) (0.04-0.36) K/mm3 Baso # (Auto) (0.01-0.08) K/mm3 Manual Slide Review PT (9.7-12.0) SECONDS INR APTT (21.7-31.4) SECONDS Sodium (136-145) mEq/L Potassium (3.5-5.1) mEq/L Chloride (98-107) mEq/L Carbon Dioxide (21-32) mEq/L Anion Gap (5-15) BUN (7-18) mg/dL Creatinine (0.55-1.02) mg/dL Est Cr Clr Drug Dosing mL/min Estimated GFR (MDRD) (>60) mL/min BUN/Creatinine Ratio (14-18) Glucose (80-115) mg/dL Calcium (8.5-10.1) mg/dL Magnesium (1.8-2.4) mg/dl Iron 114 (50-170) ug/dL TIBC 208 (100-400) ug/dL % Saturation 55 (20-55) % Transferrin 166 L (202-364) mg/dL Total Bilirubin (0.2-1.0) mg/dL Direct Bilirubin (0.0-0.2) mg/dl Indirect Bilirubin AST (15-37) U/L ALT (14-59) U/L Alkaline Phosphatase (46-116) U/L Ammonia (11-32) umol/L Total Protein (6.4-8.2) g/dl Albumin (3.4-5.0) g/dl Globulin gm/dL Albumin/Globulin Ratio (1-2) Lipase (73-393) U/L Free T4 (0.76-1.46) ng/dL TSH 3rd Generation (0.358-3.74) uIU/mL Urine Color [place] H (Yellow) Urine Appearance Slt cloudy H (Clear) Urine pH 6.5 (5.0-8.0) Ur Specific [place] 1.020 (1.005-1.030) Urine Protein 1+ H (Negative) Urine Glucose (UA) Trace H (Negative) Urine Ketones Trace H (Negative) Urine Occult Blood Trace-lysed H (Negative) Urine Nitrite Positive H (Negative) Urine Bilirubin 3+ H (Negative) Urine Urobilinogen 4.0 H (0.2-1.0) Ur Leukocyte Esterase 1+ H (Negative) Urine RBC 5-10 H (0-5) /hpf Urine WBC 10-20 H (0-5) /hpf Ur Squamous Epith Cells 0-5 (0-5) /hpf Urine Bacteria Many H (FEW) /hpf Urine Mucus Few (FEW) /hpf Salicylates (2.8-20) mg/dL Urine Opiates Screen Negative (XQIMLC=918) Ur Buprenorphine Scrn Negative (CUTOFF=10) Ur Oxycodone Screen Negative (UXB6ET=773) Urine Methadone Screen Negative (RSXYUI=974) Ur Propoxyphene Screen Negative (TATAYV=400) Acetaminophen (10-30) ug/mL Ur Barbiturates Screen Negative (XZDXFT=690) Ur Tricyclics Screen Negative (MBVASY=541) Ur Phencyclidine Scrn Negative (CUTOFF=25) Ur Amphetamine Screen Negative (KSBEJU=327) U Methamphetamines Scrn Negative (EVYYFX=319) U Benzodiazepines Scrn Negative (ZBGRGR=860) U Cocaine Metab Screen Negative (ZOIRRA=132) U Marijuana (THC) Screen Negative (CUTOFF=50) Ethyl Alcohol (0.00) gm% SARS-CoV-2 RNA (JESENIA) (NEGATIVE) 06/10/20 06/10/20 06/11/20 Range/Units 20:11 20:11 04:48 WBC 3.71 L (3.98-10.04) K/mm3 RBC 3.70 L (3.98-5.22) M/mm3 Hgb 13.7 (11.2-15.7) gm/dl Hct 40.8 (34.1-44.9) % MCV 110.3 H (79.4-94.8) fl MCH 37.0 H (25.6-32.2) pg MCHC 33.6 (32.2-35.5) g/dl RDW Std Deviation 79.0 H (36.4-46.3) fL Plt Count 32 L (182-369) K/mm3 MPV 11.5 (9.4-12.3) fl Neut % (Auto) 89.8 H (34.0-71.1) % Lymph % (Auto) 4.3 L (19.3-51.7) % [place] % (Auto) 5.1 (4.7-12.5) % Eos % (Auto) 0 L (0.7-5.8) Baso % (Auto) 0.3 (0.1-1.2) % Neut # (Auto) 3.33 (1.56-6.13) K/mm3 Lymph # (Auto) 0.16 L (1.18-3.74) K/mm3 [place] # (Auto) 0.19 L (0.24-0.36) K/mm3 Eos # (Auto) 0.00 L (0.04-0.36) K/mm3 Baso # (Auto) 0.01 (0.01-0.08) K/mm3 Manual Slide Review Abnormal smear PT (9.7-12.0) SECONDS INR APTT (21.7-31.4) SECONDS Sodium (136-145) mEq/L Potassium (3.5-5.1) mEq/L Chloride (98-107) mEq/L Carbon Dioxide (21-32) mEq/L Anion Gap (5-15) BUN (7-18) mg/dL Creatinine (0.55-1.02) mg/dL Est Cr Clr Drug Dosing mL/min Estimated GFR (MDRD) (>60) mL/min BUN/Creatinine Ratio (14-18) Glucose (80-115) mg/dL Calcium (8.5-10.1) mg/dL Magnesium (1.8-2.4) mg/dl Iron (50-170) ug/dL TIBC (100-400) ug/dL % Saturation (20-55) % Transferrin (202-364) mg/dL Total Bilirubin 31.5 H (0.2-1.0) mg/dL Direct Bilirubin 24.00 H (0.0-0.2) mg/dl Indirect Bilirubin 7.50 AST (15-37) U/L ALT (14-59) U/L Alkaline Phosphatase (46-116) U/L Ammonia (11-32) umol/L Total Protein (6.4-8.2) g/dl Albumin (3.4-5.0) g/dl Globulin gm/dL Albumin/Globulin Ratio (1-2) Lipase (73-393) U/L Free T4 2.42 H (0.76-1.46) ng/dL TSH 3rd Generation 1.536 (0.358-3.74) uIU/mL Urine Color (Yellow) Urine Appearance (Clear) Urine pH (5.0-8.0) Ur Specific [place] (1.005-1.030) Urine Protein (Negative) Urine Glucose (UA) (Negative) Urine Ketones (Negative) Urine Occult Blood (Negative) Urine Nitrite (Negative) Urine Bilirubin (Negative) Urine Urobilinogen (0.2-1.0) Ur Leukocyte Esterase (Negative) Urine RBC (0-5) /hpf Urine WBC (0-5) /hpf Ur Squamous Epith Cells (0-5) /hpf Urine Bacteria (FEW) /hpf Urine Mucus (FEW) /hpf Salicylates (2.8-20) mg/dL Urine Opiates Screen (DQJZSW=083) Ur Buprenorphine Scrn (CUTOFF=10) Ur Oxycodone Screen (TMJ4VK=347) Urine Methadone Screen (YXLBSZ=637) Ur Propoxyphene Screen (BSIZMD=087) Acetaminophen (10-30) ug/mL Ur Barbiturates Screen (YJKNNI=334) Ur Tricyclics Screen (BQMUQT=013) Ur Phencyclidine Scrn (CUTOFF=25) Ur Amphetamine Screen (DCKJFL=826) U Methamphetamines Scrn (TWNCPZ=794) U Benzodiazepines Scrn (JYVWTF=112) U Cocaine Metab Screen (PKKBQP=359) U Marijuana (THC) Screen (CUTOFF=50) Ethyl Alcohol (0.00) gm% SARS-CoV-2 RNA (JESENIA) (NEGATIVE) 06/11/20 Range/Units 04:48 WBC (3.98-10.04) K/mm3 RBC (3.98-5.22) M/mm3 Hgb (11.2-15.7) gm/dl Hct (34.1-44.9) % MCV (79.4-94.8) fl MCH (25.6-32.2) pg MCHC (32.2-35.5) g/dl RDW Std Deviation (36.4-46.3) fL Plt Count (182-369) K/mm3 MPV (9.4-12.3) fl Neut % (Auto) (34.0-71.1) % Lymph % (Auto) (19.3-51.7) % [place] % (Auto) (4.7-12.5) % Eos % (Auto) (0.7-5.8) Baso % (Auto) (0.1-1.2) % Neut # (Auto) (1.56-6.13) K/mm3 Lymph # (Auto) (1.18-3.74) K/mm3 [place] # (Auto) (0.24-0.36) K/mm3 Eos # (Auto) (0.04-0.36) K/mm3 Baso # (Auto) (0.01-0.08) K/mm3 Manual Slide Review PT 17.5 H (9.7-12.0) SECONDS INR 1.65 APTT (21.7-31.4) SECONDS Sodium (136-145) mEq/L Potassium (3.5-5.1) mEq/L Chloride (98-107) mEq/L Carbon Dioxide (21-32) mEq/L Anion Gap (5-15) BUN (7-18) mg/dL Creatinine (0.55-1.02) mg/dL Est Cr Clr Drug Dosing mL/min Estimated GFR (MDRD) (>60) mL/min BUN/Creatinine Ratio (14-18) Glucose (80-115) mg/dL Calcium (8.5-10.1) mg/dL Magnesium (1.8-2.4) mg/dl Iron (50-170) ug/dL TIBC (100-400) ug/dL % Saturation (20-55) % Transferrin (202-364) mg/dL Total Bilirubin (0.2-1.0) mg/dL Direct Bilirubin (0.0-0.2) mg/dl Indirect Bilirubin AST (15-37) U/L ALT (14-59) U/L Alkaline Phosphatase (46-116) U/L Ammonia (11-32) umol/L Total Protein (6.4-8.2) g/dl Albumin (3.4-5.0) g/dl Globulin gm/dL Albumin/Globulin Ratio (1-2) Lipase (73-393) U/L Free T4 (0.76-1.46) ng/dL TSH 3rd Generation (0.358-3.74) uIU/mL Urine Color (Yellow) Urine Appearance (Clear) Urine pH (5.0-8.0) Ur Specific [place] (1.005-1.030) Urine Protein (Negative) Urine Glucose (UA) (Negative) Urine Ketones (Negative) Urine Occult Blood (Negative) Urine Nitrite (Negative) Urine Bilirubin (Negative) Urine Urobilinogen (0.2-1.0) Ur Leukocyte Esterase (Negative) Urine RBC (0-5) /hpf Urine WBC (0-5) /hpf Ur Squamous Epith Cells (0-5) /hpf Urine Bacteria (FEW) /hpf Urine Mucus (FEW) /hpf Salicylates (2.8-20) mg/dL Urine Opiates Screen (QISJXL=979) Ur Buprenorphine Scrn (CUTOFF=10) Ur Oxycodone Screen (FQV7UN=848) Urine Methadone Screen (BPTPMG=568) Ur Propoxyphene Screen (FGCIIL=680) Acetaminophen (10-30) ug/mL Ur Barbiturates Screen (NYHDUP=915) Ur Tricyclics Screen (MKESOM=518) Ur Phencyclidine Scrn (CUTOFF=25) Ur Amphetamine Screen (RTNMID=529) U Methamphetamines Scrn (AHEBGO=105) U Benzodiazepines Scrn (ETVUAL=755) U Cocaine Metab Screen (XSFPQK=032) U Marijuana (THC) Screen (CUTOFF=50) Ethyl Alcohol (0.00) gm% SARS-CoV-2 RNA (JESENIA) (NEGATIVE) Med Orders - Current: Current Medications Albuterol/Ipratropium (Duoneb 3.0-0.5 Mg/3 Ml) 3 ml NEB Q4H PRN PRN Reason: Shortness Of Breath/wheezing Clonidine HCl (Catapres) 0.1 mg PO Q4H PRN PRN Reason: Agitation Folic Acid (Folic Acid) 1 mg PO DAILY [facility] Stop: 06/13/20 09:01 Haloperidol Lactate (Haldol) 2 mg IM Q4H PRN PRN Reason: Agitation Hydromorphone HCl (Dilaudid) 0.25 mg IVPUSH Q2H PRN PRN Reason: Pain (severe 7-10) Sodium Chloride (Normal Saline) 1,000 mls @ 125 mls/hr IV ASDIRECTED [facility] Last Admin: 06/11/20 00:41 Dose: 125 mls/hr Documented by: Promethazine HCl 12.5 mg/ (Sodium Chloride) 50.5 mls @ 100 mls/hr IV Q6H PRN PRN Reason: Nausea/Vomiting Ceftriaxone Sodium 2 gm/ (Sodium Chloride) 100 mls @ 200 mls/hr IV Q24H [facility] Stop: 06/15/20 09:01 Ibuprofen (Motrin) 600 mg PO Q6H PRN PRN Reason: Pain (moderate 4-6) Multivitamins (Thera) 1 each PO DAILY [facility] Stop: 06/16/20 09:01 Ondansetron HCl (Zofran) 4 mg IV Q6H PRN PRN Reason: Nausea/Vomiting Oxycodone HCl (Oxycodone) 5 mg PO Q4H PRN PRN Reason: Pain (moderate 4-6) Pantoprazole Sodium (Protonix Iv) 40 mg IV DAILY [facility] Polyethylene Glycol (Miralax) 17 gm PO DAILY PRN PRN Reason: Constipation Prednisolone (Orapred 15 Mg/5ml Soln) 40 mg PO DAILY [facility] Senna/Docusate Sodium (Senna Plus) 1 tab PO BID PRN PRN Reason: Constipation Sodium Chloride (Saline Flush) 10 ml FLUSH ASDIRECTED PRN PRN Reason: Keep Vein Open Last Admin: 06/10/20 16:51 Dose: 10 ml Documented by: Thiamine HCl (Vitamin B-1) 100 mg IVPUSH DAILY [facility] Zolpidem Tartrate (Ambien) 5 mg PO BEDTIME PRN PRN Reason: Sleep Discontinued Medications Folic Acid (Folic Acid) 1 mg SUBCUT ONETIME ONE Stop: 06/10/20 23:01 Folic Acid (Folic Acid) 1 mg PO ONETIME ONE Stop: 06/10/20 23:53 Last Admin: 06/11/20 00:41 Dose: 1 mg Documented by: Ceftriaxone Sodium 2 gm/ (Sodium Chloride) 100 mls @ 200 mls/hr IV ONETIME ONE Stop: 06/10/20 19:14 Last Admin: 06/10/20 19:02 Dose: 200 mls/hr Documented by: Thiamine HCl 100 mg/ Sodium (Chloride) 51 mls @ 100 mls/hr IV ONETIME ONE Stop: 06/10/20 20:45 Last Admin: 06/10/20 22:19 Dose: 100 mls/hr Documented by: Thiamine HCl 100 mg/ Sodium (Chloride) 51 mls @ 100 mls/hr IV DAILY [facility] Magnesium Sulfate (Magnesium Sulfate In Water 2 Gm/50 Ml) 2 gm in 50 mls @ 25 mls/hr IV ONETIME ONE Stop: 06/10/20 22:19 Last Admin: 06/10/20 23:49 Dose: 25 mls/hr Documented by: Phytonadione 5 mg/ Sodium (Chloride) 50.5 mls @ 100 mls/hr IV NOW ONE Stop: 06/10/20 21:30 Last Admin: 06/10/20 22:57 Dose: 100 mls/hr Documented by: Prednisolone (Orapred 15 Mg/5ml Soln) 40 mg PO ONETIME ONE Stop: 06/10/20 20:13 Last Admin: 06/10/20 22:16 Dose: 40 mg Documented by: - Exam General: Alert, Oriented, Cooperative, No Acute Distress HEENT: Pupils Equal, Pupils Reactive, EOMI, Mucous Membr. Moist/[place], Scleral Icterus Neck: Supple, Trachea Midline Lungs: Normal Respiratory Effort, Decreased Breath Sounds Cardiovascular: Regular Rate, Regular Rhythm GI/Abdominal Exam: Normal Bowel Sounds, Soft, Non-Tender, No Organomegaly, No Distention, No Abnormal Bruit, No Mass (Female) Exam: Deferred Back Exam: Normal Inspection, Decreased Range of Motion Extremities: Normal Inspection, Normal Range of Motion, Non-Tender, No Pedal Edema, Normal Capillary Refill Peripheral Pulses: 2+: Dorsalis Pedis (L), Dorsalis Pedis (R) Skin: Warm, Dry, Intact, Other (yellow color) Neurological: No New Focal Deficit, Normal Speech, Normal Tone, Other (mild hand tremors). No: Normal Gait Psy/Mental Status: Alert, Normal Affect, Normal Mood - Patient Data Lab Results Last 24 hrs: Laboratory Results - last 24 hr 06/10/20 06/10/20 06/10/20 Range/Units 16:45 16:45 16:45 WBC 5.96 (3.98-10.04) K/mm3 RBC 4.06 (3.98-5.22) M/mm3 Hgb 15.0 (11.2-15.7) gm/dl Hct 44.1 (34.1-44.9) % MCV 108.6 H D (79.4-94.8) fl MCH 36.9 H (25.6-32.2) pg MCHC 34.0 (32.2-35.5) g/dl RDW Std Deviation 77.4 H (36.4-46.3) fL Plt Count 48 L (182-369) K/mm3 MPV 11.8 (9.4-12.3) fl Neut % (Auto) 78.0 H (34.0-71.1) % Lymph % (Auto) 5.9 L (19.3-51.7) % [place] % (Auto) 15.1 H (4.7-12.5) % Eos % (Auto) 0.2 L (0.7-5.8) Baso % (Auto) 0.3 (0.1-1.2) % Neut # (Auto) 4.65 (1.56-6.13) K/mm3 Lymph # (Auto) 0.35 L (1.18-3.74) K/mm3 [place] # (Auto) 0.90 H (0.24-0.36) K/mm3 Eos # (Auto) 0.01 L (0.04-0.36) K/mm3 Baso # (Auto) 0.02 (0.01-0.08) K/mm3 Manual Slide Review Abnormal smear PT 19.8 H (9.7-12.0) SECONDS INR 1.87 APTT 30.9 (21.7-31.4) SECONDS Sodium 137 (136-145) mEq/L Potassium 3.8 (3.5-5.1) mEq/L Chloride 100 (98-107) mEq/L Carbon Dioxide 20 L (21-32) mEq/L Anion Gap 20.8 H (5-15) BUN 48 H D (7-18) mg/dL Creatinine 1.1 H (0.55-1.02) mg/dL Est Cr Clr Drug Dosing 44.43 mL/min Estimated GFR (MDRD) 50 (>60) mL/min BUN/Creatinine Ratio 43.6 H (14-18) Glucose 105 (80-115) mg/dL Calcium 9.2 (8.5-10.1) mg/dL Magnesium 1.2 L (1.8-2.4) mg/dl Iron (50-170) ug/dL TIBC (100-400) ug/dL % Saturation (20-55) % Transferrin (202-364) mg/dL Total Bilirubin 31.2 H (0.2-1.0) mg/dL Direct Bilirubin (0.0-0.2) mg/dl Indirect Bilirubin AST 131 H (15-37) U/L ALT 41 (14-59) U/L Alkaline Phosphatase 172 H (46-116) U/L Ammonia (11-32) umol/L Total Protein 6.0 L (6.4-8.2) g/dl Albumin 2.6 L (3.4-5.0) g/dl Globulin 3.4 gm/dL Albumin/Globulin Ratio 0.8 L (1-2) Lipase 336 (73-393) U/L Free T4 (0.76-1.46) ng/dL TSH 3rd Generation (0.358-3.74) uIU/mL Urine Color (Yellow) Urine Appearance (Clear) Urine pH (5.0-8.0) Ur Specific [place] (1.005-1.030) Urine Protein (Negative) Urine Glucose (UA) (Negative) Urine Ketones (Negative) Urine Occult Blood (Negative) Urine Nitrite (Negative) Urine Bilirubin (Negative) Urine Urobilinogen (0.2-1.0) Ur Leukocyte Esterase (Negative) Urine RBC (0-5) /hpf Urine WBC (0-5) /hpf Ur Squamous Epith Cells (0-5) /hpf Urine Bacteria (FEW) /hpf Urine Mucus (FEW) /hpf Salicylates (2.8-20) mg/dL Urine Opiates Screen (RIQHMN=051) Ur Buprenorphine Scrn (CUTOFF=10) Ur Oxycodone Screen (XSE0HA=339) Urine Methadone Screen (EEUBMJ=988) Ur Propoxyphene Screen (YOATAG=387) Acetaminophen 0 L (10-30) ug/mL Ur Barbiturates Screen (ZQVOTT=742) Ur Tricyclics Screen (EZSRXG=673) Ur Phencyclidine Scrn (CUTOFF=25) Ur Amphetamine Screen (WRSAVO=893) U Methamphetamines Scrn (VZECJI=521) U Benzodiazepines Scrn (UCTMFE=579) U Cocaine Metab Screen (EVVFVK=519) U Marijuana (THC) Screen (CUTOFF=50) Ethyl Alcohol 0.00 (0.00) gm% SARS-CoV-2 RNA (JESENIA) (NEGATIVE) 06/10/20 06/10/20 06/10/20 Range/Units 16:45 16:45 16:45 WBC (3.98-10.04) K/mm3 RBC (3.98-5.22) M/mm3 Hgb (11.2-15.7) gm/dl Hct (34.1-44.9) % MCV (79.4-94.8) fl MCH (25.6-32.2) pg MCHC (32.2-35.5) g/dl RDW Std Deviation (36.4-46.3) fL Plt Count (182-369) K/mm3 MPV (9.4-12.3) fl Neut % (Auto) (34.0-71.1) % Lymph % (Auto) (19.3-51.7) % [place] % (Auto) (4.7-12.5) % Eos % (Auto) (0.7-5.8) Baso % (Auto) (0.1-1.2) % Neut # (Auto) (1.56-6.13) K/mm3 Lymph # (Auto) (1.18-3.74) K/mm3 [place] # (Auto) (0.24-0.36) K/mm3 Eos # (Auto) (0.04-0.36) K/mm3 Baso # (Auto) (0.01-0.08) K/mm3 Manual Slide Review PT (9.7-12.0) SECONDS INR APTT (21.7-31.4) SECONDS Sodium (136-145) mEq/L Potassium (3.5-5.1) mEq/L Chloride (98-107) mEq/L Carbon Dioxide (21-32) mEq/L Anion Gap (5-15) BUN (7-18) mg/dL Creatinine (0.55-1.02) mg/dL Est Cr Clr Drug Dosing mL/min Estimated GFR (MDRD) (>60) mL/min BUN/Creatinine Ratio (14-18) Glucose (80-115) mg/dL Calcium (8.5-10.1) mg/dL Magnesium (1.8-2.4) mg/dl Iron (50-170) ug/dL TIBC (100-400) ug/dL % Saturation (20-55) % Transferrin (202-364) mg/dL Total Bilirubin (0.2-1.0) mg/dL Direct Bilirubin (0.0-0.2) mg/dl Indirect Bilirubin AST (15-37) U/L ALT (14-59) U/L Alkaline Phosphatase (46-116) U/L Ammonia 14 (11-32) umol/L Total Protein (6.4-8.2) g/dl Albumin (3.4-5.0) g/dl Globulin gm/dL Albumin/Globulin Ratio (1-2) Lipase (73-393) U/L Free T4 (0.76-1.46) ng/dL TSH 3rd Generation (0.358-3.74) uIU/mL Urine Color (Yellow) Urine Appearance (Clear) Urine pH (5.0-8.0) Ur Specific [place] (1.005-1.030) Urine Protein (Negative) Urine Glucose (UA) (Negative) Urine Ketones (Negative) Urine Occult Blood (Negative) Urine Nitrite (Negative) Urine Bilirubin (Negative) Urine Urobilinogen (0.2-1.0) Ur Leukocyte Esterase (Negative) Urine RBC (0-5) /hpf Urine WBC (0-5) /hpf Ur Squamous Epith Cells (0-5) /hpf Urine Bacteria (FEW) /hpf Urine Mucus (FEW) /hpf Salicylates < 0.2 L (2.8-20) mg/dL Urine Opiates Screen (WYMMRX=349) Ur Buprenorphine Scrn (CUTOFF=10) Ur Oxycodone Screen (UWK0SA=061) Urine Methadone Screen (SMCSRQ=208) Ur Propoxyphene Screen (SPHHEJ=432) Acetaminophen (10-30) ug/mL Ur Barbiturates Screen (TGPAQA=727) Ur Tricyclics Screen (HDNKGY=846) Ur Phencyclidine Scrn (CUTOFF=25) Ur Amphetamine Screen (MDYIMW=877) U Methamphetamines Scrn (PHLLQM=332) U Benzodiazepines Scrn (EIMPQG=362) U Cocaine Metab Screen (BTHNHV=828) U Marijuana (THC) Screen (CUTOFF=50) Ethyl Alcohol (0.00) gm% SARS-CoV-2 RNA (JESENIA) Negative (NEGATIVE) 06/10/20 06/10/20 06/10/20 Range/Units 18:03 18:15 18:15 WBC (3.98-10.04) K/mm3 RBC (3.98-5.22) M/mm3 Hgb (11.2-15.7) gm/dl Hct (34.1-44.9) % MCV (79.4-94.8) fl MCH (25.6-32.2) pg MCHC (32.2-35.5) g/dl RDW Std Deviation (36.4-46.3) fL Plt Count (182-369) K/mm3 MPV (9.4-12.3) fl Neut % (Auto) (34.0-71.1) % Lymph % (Auto) (19.3-51.7) % [place] % (Auto) (4.7-12.5) % Eos % (Auto) (0.7-5.8) Baso % (Auto) (0.1-1.2) % Neut # (Auto) (1.56-6.13) K/mm3 Lymph # (Auto) (1.18-3.74) K/mm3 [place] # (Auto) (0.24-0.36) K/mm3 Eos # (Auto) (0.04-0.36) K/mm3 Baso # (Auto) (0.01-0.08) K/mm3 Manual Slide Review PT (9.7-12.0) SECONDS INR APTT (21.7-31.4) SECONDS Sodium (136-145) mEq/L Potassium (3.5-5.1) mEq/L Chloride (98-107) mEq/L Carbon Dioxide (21-32) mEq/L Anion Gap (5-15) BUN (7-18) mg/dL Creatinine (0.55-1.02) mg/dL Est Cr Clr Drug Dosing mL/min Estimated GFR (MDRD) (>60) mL/min BUN/Creatinine Ratio (14-18) Glucose (80-115) mg/dL Calcium (8.5-10.1) mg/dL Magnesium (1.8-2.4) mg/dl Iron 114 (50-170) ug/dL TIBC 208 (100-400) ug/dL % Saturation 55 (20-55) % Transferrin 166 L (202-364) mg/dL Total Bilirubin (0.2-1.0) mg/dL Direct Bilirubin (0.0-0.2) mg/dl Indirect Bilirubin AST (15-37) U/L ALT (14-59) U/L Alkaline Phosphatase (46-116) U/L Ammonia (11-32) umol/L Total Protein (6.4-8.2) g/dl Albumin (3.4-5.0) g/dl Globulin gm/dL Albumin/Globulin Ratio (1-2) Lipase (73-393) U/L Free T4 (0.76-1.46) ng/dL TSH 3rd Generation (0.358-3.74) uIU/mL Urine Color Jeana H (Yellow) Urine Appearance Slt cloudy H (Clear) Urine pH 6.5 (5.0-8.0) Ur Specific [place] 1.020 (1.005-1.030) Urine Protein 1+ H (Negative) Urine Glucose (UA) Trace H (Negative) Urine Ketones Trace H (Negative) Urine Occult Blood Trace-lysed H (Negative) Urine Nitrite Positive H (Negative) Urine Bilirubin 3+ H (Negative) Urine Urobilinogen 4.0 H (0.2-1.0) Ur Leukocyte Esterase 1+ H (Negative) Urine RBC 5-10 H (0-5) /hpf Urine WBC 10-20 H (0-5) /hpf Ur Squamous Epith Cells 0-5 (0-5) /hpf Urine Bacteria Many H (FEW) /hpf Urine Mucus Few (FEW) /hpf Salicylates (2.8-20) mg/dL Urine Opiates Screen Negative (XKWXSZ=242) Ur Buprenorphine Scrn Negative (CUTOFF=10) Ur Oxycodone Screen Negative (DXV2ED=117) Urine Methadone Screen Negative (KFFAGV=305) Ur Propoxyphene Screen Negative (ZPRTPZ=122) Acetaminophen (10-30) ug/mL Ur Barbiturates Screen Negative (PRILSH=086) Ur Tricyclics Screen Negative (RPSMGX=624) Ur Phencyclidine Scrn Negative (CUTOFF=25) Ur Amphetamine Screen Negative (BLWGOA=330) U Methamphetamines Scrn Negative (WLQADD=765) U Benzodiazepines Scrn Negative (ZTSEAV=765) U Cocaine Metab Screen Negative (MWLTWM=650) U Marijuana (THC) Screen Negative (CUTOFF=50) Ethyl Alcohol (0.00) gm% SARS-CoV-2 RNA (JESENIA) (NEGATIVE) 06/10/20 06/10/20 06/11/20 Range/Units 20:11 20:11 04:48 WBC 3.71 L (3.98-10.04) K/mm3 RBC 3.70 L (3.98-5.22) M/mm3 Hgb 13.7 (11.2-15.7) gm/dl Hct 40.8 (34.1-44.9) % MCV 110.3 H (79.4-94.8) fl MCH 37.0 H (25.6-32.2) pg MCHC 33.6 (32.2-35.5) g/dl RDW Std Deviation 79.0 H (36.4-46.3) fL Plt Count 32 L (182-369) K/mm3 MPV 11.5 (9.4-12.3) fl Neut % (Auto) 89.8 H (34.0-71.1) % Lymph % (Auto) 4.3 L (19.3-51.7) % [place] % (Auto) 5.1 (4.7-12.5) % Eos % (Auto) 0 L (0.7-5.8) Baso % (Auto) 0.3 (0.1-1.2) % Neut # (Auto) 3.33 (1.56-6.13) K/mm3 Lymph # (Auto) 0.16 L (1.18-3.74) K/mm3 [place] # (Auto) 0.19 L (0.24-0.36) K/mm3 Eos # (Auto) 0.00 L (0.04-0.36) K/mm3 Baso # (Auto) 0.01 (0.01-0.08) K/mm3 Manual Slide Review Abnormal smear PT (9.7-12.0) SECONDS INR APTT (21.7-31.4) SECONDS Sodium (136-145) mEq/L Potassium (3.5-5.1) mEq/L Chloride (98-107) mEq/L Carbon Dioxide (21-32) mEq/L Anion Gap (5-15) BUN (7-18) mg/dL Creatinine (0.55-1.02) mg/dL Est Cr Clr Drug Dosing mL/min Estimated GFR (MDRD) (>60) mL/min BUN/Creatinine Ratio (14-18) Glucose (80-115) mg/dL Calcium (8.5-10.1) mg/dL Magnesium (1.8-2.4) mg/dl Iron (50-170) ug/dL TIBC (100-400) ug/dL % Saturation (20-55) % Transferrin (202-364) mg/dL Total Bilirubin 31.5 H (0.2-1.0) mg/dL Direct Bilirubin 24.00 H (0.0-0.2) mg/dl Indirect Bilirubin 7.50 AST (15-37) U/L ALT (14-59) U/L Alkaline Phosphatase (46-116) U/L Ammonia (11-32) umol/L Total Protein (6.4-8.2) g/dl Albumin (3.4-5.0) g/dl Globulin gm/dL Albumin/Globulin Ratio (1-2) Lipase (73-393) U/L Free T4 2.42 H (0.76-1.46) ng/dL TSH 3rd Generation 1.536 (0.358-3.74) uIU/mL Urine Color (Yellow) Urine Appearance (Clear) Urine pH (5.0-8.0) Ur Specific [place] (1.005-1.030) Urine Protein (Negative) Urine Glucose (UA) (Negative) Urine Ketones (Negative) Urine Occult Blood (Negative) Urine Nitrite (Negative) Urine Bilirubin (Negative) Urine Urobilinogen (0.2-1.0) Ur Leukocyte Esterase (Negative) Urine RBC (0-5) /hpf Urine WBC (0-5) /hpf Ur Squamous Epith Cells (0-5) /hpf Urine Bacteria (FEW) /hpf Urine Mucus (FEW) /hpf Salicylates (2.8-20) mg/dL Urine Opiates Screen (DTBMAT=683) Ur Buprenorphine Scrn (CUTOFF=10) Ur Oxycodone Screen (QHB2ZL=989) Urine Methadone Screen (XFSMOC=181) Ur Propoxyphene Screen (DLDKBG=070) Acetaminophen (10-30) ug/mL Ur Barbiturates Screen (TMGVBD=133) Ur Tricyclics Screen (NYUUBN=084) Ur Phencyclidine Scrn (CUTOFF=25) Ur Amphetamine Screen (QPMEPT=290) U Methamphetamines Scrn (RUMLUK=085) U Benzodiazepines Scrn (COFPCB=734) U Cocaine Metab Screen (RNPFMP=230) U Marijuana (THC) Screen (CUTOFF=50) Ethyl Alcohol (0.00) gm% SARS-CoV-2 RNA (JESENIA) (NEGATIVE) 06/11/20 Range/Units 04:48 WBC (3.98-10.04) K/mm3 RBC (3.98-5.22) M/mm3 Hgb (11.2-15.7) gm/dl Hct (34.1-44.9) % MCV (79.4-94.8) fl MCH (25.6-32.2) pg MCHC (32.2-35.5) g/dl RDW Std Deviation (36.4-46.3) fL Plt Count (182-369) K/mm3 MPV (9.4-12.3) fl Neut % (Auto) (34.0-71.1) % Lymph % (Auto) (19.3-51.7) % [place] % (Auto) (4.7-12.5) % Eos % (Auto) (0.7-5.8) Baso % (Auto) (0.1-1.2) % Neut # (Auto) (1.56-6.13) K/mm3 Lymph # (Auto) (1.18-3.74) K/mm3 [place] # (Auto) (0.24-0.36) K/mm3 Eos # (Auto) (0.04-0.36) K/mm3 Baso # (Auto) (0.01-0.08) K/mm3 Manual Slide Review PT 17.5 H (9.7-12.0) SECONDS INR 1.65 APTT (21.7-31.4) SECONDS Sodium (136-145) mEq/L Potassium (3.5-5.1) mEq/L Chloride (98-107) mEq/L Carbon Dioxide (21-32) mEq/L Anion Gap (5-15) BUN (7-18) mg/dL Creatinine (0.55-1.02) mg/dL Est Cr Clr Drug Dosing mL/min Estimated GFR (MDRD) (>60) mL/min BUN/Creatinine Ratio (14-18) Glucose (80-115) mg/dL Calcium (8.5-10.1) mg/dL Magnesium (1.8-2.4) mg/dl Iron (50-170) ug/dL TIBC (100-400) ug/dL % Saturation (20-55) % Transferrin (202-364) mg/dL Total Bilirubin (0.2-1.0) mg/dL Direct Bilirubin (0.0-0.2) mg/dl Indirect Bilirubin AST (15-37) U/L ALT (14-59) U/L Alkaline Phosphatase (46-116) U/L Ammonia (11-32) umol/L Total Protein (6.4-8.2) g/dl Albumin (3.4-5.0) g/dl Globulin gm/dL Albumin/Globulin Ratio (1-2) Lipase (73-393) U/L Free T4 (0.76-1.46) ng/dL TSH 3rd Generation (0.358-3.74) uIU/mL Urine Color (Yellow) Urine Appearance (Clear) Urine pH (5.0-8.0) Ur Specific [place] (1.005-1.030) Urine Protein (Negative) Urine Glucose (UA) (Negative) Urine Ketones (Negative) Urine Occult Blood (Negative) Urine Nitrite (Negative) Urine Bilirubin (Negative) Urine Urobilinogen (0.2-1.0) Ur Leukocyte Esterase (Negative) Urine RBC (0-5) /hpf Urine WBC (0-5) /hpf Ur Squamous Epith Cells (0-5) /hpf Urine Bacteria (FEW) /hpf Urine Mucus (FEW) /hpf Salicylates (2.8-20) mg/dL Urine Opiates Screen (RCIIQD=096) Ur Buprenorphine Scrn (CUTOFF=10) Ur Oxycodone Screen (EPU9OM=876) Urine Methadone Screen (VHEWTP=784) Ur Propoxyphene Screen (TZUWMK=208) Acetaminophen (10-30) ug/mL Ur Barbiturates Screen (FHYEDP=316) Ur Tricyclics Screen (MXTWDM=552) Ur Phencyclidine Scrn (CUTOFF=25) Ur Amphetamine Screen (DMJXWR=415) U Methamphetamines Scrn (JTGSIL=649) U Benzodiazepines Scrn (QWSSRT=711) U Cocaine Metab Screen (PIHHYE=307) U Marijuana (THC) Screen (CUTOFF=50) Ethyl Alcohol (0.00) gm% SARS-CoV-2 RNA (JESENIA) (NEGATIVE) Result Diagrams: 06/11/20 04:48 06/11/20 04:48 Sepsis Event Note - Evaluation Sepsis Screening Result: No Definite Risk - Focused Exam Vital Signs: Vital Signs Temp Temp Pulse Pulse Resp BP BP 06/11/20 05:07 36.6 C 65 16 97/53 L 06/10/20 21:21 36.8 C 72 16 106/82 06/10/20 21:02 36.4 C 72 21 H 99/71 Pulse Ox 06/11/20 05:07 94 L 06/10/20 21:21 94 L 06/10/20 21:02 94 L - Problem List Review Problem List Initiated/Reviewed/Updated: Yes - My Orders Last 24 Hours: My Active Orders 06/10/20 Dinner Regular Diet [DIET] 06/10/20 19:45 Chest 1V Frontal [CR] Urgent 06/10/20 20:08 Height and Weight [RC] 06 Intake and Output [RC] 04,16 Oxygen Therapy [RC] PRN Up With Assistance [RC] BID Up ad Tess [RC] BID VTE/DVT Education [RC] DAILY Vital Signs [RC] Q4HR Consult to Case Management/Licensed Practical Nurse [CONS] Routine Consult to Ecologist Technician [CONS] Routine Consult to Spiritual Care [CONS] Routine OT Evaluation and Treatment [CONS] Routine PT Evaluation and Treatment [CONS] Routine Respiratory Care Assess and Treatment [CONS] Routine Albuterol/Ipratropium [DuoNeb 3.0-0.5 MG/3 ML] 3 ml NEB Q4H PRN Docusate Sodium/Sennosides [Senna Plus] 1 tab PO BID PRN HYDROmorphone [Dilaudid] 0.25 mg IVPUSH Q2H PRN Ibuprofen [Motrin] 600 mg PO Q6H PRN Ondansetron [Zofran] 4 mg IV Q6H PRN Promethazine [Phenergan] 12.5 mg Sodium Chloride 0.9% [Normal Saline] 50 ml IV Q6H Zolpidem [Ambien] 5 mg PO BEDTIME PRN oxyCODONE 5 mg PO Q4H PRN polyethylene glycoL 3350 [MiraLAX] 17 gm PO DAILY PRN Resuscitation Status Routine 06/10/20 20:09 RT Aerosol Therapy [RC] ASDIRECTED 06/10/20 20:15 Aspiration Precautions [RC] BID CIWAA Assessment [RC] Q4HR Notify Provider [RC] PRN Haloperidol Lactate [Haldol] 2 mg IM Q4H PRN cloNIDine [Catapres] 0.1 mg PO Q4H PRN Seizure Precautions [OM.PC] Routine 06/10/20 20:20 Precautions [COMM] Routine 06/11/20 04:48 COMPREHENSIVE METABOLIC PN,CMP [CHEM] AM MAGNESIUM [CHEM] AM VITAMIN B12 [CHEM] AM VITAMIN D,25-HYDROXY [CHEM] AM 06/11/20 Breakfast NPO After Midnight [Nothing per Oral After Midnight Diet] [DIET] Abdomen wo Cont [MR] Routine 06/11/20 07:46 AMMONIA VENOUS [CHEM] Routine 06/11/20 09:00 Folic Acid 1 mg PO DAILY Multivitamins,Therapeutic [Thera] 1 each PO DAILY Pantoprazole [ProTONIX IV] 40 mg IV DAILY Thiamine [Vitamin B-1] 100 mg IVPUSH DAILY cefTRIAXone [Rocephin] 2 gm Sodium Chloride 0.9% [Normal Saline] 100 ml IV Q24 H prednisoLONE [OraPred 15 MG/5ML Soln] 40 mg PO DAILY 06/12/20 05:11 CBC WITH AUTO DIFF [HEME] AM COMPREHENSIVE METABOLIC PN,CMP [CHEM] AM INR,PT,PROTHROMBIN TIME [COAG] AM MAGNESIUM [CHEM] AM 06/13/20 05:11 CBC WITH AUTO DIFF [HEME] AM COMPREHENSIVE METABOLIC PN,CMP [CHEM] AM INR,PT,PROTHROMBIN TIME [COAG] AM MAGNESIUM [CHEM] AM 06/14/20 05:11 CBC WITH AUTO DIFF [HEME] AM COMPREHENSIVE METABOLIC PN,CMP [CHEM] AM MAGNESIUM [CHEM] AM 06/15/20 05:11 CBC WITH AUTO DIFF [HEME] AM COMPREHENSIVE METABOLIC PN,CMP [CHEM] AM MAGNESIUM [CHEM] AM 06/16/20 05:11 CBC WITH AUTO DIFF [HEME] AM COMPREHENSIVE METABOLIC PN,CMP [CHEM] AM MAGNESIUM [CHEM] AM 06/17/20 05:11 CBC WITH AUTO DIFF [HEME] AM COMPREHENSIVE METABOLIC PN,CMP [CHEM] AM MAGNESIUM [CHEM] AM - Plan Plan:: This is a 59 yo white female with past medical hx/o Impaired Vision, Liver Cirrhosis, Hypertension, Recurrent Pneumonia, Chronic SOB, Active Smoker, Chronic GERD, Hemorrhoids, Enlarged spleen, Recurrent UTI, Substance Abuse, Hx/o Gallstone, Vit D Deficiency, Anemia of chronic Disease, Chronic electrolytes abnormalities and Chronic ETOH Abuse/Dependence who was brought by family for evaluation of 2 week history of generalized weakness, gait instability as well as disorientation along with worsening yellowish color Assessment: Acute: Toxic-metabolic vs Hepatic encephalopathy, improved Acute on chronic Liver failure secondary to alcohol abuse Small lesion, 7 mm, within the right lobe; new abnormal findings (patient and daughter aware) Elevated Vit D and B12 levels, likely from oversupplementation at home Elevated FT4 of 2.42 with normal TSH level Elevated MCV of 108.6; now 110.3 -Has underlying chronic liver disease -Abdominal US: report read as nodular capsular contour of the liver with a prominent left lobe and heterogenous echotexture consistent with chronic liver disease likely represents cirrhosis -CIWAA score is mild -Plan: Continue CIWAA protocol, Hold Vit D and B12 supplements due to elevated levels. Repeat MRI in 3 months and GI referral outpatient ETOH Hepatitis -Maddrey Score is 67.08 -Carries poor prognosis with one month mortality ranging form 30-50% -Hepatitis work in the past was negative -She may benefit with glucocorticoid therapy: Continue prednisolone 40 mg po daily -Advised to quit alcohol R/o Choledocholithiasis or Biliary Obstruction Jaundice/Hyperbilirubinemia Elevated Alk Phos of 172; now 152 -Abdominal U/S report read as 10 mm gallstone within the lumen of the gallbladder. Mild gallbladder wall thickening. Negative for sonographic Romero sign. No significant pericholecystic fluid. -No fever or chills -No leukocytosis -Able to eat and drink fine -No GI symptoms -T. Bilirubin of 31.5-->now 28.1 -MRCP report read as within normal limits. Small gallstone is seen within the gallbladder. Thrombocytopenia with Platelet of 48k Elevated PT of 19.8; now 17.5 Splenomegaly with length of 15.9 cm -Platelet now at 32K, likely from chronic liver disease exacerbated by recent alcohol abuse -No active bleeding or melena Mild hypercapnia with CO2 of 20 Increased AG Metabolic Acidosis -Likely duet to baseline pulmonary insufficiency -She is still an active smoker -Continue to monitor Hypoalbuminemia with Albumin of 2.6; now 2.4 Calore Protein Malnutrition Generalized Weakness -Thyroid Panel: Elevated FT4 of 2.42 with normal TSH level -Elevated Vit D and B12 levels -She is unsteady, weak and shaky this morning - PT/OT to assess and treat. Increased food intake. Dietary consult UTI Proteinuria, liver dysfunction Ketonuria, poor nutritional intake and fasting Bilirubinuria, from liver dysfunction -Secondary to GNR -Afebrile -Currently on IV Rocephin for antibiotic treatment Nicotine Dependence -Smoke 6 cigarettes a day -Counseled on smoking cessation -Refused nicotine patch or gum Resolved: Acute Kidney Injury, resolved Hypomagnesemia with Mg of 1.2, resolved Chronic: Impaired Vision, Liver Cirrhosis, Hypertension, Recurrent Pneumonia, Chronic SOB, Active Smoker, Chronic GERD, Hemorrhoids, Enlarged spleen, Recurrent UTI, Substance Abuse, Hx/o Gall Stone, Vit D Deficiency, Anemia of chronic Disease, Chronic electrolytes abnormalities and Chronic ETOH Abuse/Dependence Plan: She looks much better clinically this AM. Continue current treatment and IV antibiotic. Regular diet. IV fluids for hydration. Urine culture with sensitivity. Replete Mg level. Fall/Seizure precautions. MVI, Folate, Vit B12 and Iron supplements. Dietary consult for protein calorie malnutrition. Vit K for elevated PT level. Vit K 5 mg IV x1 today. Avoid ASA. CIWAA protocol started last night-we will continue. DVT/GI prophylaxis: SCDs and PPI. Chemical prophylaxis is CI due to elevated PT level. Code status is full. Prognosis remains guarded but overall is poor.
[2020-06-11 08:42] LABS: VITAMIN D,25-HYDROXY 131.8 ng/ml (30.0-100.0)
--- NOTE | 2020-06-11 08:48 | CR ---
Chest: Portable view of the chest was obtained. Comparison: Prior chest x-ray of 11/19/19 and 06/19/19. Heart size and mediastinum are within normal limits. Lungs are clear with no acute parenchymal change. No acute osseous finding is appreciated. Minimal scoliosis is noted. Impression: 1. Nothing acute is seen on portable chest x-ray. Diagnostic code #2
--- NOTE | 2020-06-11 08:54 | US ---
Limited abdominal ultrasound: Multiple real-time images of the right upper abdomen were obtained. Comparison: Prior abdominal ultrasound exam of 01/03/20. Liver is echogenic and shows slight nodular contour suggesting cirrhotic change. Pancreas is incompletely seen. Visualized portions of the pancreas show no discrete abnormality. Proximal aorta shows no aneurysm. Right kidney shows no hydronephrosis or mass. Right kidney has a length of 10.8 cm. Single 1 cm gallstone seen within the gallbladder. Gallbladder shows minimal areas of thickening. No biliary duct dilatation is appreciated. Inferior vena cava is patent. Main portal vein shows normal hepatopedal flow. Impression: 1. Findings compatible with cirrhotic change. Findings are similar to previous study. 2. 1 cm gallstone with mild gallbladder wall thickening but no biliary duct dilatation. 3. No additional abnormality is appreciated on right upper quadrant abdominal ultrasound. Diagnostic code #3 I agree with preliminary report from [facility], finalized on 06/10/20, 7:19 PM OUTSOLE SCHEDULER
[2020-06-11] MEDS ORDERED: Multivitamins,Therapeutic Tab PO SCH (09:00)
[2020-06-11] MEDS ORDERED: Thiamine 100 MG in Sodium Chloride 0.9% 50 ML IV SCH (09:00)
[2020-06-11] MEDS ORDERED: cefTRIAXone 2 GM in Sodium Chloride 0.9% 100 ML IV SCH (09:00)
[2020-06-11] MEDS: Pantoprazole 40 MG Vial IV SCH (09:27)
[2020-06-11] MEDS: Folic Acid 1 MG Tab PO SCH (09:27)
[2020-06-11] MEDS: Thiamine 200 MG/2 ML MDV IVPUSH SCH (09:28)
[2020-06-11] MEDS: prednisoLONE Soln 15 MG/5 ML UD Cup PO SCH (09:28)
--- NOTE | 2020-06-11 09:34 | MR ---
MRI abdomen Technique: Various sequences were obtained in axial and coronal planes. MRCP study was also performed. Comparison: Prior limited ultrasound performed on the same day as well as previous CT abdomen and pelvis exam at 09/26/17. Findings: Common hepatic and common bile duct appear normal in size. No filling defects are seen to indicate discrete stone. Small gallstone is seen within the gallbladder. Pancreas shows no discrete abnormality. No discrete abnormality is seen within the kidneys. Spleen is enlarged with length of 15.9 cm. Cirrhotic change is noted within the liver. Small low signal abnormality is noted within the right lobe of the liver measuring 7 mm. This is noted on the T1 sequence and is not seen on the other sequences with certainty. There is a minimal amount of fluid being seen around the liver. Impression: 1. Cirrhotic change within the liver. Small hypoechoic lesion is noted within the right lobe of the liver measuring 7 mm. This finding is not seen on prior CT exam. Consider repeating the MRI abdominal study in 3 months to confirm stability. 2. MRCP appears within normal limits. Small gallstone is seen within the gallbladder. 3. Enlarged spleen with length of 15.9 cm. 4. Minimal fluid noted around the liver. Diagnostic code #9
[2020-06-11] MEDS ORDERED: Phytonadione 5 MG in Sodium Chloride 0.9% 50 ML IV ONE (11:00)
[2020-06-11] MEDS: cefTRIAXone 2 GM in Sodium Chloride 0.9% 100 ML IV SCH (18:13)
[2020-06-11] MEDS: Potassium Chloride 20 MEQ Tab.ER PO SCH (20:58)
[2020-06-11] MEDS: Spironolactone 25 MG Tab PO SCH (20:59)
[2020-06-11] MEDS: Rifaximin 550 MG Tab PO SCH (20:59)
[2020-06-11] MEDS: Propranolol 10 MG Tab PO SCH (21:00)
[2020-06-11] MEDS: Magnesium Oxide 400 MG Tab PO SCH (21:00)
[2020-06-11] MEDS: Latanoprost 0.005% Ophth Soln 2.5 ML Bottle EYEBOTH SCH (21:01)
[2020-06-11] MEDS: Calcium Carbonate 600 MG Tab PO SCH (21:01)
[2020-06-12] MEDS: Sodium Chloride 0.9% 1,000 ML IV SCH (02:54)
--- NOTE | 2020-06-12 06:36 | PCM.PN ---
- General Info Date of Service: 06/12/20 Admission Dx/Problem (Free Text): Admission Diagnosis/Problem Admission Diagnosis/Problem Liver failure Subjective Update: No overnight or acute issues. She slept pretty good after midnight. She walked down the [place]ahl w/o any trouble according to her. Her PT remains elevated at 17. Her Mg level is 1.7. Her T. bilirubin now improves to 23. Functional Status: Reports: Pain Controlled, Tolerating Diet, Ambulating, Urinating. Denies: New Symptoms - Review of Systems General: Reports: Weakness. Denies: Fever, Chills HEENT: Denies: Contact Lenses Pulmonary: Denies: Shortness of Breath Cardiovascular: Denies: Chest Pain Gastrointestinal: Denies: Abdominal Pain, Nausea, Vomiting Genitourinary: Denies: Dysuria Musculoskeletal: Denies: Joint Pain Skin: Reports: Jaundice Neurological: Reports: Weakness, Gait Disturbance. Denies: Difficulty Walking Psychiatric: Reports: Confusion. Denies: Depression, Anxiety, Hallucinations - Patient Data Vitals - Most Recent: Last Vital Signs Temp 36.6 C 06/12/20 03:12 Pulse 66 06/12/20 03:12 Resp 18 06/12/20 03:12 BP 91/60 06/12/20 03:12 Pulse Ox 95 06/12/20 03:12 Weight - Most Recent: 69.445 kg I&O - Last 24 Hours: Intake & Output 06/11/20 06/11/20 06/12/20 14:59 22:59 06:59 Intake Total 1982 1612 Output Total 300 450 Balance 1682 1162 Lab Results Last 24 Hours: Laboratory Results - last 24 hr 06/11/20 06/11/20 06/11/20 Range/Units 04:48 04:48 04:48 WBC (3.98-10.04) K/mm3 RBC (3.98-5.22) M/mm3 Hgb (11.2-15.7) gm/dl Hct (34.1-44.9) % MCV (79.4-94.8) fl MCH (25.6-32.2) pg MCHC (32.2-35.5) g/dl RDW Std Deviation (36.4-46.3) fL Plt Count (182-369) K/mm3 MPV (9.4-12.3) fl Neut % (Auto) (34.0-71.1) % Lymph % (Auto) (19.3-51.7) % [place] % (Auto) (4.7-12.5) % Eos % (Auto) (0.7-5.8) Baso % (Auto) (0.1-1.2) % Neut # (Auto) (1.56-6.13) K/mm3 Lymph # (Auto) (1.18-3.74) K/mm3 [place] # (Auto) (0.24-0.36) K/mm3 Eos # (Auto) (0.04-0.36) K/mm3 Baso # (Auto) (0.01-0.08) K/mm3 Manual Slide Review Abnormal smear Sodium 136 (136-145) mEq/L Potassium 3.8 (3.5-5.1) mEq/L Chloride 101 (98-107) mEq/L Carbon Dioxide 17 L (21-32) mEq/L Anion Gap 21.8 H (5-15) BUN 41 H (7-18) mg/dL Creatinine 0.8 (0.55-1.02) mg/dL Est Cr Clr Drug Dosing 61.09 mL/min Estimated GFR (MDRD) > 60 (>60) mL/min BUN/Creatinine Ratio 51.3 H (14-18) Glucose 119 H (80-115) mg/dL Calcium 8.7 (8.5-10.1) mg/dL Magnesium 1.8 (1.8-2.4) mg/dl Total Bilirubin 28.1 H (0.2-1.0) mg/dL AST 117 H (15-37) U/L ALT 37 (14-59) U/L Alkaline Phosphatase 152 H (46-116) U/L Ammonia (11-32) umol/L Total Protein 6.0 L (6.4-8.2) g/dl Albumin 2.4 L (3.4-5.0) g/dl Globulin 3.6 gm/dL Albumin/Globulin Ratio 0.7 L (1-2) Vitamin B12 5806 H (193-986) pg/ml Vitamin D 25-Hydroxy 131.8 H (30.0-100.0) ng/ml 06/11/20 06/12/20 Range/Units 07:46 05:00 WBC 4.60 (3.98-10.04) K/mm3 RBC 3.59 L (3.98-5.22) M/mm3 Hgb 13.2 (11.2-15.7) gm/dl Hct 40.1 (34.1-44.9) % MCV 111.7 H (79.4-94.8) fl MCH 36.8 H (25.6-32.2) pg MCHC 32.9 (32.2-35.5) g/dl RDW Std Deviation 82.7 H (36.4-46.3) fL Plt Count 44 L (182-369) K/mm3 MPV 11.8 (9.4-12.3) fl Neut % (Auto) 76.3 H (34.0-71.1) % Lymph % (Auto) 6.3 L (19.3-51.7) % [place] % (Auto) 17.2 H (4.7-12.5) % Eos % (Auto) 0 L (0.7-5.8) Baso % (Auto) 0.0 L (0.1-1.2) % Neut # (Auto) 3.51 (1.56-6.13) K/mm3 Lymph # (Auto) 0.29 L (1.18-3.74) K/mm3 [place] # (Auto) 0.79 H (0.24-0.36) K/mm3 Eos # (Auto) 0.00 L (0.04-0.36) K/mm3 Baso # (Auto) 0.00 L (0.01-0.08) K/mm3 Manual Slide Review Sodium (136-145) mEq/L Potassium (3.5-5.1) mEq/L Chloride (98-107) mEq/L Carbon Dioxide (21-32) mEq/L Anion Gap (5-15) BUN (7-18) mg/dL Creatinine (0.55-1.02) mg/dL Est Cr Clr Drug Dosing mL/min Estimated GFR (MDRD) (>60) mL/min BUN/Creatinine Ratio (14-18) Glucose (80-115) mg/dL Calcium (8.5-10.1) mg/dL Magnesium (1.8-2.4) mg/dl Total Bilirubin (0.2-1.0) mg/dL AST (15-37) U/L ALT (14-59) U/L Alkaline Phosphatase (46-116) U/L Ammonia 11 (11-32) umol/L Total Protein (6.4-8.2) g/dl Albumin (3.4-5.0) g/dl Globulin gm/dL Albumin/Globulin Ratio (1-2) Vitamin B12 (193-986) pg/ml Vitamin D 25-Hydroxy (30.0-100.0) ng/ml David Results Last 24 Hours: Microbiology 06/10/20 18:15 Urine Culture - Preliminary Urine, Bladder Gram Negative Rods Med Orders - Current: Current Medications Albuterol/Ipratropium (Duoneb 3.0-0.5 Mg/3 Ml) 3 ml NEB Q4H PRN PRN Reason: Shortness Of Breath/wheezing Aripiprazole (Abilify) 1 mg PO DAILY [facility] Calcium Carbonate/Glycine (Calcium Carbonate) 600 mg PO BID [facility] Last Admin: 06/11/20 21:01 Dose: 600 mg Documented by: Clonidine HCl (Catapres) 0.1 mg PO Q4H PRN PRN Reason: Agitation Folic Acid (Folic Acid) 1 mg PO DAILY [facility] Stop: 06/13/20 09:01 Last Admin: 06/11/20 09:27 Dose: 1 mg Documented by: Haloperidol Lactate (Haldol) 2 mg IM Q4H PRN PRN Reason: Agitation Hydromorphone HCl (Dilaudid) 0.25 mg IVPUSH Q2H PRN PRN Reason: Pain (severe 7-10) Sodium Chloride (Normal Saline) 1,000 mls @ 125 mls/hr IV ASDIRECTED [facility] Last Admin: 06/12/20 02:54 Dose: 125 mls/hr Documented by: Promethazine HCl 12.5 mg/ (Sodium Chloride) 50.5 mls @ 100 mls/hr IV Q6H PRN PRN Reason: Nausea/Vomiting Ceftriaxone Sodium 2 gm/ (Sodium Chloride) 100 mls @ 200 mls/hr IV Q24H [facility] Stop: 06/15/20 19:01 Last Admin: 06/11/20 18:13 Dose: 200 mls/hr Documented by: Ibuprofen (Motrin) 600 mg PO Q6H PRN PRN Reason: Pain (moderate 4-6) Latanoprost (Xalatan 0.005% Ophth Soln) 0 ml EYEBOTH BEDTIME [facility] Last Admin: 06/11/20 21:01 Dose: 1 drop Documented by: Magnesium Oxide (Magnesium Oxide) 400 mg PO BID [facility] Last Admin: 06/11/20 21:00 Dose: 400 mg Documented by: Multivitamins (Thera) 1 each PO DAILY [facility] Stop: 06/16/20 09:01 Last Admin: 06/11/20 09:27 Dose: 1 each Documented by: Multivitamins (Thera) 1 each PO DAILY [facility] Ondansetron HCl (Zofran) 4 mg IV Q6H PRN PRN Reason: Nausea/Vomiting Oxycodone HCl (Oxycodone) 5 mg PO Q4H PRN PRN Reason: Pain (moderate 4-6) Pantoprazole Sodium (Protonix Iv) 40 mg IV DAILY [facility] Last Admin: 06/11/20 09:27 Dose: 40 mg Documented by: Polyethylene Glycol (Miralax) 17 gm PO DAILY PRN PRN Reason: Constipation Potassium Chloride (Klor-Con M20) 20 meq PO BID [facility] Last Admin: 06/11/20 20:58 Dose: 20 meq Documented by: Prednisolone (Orapred 15 Mg/5ml Soln) 40 mg PO DAILY [facility] Last Admin: 06/11/20 09:28 Dose: 40 mg Documented by: Propranolol HCl (Inderal) 10 mg PO TID [facility] Last Admin: 06/11/20 21:00 Dose: 10 mg Documented by: Rifaximin (Xifaxan) 550 mg PO BID [facility] Last Admin: 06/11/20 20:59 Dose: 550 mg Documented by: Senna/Docusate Sodium (Senna Plus) 1 tab PO BID PRN PRN Reason: Constipation Sodium Chloride (Saline Flush) 10 ml FLUSH ASDIRECTED PRN PRN Reason: Keep Vein Open Last Admin: 06/10/20 16:51 Dose: 10 ml Documented by: Spironolactone (Aldactone) 50 mg PO BID [facility] Last Admin: 06/11/20 20:59 Dose: 50 mg Documented by: Thiamine HCl (Vitamin B-1) 100 mg IVPUSH DAILY [facility] Last Admin: 06/11/20 09:28 Dose: 100 mg Documented by: Tiotropium [place] (Spiriva Respimat) 0 gm INH DAILY [facility] Zolpidem Tartrate (Ambien) 5 mg PO BEDTIME PRN PRN Reason: Sleep Discontinued Medications Folic Acid (Folic Acid) 1 mg SUBCUT ONETIME ONE Stop: 06/10/20 23:01 Last Admin: 06/11/20 16:55 Dose: Not Given Documented by: Folic Acid (Folic Acid) 1 mg PO ONETIME ONE Stop: 06/10/20 23:53 Last Admin: 06/11/20 00:41 Dose: 1 mg Documented by: Ceftriaxone Sodium 2 gm/ (Sodium Chloride) 100 mls @ 200 mls/hr IV ONETIME ONE Stop: 06/10/20 19:14 Last Admin: 06/10/20 19:02 Dose: 200 mls/hr Documented by: Ceftriaxone Sodium 2 gm/ (Sodium Chloride) 100 mls @ 200 mls/hr IV Q24H [facility] Stop: 06/15/20 09:01 Last Admin: 06/11/20 10:08 Dose: Not Given Documented by: Thiamine HCl 100 mg/ Sodium (Chloride) 51 mls @ 100 mls/hr IV ONETIME ONE Stop: 06/10/20 20:45 Last Admin: 06/10/20 22:19 Dose: 100 mls/hr Documented by: Thiamine HCl 100 mg/ Sodium (Chloride) 51 mls @ 100 mls/hr IV DAILY [facility] Magnesium Sulfate (Magnesium Sulfate In Water 2 Gm/50 Ml) 2 gm in 50 mls @ 25 mls/hr IV ONETIME ONE Stop: 06/10/20 22:19 Last Admin: 06/10/20 23:49 Dose: 25 mls/hr Documented by: Phytonadione 5 mg/ Sodium (Chloride) 50.5 mls @ 100 mls/hr IV NOW ONE Stop: 06/10/20 21:30 Last Admin: 06/10/20 22:57 Dose: 100 mls/hr Documented by: Phytonadione 5 mg/ Sodium (Chloride) 50.5 mls @ 100 mls/hr IV NOW ONE Stop: 06/11/20 11:30 Last Admin: 06/11/20 11:40 Dose: 100 mls/hr Documented by: Prednisolone (Orapred 15 Mg/5ml Soln) 40 mg PO ONETIME ONE Stop: 06/10/20 20:13 Last Admin: 06/10/20 22:16 Dose: 40 mg Documented by: - Exam Quality Assessment: No: Supplemental Oxygen General: Alert, Oriented, Cooperative, No Acute Distress HEENT: Pupils Equal, Pupils Reactive, EOMI, Mucous Membr. Moist/[place] Neck: Supple Lungs: Clear to Auscultation, Normal Respiratory Effort Cardiovascular: Regular Rate, Regular Rhythm GI/Abdominal Exam: Normal Bowel Sounds, Soft, Non-Tender, No Organomegaly, No Distention, No Abnormal Bruit (Female) Exam: Deferred Back Exam: Normal Inspection, Decreased Range of Motion Extremities: Normal Inspection, Normal Range of Motion, Non-Tender, No Pedal Edema, Normal Capillary Refill Peripheral Pulses: 2+: Dorsalis Pedis (L), Dorsalis Pedis (R) Skin: Warm, Dry, Intact Neurological: No New Focal Deficit, Other (mild tremors) Psy/Mental Status: Alert, Normal Affect, Normal Mood - Patient Data Lab Results Last 24 hrs: Laboratory Results - last 24 hr 06/11/20 06/11/20 06/11/20 Range/Units 04:48 04:48 04:48 WBC (3.98-10.04) K/mm3 RBC (3.98-5.22) M/mm3 Hgb (11.2-15.7) gm/dl Hct (34.1-44.9) % MCV (79.4-94.8) fl MCH (25.6-32.2) pg MCHC (32.2-35.5) g/dl RDW Std Deviation (36.4-46.3) fL Plt Count (182-369) K/mm3 MPV (9.4-12.3) fl Neut % (Auto) (34.0-71.1) % Lymph % (Auto) (19.3-51.7) % [place] % (Auto) (4.7-12.5) % Eos % (Auto) (0.7-5.8) Baso % (Auto) (0.1-1.2) % Neut # (Auto) (1.56-6.13) K/mm3 Lymph # (Auto) (1.18-3.74) K/mm3 [place] # (Auto) (0.24-0.36) K/mm3 Eos # (Auto) (0.04-0.36) K/mm3 Baso # (Auto) (0.01-0.08) K/mm3 Manual Slide Review Abnormal smear Sodium 136 (136-145) mEq/L Potassium 3.8 (3.5-5.1) mEq/L Chloride 101 (98-107) mEq/L Carbon Dioxide 17 L (21-32) mEq/L Anion Gap 21.8 H (5-15) BUN 41 H (7-18) mg/dL Creatinine 0.8 (0.55-1.02) mg/dL Est Cr Clr Drug Dosing 61.09 mL/min Estimated GFR (MDRD) > 60 (>60) mL/min BUN/Creatinine Ratio 51.3 H (14-18) Glucose 119 H (80-115) mg/dL Calcium 8.7 (8.5-10.1) mg/dL Magnesium 1.8 (1.8-2.4) mg/dl Total Bilirubin 28.1 H (0.2-1.0) mg/dL AST 117 H (15-37) U/L ALT 37 (14-59) U/L Alkaline Phosphatase 152 H (46-116) U/L Ammonia (11-32) umol/L Total Protein 6.0 L (6.4-8.2) g/dl Albumin 2.4 L (3.4-5.0) g/dl Globulin 3.6 gm/dL Albumin/Globulin Ratio 0.7 L (1-2) Vitamin B12 5806 H (193-986) pg/ml Vitamin D 25-Hydroxy 131.8 H (30.0-100.0) ng/ml 06/11/20 06/12/20 Range/Units 07:46 05:00 WBC 4.60 (3.98-10.04) K/mm3 RBC 3.59 L (3.98-5.22) M/mm3 Hgb 13.2 (11.2-15.7) gm/dl Hct 40.1 (34.1-44.9) % MCV 111.7 H (79.4-94.8) fl MCH 36.8 H (25.6-32.2) pg MCHC 32.9 (32.2-35.5) g/dl RDW Std Deviation 82.7 H (36.4-46.3) fL Plt Count 44 L (182-369) K/mm3 MPV 11.8 (9.4-12.3) fl Neut % (Auto) 76.3 H (34.0-71.1) % Lymph % (Auto) 6.3 L (19.3-51.7) % [place] % (Auto) 17.2 H (4.7-12.5) % Eos % (Auto) 0 L (0.7-5.8) Baso % (Auto) 0.0 L (0.1-1.2) % Neut # (Auto) 3.51 (1.56-6.13) K/mm3 Lymph # (Auto) 0.29 L (1.18-3.74) K/mm3 [place] # (Auto) 0.79 H (0.24-0.36) K/mm3 Eos # (Auto) 0.00 L (0.04-0.36) K/mm3 Baso # (Auto) 0.00 L (0.01-0.08) K/mm3 Manual Slide Review Sodium (136-145) mEq/L Potassium (3.5-5.1) mEq/L Chloride (98-107) mEq/L Carbon Dioxide (21-32) mEq/L Anion Gap (5-15) BUN (7-18) mg/dL Creatinine (0.55-1.02) mg/dL Est Cr Clr Drug Dosing mL/min Estimated GFR (MDRD) (>60) mL/min BUN/Creatinine Ratio (14-18) Glucose (80-115) mg/dL Calcium (8.5-10.1) mg/dL Magnesium (1.8-2.4) mg/dl Total Bilirubin (0.2-1.0) mg/dL AST (15-37) U/L ALT (14-59) U/L Alkaline Phosphatase (46-116) U/L Ammonia 11 (11-32) umol/L Total Protein (6.4-8.2) g/dl Albumin (3.4-5.0) g/dl Globulin gm/dL Albumin/Globulin Ratio (1-2) Vitamin B12 (193-986) pg/ml Vitamin D 25-Hydroxy (30.0-100.0) ng/ml Result Diagrams: 06/13/20 04:55 06/13/20 04:55 David Results Last 24 hrs: Microbiology 06/10/20 18:15 Urine Culture - Preliminary Urine, Bladder Gram Negative Rods Sepsis Event Note - Evaluation Sepsis Screening Result: No Definite Risk - Focused Exam Vital Signs: Vital Signs Temp Pulse Resp BP Pulse Ox 06/12/20 03:12 36.6 C 66 18 91/60 95 06/11/20 21:00 72 101/59 L 06/11/20 19:59 36.8 C 72 18 101/59 L 95 - Problem List Review Problem List Initiated/Reviewed/Updated: Yes - My Orders Last 24 Hours: My Active Orders 06/11/20 09:00 Folic Acid 1 mg PO DAILY Multivitamins,Therapeutic [Thera] 1 each PO DAILY Pantoprazole [ProTONIX IV] 40 mg IV DAILY Thiamine [Vitamin B-1] 100 mg IVPUSH DAILY prednisoLONE [OraPred 15 MG/5ML Soln] 40 mg PO DAILY 06/11/20 09:14 Antiembolic Devices [RC] BID SCD [Sequential Compression Device] [OM.PC] Routine 06/11/20 19:00 cefTRIAXone [Rocephin] 2 gm Sodium Chloride 0.9% [Normal Saline] 100 ml IV Q24H 06/11/20 21:00 Calcium Carbonate 600 mg PO BID Latanoprost [Xalatan 0.005% Ophth Soln] 0 ml EYEBOTH BEDTIME Magnesium Oxide 400 mg PO BID Potassium Chloride [Klor-Con M20] 20 meq PO BID Propranolol [Inderal] 10 mg PO TID Rifaximin [Xifaxan] 550 mg PO BID Spironolactone [Aldactone] 50 mg PO BID 06/12/20 05:00 CBC WITH AUTO DIFF [HEME] AM COMPREHENSIVE METABOLIC PN,CMP [CHEM] AM INR,PT,PROTHROMBIN TIME [COAG] AM MAGNESIUM [CHEM] AM 06/12/20 09:00 ARIPiprazole [Abilify] 1 mg PO DAILY Multivitamins,Therapeutic [Thera] 1 each PO DAILY Tiotropium [place] [Spiriva Respimat] 0 gm INH DAILY 06/13/20 05:11 CBC WITH AUTO DIFF [HEME] AM COMPREHENSIVE METABOLIC PN,CMP [CHEM] AM INR,PT,PROTHROMBIN TIME [COAG] AM MAGNESIUM [CHEM] AM 06/14/20 05:11 CBC WITH AUTO DIFF [HEME] AM COMPREHENSIVE METABOLIC PN,CMP [CHEM] AM MAGNESIUM [CHEM] AM 06/15/20 05:11 CBC WITH AUTO DIFF [HEME] AM COMPREHENSIVE METABOLIC PN,CMP [CHEM] AM MAGNESIUM [CHEM] AM 06/16/20 05:11 CBC WITH AUTO DIFF [HEME] AM COMPREHENSIVE METABOLIC PN,CMP [CHEM] AM MAGNESIUM [CHEM] AM 06/17/20 05:11 CBC WITH AUTO DIFF [HEME] AM COMPREHENSIVE METABOLIC PN,CMP [CHEM] AM MAGNESIUM [CHEM] AM - Plan Plan:: This is a 59 yo white female with past medical hx/o Impaired Vision, Liver Cirrhosis, Hypertension, Recurrent Pneumonia, Chronic SOB, Active Smoker, C hronic GERD, Hemorrhoids, Enlarged spleen, Recurrent UTI, Substance Abuse, Hx/o Gallstone, Vit D Deficiency, Anemia of chronic Disease, Chronic electrolytes abnormalities and Chronic ETOH Abuse/Dependence who was brought by family for evaluation of 2 week history of generalized weakness, gait instability as well as disorientation along with worsening yellowish color Assessment: Acute: Toxic-metabolic vs Hepatic encephalopathy, improved Acute on chronic Liver failure secondary to alcohol abuse Small lesion, 7 mm, within the right lobe; new abnormal findings (patient and daughter aware) Elevated Vit D and B12 levels, likely from oversupplementation at home Elevated FT4 of 2.42 with normal TSH level Elevated MCV of 108.6; now 110.3 -Has underlying chronic liver disease -Abdominal US: report read as nodular capsular contour of the liver with a prominent left lobe and heterogenous echotexture consistent with chronic liver disease likely represents cirrhosis -CIWAA score is mild -Plan: Continue CIWAA protocol, Hold Vit D and B12 supplements due to elevated levels. Repeat MRI in 3 months and GI referral outpatient ETOH Hepatitis -Maddrey Score is 67.08 -Carries poor prognosis with one month mortality ranging form 30-50% -Hepatitis work in the past was negative -She may benefit with glucocorticoid therapy: Continue prednisolone 40 mg po daily -Advised to quit alcohol R/o Choledocholithiasis or Biliary Obstruction Jaundice/Hyperbilirubinemia Elevated Alk Phos of 172; now 152 -Abdominal U/S report read as 10 mm gallstone within the lumen of the gallbladder. Mild gallbladder wall thickening. Negative for sonographic Romero sign. No significant pericholecystic fluid. -No fever or chills -No leukocytosis -Able to eat and drink fine -No GI symptoms -T. Bilirubin of 31.5-->28.1-->now 23.8 -MRCP report read as within normal limits. Small gallstone is seen within the gallbladder. Thrombocytopenia with Platelet of 48k, improved Elevated PT of 19.8; now 17.5 Splenomegaly with length of 15.9 cm -Platelet now at 44K, likely from chronic liver disease exacerbated by recent alcohol abuse -No active bleeding or melena Mild hypercapnia with CO2 of 20 Increased AG Metabolic Acidosis Hypomagnesemia with Mg of 1.7 -Likely duet to baseline pulmonary insufficiency -She is still an active smoker -Will replete and monitor -Continue to monitor Hypoalbuminemia with Albumin of 2.6; now 2.2 Calore Protein Malnutrition Generalized Weakness -Thyroid Panel: Elevated FT4 of 2.42 with normal TSH level -Elevated Vit D and B12 levels -She is unsteady, weak and shaky this morning - PT/OT to assess and treat. Increased food intake. Dietary consult UTI Proteinuria, liver dysfunction Ketonuria, poor nutritional intake and fasting Bilirubinuria, from liver dysfunction -Secondary to E. coli and sensitive to Rocephin -Afebrile -Currently on IV Rocephin for antibiotic treatment Nicotine Dependence -Smoke 6 cigarettes a day -Counseled on smoking cessation -Refused nicotine patch or gum Relatively Hypotension -BP in the 90s/50-60s mmHg -MAP is adequate -We will monitor Resolved: Acute Kidney Injury, resolved Hypomagnesemia with Mg of 1.2, resolved Chronic: Impaired Vision, Liver Cirrhosis, Hypertension, Recurrent Pneumonia, Chronic SOB, Active Smoker, Chronic GERD, Hemorrhoids, Enlarged spleen, Recurrent UTI, Substance Abuse, Hx/o Gall Stone, Vit D Deficiency, Anemia of chronic Disease, Chronic electrolytes abnormalities and Chronic ETOH Abuse/Dependence Plan: She looks much better clinically this AM. Continue current treatment and IV antibiotic. Regular diet. IV fluids for hydration. Urine culture with sensitivity. Replete Mg level. Fall/Seizure precautions. MVI, Folate, Vit B12 and Iron supplements. Dietary consult for protein calorie malnutrition. Vit K fo r elevated PT level. Avoid ASA. CIWAA protocol. DVT/GI prophylaxis: SCDs and PPI. Chemical prophylaxis is CI due to elevated PT level--> high risk for internal bleeding. Code status is full. Prognosis remains guarded-good but overall is poor. LOS > 96h hrs, she needs more time with treatment. She is so weak and unsteady. She has on and off confusion. Updated daughter about her lab results and clinical progress.
[2020-06-12] MEDS ORDERED: Phytonadione 10 MG in Sodium Chloride 0.9% 50 ML IV ONE (08:00)
[2020-06-12] MEDS: Potassium Chloride 20 MEQ Tab.ER PO SCH ×2 (08:47→20:46)
[2020-06-12] MEDS: Calcium Carbonate 600 MG Tab PO SCH ×2 (08:49→20:46)
[2020-06-12] MEDS: Folic Acid 1 MG Tab PO SCH (08:49)
[2020-06-12] MEDS: Spironolactone 25 MG Tab PO SCH ×2 (08:49→20:45)
[2020-06-12] MEDS: Magnesium Oxide 400 MG Tab PO SCH ×2 (08:49→20:46)
[2020-06-12] MEDS: prednisoLONE Soln 15 MG/5 ML UD Cup PO SCH (08:51)
[2020-06-12] MEDS: Pantoprazole 40 MG Vial IV SCH (08:51)
[2020-06-12] MEDS: Propranolol 10 MG Tab PO SCH ×4 (08:54→20:46)
[2020-06-12] MEDS: Rifaximin 550 MG Tab PO SCH ×2 (08:58→20:46)
[2020-06-12] MEDS: Multivitamins,Therapeutic Tab PO SCH (08:58)
[2020-06-12] MEDS: Tiotropium Bromide 4 GM Inhalation Spray (2.5mcg/1 dose; 10 doses) INH SCH (09:07)
[2020-06-12] MEDS: Thiamine 200 MG/2 ML MDV IVPUSH SCH (09:10)
[2020-06-12] MEDS ORDERED: Magnesium Sulfate/Water 2 GM/50 ML BAG IV ONE (09:43)
[2020-06-12] MEDS ORDERED: Furosemide 20 MG/2 ML VIAL IVPUSH ONE (09:53)
[2020-06-12] MEDS ORDERED: Phytonadione ORAL 2.5mg/2.5ml Soln Simple Syrup U/D PO ONE ×2 (10:30→13:00)
[2020-06-12] MEDS: cefTRIAXone 2 GM in Sodium Chloride 0.9% 100 ML IV SCH (19:31)
[2020-06-12] MEDS: Latanoprost 0.005% Ophth Soln 2.5 ML Bottle EYEBOTH SCH (20:45)
[2020-06-12] MEDS: Pantoprazole 40 MG Tab.CR PO SCH (20:46)
--- NOTE | 2020-06-13 07:24 | PCM.PN ---
- General Info Date of Service: 06/13/20 Admission Dx/Problem (Free Text): Admission Diagnosis/Problem Admission Diagnosis/Problem Liver failure Subjective Update: No overnight or acute issues. No complaints this AM except for the bed alarm. However she had a few episodes yesterday wherein it felt like she had brief seizures but went away spontaneously. She remains weak and unsteady. Her PT remains elevated at 17. Her Mg level is 2.0. Her T. bilirubin remains at 23. Her Na is down to 131. She has had several episodes of relatively hypotension. Functional Status: Reports: Pain Controlled, Tolerating Diet, Ambulating, Urinating - Review of Systems General: Reports: Weakness, Fatigue. Denies: Fever, Chills HEENT: Reports: No Symptoms Pulmonary: Denies: Shortness of Breath Cardiovascular: Denies: Chest Pain Gastrointestinal: Denies: Abdominal Pain, Nausea, Vomiting Genitourinary: Reports: Frequency Musculoskeletal: Denies: Joint Pain Skin: Reports: Jaundice. Denies: Cyanosis, Diaphoresis Neurological: Reports: Confusion, Difficulty Walking, Weakness, Gait Disturbance Psychiatric: Denies: Depression, Anxiety, Agitation, Hallucinations, Homicidal Ideation - Patient Data Vitals - Most Recent: Last Vital Signs Temp 36.2 C 06/13/20 05:47 Pulse 63 06/13/20 05:47 Resp 16 06/13/20 05:47 BP 91/62 06/13/20 05:47 Pulse Ox 95 06/13/20 05:47 Weight - Most Recent: 72.393 kg I&O - Last 24 Hours: Intake & Output 06/12/20 06/13/20 06/13/20 22:59 06:59 14:59 Intake Total 3180 1100 Output Total 1250 450 Balance 1930 650 Lab Results Last 24 Hours: Laboratory Results - last 24 hr 06/12/20 06/12/20 06/13/20 Range/Units 05:00 05:00 04:55 WBC 4.62 (3.98-10.04) K/mm3 RBC 3.62 L (3.98-5.22) M/mm3 Hgb 13.7 (11.2-15.7) gm/dl Hct 39.9 (34.1-44.9) % MCV 110.2 H (79.4-94.8) fl MCH 37.8 H (25.6-32.2) pg MCHC 34.3 (32.2-35.5) g/dl RDW Std Deviation 82.5 H (36.4-46.3) fL Plt Count 45 L (182-369) K/mm3 MPV 12.3 (9.4-12.3) fl Neut % (Auto) 72.6 H (34.0-71.1) % Lymph % (Auto) 4.5 L (19.3-51.7) % [place] % (Auto) 22.9 H (4.7-12.5) % Eos % (Auto) 0 L (0.7-5.8) Baso % (Auto) 0.0 L (0.1-1.2) % Neut # (Auto) 3.35 (1.56-6.13) K/mm3 Lymph # (Auto) 0.21 L (1.18-3.74) K/mm3 [place] # (Auto) 1.06 H (0.24-0.36) K/mm3 Eos # (Auto) 0.00 L (0.04-0.36) K/mm3 Baso # (Auto) 0.00 L (0.01-0.08) K/mm3 Manual Slide Review Abnormal smear Sodium 138 (136-145) mEq/L Potassium 3.9 (3.5-5.1) mEq/L Chloride 106 (98-107) mEq/L Carbon Dioxide 20 L (21-32) mEq/L Anion Gap 15.9 H (5-15) BUN 33 H (7-18) mg/dL Creatinine 0.9 (0.55-1.02) mg/dL Est Cr Clr Drug Dosing 54.28 mL/min Estimated GFR (MDRD) > 60 (>60) mL/min BUN/Creatinine Ratio 36.7 H (14-18) Glucose 103 (80-115) mg/dL Calcium 7.8 L (8.5-10.1) mg/dL Magnesium 1.7 L (1.8-2.4) mg/dl Total Bilirubin 23.8 H (0.2-1.0) mg/dL AST 97 H (15-37) U/L ALT 37 (14-59) U/L Alkaline Phosphatase 143 H (46-116) U/L Total Protein 5.8 L (6.4-8.2) g/dl Albumin 2.2 L (3.4-5.0) g/dl Globulin 3.6 gm/dL Albumin/Globulin Ratio 0.6 L (1-2) 06/13/20 Range/Units 04:55 WBC (3.98-10.04) K/mm3 RBC (3.98-5.22) M/mm3 Hgb (11.2-15.7) gm/dl Hct (34.1-44.9) % MCV (79.4-94.8) fl MCH (25.6-32.2) pg MCHC (32.2-35.5) g/dl RDW Std Deviation (36.4-46.3) fL Plt Count (182-369) K/mm3 MPV (9.4-12.3) fl Neut % (Auto) (34.0-71.1) % Lymph % (Auto) (19.3-51.7) % [place] % (Auto) (4.7-12.5) % Eos % (Auto) (0.7-5.8) Baso % (Auto) (0.1-1.2) % Neut # (Auto) (1.56-6.13) K/mm3 Lymph # (Auto) (1.18-3.74) K/mm3 [place] # (Auto) (0.24-0.36) K/mm3 Eos # (Auto) (0.04-0.36) K/mm3 Baso # (Auto) (0.01-0.08) K/mm3 Manual Slide Review Sodium 131 L (136-145) mEq/L Potassium 3.8 (3.5-5.1) mEq/L Chloride 102 (98-107) mEq/L Carbon Dioxide 19 L (21-32) mEq/L Anion Gap 13.8 (5-15) BUN 33 H (7-18) mg/dL Creatinine 1.1 H (0.55-1.02) mg/dL Est Cr Clr Drug Dosing 44.41 mL/min Estimated GFR (MDRD) 50 (>60) mL/min BUN/Creatinine Ratio 30.0 H (14-18) Glucose 108 (80-115) mg/dL Calcium 8.0 L (8.5-10.1) mg/dL Magnesium 2.0 (1.8-2.4) mg/dl Total Bilirubin 23.7 H (0.2-1.0) mg/dL AST 98 H (15-37) U/L ALT 45 (14-59) U/L Alkaline Phosphatase 153 H (46-116) U/L Total Protein 6.1 L (6.4-8.2) g/dl Albumin 2.3 L (3.4-5.0) g/dl Globulin 3.8 gm/dL Albumin/Globulin Ratio 0.6 L (1-2) David Results Last 24 Hours: Microbiology 06/10/20 18:15 Urine Culture - Final Urine, Bladder Escherichia Coli Med Orders - Current: Current Medications Albuterol/Ipratropium (Duoneb 3.0-0.5 Mg/3 Ml) 3 ml NEB Q4H PRN PRN Reason: Shortness Of Breath/wheezing Aripiprazole (Abilify) 1 mg PO DAILY [facility] Last Admin: 06/12/20 08:47 Dose: 1 mg Documented by: Calcium Carbonate/Glycine (Calcium Carbonate) 600 mg PO BID [facility] Last Admin: 06/12/20 20:46 Dose: 600 mg Documented by: Clonidine HCl (Catapres) 0.1 mg PO Q4H PRN PRN Reason: Agitation Folic Acid (Folic Acid) 1 mg PO DAILY [facility] Stop: 06/13/20 09:01 Last Admin: 06/12/20 08:49 Dose: 1 mg Documented by: Haloperidol Lactate (Haldol) 2 mg IM Q4H PRN PRN Reason: Agitation Hydromorphone HCl (Dilaudid) 0.25 mg IVPUSH Q2H PRN PRN Reason: Pain (severe 7-10) Promethazine HCl 12.5 mg/ (Sodium Chloride) 50.5 mls @ 100 mls/hr IV Q6H PRN PRN Reason: Nausea/Vomiting Ceftriaxone Sodium 2 gm/ (Sodium Chloride) 100 mls @ 200 mls/hr IV Q24H [facility] Stop: 06/15/20 19:01 Last Admin: 06/12/20 19:31 Dose: 200 mls/hr Documented by: Ibuprofen (Motrin) 600 mg PO Q6H PRN PRN Reason: Pain (moderate 4-6) Latanoprost (Xalatan 0.005% Ophth Soln) 0 ml EYEBOTH BEDTIME [facility] Last Admin: 06/12/20 20:45 Dose: 1 drop Documented by: Magnesium Oxide (Magnesium Oxide) 400 mg PO BID [facility] Last Admin: 06/12/20 20:46 Dose: 400 mg Documented by: Multivitamins (Thera) 1 each PO DAILY [facility] Last Admin: 06/12/20 08:58 Dose: 1 each Documented by: Ondansetron HCl (Zofran) 4 mg IV Q6H PRN PRN Reason: Nausea/Vomiting Oxycodone HCl (Oxycodone) 5 mg PO Q4H PRN PRN Reason: Pain (moderate 4-6) Pantoprazole Sodium (Protonix) 40 mg PO BID [facility] Last Admin: 06/12/20 20:46 Dose: 40 mg Documented by: Polyethylene Glycol (Miralax) 17 gm PO DAILY PRN PRN Reason: Constipation Potassium Chloride (Klor-Con M20) 20 meq PO BID [facility] Last Admin: 06/12/20 20:46 Dose: 20 meq Documented by: Prednisolone (Orapred 15 Mg/5ml Soln) 40 mg PO DAILY [facility] Last Admin: 06/12/20 08:51 Dose: 40 mg Documented by: Propranolol HCl (Inderal) 10 mg PO TID [facility] Last Admin: 06/12/20 20:46 Dose: 10 mg Documented by: Rifaximin (Xifaxan) 550 mg PO BID [facility] Last Admin: 06/12/20 20:46 Dose: 550 mg Documented by: Senna/Docusate Sodium (Senna Plus) 1 tab PO BID PRN PRN Reason: Constipation Sodium Chloride (Saline Flush) 10 ml FLUSH ASDIRECTED PRN PRN Reason: Keep Vein Open Last Admin: 06/10/20 16:51 Dose: 10 ml Documented by: Spironolactone (Aldactone) 50 mg PO BID [facility] Last Admin: 06/12/20 20:45 Dose: 50 mg Documented by: Thiamine HCl (Vitamin B-1) 100 mg PO DAILY [facility] Tiotropium Edmond (Spiriva Respimat) 0 gm INH DAILY [facility] Last Admin: 06/12/20 09:07 Dose: 4 gm Documented by: Zolpidem Tartrate (Ambien) 5 mg PO BEDTIME PRN PRN Reason: Sleep Discontinued Medications Folic Acid (Folic Acid) 1 mg SUBCUT ONETIME ONE Stop: 06/10/20 23:01 Last Admin: 06/11/20 16:55 Dose: Not Given Documented by: Folic Acid (Folic Acid) 1 mg PO ONETIME ONE Stop: 06/10/20 23:53 Last Admin: 06/11/20 00:41 Dose: 1 mg Documented by: Furosemide (Lasix) 20 mg IVPUSH ONETIME ONE Stop: 06/12/20 09:54 Last Admin: 06/12/20 10:07 Dose: 20 mg Documented by: Sodium Chloride (Normal Saline) 1,000 mls @ 125 mls/hr IV ASDIRECTED [facility] Last Admin: 06/12/20 02:54 Dose: 125 mls/hr Documented by: Ceftriaxone Sodium 2 gm/ (Sodium Chloride) 100 mls @ 200 mls/hr IV ONETIME ONE Stop: 06/10/20 19:14 Last Admin: 06/10/20 19:02 Dose: 200 mls/hr Documented by: Ceftriaxone Sodium 2 gm/ (Sodium Chloride) 100 mls @ 200 mls/hr IV Q24H [facility] Stop: 06/15/20 09:01 Last Admin: 06/11/20 10:08 Dose: Not Given Documented by: Thiamine HCl 100 mg/ Sodium (Chloride) 51 mls @ 100 mls/hr IV ONETIME ONE Stop: 06/10/20 20:45 Last Admin: 06/10/20 22:19 Dose: 100 mls/hr Documented by: Thiamine HCl 100 mg/ Sodium (Chloride) 51 mls @ 100 mls/hr IV DAILY [facility] Magnesium Sulfate (Magnesium Sulfate In Water 2 Gm/50 Ml) 2 gm in 50 mls @ 25 mls/hr IV ONETIME ONE Stop: 06/10/20 22:19 Last Admin: 06/10/20 23:49 Dose: 25 mls/hr Documented by: Phytonadione 5 mg/ Sodium (Chloride) 50.5 mls @ 100 mls/hr IV NOW ONE Stop: 06/10/20 21:30 Last Admin: 06/10/20 22:57 Dose: 100 mls/hr Documented by: Phytonadione 5 mg/ Sodium (Chloride) 50.5 mls @ 100 mls/hr IV NOW ONE Stop: 06/11/20 11:30 Last Admin: 06/11/20 11:40 Dose: 100 mls/hr Documented by: Magnesium Sulfate (Magnesium Sulfate In Water 2 Gm/50 Ml) 2 gm in 50 mls @ 25 mls/hr IV ONETIME ONE Stop: 06/12/20 11:42 Last Admin: 06/12/20 10:07 Dose: 25 mls/hr Documented by: Multivitamins (Thera) 1 each PO DAILY [facility] Stop: 06/16/20 09:01 Last Admin: 06/11/20 09:27 Dose: 1 each Documented by: Pantoprazole Sodium (Protonix Iv) 40 mg IV DAILY [facility] Last Admin: 06/12/20 08:51 Dose: 40 mg Documented by: Phytonadione (Aquamephyton) 10 mg PO ONETIME ONE Stop: 06/12/20 13:01 Last Admin: 06/12/20 14:01 Dose: 10 mg Documented by: Prednisolone (Orapred 15 Mg/5ml Soln) 40 mg PO ONETIME ONE Stop: 06/10/20 20:13 Last Admin: 06/10/20 22:16 Dose: 40 mg Documented by: Thiamine HCl (Vitamin B-1) 100 mg IVPUSH DAILY [facility] Last Admin: 06/12/20 09:10 Dose: 100 mg Documented by: - Exam General: Alert, Cooperative HEENT: Pupils Equal, Pupils Reactive, EOMI, Mucous Membr. Moist/[place], Scleral Icterus Neck: Supple Lungs: Normal Respiratory Effort Cardiovascular: Regular Rate, Regular Rhythm GI/Abdominal Exam: Normal Bowel Sounds, Soft, Non-Tender, No Distention, No Abnormal Bruit, No Mass, Pelvis Stable, Splenomegaly (Female) Exam: Deferred Back Exam: Normal Inspection, Decreased Range of Motion Extremities: Normal Inspection, Normal Range of Motion, Non-Tender, No Pedal Edema, Normal Capillary Refill Peripheral Pulses: 2+: Dorsalis Pedis (L), Dorsalis Pedis (R) Skin: Warm, Dry, Intact Neurological: No New Focal Deficit, Normal Speech. No: Normal Gait Psy/Mental Status: Alert, Normal Affect, Depressed - Patient Data Lab Results Last 24 hrs: Laboratory Results - last 24 hr 06/12/20 06/12/20 06/13/20 Range/Units 05:00 05:00 04:55 WBC 4.62 (3.98-10.04) K/mm3 RBC 3.62 L (3.98-5.22) M/mm3 Hgb 13.7 (11.2-15.7) gm/dl Hct 39.9 (34.1-44.9) % MCV 110.2 H (79.4-94.8) fl MCH 37.8 H (25.6-32.2) pg MCHC 34.3 (32.2-35.5) g/dl RDW Std Deviation 82.5 H (36.4-46.3) fL Plt Count 45 L (182-369) K/mm3 MPV 12.3 (9.4-12.3) fl Neut % (Auto) 72.6 H (34.0-71.1) % Lymph % (Auto) 4.5 L (19.3-51.7) % [place] % (Auto) 22.9 H (4.7-12.5) % Eos % (Auto) 0 L (0.7-5.8) Baso % (Auto) 0.0 L (0.1-1.2) % Neut # (Auto) 3.35 (1.56-6.13) K/mm3 Lymph # (Auto) 0.21 L (1.18-3.74) K/mm3 [place] # (Auto) 1.06 H (0.24-0.36) K/mm3 Eos # (Auto) 0.00 L (0.04-0.36) K/mm3 Baso # (Auto) 0.00 L (0.01-0.08) K/mm3 Manual Slide Review Abnormal smear Sodium 138 (136-145) mEq/L Potassium 3.9 (3.5-5.1) mEq/L Chloride 106 (98-107) mEq/L Carbon Dioxide 20 L (21-32) mEq/L Anion Gap 15.9 H (5-15) BUN 33 H (7-18) mg/dL Creatinine 0.9 (0.55-1.02) mg/dL Est Cr Clr Drug Dosing 54.28 mL/min Estimated GFR (MDRD) > 60 (>60) mL/min BUN/Creatinine Ratio 36.7 H (14-18) Glucose 103 (80-115) mg/dL Calcium 7.8 L (8.5-10.1) mg/dL Magnesium 1.7 L (1.8-2.4) mg/dl Total Bilirubin 23.8 H (0.2-1.0) mg/dL AST 97 H (15-37) U/L ALT 37 (14-59) U/L Alkaline Phosphatase 143 H (46-116) U/L Total Protein 5.8 L (6.4-8.2) g/dl Albumin 2.2 L (3.4-5.0) g/dl Globulin 3.6 gm/dL Albumin/Globulin Ratio 0.6 L (1-2) 06/13/20 Range/Units 04:55 WBC (3.98-10.04) K/mm3 RBC (3.98-5.22) M/mm3 Hgb (11.2-15.7) gm/dl Hct (34.1-44.9) % MCV (79.4-94.8) fl MCH (25.6-32.2) pg MCHC (32.2-35.5) g/dl RDW Std Deviation (36.4-46.3) fL Plt Count (182-369) K/mm3 MPV (9.4-12.3) fl Neut % (Auto) (34.0-71.1) % Lymph % (Auto) (19.3-51.7) % [place] % (Auto) (4.7-12.5) % Eos % (Auto) (0.7-5.8) Baso % (Auto) (0.1-1.2) % Neut # (Auto) (1.56-6.13) K/mm3 Lymph # (Auto) (1.18-3.74) K/mm3 [place] # (Auto) (0.24-0.36) K/mm3 Eos # (Auto) (0.04-0.36) K/mm3 Baso # (Auto) (0.01-0.08) K/mm3 Manual Slide Review Sodium 131 L (136-145) mEq/L Potassium 3.8 (3.5-5.1) mEq/L Chloride 102 (98-107) mEq/L Carbon Dioxide 19 L (21-32) mEq/L Anion Gap 13.8 (5-15) BUN 33 H (7-18) mg/dL Creatinine 1.1 H (0.55-1.02) mg/dL Est Cr Clr Drug Dosing 44.41 mL/min Estimated GFR (MDRD) 50 (>60) mL/min BUN/Creatinine Ratio 30.0 H (14-18) Glucose 108 (80-115) mg/dL Calcium 8.0 L (8.5-10.1) mg/dL Magnesium 2.0 (1.8-2.4) mg/dl Total Bilirubin 23.7 H (0.2-1.0) mg/dL AST 98 H (15-37) U/L ALT 45 (14-59) U/L Alkaline Phosphatase 153 H (46-116) U/L Total Protein 6.1 L (6.4-8.2) g/dl Albumin 2.3 L (3.4-5.0) g/dl Globulin 3.8 gm/dL Albumin/Globulin Ratio 0.6 L (1-2) Result Diagrams: 06/13/20 04:55 06/13/20 04:55 David Results Last 24 hrs: Microbiology 06/10/20 18:15 Urine Culture - Final Urine, Bladder Escherichia Coli Sepsis Event Note - Evaluation Sepsis Screening Result: No Definite Risk - Focused Exam Vital Signs: Vital Signs Temp Pulse Resp BP Pulse Ox 06/13/20 05:47 36.2 C 63 16 91/62 95 06/13/20 00:14 36.2 C 61 16 83/55 L 92 L 06/12/20 20:46 64 104/50 L 06/12/20 19:50 36.4 C 64 20 104/50 L 93 L - Problem List Review Problem List Initiated/Reviewed/Updated: Yes - My Orders Last 24 Hours: My Active Orders 06/12/20 09:00 ARIPiprazole [Abilify] 1 mg PO DAILY Multivitamins,Therapeutic [Thera] 1 each PO DAILY Tiotropium Edmond [Spiriva Respimat] 0 gm INH DAILY 06/12/20 21:00 Pantoprazole [ProTONIX] 40 mg PO BID 06/13/20 04:55 CBC WITH AUTO DIFF [HEME] AM INR,PT,PROTHROMBIN TIME [COAG] AM 06/13/20 09:00 Thiamine [Vitamin B-1] 100 mg PO DAILY 06/14/20 05:11 CBC WITH AUTO DIFF [HEME] AM COMPREHENSIVE METABOLIC PN,CMP [CHEM] AM MAGNESIUM [CHEM] AM 06/15/20 05:11 CBC WITH AUTO DIFF [HEME] AM COMPREHENSIVE METABOLIC PN,CMP [CHEM] AM MAGNESIUM [CHEM] AM 06/16/20 05:11 CBC WITH AUTO DIFF [HEME] AM COMPREHENSIVE METABOLIC PN,CMP [CHEM] AM MAGNESIUM [CHEM] AM 06/17/20 05:11 CBC WITH AUTO DIFF [HEME] AM COMPREHENSIVE METABOLIC PN,CMP [CHEM] AM MAGNESIUM [CHEM] AM - Plan Plan:: This is a 59 yo white female with past medical hx/o Impaired Vision, Liver Cirrhosis, Hypertension, Recurrent Pneumonia, Chronic SOB, Active Smoker, Chronic GERD, Hemorrhoids, Enlarged spleen, Recurrent UTI, Substance Abuse, Hx/o Gallstone, Vit D Deficiency, Anemia of chronic Disease, Chronic electrolytes abnormalities and Chronic ETOH Abuse/Dependence who was brought by family for evaluation of 2 week history of generalized weakness, gait instability as well as disorientation along with worsening yellowish color Assessment: Acute: Toxic-metabolic vs Hepatic encephalopathy, improved Acute on chronic Liver failure secondary to alcohol abuse Small lesion, 7 mm, within the right lobe; new abnormal findings (patient and daughter aware) Elevated Vit D and B12 levels, likely from oversupplementation at home Elevated FT4 of 2.42 with normal TSH level Elevated MCV of 108.6; now 110.2 Elevated PT secondary to chronic liver disease -Has underlying chronic liver disease -Abdominal US: report read as nodular capsular contour of the liver with a prominent left lobe and heterogenous echotexture consistent with chronic liver disease likely represents cirrhosis -PT now at 17.4; she received 3 doses of Vit K -CIWAA score is mild-moderate -Plan: Continue CIWAA protocol, Hold Vit D and B12 supplements due to elevated levels. Repeat MRI in 3 months and GI referral outpatient ETOH Hepatitis -Maddrey Score is 67.08 -Carries poor prognosis with one month mortality ranging form 30-50% -Hepatitis work in the past was negative -She may benefit with glucocorticoid therapy: Continue prednisolone 40 mg po daily -Advised to quit alcohol Jaundice/Hyperbilirubinemia, improved Elevated Alk Phos of 172; now 153 -Abdominal U/S report read as 10 mm gallstone within the lumen of the gallbladder. Mild gallbladder wall thickening. Negative for sonographic Romero sign. No significant pericholecystic fluid. -No fever or chills -No leukocytosis -Able to eat and drink fine -No GI symptoms -T. Bilirubin of 31.5-->28.1-->now 23.7 -MRCP report read as within normal limits. Small gallstone is seen within the gallbladder. Thrombocytopenia with Platelet of 48k, improved Elevated PT of 19.8; now 17.5 Splenomegaly with length of 15.9 cm -Platelet now at 45K, likely from chronic liver disease exacerbated by recent alcohol abuse -No active bleeding or melena -Avoid ASA and Anticoagulation Mild hypercapnia with CO2 of 20; now 19 Increased AG Metabolic Acidosis Hypomagnesemia with Mg of 1.7; now 2.0 -Likely duet to baseline pulmonary insufficiency -She is still an active smoker -Will replete and monitor Hypoalbuminemia with Albumin of 2.6; now 2.3 Calore Protein Malnutrition Generalized Weakness -Thyroid Panel: Elevated FT4 of 2.42 with normal TSH level -Elevated Vit D and B12 levels -She is unsteady, weak and shaky this morning - PT/OT to assess and treat. Increased food intake. Dietary consult UTI secondary to E. coli Proteinuria, liver dysfunction Ketonuria, poor nutritional intake and fasting Bilirubinuria, from liver dysfunction -Secondary to E. coli and sensitive to Rocephin -Afebrile -Currently on IV Rocephin for antibiotic treatment Nicotine Dependence -Smoke 6 cigarettes a day -Counseled on smoking cessation -Refused nicotine patch or gum Relatively Hypotension -BP in the 90s/50-60s mmHg -MAP is adequate -We will monitor Feeling depressed/melancholy -She was in tears during rounds -She wanted to go to her significant other's service tomorrow but she is not safe and medically ready -However I was informed by staff that according to her daughter, patient is not welcome to attend Resolved: Acute Kidney Injury, resolved Hypomagnesemia with Mg of 1.2, resolved Chronic: Impaired Vision, Liver Cirrhosis, Hypertension, Recurrent Pneumonia, Chronic SOB, Active Smoker, Chronic GERD, Hemorrhoids, Enlarged spleen, Recurrent UTI, Substance Abuse, Hx/o Gallstone, Vit D Deficiency, Anemia of chronic Disease, Chronic electrolytes abnormalities and Chronic ETOH Abuse/Dependence Plan: No change in condition. Continue current treatment and IV antibiotic. Regular diet. IV fluids was discontinued. Fall/Seizure precautions. MVI, Folate, Vit B12 and Iron supplements. Dietary consult for protein calorie malnutrition. Avoid ASA and Anticoagulation. CIWAA protocol. DVT/GI prophylaxis: SCDs and PPI. Chemical prophylaxis is CI due to elevated PT level and low platelet levels. Code status is full. Prognosis remains guarded-good but overall is poor. LOS > 96h hrs, she needs more time with treatment. She remains weak and unsteady. She has on and off confusion. Updated daughter about Evette's lab results and clinical progress. Not medical stable for discharge.
[2020-06-13] MEDS: Tiotropium Bromide 4 GM Inhalation Spray (2.5mcg/1 dose; 10 doses) INH SCH (08:15)
[2020-06-13] MEDS: Spironolactone 25 MG Tab PO SCH ×2 (08:18→20:19)
[2020-06-13] MEDS: Pantoprazole 40 MG Tab.CR PO SCH ×2 (08:18→20:21)
[2020-06-13] MEDS: Rifaximin 550 MG Tab PO SCH ×2 (08:22→20:20)
[2020-06-13] MEDS: Thiamine 100 MG Tab PO SCH (08:22)
[2020-06-13] MEDS: Multivitamins,Therapeutic Tab PO SCH (08:23)
[2020-06-13] MEDS: Potassium Chloride 20 MEQ Tab.ER PO SCH ×2 (08:23→20:21)
[2020-06-13] MEDS: Calcium Carbonate 600 MG Tab PO SCH ×2 (08:23→20:20)
[2020-06-13] MEDS: Folic Acid 1 MG Tab PO SCH (08:24)
[2020-06-13] MEDS: Magnesium Oxide 400 MG Tab PO SCH ×2 (08:26→20:20)
[2020-06-13] MEDS: Propranolol 10 MG Tab PO SCH ×3 (08:29→20:20)
[2020-06-13] MEDS: prednisoLONE Soln 15 MG/5 ML UD Cup PO SCH (08:30)
[2020-06-13] MEDS: cefTRIAXone 2 GM in Sodium Chloride 0.9% 100 ML IV SCH (20:19)
[2020-06-13] MEDS: Latanoprost 0.005% Ophth Soln 2.5 ML Bottle EYEBOTH SCH (20:21)
[2020-06-13] MEDS ORDERED: Midodrine 5 MG Tab PO PRN (22:07)
--- NOTE | 2020-06-14 06:40 | PCM.PN ---
- General Info Date of Service: 06/14/20 Admission Dx/Problem (Free Text): Admission Diagnosis/Problem Admission Diagnosis/Problem Liver failure Subjective Update: No overnight or acute issues. No complaints this AM. She is still weak and unsteady. She has mild tremors on both hands. Her PT and T. Bilirubin are slightly up. Her Na is now at 135. Her Cr is wnl. Functional Status: Reports: Pain Controlled, Tolerating Diet, Ambulating, Urina ting. Denies: New Symptoms - Review of Systems General: Reports: Weakness. Denies: Fever, Fatigue, Malaise, Chills HEENT: Reports: No Symptoms Pulmonary: Denies: Shortness of Breath Cardiovascular: Denies: Chest Pain Gastrointestinal: Denies: Abdominal Pain, Nausea, Vomiting Genitourinary: Reports: No Symptoms Musculoskeletal: Denies: Joint Pain Skin: Reports: Jaundice. Denies: Cyanosis Neurological: Reports: Weakness, Gait Disturbance. Denies: Confusion, Seizure Psychiatric: Denies: Mood Lability, Anxiety - Patient Data Vitals - Most Recent: Last Vital Signs Temp 36.2 C 06/14/20 04:25 Pulse 54 L 06/14/20 04:25 Resp 18 06/14/20 04:25 BP 101/69 06/14/20 06:34 Pulse Ox 93 L 06/14/20 04:25 Weight - Most Recent: 72.484 kg I&O - Last 24 Hours: Intake & Output 06/13/20 06/13/20 06/14/20 14:59 22:59 06:59 Intake Total 180 920 900 Output Total 650 500 Balance 180 270 400 Lab Results Last 24 Hours: Laboratory Results - last 24 hr 06/13/20 06/13/20 06/14/20 Range/Units 04:55 04:55 04:55 WBC 4.76 (3.98-10.04) K/mm3 RBC 3.71 L (3.98-5.22) M/mm3 Hgb 13.9 (11.2-15.7) gm/dl Hct 41.4 (34.1-44.9) % MCV 111.6 H (79.4-94.8) fl MCH 37.5 H (25.6-32.2) pg MCHC 33.6 (32.2-35.5) g/dl RDW Std Deviation 82.8 H (36.4-46.3) fL Plt Count 54 L (182-369) K/mm3 MPV 11.7 (9.4-12.3) fl Neut % (Auto) 73.6 H (34.0-71.1) % Lymph % (Auto) 5.0 L (19.3-51.7) % [place] % (Auto) 21.2 H (4.7-12.5) % Eos % (Auto) 0 L (0.7-5.8) Baso % (Auto) 0.0 L (0.1-1.2) % Neut # (Auto) 3.50 (1.56-6.13) K/mm3 Lymph # (Auto) 0.24 L (1.18-3.74) K/mm3 [place] # (Auto) 1.01 H (0.24-0.36) K/mm3 Eos # (Auto) 0.00 L (0.04-0.36) K/mm3 Baso # (Auto) 0.00 L (0.01-0.08) K/mm3 Manual Slide Review Abnormal smear PT 17.1 H (9.7-12.0) SECONDS INR 1.61 Sodium (136-145) mEq/L Potassium (3.5-5.1) mEq/L Chloride (98-107) mEq/L Carbon Dioxide (21-32) mEq/L Anion Gap (5-15) BUN (7-18) mg/dL Creatinine (0.55-1.02) mg/dL Est Cr Clr Drug Dosing mL/min Estimated GFR (MDRD) (>60) mL/min BUN/Creatinine Ratio (14-18) Glucose (80-115) mg/dL Calcium (8.5-10.1) mg/dL Magnesium (1.8-2.4) mg/dl Total Bilirubin (0.2-1.0) mg/dL AST (15-37) U/L ALT (14-59) U/L Alkaline Phosphatase (46-116) U/L Total Protein (6.4-8.2) g/dl Albumin (3.4-5.0) g/dl Globulin gm/dL Albumin/Globulin Ratio (1-2) 06/14/20 Range/Units 04:55 WBC (3.98-10.04) K/mm3 RBC (3.98-5.22) M/mm3 Hgb (11.2-15.7) gm/dl Hct (34.1-44.9) % MCV (79.4-94.8) fl MCH (25.6-32.2) pg MCHC (32.2-35.5) g/dl RDW Std Deviation (36.4-46.3) fL Plt Count (182-369) K/mm3 MPV (9.4-12.3) fl Neut % (Auto) (34.0-71.1) % Lymph % (Auto) (19.3-51.7) % [place] % (Auto) (4.7-12.5) % Eos % (Auto) (0.7-5.8) Baso % (Auto) (0.1-1.2) % Neut # (Auto) (1.56-6.13) K/mm3 Lymph # (Auto) (1.18-3.74) K/mm3 [place] # (Auto) (0.24-0.36) K/mm3 Eos # (Auto) (0.04-0.36) K/mm3 Baso # (Auto) (0.01-0.08) K/mm3 Manual Slide Review PT (9.7-12.0) SECONDS INR Sodium 135 L (136-145) mEq/L Potassium 4.4 (3.5-5.1) mEq/L Chloride 104 (98-107) mEq/L Carbon Dioxide 17 L (21-32) mEq/L Anion Gap 18.4 H (5-15) BUN 38 H (7-18) mg/dL Creatinine 1.0 (0.55-1.02) mg/dL Est Cr Clr Drug Dosing 48.85 mL/min Estimated GFR (MDRD) 56 (>60) mL/min BUN/Creatinine Ratio 38.0 H (14-18) Glucose 98 (80-115) mg/dL Calcium 8.6 (8.5-10.1) mg/dL Magnesium 2.1 (1.8-2.4) mg/dl Total Bilirubin 24.4 H (0.2-1.0) mg/dL AST 99 H (15-37) U/L ALT 54 (14-59) U/L Alkaline Phosphatase 152 H (46-116) U/L Total Protein 6.1 L (6.4-8.2) g/dl Albumin 2.4 L (3.4-5.0) g/dl Globulin 3.7 gm/dL Albumin/Globulin Ratio 0.7 L (1-2) Med Orders - Current: Current Medications Albuterol/Ipratropium (Duoneb 3.0-0.5 Mg/3 Ml) 3 ml NEB Q4H PRN PRN Reason: Shortness Of Breath/wheezing Aripiprazole (Abilify) 1 mg PO DAILY COUNTS INCLUDE 234 BEDS AT THE [facility] Last Admin: 06/13/20 08:23 Dose: 1 mg Documented by: Calcium Carbonate/Glycine (Calcium Carbonate) 600 mg PO BID COUNTS INCLUDE 234 BEDS AT THE [facility] Last Admin: 06/13/20 20:20 Dose: 600 mg Documented by: Clonidine HCl (Catapres) 0.1 mg PO Q4H PRN PRN Reason: Agitation Haloperidol Lactate (Haldol) 2 mg IM Q4H PRN PRN Reason: Agitation Hydromorphone HCl (Dilaudid) 0.25 mg IVPUSH Q2H PRN PRN Reason: Pain (severe 7-10) Promethazine HCl 12.5 mg/ (Sodium Chloride) 50.5 mls @ 100 mls/hr IV Q6H PRN PRN Reason: Nausea/Vomiting Ceftriaxone Sodium 2 gm/ (Sodium Chloride) 100 mls @ 200 mls/hr IV Q24H COUNTS INCLUDE 234 BEDS AT THE [facility] Stop: 06/15/20 19:01 Last Admin: 06/13/20 20:19 Dose: 200 mls/hr Documented by: Ibuprofen (Motrin) 600 mg PO Q6H PRN PRN Reason: Pain (moderate 4-6) Latanoprost (Xalatan 0.005% Ophth Soln) 0 ml EYEBOTH BEDTIME COUNTS INCLUDE 234 BEDS AT THE [facility] Last Admin: 06/13/20 20:21 Dose: 1 drop Documented by: Magnesium Oxide (Magnesium Oxide) 400 mg PO BID COUNTS INCLUDE 234 BEDS AT THE [facility] Last Admin: 06/13/20 20:20 Dose: 400 mg Documented by: Midodrine (Midodrine) 5 mg PO TIDAC PRN PRN Reason: Hypotension Last Admin: 06/14/20 04:40 Dose: 5 mg Documented by: Multivitamins (Thera) 1 each PO DAILY COUNTS INCLUDE 234 BEDS AT THE [facility] Last Admin: 06/13/20 08:23 Dose: 1 each Documented by: Ondansetron HCl (Zofran) 4 mg IV Q6H PRN PRN Reason: Nausea/Vomiting Oxycodone HCl (Oxycodone) 5 mg PO Q4H PRN PRN Reason: Pain (moderate 4-6) Pantoprazole Sodium (Protonix) 40 mg PO BID COUNTS INCLUDE 234 BEDS AT THE [facility] Last Admin: 06/13/20 20:21 Dose: 40 mg Documented by: Polyethylene Glycol (Miralax) 17 gm PO DAILY PRN PRN Reason: Constipation Potassium Chloride (Klor-Con M20) 20 meq PO BID COUNTS INCLUDE 234 BEDS AT THE [facility] Last Admin: 06/13/20 20:21 Dose: 20 meq Documented by: Prednisolone (Orapred 15 Mg/5ml Soln) 40 mg PO DAILY COUNTS INCLUDE 234 BEDS AT THE [facility] Last Admin: 06/13/20 08:30 Dose: 40 mg Documented by: Propranolol HCl (Inderal) 10 mg PO TID COUNTS INCLUDE 234 BEDS AT THE [facility] Last Admin: 06/13/20 20:20 Dose: 10 mg Documented by: Rifaximin (Xifaxan) 550 mg PO BID COUNTS INCLUDE 234 BEDS AT THE [facility] Last Admin: 06/13/20 20:20 Dose: 550 mg Documented by: Senna/Docusate Sodium (Senna Plus) 1 tab PO BID PRN PRN Reason: Constipation Sodium Chloride (Saline Flush) 10 ml FLUSH ASDIRECTED PRN PRN Reason: Keep Vein Open Last Admin: 06/10/20 16:51 Dose: 10 ml Documented by: Spironolactone (Aldactone) 50 mg PO BID COUNTS INCLUDE 234 BEDS AT THE [facility] Last Admin: 06/13/20 20:19 Dose: 50 mg Documented by: Thiamine HCl (Vitamin B-1) 100 mg PO DAILY COUNTS INCLUDE 234 BEDS AT THE [facility] Last Admin: 06/13/20 08:22 Dose: 100 mg Documented by: Tiotropium Mobile (Spiriva Respimat) 0 gm INH DAILY COUNTS INCLUDE 234 BEDS AT THE [facility] Last Admin: 06/13/20 08:15 Dose: 4 gm Documented by: Zolpidem Tartrate (Ambien) 5 mg PO BEDTIME PRN PRN Reason: Sleep Discontinued Medications Folic Acid (Folic Acid) 1 mg PO DAILY COUNTS INCLUDE 234 BEDS AT THE [facility] Stop: 06/13/20 09:01 Last Admin: 06/13/20 08:24 Dose: 1 mg Documented by: Folic Acid (Folic Acid) 1 mg SUBCUT ONETIME ONE Stop: 06/10/20 23:01 Last Admin: 06/11/20 16:55 Dose: Not Given Documented by: Folic Acid (Folic Acid) 1 mg PO ONETIME ONE Stop: 06/10/20 23:53 Last Admin: 06/11/20 00:41 Dose: 1 mg Documented by: Furosemide (Lasix) 20 mg IVPUSH ONETIME ONE Stop: 06/12/20 09:54 Last Admin: 06/12/20 10:07 Dose: 20 mg Documented by: Sodium Chloride (Normal Saline) 1,000 mls @ 125 mls/hr IV ASDIRECTED COUNTS INCLUDE 234 BEDS AT THE [facility] Last Admin: 06/12/20 02:54 Dose: 125 mls/hr Documented by: Ceftriaxone Sodium 2 gm/ (Sodium Chloride) 100 mls @ 200 mls/hr IV ONETIME ONE Stop: 06/10/20 19:14 Last Admin: 06/10/20 19:02 Dose: 200 mls/hr Documented by: Ceftriaxone Sodium 2 gm/ (Sodium Chloride) 100 mls @ 200 mls/hr IV Q24H COUNTS INCLUDE 234 BEDS AT THE [facility] Stop: 06/15/20 09:01 Last Admin: 06/11/20 10:08 Dose: Not Given Documented by: Thiamine HCl 100 mg/ Sodium (Chloride) 51 mls @ 100 mls/hr IV ONETIME ONE Stop: 06/10/20 20:45 Last Admin: 06/10/20 22:19 Dose: 100 mls/hr Documented by: Thiamine HCl 100 mg/ Sodium (Chloride) 51 mls @ 100 mls/hr IV DAILY COUNTS INCLUDE 234 BEDS AT THE [facility] Magnesium Sulfate (Magnesium Sulfate In Water 2 Gm/50 Ml) 2 gm in 50 mls @ 25 mls/hr IV ONETIME ONE Stop: 06/10/20 22:19 Last Admin: 06/10/20 23:49 Dose: 25 mls/hr Documented by: Phytonadione 5 mg/ Sodium (Chloride) 50.5 mls @ 100 mls/hr IV NOW ONE Stop: 06/10/20 21:30 Last Admin: 06/10/20 22:57 Dose: 100 mls/hr Documented by: Phytonadione 5 mg/ Sodium (Chloride) 50.5 mls @ 100 mls/hr IV NOW ONE Stop: 06/11/20 11:30 Last Admin: 06/11/20 11:40 Dose: 100 mls/hr Documented by: Magnesium Sulfate (Magnesium Sulfate In Water 2 Gm/50 Ml) 2 gm in 50 mls @ 25 mls/hr IV ONETIME ONE Stop: 06/12/20 11:42 Last Admin: 06/12/20 10:07 Dose: 25 mls/hr Documented by: Multivitamins (Thera) 1 each PO DAILY COUNTS INCLUDE 234 BEDS AT THE [facility] Stop: 06/16/20 09:01 Last Admin: 06/11/20 09:27 Dose: 1 each Documented by: Pantoprazole Sodium (Protonix Iv) 40 mg IV DAILY COUNTS INCLUDE 234 BEDS AT THE [facility] Last Admin: 06/12/20 08:51 Dose: 40 mg Documented by: Phytonadione (Aquamephyton) 10 mg PO ONETIME ONE Stop: 06/12/20 13:01 Last Admin: 06/12/20 14:01 Dose: 10 mg Documented by: Prednisolone (Orapred 15 Mg/5ml Soln) 40 mg PO ONETIME ONE Stop: 06/10/20 20:13 Last Admin: 06/10/20 22:16 Dose: 40 mg Documented by: Thiamine HCl (Vitamin B-1) 100 mg IVPUSH DAILY COUNTS INCLUDE 234 BEDS AT THE [facility] Last Admin: 06/12/20 09:10 Dose: 100 mg Documented by: - Exam General: Alert, Oriented, Cooperative, No Acute Distress HEENT: Pupils Equal, Pupils Reactive, EOMI, Mucous Membr. Moist/[place] Neck: Supple Lungs: Clear to Auscultation, Normal Respiratory Effort Cardiovascular: Regular Rate, Regular Rhythm GI/Abdominal Exam: Normal Bowel Sounds, Soft, Non-Tender, No Organomegaly, No Distention, No Abnormal Bruit (Female) Exam: Deferred Back Exam: Normal Inspection, Decreased Range of Motion Extremities: Normal Inspection, Normal Range of Motion, Non-Tender, No Pedal Edema, Normal Capillary Refill Peripheral Pulses: 2+: Dorsalis Pedis (L), Dorsalis Pedis (R) Skin: Warm, Dry, Intact, Other (Jaundiced) Neurological: No New Focal Deficit, Other (mild hand tremors). No: Normal Gait Psy/Mental Status: Alert, Normal Affect, Normal Mood - Patient Data Lab Results Last 24 hrs: Laboratory Results - last 24 hr 06/13/20 06/13/20 06/14/20 Range/Units 04:55 04:55 04:55 WBC 4.76 (3.98-10.04) K/mm3 RBC 3.71 L (3.98-5.22) M/mm3 Hgb 13.9 (11.2-15.7) gm/dl Hct 41.4 (34.1-44.9) % MCV 111.6 H (79.4-94.8) fl MCH 37.5 H (25.6-32.2) pg MCHC 33.6 (32.2-35.5) g/dl RDW Std Deviation 82.8 H (36.4-46.3) fL Plt Count 54 L (182-369) K/mm3 MPV 11.7 (9.4-12.3) fl Neut % (Auto) 73.6 H (34.0-71.1) % Lymph % (Auto) 5.0 L (19.3-51.7) % [place] % (Auto) 21.2 H (4.7-12.5) % Eos % (Auto) 0 L (0.7-5.8) Baso % (Auto) 0.0 L (0.1-1.2) % Neut # (Auto) 3.50 (1.56-6.13) K/mm3 Lymph # (Auto) 0.24 L (1.18-3.74) K/mm3 [place] # (Auto) 1.01 H (0.24-0.36) K/mm3 Eos # (Auto) 0.00 L (0.04-0.36) K/mm3 Baso # (Auto) 0.00 L (0.01-0.08) K/mm3 Manual Slide Review Abnormal smear PT 17.1 H (9.7-12.0) SECONDS INR 1.61 Sodium (136-145) mEq/L Potassium (3.5-5.1) mEq/L Chloride (98-107) mEq/L Carbon Dioxide (21-32) mEq/L Anion Gap (5-15) BUN (7-18) mg/dL Creatinine (0.55-1.02) mg/dL Est Cr Clr Drug Dosing mL/min Estimated GFR (MDRD) (>60) mL/min BUN/Creatinine Ratio (14-18) Glucose (80-115) mg/dL Calcium (8.5-10.1) mg/dL Magnesium (1.8-2.4) mg/dl Total Bilirubin (0.2-1.0) mg/dL AST (15-37) U/L ALT (14-59) U/L Alkaline Phosphatase (46-116) U/L Total Protein (6.4-8.2) g/dl Albumin (3.4-5.0) g/dl Globulin gm/dL Albumin/Globulin Ratio (1-2) 06/14/20 Range/Units 04:55 WBC (3.98-10.04) K/mm3 RBC (3.98-5.22) M/mm3 Hgb (11.2-15.7) gm/dl Hct (34.1-44.9) % MCV (79.4-94.8) fl MCH (25.6-32.2) pg MCHC (32.2-35.5) g/dl RDW Std Deviation (36.4-46.3) fL Plt Count (182-369) K/mm3 MPV (9.4-12.3) fl Neut % (Auto) (34.0-71.1) % Lymph % (Auto) (19.3-51.7) % [place] % (Auto) (4.7-12.5) % Eos % (Auto) (0.7-5.8) Baso % (Auto) (0.1-1.2) % Neut # (Auto) (1.56-6.13) K/mm3 Lymph # (Auto) (1.18-3.74) K/mm3 [place] # (Auto) (0.24-0.36) K/mm3 Eos # (Auto) (0.04-0.36) K/mm3 Baso # (Auto) (0.01-0.08) K/mm3 Manual Slide Review PT (9.7-12.0) SECONDS INR Sodium 135 L (136-145) mEq/L Potassium 4.4 (3.5-5.1) mEq/L Chloride 104 (98-107) mEq/L Carbon Dioxide 17 L (21-32) mEq/L Anion Gap 18.4 H (5-15) BUN 38 H (7-18) mg/dL Creatinine 1.0 (0.55-1.02) mg/dL Est Cr Clr Drug Dosing 48.85 mL/min Estimated GFR (MDRD) 56 (>60) mL/min BUN/Creatinine Ratio 38.0 H (14-18) Glucose 98 (80-115) mg/dL Calcium 8.6 (8.5-10.1) mg/dL Magnesium 2.1 (1.8-2.4) mg/dl Total Bilirubin 24.4 H (0.2-1.0) mg/dL AST 99 H (15-37) U/L ALT 54 (14-59) U/L Alkaline Phosphatase 152 H (46-116) U/L Total Protein 6.1 L (6.4-8.2) g/dl Albumin 2.4 L (3.4-5.0) g/dl Globulin 3.7 gm/dL Albumin/Globulin Ratio 0.7 L (1-2) Result Diagrams: 06/15/20 06:36 06/15/20 06:36 Sepsis Event Note - Evaluation Sepsis Screening Result: No Definite Risk - Focused Exam Vital Signs: Vital Signs Temp Pulse Resp BP BP Pulse Ox 06/14/20 06:34 101/69 06/14/20 04:25 36.2 C 54 L 18 93 L 06/14/20 04:00 94/60 06/13/20 20:20 58 L 105/71 06/13/20 20:15 36.3 C 58 L 18 105/71 90 L - Problem List Review Problem List Initiated/Reviewed/Updated: Yes - My Orders Last 24 Hours: My Active Orders 06/13/20 09:00 Thiamine [Vitamin B-1] 100 mg PO DAILY 06/13/20 22:07 Midodrine 5 mg PO TIDAC PRN 06/14/20 04:55 CBC WITH AUTO DIFF [HEME] AM 06/15/20 05:11 CBC WITH AUTO DIFF [HEME] AM COMPREHENSIVE METABOLIC PN,CMP [CHEM] AM MAGNESIUM [CHEM] AM 06/16/20 05:11 CBC WITH AUTO DIFF [HEME] AM COMPREHENSIVE METABOLIC PN,CMP [CHEM] AM MAGNESIUM [CHEM] AM 06/17/20 05:11 CBC WITH AUTO DIFF [HEME] AM COMPREHENSIVE METABOLIC PN,CMP [CHEM] AM MAGNESIUM [CHEM] AM - Plan Plan:: This is a 59 yo white female with past medical hx/o Impaired Vision, Liver Cirrhosis, Hypertension, Recurrent Pneumonia, Chronic SOB, Active Smoker, Chronic GERD, Hemorrhoids, Enlarged spleen, Recurrent UTI, Substance Abuse, Hx/o Gallstone, Vit D Deficiency, Anemia of chronic Disease, Chronic electrolytes abnormalities and Chronic ETOH Abuse/Dependence who was brought in by family for evaluation of 2 week history of generalized weakness, gait instability as well as disorientation along with worsening yellowish color Assessment: Acute: Toxic-metabolic vs Hepatic encephalopathy, improved Acute on chronic Liver failure secondary to alcohol abuse Small lesion, 7 mm, within the right lobe; new abnormal findings (patient and daughter aware) Elevated Vit D and B12 levels, likely from oversupplementation at home Elevated FT4 of 2.42 with normal TSH level Elevated MCV of 108.6; now 111.6 Elevated PT secondary to chronic liver disease -Has underlying chronic liver disease -Abdominal US: report read as nodular capsular contour of the liver with a prominent left lobe and heterogenous echotexture consistent with chronic liver disease likely represents cirrhosis -PT now at 17.4; she received 3 doses of Vit K -CIWAA score is mild-moderate -Plan: Continue CIWAA protocol, Hold Vit D and B12 supplements due to elevated levels. Repeat MRI in 3 months and GI referral outpatient ETOH Hepatitis -Maddrey Score is 67.08 -Carries poor prognosis with one month mortality ranging form 30-50% -Hepatitis work in the past was negative -She may benefit with glucocorticoid therapy: Continue prednisolone 40 mg po daily -Advised to quit alcohol Jaundice/Hyperbilirubinemia, improved Elevated Alk Phos of 172; now 152 -Abdominal U/S report read as 10 mm gallstone within the lumen of the gallbladder. Mild gallbladder wall thickening. Negative for sonographic Romero sign. No significant pericholecystic fluid. -No fever or chills -No leukocytosis -Able to eat and drink fine -No GI symptoms -T. Bilirubin of 31.5-->28.1-->now 24.4 -MRCP report read as within normal limits. Small gallstone is seen within the gallbladder. Thrombocytopenia with Platelet of 48k, improved Elevated PT of 19.8; now 18.1 Splenomegaly with length of 15.9 cm -Platelet now at 54K, likely from chronic liver disease exacerbated by recent alcohol abuse -No active bleeding or melena -Avoid ASA and Anticoagulation Mild hypercapnia with CO2 of 20; now 17 Increased AG Metabolic Acidosis Hypomagnesemia with Mg of 1.7; now 2.1 -Likely duet to baseline pulmonary insufficiency -She is still an active smoker -Will replete and monitor Hypoalbuminemia with Albumin of 2.6; now 2.4 Calore Protein Malnutrition Generalized Weakness -Thyroid Panel: Elevated FT4 of 2.42 with normal TSH level -Elevated Vit D and B12 levels -She is unsteady, weak and shaky this morning - PT/OT to assess and treat. Increased food intake. Dietary consult UTI secondary to E. coli Proteinuria, liver dysfunction Ketonuria, poor nutritional intake and fasting Bilirubinuria, from liver dysfunction -Secondary to E. coli and sensitive to Rocephin -Afebrile -Currently on IV Rocephin 4/5 day for antibiotic treatment Nicotine Dependence -Smoke 6 cigarettes a day -Counseled on smoking cessation -Refused nicotine patch or gum Relatively Hypotension -BP in the 90s/50-60s mmHg -MAP is adequate -We will monitor Feeling depressed/melancholy -She was in tears during rounds -She wanted to go to her significant other's service tomorrow but she is not safe and medically ready -However I was informed by staff that according to her daughter, patient is not welcome to attend Resolved: Acute Kidney Injury, resolved Hypomagnesemia with Mg of 1.2, resolved Chronic: Impaired Vision, Liver Cirrhosis, Hypertension, Recurrent Pneumonia, Chronic SOB, Active Smoker, Chronic GERD, Hemorrhoids, Enlarged spleen, Recurrent UTI, Substance Abuse, Hx/o Gallstone, Vit D Deficiency, Anemia of chronic Disease, Chronic electrolytes abnormalities and Chronic ETOH Abuse/Dependence Plan: No change in condition. Continue current treatment and IV antibiotic. Regular diet. IV fluids was discontinued. Fall/Seizure precautions. MVI, Folate, and Iron supplements. Dietary consult for protein calorie malnutrition. Avoid ASA and Anticoagulation. CIWAA protocol. DVT/GI prophylaxis: SCDs and PPI. Chemical prophylaxis is CI due to elevated PT level and low platelet levels. Code status is full. Prognosis remains guarded-good but overall is poor. LOS > 96h hrs, she needs more time with treatment. She remains weak and unsteady. She has on and off confusion. Needs PT/OT to evaluate her prior to discharge.
[2020-06-14] MEDS: Tiotropium Bromide 4 GM Inhalation Spray (2.5mcg/1 dose; 10 doses) INH SCH (08:24)
[2020-06-14] MEDS: Potassium Chloride 20 MEQ Tab.ER PO SCH ×2 (08:41→19:59)
[2020-06-14] MEDS: Rifaximin 550 MG Tab PO SCH ×2 (08:41→19:59)
[2020-06-14] MEDS: Magnesium Oxide 400 MG Tab PO SCH ×2 (08:42→19:59)
[2020-06-14] MEDS: Spironolactone 25 MG Tab PO SCH ×2 (08:42→19:59)
[2020-06-14] MEDS: Pantoprazole 40 MG Tab.CR PO SCH ×2 (08:42→19:59)
[2020-06-14] MEDS: Multivitamins,Therapeutic Tab PO SCH (08:42)
[2020-06-14] MEDS: Thiamine 100 MG Tab PO SCH (08:42)
[2020-06-14] MEDS: Calcium Carbonate 600 MG Tab PO SCH ×2 (08:43→19:59)
[2020-06-14] MEDS: Propranolol 10 MG Tab PO SCH ×3 (08:49→19:59)
[2020-06-14] MEDS: prednisoLONE Soln 15 MG/5 ML UD Cup PO SCH (08:52)
[2020-06-14] MEDS: cefTRIAXone 2 GM in Sodium Chloride 0.9% 100 ML IV SCH (18:02)
[2020-06-14] MEDS: Latanoprost 0.005% Ophth Soln 2.5 ML Bottle EYEBOTH SCH (19:59)
[2020-06-15] MEDS: Tiotropium Bromide 4 GM Inhalation Spray (2.5mcg/1 dose; 10 doses) INH SCH ×2 (07:42→08:59)
[2020-06-15] MEDS: Multivitamins,Therapeutic Tab PO SCH (09:26)
[2020-06-15] MEDS: Pantoprazole 40 MG Tab.CR PO SCH (09:27)
[2020-06-15] MEDS: Rifaximin 550 MG Tab PO SCH (09:27)
[2020-06-15] MEDS: Propranolol 10 MG Tab PO SCH (09:27)
[2020-06-15] MEDS: Potassium Chloride 20 MEQ Tab.ER PO SCH (09:29)
[2020-06-15] MEDS: prednisoLONE Soln 15 MG/5 ML UD Cup PO SCH (09:30)
[2020-06-15] MEDS: Thiamine 100 MG Tab PO SCH (09:30)
[2020-06-15] MEDS: Magnesium Oxide 400 MG Tab PO SCH (09:30)
[2020-06-15] MEDS: Calcium Carbonate 600 MG Tab PO SCH (09:30)
[2020-06-15] MEDS: Spironolactone 25 MG Tab PO SCH (09:30)
--- NOTE | 2020-06-15 12:51 | PCM.DCSUM1 ---
Discharge Summary - Hospital Course HPI Initial Comments: This is a 59 yo white female with past medical hx/o Impaired Vision, Liver Cirrhosis, Hypertension, Recurrent Pneumonia, Chronic SOB, Active Smoker, Chronic GERD, Hemorrhoids, Enlarged spleen, Recurrent UTI, Substance Abuse, Hx/o Gallstone, Vit D Deficiency, Anemia of chronic Disease, Chronic electrolytes abnormality and Chronic ETOH Abuse/Dependence who was brought in by family for evaluation of 2 week history of generalized weakness, gait instability as well as disorientation along with worsening yellowish color. She carries a hx/o liver cirrhosis. She still drinks hard liquor heavily. She apparently quit this past Monday. Her appetite has not been great. She was not having chest pain or shortness of breath. No GI or complaints. Her initial work up in ED shows a CBC remarkable for MCV of 1058.6, RDW of 77.4, Neutrophils of 78%, Lymphocyte of 5.9%, Monocytes of 15.1% and Eosinophils of 0.2%. Her coagulation study is notable for PT of 19.8. Her chemistry is significant for CO2 of 20, BUN of 48, Cr of 1.1, Mg of 1.2, Total Bilirubin of 31.2, AST of 131, ALT of 41, Alk Phos of 172, Total protein of 6.0 and Albumin of 2.6. Her UA is positive for UTI. Her UDS is < 0.2 for salicylates. Her LAKEISHA level is 0. Her Covid test is negative. Patient is coming in for further evaluation of jaundice and management of chronic alcohol abuse. Diagnosis: Stroke: No - Discharge Data Discharge Date: 06/15/20 (Admit date: 06/10/20) Discharge Disposition: Home, W Home Health Agency 06 Condition: Good - Referral to Home Health Date of Face to Face Encounter: 06/12/20 Reason for Homebound Status: Face to face meeting with patient or family. Pt has liver failure, cirrhosis, jaundice and alcohol dependence. Pt is in need of [facility] services for; low activity tolerance, functional mobility, standing blance, strength, transfers. Nursing for vitals, skilled assessment, medication education, disease education, and disease management. PT for balance training, gait training, neuromuscular reduction, safety educaiton, therapeutic execise and transfer training. OT for ADLs, functional mobility, safety education, therapeutic activites and exercises. Patient is currently homebound related to being walker dependend, decreased activity tolerance and decreased level of endurance. Pt will be followed by her PCP, Goldie Mcclure. Primary Care Physician: Goldie Mcclure NP Skilled Need: see above - Discharge Diagnosis/Problem(s) (1) Acute on chronic alcoholic liver disease SNOMED Code(s): 646994639 ICD Code: K70.9 - ALCOHOLIC LIVER DISEASE, UNSPECIFIED Status: Acute Priority: High Current Visit: Yes (2) Alcoholic hepatitis SNOMED Code(s): 488669372 ICD Code: K70.10 - ALCOHOLIC HEPATITIS WITHOUT ASCITES Status: Acute Priority: High Current Visit: Yes Qualifiers: Ascites presence: with ascites Qualified Code(s): K70.11 - Alcoholic hepatitis with ascites (3) Hyperbilirubinemia SNOMED Code(s): 45724131 ICD Code: E80.6 - OTHER DISORDERS OF BILIRUBIN METABOLISM Status: Acute Priority: High Current Visit: Yes (4) Hypercapnia SNOMED Code(s): 79097197 ICD Code: R06.89 - OTHER ABNORMALITIES OF BREATHING Status: Acute Priority: High Current Visit: Yes (5) High anion gap metabolic acidosis SNOMED Code(s): 27111307 ICD Code: E87.2 - ACIDOSIS Status: Resolved Priority: High Current Visit: Yes (6) Hypoalbuminemia SNOMED Code(s): 183266272 ICD Code: E88.09 - OTH DISORDERS OF PLASMA-PROTEIN METABOLISM, NEC Status: Chronic Priority: Medium Current Visit: Yes (7) Malnutrition SNOMED Code(s): 27045793 ICD Code: E46 - UNSPECIFIED PROTEIN-CALORIE MALNUTRITION Status: Chronic Priority: Medium Current Visit: Yes Qualifiers: Malnutrition type: protein-calorie malnutrition Protein-calorie malnutrition severity: moderate Qualified Code(s): E44.0 - Moderate protein- calorie malnutrition (8) Generalized weakness SNOMED Code(s): 17797620 ICD Code: R53.1 - WEAKNESS Status: Acute Priority: High Current Visit: Yes (9) Proteinuria, unspecified SNOMED Code(s): 45032046 ICD Code: R80.9 - PROTEINURIA, UNSPECIFIED Status: Chronic Priority: Medium Current Visit: No Qualifiers: Proteinuria type: unspecified Qualified Code(s): R80.9 - Proteinuria, unspecified (10) Ketonuria SNOMED Code(s): 006168167 ICD Code: R82.4 - ACETONURIA Status: Chronic Priority: Medium Current Visit: No (11) Nicotine dependence SNOMED Code(s): 23549790 ICD Code: F17.200 - NICOTINE DEPENDENCE, UNSPECIFIED, UNCOMPLICATED Status: Chronic Priority: Medium Current Visit: Yes Qualifiers: Nicotine product type: cigarettes Substance use status: unspecified nicotine-induced disorder Qualified Code(s): F17.219 - Nicotine dependence, cigarettes, with unspecified nicotine-induced disorders (12) Depression SNOMED Code(s): 67594456 ICD Code: F32.9 - MAJOR DEPRESSIVE DISORDER, SINGLE EPISODE, UNSPECIFIED Status: Chronic Priority: Medium Current Visit: Yes Qualifiers: Depression Type: other depression Qualified Code(s): F32.89 - Other specified depressive episodes (13) MOUNA (acute kidney injury) SNOMED Code(s): 92520445, 06130390 ICD Code: N17.9 - ACUTE KIDNEY FAILURE, UNSPECIFIED Status: Resolved Priority: High Current Visit: Yes (14) GERD (gastroesophageal reflux disease) SNOMED Code(s): 240282071 ICD Code: K21.9 - GASTRO-ESOPHAGEAL REFLUX DISEASE WITHOUT ESOPHAGITIS Status: Chronic Priority: Medium Current Visit: No Qualifiers: Esophagitis presence: esophagitis presence not specified Qualified Code(s): K21.9 - Gastro-esophageal reflux disease without esophagitis (15) Anemia in chronic illness SNOMED Code(s): 006197784 ICD Code: D63.8 - ANEMIA IN OTHER CHRONIC DISEASES CLASSIFIED ELSEWHERE Status: Chronic Priority: Medium Current Visit: No (16) Alcohol dependence SNOMED Code(s): 48172108 ICD Code: F10.20 - ALCOHOL DEPENDENCE, UNCOMPLICATED Status: Chronic Priority: High Current Visit: Yes Qualifiers: Substance use status: other alcohol-induced disorder Qualified Code(s): F10.288 - Alcohol dependence with other alcohol-induced disorder (17) Hypomagnesemia SNOMED Code(s): 867977779 ICD Code: E83.42 - HYPOMAGNESEMIA Status: Resolved Priority: High Current Visit: Yes (18) Thrombocytopenia SNOMED Code(s): 298385628 ICD Code: D69.6 - THROMBOCYTOPENIA, UNSPECIFIED Status: Chronic Priority: Medium Current Visit: Yes (19) Hepatic encephalopathy SNOMED Code(s): 47077599 ICD Code: K72.90 - HEPATIC FAILURE, UNSPECIFIED WITHOUT COMA Status: Acute Priority: High Current Visit: Yes (20) Splenomegaly SNOMED Code(s): 30197832 ICD Code: R16.1 - SPLENOMEGALY, NOT ELSEWHERE CLASSIFIED Status: Chronic Priority: Medium Current Visit: Yes (21) Cirrhosis of liver SNOMED Code(s): 11220078 ICD Code: K74.60 - UNSPECIFIED CIRRHOSIS OF LIVER Status: Chronic Priority: High Current Visit: Yes Qualifiers: Hepatic cirrhosis type: alcoholic cirrhosis Ascites presence: with ascites Qualified Code(s): K70.31 - Alcoholic cirrhosis of liver with ascites (22) UTI (urinary tract infection) SNOMED Code(s): 41602916 ICD Code: N39.0 - URINARY TRACT INFECTION, SITE NOT SPECIFIED Status: Acute Priority: High Current Visit: Yes Qualifiers: Urinary tract infection type: acute cystitis Hematuria presence: without hematuria Qualified Code(s): N30.00 - Acute cystitis without hematuria - Patient Summary/Data Consults: Consultations 06/10/20 20:08 Consult to Case Management/Milk Pickup Truck Driver [CONS] Routine Consult to Consultant In Ergonomics And Safety [CONS] Routine Consult to Spiritual Care [CONS] Routine OT Evaluation and Treatment [CONS] Routine PT Evaluation and Treatment [CONS] Routine Respiratory Care Assess and Treatment [CONS] Routine Labs Pending at D/C: None Recommended Follow-up Testing/Procedures: Follow-up with PCP within 5-7 days of discharge, sooner if needed. -Recommend repeat CBC, CMP, and magnesium at that visit. Follow-up with outpatient GI as scheduled. Hospital Course: This is a 59-year-old female who presented to ED on 06/10/2020 with jaundice, generalized weakness, and gait instability. Patient has a longstanding history of alcohol abuse. She has reportedly been drinking significantly although she reports she is quit this past Monday. She has had worsening stress in her life with her boyfriend dying recently. Abdominal ultrasound was obtained in the ED showing cirrhotic change of the liver which is to prior study. There is a 1 cm gallstone noted within the gallbladder with wall thickening but no biliary duct dilation. No additional abnormality is noted on right upper quadrant ultrasound. On admission she was noted to have encephalopathy which did improve throughout her stay. MRI of the abdomen without contrast showed cirrhotic change within the liver and a small hypoechoic lesion in the right lobe measuring 7 mm. They are recommending a repeat MRI in 3 months. MRCP PE protocol is utilized and appears within normal limits. Small gallstone is seen within the gallbladder. There is also an enlarged spleen with a length of 15.9 cm. Minimal fluid is also noted around the liver. UA on admission was obtained and was suggestive of UTI. Patient was started on Rocephin and urine culture growing out E. coli with good susceptibility to Rocephin. She completed treatment while here for antibiotics. She was started on CIWA protocol and the highest her score ever got was up to 5. She was averaging 1 prior to discharge. INR remained elevated and she is auto anticoagulated. Initial INR is 1.87 and prior to discharge she lowered to 1.71. Iron panel was obtained and was within normal limits. Magnesium was low and was supplemented. Total bilirubin on admission was 31.2 with a direct bilirubin of 24 and indirect bilirubin of 7.5. AST was also noted to be elevated at 31. ALT was 41. Alkaline phosphatase was 42. Prior to discharge her bilirubin did decrease to 23.8. AST remained elevated at 108, ALT 66, and alkaline phosphatase 160. Albumin remained low however was up to 2.4 prior to discharge. Her ammonia remained within normal limits. Lites automation were 48 and they we remained low although improved up to 54 prior to discharge. She remains unsteady at times and does have confusion that waxes and wanes. She was evaluated by PT/OT who are recommending home with home health services. Maddrey 4 was calculated and was 67.08. This is a very poor prognosis with a 1 month mortality range from 30 to 50%. She was advised to quit drinking alcohol and told that if she continues she will likely rapidly. She started on prednisolone 40 mg p.o. daily. This will be continued for 4 more days. On 06/20/2020 dosing will be decreased to 20 mg daily. Primary care provider/GI should determine if patient needs longer course of steroid. She is an active smoker and nicotine patch was offered while here. She declined this during her stay and after discharge. She did occasionally have some episodes of very mild hypotension with systolic blood pressure in the low 90s. This is not surprising given her chronic liver failure. She will be discharged home today. Home medications were otherwise continued. Prednisolone was prescribed as above. She should follow-up with her primary care provider within 5 to 7 days of discharge, sooner if needed. Recommend recheck CBC, CMP, and magnesium at that visit. hydroelectric production manager is working on attempting to get patient into GI. Importance of this visit was communicated with the patient and she states she will follow through on this visit. Again importance of re maining free from alcohol was discussed with the patient. Social work did communicate with patient regarding treatment programs and she was not open to anything. She reports that she can do it on her own. Patient discharged today with home health services as noted. - Patient Instructions Diet: Usual Diet as Tolerated Activity: As Tolerated Driving: Do Not Drive Showering/Bathing: May Shower Notify Provider of: Fever, Increased Pain, Nausea and/or Vomiting Other/Special Instructions: Follow-up with primary care provider within 5-7 days of discharge, sooner if needed. Follow-up with GI as scheduled. Avoid tylenol. You were prescribed a steroid. Take 40mg daily for 4 more days and then switch to 20mg daily starting 06/20/20. It is incredibly important that you stop drinking. Any alcohol can put you into worsening liver failure. This would likely kill you rapidly. Resume home medicatoins as directed. You completed treatment for your urinary tract infection. No antibiotic will be prescribed at discharge. Follow-up with primary care provider within 7-10 days of discharge, sooner if needed. - Discharge Plan *PRESCRIPTION DRUG MONITORING PROGRAM REVIEWED*: No *COPY OF PRESCRIPTION DRUG MONITORING REPORT IN PATIENT HOA: No Prescriptions/Med Rec: prednisoLONE [OraPred 15 MG/5ML Soln] 40 mg PO DAILY 4 Days cup prednisoLONE [OraPred 15 MG/5ML Soln] 20 mg PO DAILY 10 Days cup Home Medications: Home Meds Potassium Chloride [Klor-Con M20] 20 meq PO BID 11/27/14 [History] Pantoprazole Sodium [Protonix] 40 mg PO BID 04/11/17 [History] Folic Acid 1 mg PO DAILY #30 tablet 10/03/17 [Rx] Magnesium Oxide 400 mg PO BID #60 tab 10/03/17 [Rx] Multivitamins,Therapeutic [Thera] 1 each PO DAILY #30 tablet 10/03/17 [Rx] Propranolol HCl [Propranolol] 10 mg PO TID #60 tablet 10/03/17 [Rx] Rifaximin [Xifaxan] 550 mg PO BID #30 tablet 10/03/17 [Rx] Spironolactone [Aldactone] 50 mg PO BID #30 tablet 10/03/17 [Rx] Thiamine [Vitamin B-1] 100 mg PO DAILY #30 tablet 10/03/17 [Rx] ARIPiprazole [Abilify] 1 mg PO DAILY 06/11/20 [History] Calcium Carbonate 600 mg PO BID 06/11/20 [History] Latanoprost [Xalatan 0.005% Ophth Soln] 1 drop EYEBOTH BEDTIME 06/11/20 [History] Tiotropium Tatums [Spiriva Respimat] 2 inh PO DAILY 06/11/20 [History] prednisoLONE [OraPred 15 MG/5ML Soln] 20 mg PO DAILY 10 Days cup 06/15/20 [Rx] prednisoLONE [OraPred 15 MG/5ML Soln] 40 mg PO DAILY 4 Days cup 06/15/20 [Rx] Oxygen Therapy Mode: Room Air Patient Handouts: Alcohol Abuse and Dependence Information, Adult, Liver Failure, Sepsis, Diagnosis, Adult, Steps to Quit Smoking Referrals: Goldie Mcclure NP [Primary Care Provider] - 06/22/20 10:30 am (Hospital follow- up appointment. ) - Discharge Summary/Plan Comment DC Time >30 min.: Yes (45 mins ) - General Info Date of Service: 06/15/20 Admission Dx/Problem (Free Text: Admission Diagnosis/Problem Admission Diagnosis/Problem Liver failure Functional Status: Reports: Pain Controlled, Tolerating Diet, Ambulating, Urinating. Denies: New Symptoms - Review of Systems General: Reports: No Symptoms, Weakness. Denies: Fever, Fatigue, Malaise, Chills HEENT: Reports: No Symptoms. Denies: Headaches, Sore Throat Pulmonary: Reports: No Symptoms. Denies: Shortness of Breath, Cough, Sputum Cardiovascular: Reports: No Symptoms. Denies: Chest Pain, Palpitations, Dyspnea on Exertion, Edema Gastrointestinal: Reports: No Symptoms. Denies: Abdominal Pain, Constipation, Diarrhea, Nausea, Vomiting Genitourinary: Reports: No Symptoms. Denies: Pain Musculoskeletal: Reports: No Symptoms Skin: Reports: Jaundice Neurological: Reports: Confusion (at times ). Denies: Numbness, Pre-Existing Deficit, Tingling, Difficulty Walking, Gait Disturbance Psychiatric: Reports: No Symptoms - Patient Data Vitals - Most Recent: Last Vital Signs Temp 96.6 F L 06/15/20 11:11 Pulse 58 L 06/15/20 11:12 Resp 14 06/15/20 11:11 BP 99/69 06/15/20 11:11 Pulse Ox 92 L 06/15/20 11:12 Weight - Most Recent: 159 lb 11.2 oz I&O - Last 24 hours: Intake & Output 06/14/20 06/15/20 06/15/20 22:59 06:59 14:59 Intake Total 920 400 120 Output Total 400 Balance 520 400 120 Lab Results - Last 24 hrs: Laboratory Results - last 24 hr 06/15/20 06/15/20 Range/Units 06:36 06:36 WBC 4.65 (3.98-10.04) K/mm3 RBC 3.76 L (3.98-5.22) M/mm3 Hgb 14.0 (11.2-15.7) gm/dl Hct 42.3 (34.1-44.9) % MCV 112.5 H (79.4-94.8) fl MCH 37.2 H (25.6-32.2) pg MCHC 33.1 (32.2-35.5) g/dl RDW Std Deviation 83.2 H (36.4-46.3) fL Plt Count 54 L (182-369) K/mm3 MPV 11.8 (9.4-12.3) fl Neut % (Auto) 73.4 H (34.0-71.1) % Lymph % (Auto) 4.1 L (19.3-51.7) % Woodward % (Auto) 21.9 H (4.7-12.5) % Eos % (Auto) 0 L (0.7-5.8) Baso % (Auto) 0.0 L (0.1-1.2) % Neut # (Auto) 3.41 (1.56-6.13) K/mm3 Lymph # (Auto) 0.19 L (1.18-3.74) K/mm3 Woodward # (Auto) 1.02 H (0.24-0.36) K/mm3 Eos # (Auto) 0.00 L (0.04-0.36) K/mm3 Baso # (Auto) 0.00 L (0.01-0.08) K/mm3 Manual Slide Review Abnormal smear Sodium 137 (136-145) mEq/L Potassium 4.5 (3.5-5.1) mEq/L Chloride 104 (98-107) mEq/L Carbon Dioxide 15 L (21-32) mEq/L Anion Gap 22.5 H (5-15) BUN 35 H (7-18) mg/dL Creatinine 1.0 (0.55-1.02) mg/dL Est Cr Clr Drug Dosing 48.85 mL/min Estimated GFR (MDRD) 56 (>60) mL/min BUN/Creatinine Ratio 35.0 H (14-18) Glucose 86 (80-115) mg/dL Calcium 8.6 (8.5-10.1) mg/dL Magnesium 2.1 (1.8-2.4) mg/dl Total Bilirubin 23.8 H (0.2-1.0) mg/dL AST 108 H (15-37) U/L ALT 66 H (14-59) U/L Alkaline Phosphatase 160 H (46-116) U/L Total Protein 6.1 L (6.4-8.2) g/dl Albumin 2.4 L (3.4-5.0) g/dl Globulin 3.7 gm/dL Albumin/Globulin Ratio 0.7 L (1-2) Med Orders - Current: Current Medications Albuterol/Ipratropium (Duoneb 3.0-0.5 Mg/3 Ml) 3 ml NEB Q4H PRN PRN Reason: Shortness Of Breath/wheezing Aripiprazole (Abilify) 1 mg PO DAILY [facility] Last Admin: 06/15/20 09:26 Dose: 1 mg Documented by: Calcium Carbonate/Glycine (Calcium Carbonate) 600 mg PO BID [facility] Last Admin: 06/15/20 09:30 Dose: 600 mg Documented by: Clonidine HCl (Catapres) 0.1 mg PO Q4H PRN PRN Reason: Agitation Haloperidol Lactate (Haldol) 2 mg IM Q4H PRN PRN Reason: Agitation Hydromorphone HCl (Dilaudid) 0.25 mg IVPUSH Q2H PRN PRN Reason: Pain (severe 7-10) Promethazine HCl 12.5 mg/ (Sodium Chloride) 50.5 mls @ 100 mls/hr IV Q6H PRN PRN Reason: Nausea/Vomiting Ceftriaxone Sodium 2 gm/ (Sodium Chloride) 100 mls @ 200 mls/hr IV Q24H [facility] Stop: 06/16/20 19:01 Last Admin: 06/14/20 18:02 Dose: 200 mls/hr Documented by: Ibuprofen (Motrin) 600 mg PO Q6H PRN PRN Reason: Pain (moderate 4-6) Latanoprost (Xalatan 0.005% Ophth Soln) 0 ml EYEBOTH BEDTIME [facility] Last Admin: 06/14/20 19:59 Dose: 1 drop Documented by: Magnesium Oxide (Magnesium Oxide) 400 mg PO BID [facility] Last Admin: 06/15/20 09:30 Dose: 400 mg Documented by: Midodrine (Midodrine) 5 mg PO TIDAC PRN PRN Reason: Hypotension Last Admin: 06/14/20 04:40 Dose: 5 mg Documented by: Multivitamins (Thera) 1 each PO DAILY [facility] Last Admin: 06/15/20 09:26 Dose: 1 each Documented by: Ondansetron HCl (Zofran) 4 mg IV Q6H PRN PRN Reason: Nausea/Vomiting Oxycodone HCl (Oxycodone) 5 mg PO Q4H PRN PRN Reason: Pain (moderate 4-6) Pantoprazole Sodium (Protonix) 40 mg PO BID [facility] Last Admin: 06/15/20 09:27 Dose: 40 mg Documented by: Polyethylene Glycol (Miralax) 17 gm PO DAILY PRN PRN Reason: Constipation Potassium Chloride (Klor-Con M20) 20 meq PO BID [facility] Last Admin: 06/15/20 09:29 Dose: 20 meq Documented by: Prednisolone (Orapred 15 Mg/5ml Soln) 40 mg PO DAILY [facility] Last Admin: 06/15/20 09:30 Dose: 40 mg Documented by: Propranolol HCl (Inderal) 10 mg PO TID [facility] Last Admin: 06/15/20 09:27 Dose: 10 mg Documented by: Rifaximin (Xifaxan) 550 mg PO BID [facility] Last Admin: 06/15/20 09:27 Dose: 550 mg Documented by: Senna/Docusate Sodium (Senna Plus) 1 tab PO BID PRN PRN Reason: Constipation Sodium Chloride (Saline Flush) 10 ml FLUSH ASDIRECTED PRN PRN Reason: Keep Vein Open Last Admin: 06/10/20 16:51 Dose: 10 ml Documented by: Spironolactone (Aldactone) 50 mg PO BID [facility] Last Admin: 06/15/20 09:30 Dose: 50 mg Documented by: Thiamine HCl (Vitamin B-1) 100 mg PO DAILY [facility] Last Admin: 06/15/20 09:30 Dose: 100 mg Documented by: Tiotropium Tatums (Spiriva Respimat) 0 gm INH DAILY [facility] Last Admin: 06/15/20 08:59 Dose: Not Given Documented by: Zolpidem Tartrate (Ambien) 5 mg PO BEDTIME PRN PRN Reason: Sleep Discontinued Medications Folic Acid (Folic Acid) 1 mg PO DAILY [facility] Stop: 06/13/20 09:01 Last Admin: 06/13/20 08:24 Dose: 1 mg Documented by: Folic Acid (Folic Acid) 1 mg SUBCUT ONETIME ONE Stop: 06/10/20 23:01 Last Admin: 06/11/20 16:55 Dose: Not Given Documented by: Folic Acid (Folic Acid) 1 mg PO ONETIME ONE Stop: 06/10/20 23:53 Last Admin: 06/11/20 00:41 Dose: 1 mg Documented by: Furosemide (Lasix) 20 mg IVPUSH ONETIME ONE Stop: 06/12/20 09:54 Last Admin: 06/12/20 10:07 Dose: 20 mg Documented by: Sodium Chloride (Normal Saline) 1,000 mls @ 125 mls/hr IV ASDIRECTED [facility] Last Admin: 06/12/20 02:54 Dose: 125 mls/hr Documented by: Ceftriaxone Sodium 2 gm/ (Sodium Chloride) 100 mls @ 200 mls/hr IV ONETIME ONE Stop: 06/10/20 19:14 Last Admin: 06/10/20 19:02 Dose: 200 mls/hr Documented by: Ceftriaxone Sodium 2 gm/ (Sodium Chloride) 100 mls @ 200 mls/hr IV Q24H [facility] Stop: 06/15/20 09:01 Last Admin: 06/11/20 10:08 Dose: Not Given Documented by: Thiamine HCl 100 mg/ Sodium (Chloride) 51 mls @ 100 mls/hr IV ONETIME ONE Stop: 06/10/20 20:45 Last Admin: 06/10/20 22:19 Dose: 100 mls/hr Documented by: Thiamine HCl 100 mg/ Sodium (Chloride) 51 mls @ 100 mls/hr IV DAILY [facility] Magnesium Sulfate (Magnesium Sulfate In Water 2 Gm/50 Ml) 2 gm in 50 mls @ 25 mls/hr IV ONETIME ONE Stop: 06/10/20 22:19 Last Admin: 06/10/20 23:49 Dose: 25 mls/hr Documented by: Phytonadione 5 mg/ Sodium (Chloride) 50.5 mls @ 100 mls/hr IV NOW ONE Stop: 06/10/20 21:30 Last Admin: 06/10/20 22:57 Dose: 100 mls/hr Documented by: Phytonadione 5 mg/ Sodium (Chloride) 50.5 mls @ 100 mls/hr IV NOW ONE Stop: 06/11/20 11:30 Last Admin: 06/11/20 11:40 Dose: 100 mls/hr Documented by: Magnesium Sulfate (Magnesium Sulfate In Water 2 Gm/50 Ml) 2 gm in 50 mls @ 25 mls/hr IV ONETIME ONE Stop: 06/12/20 11:42 Last Admin: 06/12/20 10:07 Dose: 25 mls/hr Documented by: Multivitamins (Thera) 1 each PO DAILY [facility] Stop: 06/16/20 09:01 Last Admin: 06/11/20 09:27 Dose: 1 each Documented by: Pantoprazole Sodium (Protonix Iv) 40 mg IV DAILY [facility] Last Admin: 06/12/20 08:51 Dose: 40 mg Documented by: Phytonadione (Aquamephyton) 10 mg PO ONETIME ONE Stop: 06/12/20 13:01 Last Admin: 06/12/20 14:01 Dose: 10 mg Documented by: Prednisolone (Orapred 15 Mg/5ml Soln) 40 mg PO ONETIME ONE Stop: 06/10/20 20:13 Last Admin: 06/10/20 22:16 Dose: 40 mg Documented by: Thiamine HCl (Vitamin B-1) 100 mg IVPUSH DAILY [facility] Last Admin: 06/12/20 09:10 Dose: 100 mg Documented by: - Exam Quality Assessment: Reports: DVT Prophylaxis General: Reports: Alert, Oriented (mostly ), Cooperative, No Acute Distress HEENT: Reports: Pupils Equal, Pupils Reactive, Mucous Membr. Moist/[place], Scleral Icterus Neck: Reports: Supple, Trachea Midline Lungs: Reports: Clear to Auscultation, Normal Respiratory Effort Cardiovascular: Reports: Regular Rate, Regular Rhythm GI/Abdominal Exam: Normal Bowel Sounds, Soft, Non-Tender, No Distention (Female) Exam: Deferred Rectal (Female) Exam: Deferred Back Exam: Reports: Normal Inspection, Full Range of Motion Extremities: Normal Inspection, Normal Range of Motion, Non-Tender, No Pedal Edema, Normal Capillary Refill Skin: Reports: Warm, Dry, Intact Neurological: Reports: No New Focal Deficit Psy/Mental Status: Reports: Alert
== END 2020-06-15 14:09 | disposition home health service (06) | DRG 683 ==
LOC: JD.ED 15:15 → JD.MS 19:15
PROVIDERS: ADMIT Internal Medicine; ATTEND Internal Medicine
DX: N17.9 Acute kidney failure, unspecified (principal); N30.00 Acute cystitis without hematuria; E87.2 Acidosis; E44.0 Moderate protein-calorie malnutrition; F10.288 Alcohol dependence with other alcohol-induced disorder; H54.7 Unspecified visual loss; I10 Essential (primary) hypertension; F17.210 Nicotine dependence, cigarettes, uncomplicated; K21.9 Gastro-esophageal reflux disease without esophagitis; E55.9 Vitamin D deficiency, unspecified; D63.8 Anemia in other chronic diseases classified elsewhere; Z20.822 Contact with and (suspected) exposure to COVID-19; K70.11 Alcoholic hepatitis with ascites; E80.6 Other disorders of bilirubin metabolism; E88.09 Other disorders of plasma-protein metabolism, not elsewhere classified; F32.89 Other specified depressive episodes; E83.42 Hypomagnesemia; D69.6 Thrombocytopenia, unspecified; K72.90 Hepatic failure, unspecified without coma; R16.1 Splenomegaly, not elsewhere classified; K70.31 Alcoholic cirrhosis of liver with ascites; Z87.01 Personal history of pneumonia (recurrent); Z87.440 Personal history of urinary (tract) infections
CPT/HCPCS: 36415; 71045; 71045-26; 74181; 74181-26; 76705; 76705-26; 80053; 80143; 80179; 80306; 80307; 81001; 82140; 82247; 82248; 82306; 82607; 83540; 83690; 83735; 84439; 84443; 84466; 85025; 85610; 85730; 87086; 87088; 87186; 94640; 94760; 94761; 96374; 97110-GO; 97110-GP; 97116-GP; 97162-GP; 97166-GO; 97530-GO; 97535-GO; 99223; 99233; 99239; 99284; 99285-25; A9270-GY; C9113; J0696; J1940; J3411; J3430; J3475; J7030; U0002

== ENCOUNTER 2020-07-10 20:39 | Inpatient (IN) | payer OTHER ==
[2020-07-10] MEDS ORDERED: Sodium Chloride 0.9% 10 ML Syringe FLUSH PRN (21:01)
[2020-07-11] MEDS ORDERED: cefTRIAXone 1 GM in Sodium Chloride 0.9% 100 ML IV SCH (00:15)
[2020-07-11] MEDS ORDERED: methylPREDNISolone Sodium Succinate 125 MG/2 ML SDV IVPUSH ONE (01:04)
--- NOTE | 2020-07-11 01:07 | EDM.PDOC ---
ED HPI GENERAL MEDICAL PROBLEM - General Chief Complaint: Respiratory Problem Stated Complaint: SOB Time Seen by Provider: 07/10/20 20:40 Source of Information: Reports: Patient History Limitations: Reports: No Limitations - History of Present Illness INITIAL COMMENTS - FREE TEXT/NARRATIVE: The patient has been having increasing shortness of breath over the past couple of days. She has come to the emergency department because she had not been improving and was actually getting a little bit worse. No fever. She has had a history of respiratory difficulties. She is a smoker who says she quit 1 week ago. There has been no swelling of the legs. No hemoptysis. No known malignancy. Noted at recent admission -- past medical hx/o Impaired Vision, Liver Cirrhosis, Hypertension, Recurrent Pneumonia, Chronic SOB, Active Smoker, Chronic GERD, Hemorrhoids, Enlarged spleen, Recurrent UTI, Substance Abuse, Hx/o Gallstone, Vit D Deficiency, Anemia of chronic Disease, Chronic electrolytes abnormality and Chronic ETOH Abuse/Dependence No Hx of DVT or PE. - Related Data Allergies Allergy/AdvReac Type Severity Reaction Status Date / Time No Known Allergies Allergy Verified 07/10/20 20:56 Home Meds: Home Meds Potassium Chloride [Klor-Con M20] 20 meq PO BID 11/27/14 [History] Folic Acid 1 mg PO DAILY #30 tablet 10/03/17 [Rx] Propranolol HCl [Propranolol] 10 mg PO TID #60 tablet 10/03/17 [Rx] Rifaximin [Xifaxan] 550 mg PO BID #30 tablet 10/03/17 [Rx] Spironolactone [Aldactone] 50 mg PO BID #30 tablet 10/03/17 [Rx] Latanoprost [Xalatan 0.005% Ophth Soln] 1 drop EYEBOTH BEDTIME 06/11/20 [History] Tiotropium [place] [Spiriva Respimat] 2 inh PO DAILY 06/11/20 [History] ARIPiprazole [Abilify] 1 mg PO DAILY 07/11/20 [History] Lactulose 15 ml PO DAILY 07/11/20 [History] Magnesium Oxide 1,000 mg PO BID 07/11/20 [History] Mirtazapine 15 mg PO DAILY 07/11/20 [History] prednisoLONE [OraPred 15 MG/5ML Soln] 6.7 ml PO DAILY 07/11/20 [History] Past Medical History HEENT History: Reports: Glaucoma, Impaired Vision Other HEENT History: Wear glasses; has upper denutres and a lower partial Cardiovascular History: Reports: High Cholesterol Respiratory History: Reports: COPD, SOB Other Respiratory History: patient is a 1/2 pack to full pack smoker Gastrointestinal History: Reports: Cirrhosis, GERD, Other (See Below) Other Gastrointestinal History: enlarged spleen. Genitourinary History: Reports: UTI, Recurrent BRIAR CUTTER History: Reports: Musculoskeletal History: Reports: Back Pain, Chronic Other Musculoskeletal History: feet cramps Psychiatric History: Reports: Addiction, Depression Other Psychiatric History: alcohol abuse Endocrine/Metabolic History: Reports: Hypothyroidism, Other (See Below) Other Endocrine/Metabolic History: hypomagnesemia, hypokalemia Hematologic History: Reports: Anemia, B12 Deficiency, Iron Deficiency - Infectious Disease History Infectious Disease History: Reports: Chicken Pox, Influenza, Measles, Mumps - Past Surgical History HEENT Surgical History: Reports: None Cardiovascular Surgical History: Reports: None Respiratory Surgical History: Reports: None GI Surgical History: Reports: Other (See Below) Other GI Surgeries/Procedures: hemorrhoids removed Female Surgical History: Reports: Tubal Ligation Endocrine Surgical History: Reports: None Musculoskeletal Surgical History: Reports: None Dermatological Surgical History: Reports: None Social & Family History - Family History Family Medical History: No Pertinent Family History HEENT: Reports: Glaucoma - Tobacco Use Tobacco Use Status *Q: Current Every Day Tobacco User Years of Tobacco use: 40 Packs/Tins Daily: 1 Tobacco Use Comment: states she hasnt had a "smoke" in a week - Caffeine Use Caffeine Use: Reports: Coffee Other Caffeine Use: daily basis ED ROS GENERAL - Review of Systems Review Of Systems: Comprehensive ROS is negative, except as noted in HPI. ED EXAM, GENERAL - Physical Exam Exam: See Below Free Text/Narrative:: On exam the patient is alert and comfortable. Skin is warm and dry with normal turgor. Head normocephalic atraumatic. PERRLA EOMI. ENT grossly normal. Neck is supple without jugular venous distention. Lungs are notable for generally decreased breath sounds and coarse sounds with mild rhonchi bilaterally. No wheezing. Heart is regular. No audible murmur. Abdomen is soft and nontender without guarding or rebound. No peripheral edema cyanosis or clubbing of the digits. Neurologically the patient is grossly intact with fluent speech and no sensory or motor deficit. She is oriented x4. Affect and mood unremarkable. #1 Interpretation EKG Date: 07/10/20 Time: 21:20 Rhythm: NSR Rate (Beats/Min): 82 [place]: Normal P-Wave: Present QRS: Normal ST-T: Normal QT: Normal Comparison: No Change (No acute ischemic change. Almost identical to tracing from 2018.) Course - Vital Signs Text/Narrative:: The patient is noted to have an elevated D-dimer. There does not seem to be criteria for pulmonary emboli however. Patient is not tachycardic. No history of hemoptysis. No leg swelling or history of DVT. She is a smoker which confers risk. There is been no history of cancer or immobility. She is hypoxemic however. In any event a CTA was ordered. Patient could not tolerate the injection of c ontrast and it was done noncontrast. Consistent with the earlier chest x-ray there is evidence of multifocal pneumonia. The patient has been cultured and empirically started on Rocephin about 3 hours after arrival. She also has been administered Solu-Medrol. The elevation of D-dimer is most likely from severe liver disease. Cirrhosis by history as well as noted on current CT scan. Discussed with Dr. Dumont. Admit for further management. Last Recorded V/S: Last Vital Signs Temp 35.6 C L 07/10/20 20:51 Pulse 84 07/10/20 20:51 Resp 24 H 07/10/20 20:51 BP 108/76 07/10/20 20:51 Pulse Ox 73 L 07/10/20 20:51 - Orders/Labs/Meds Orders: Active Orders 24 hr Category Date Time Status EKG Documentation Completion [RC] STAT Care 07/10/20 21:01 Active Peripheral IV Care [RC] . DIRECTED Care 07/10/20 21:10 Active RT Arterial Blood Gases, ABG [RC] Click to Edit Care 07/10/20 21:05 Active CTA Chest W WO Contrast [Ang Chest] [CT] Stat Exams 07/11/20 01:15 Taken Chest 1V Frontal [CR] Stat Exams 07/10/20 21:01 Taken CULTURE BLOOD [BC] Stat Lab 07/10/20 21:52 Received CULTURE BLOOD [BC] Stat Lab 07/10/20 21:54 Received INR,PT,PROTHROMBIN TIME [COAG] Stat Lab 07/11/20 06:38 Ordered PTT,PARTIAL THROMBOPLSTIN TIME [COAG] Stat Lab 07/11/20 06:38 Ordered UA RFX CAROL AND CULT IF INDIC [URIN] Stat Lab 07/10/20 21:04 Ordered Sodium Chloride 0.9% [Normal Saline] 100 ml Med 07/11/20 01:45 Active IV ASDIRECTED Sodium Chloride 0.9% [Saline Flush] Med 07/10/20 21:01 Active 10 ml FLUSH ASDIRECTED PRN Sodium Chloride 0.9% [Saline Flush] Med 07/11/20 01:45 Active 10 ml FLUSH BOLUS cefTRIAXone [Rocephin] 1 gm Med 07/11/20 00:15 Active Sodium Chloride 0.9% [Normal Saline] 100 ml IV Q24H Blood Culture x2 Reflex Set [OM.PC] Stat Oth 07/10/20 21:04 Ordered Peripheral IV Insertion Adult [OM.PC] Stat Oth 07/10/20 21:04 Ordered Medication Orders Ceftriaxone Sodium 1 gm/ (Sodium Chloride) 100 mls @ 200 mls/hr IV Q24H [facility] Last Admin: 07/11/20 01:25 Dose: 200 mls/hr Documented by: LIBAN Sodium Chloride (Normal Saline) 100 mls @ 60 drops/hr IV ASDIRECTED [facility] Last Admin: 07/11/20 01:40 Dose: 60 drops/hr Documented by: ONEIGIN Sodium Chloride (Sodium Chloride 0.9% 10 Ml Syringe) 10 ml FLUSH ASDIRECTED PRN PRN Reason: Keep Vein Open Last Admin: 07/10/20 21:24 Dose: 10 ml Documented by: BENZKEL Sodium Chloride (Sodium Chloride 0.9% 10 Ml Syringe) 10 ml FLUSH BOLUS [facility] Last Admin: 07/11/20 01:40 Dose: 10 ml Documented by: ONEIGIN Labs: Laboratory Tests 07/10/20 07/10/20 07/10/20 Range/Units 21:20 21:44 21:52 WBC 6.95 (3.98-10.04) K/mm3 RBC 4.48 (3.98-5.22) M/mm3 Hgb 16.2 H (11.2-15.7) gm/dl Hct 45.0 H (34.1-44.9) % MCV 100.4 H D (79.4-94.8) fl MCH 36.2 H (25.6-32.2) pg MCHC 36.0 H (32.2-35.5) g/dl RDW Std Deviation 61.8 H (36.4-46.3) fL Plt Count 54 L (182-369) K/mm3 MPV 12.0 (9.4-12.3) fl Neutrophils % (Manual) 84 H (40-60) % Band Neutrophils % 0 (0-10) % Lymphocytes % (Manual) 13 L (20-40) % Atypical Lymphs % 0 % Monocytes % (Manual) 2 (2-10) % Eosinophils % (Manual) 1 (0.7-5.8) % Basophils % (Manual) 0 L (0.1-1.2) Platelet Estimate Decreased Plt Morphology Comment See note Anisocytosis 2+ moder Macrocytosis 2+ moderate Ovalocytes 1+ slight RBC Morph Comment Not Reportable D-Dimer, Quantitative (0.19-0.50) mg/L Puncture Site Lt radial ABG pH 7.45 (7.35-7.45) ABG pCO2 19.7 L* (35.0-45.0) mmHg ABG pO2 67.0 L (80.0-100.0) mmHg ABG HCO3 13.4 L (22.0-26.0) meq/L ABG O2 Saturation 92.8 L (96.0-97.0) % ABG Base Excess -8.0 L (-2-2.0) Morales Test Positive A-a Gradient 165 mmHg O2 Delivery Device Nasal cannula Oxygen Flow Rate 5.0 FiO2 40.00 (21.00-100.00) % Sodium (136-145) mEq/L Potassium (3.5-5.1) mEq/L Chloride (98-107) mEq/L Carbon Dioxide (21-32) mEq/L Anion Gap (5-15) BUN (7-18) mg/dL Creatinine (0.55-1.02) mg/dL Est Cr Clr Drug Dosing Estimated GFR (MDRD) (>60) mL/min BUN/Creatinine Ratio (14-18) Glucose (80-115) mg/dL Calcium (8.5-10.1) mg/dL Magnesium (1.8-2.4) mg/dl Total Bilirubin (0.2-1.0) mg/dL AST (15-37) U/L ALT (14-59) U/L Alkaline Phosphatase (46-116) U/L Creatine Kinase (26-192) U/L Troponin I (0.00-0.056) ng/mL Total Protein (6.4-8.2) g/dl Albumin (3.4-5.0) g/dl Globulin gm/dL Albumin/Globulin Ratio (1-2) TSH 3rd Generation (0.358-3.74) uIU/mL Ethyl Alcohol (0.00) gm% SARS-CoV-2 RNA (JESENIA) Negative (NEGATIVE) 07/10/20 07/10/20 Range/Units 21:52 21:52 WBC (3.98-10.04) K/mm3 RBC (3.98-5.22) M/mm3 Hgb (11.2-15.7) gm/dl Hct (34.1-44.9) % MCV (79.4-94.8) fl MCH (25.6-32.2) pg MCHC (32.2-35.5) g/dl RDW Std Deviation (36.4-46.3) fL Plt Count (182-369) K/mm3 MPV (9.4-12.3) fl Neutrophils % (Manual) (40-60) % Band Neutrophils % (0-10) % Lymphocytes % (Manual) (20-40) % Atypical Lymphs % % Monocytes % (Manual) (2-10) % Eosinophils % (Manual) (0.7-5.8) % Basophils % (Manual) (0.1-1.2) Platelet Estimate Plt Morphology Comment Anisocytosis Macrocytosis Ovalocytes RBC Morph Comment D-Dimer, Quantitative 10.88 H (0.19-0.50) mg/L Puncture Site ABG pH (7.35-7.45) ABG pCO2 (35.0-45.0) mmHg ABG pO2 (80.0-100.0) mmHg ABG HCO3 (22.0-26.0) meq/L ABG O2 Saturation (96.0-97.0) % ABG Base Excess (-2-2.0) Morales Test A-a Gradient mmHg O2 Delivery Device Oxygen Flow Rate FiO2 (21.00-100.00) % Sodium 132 L (136-145) mEq/L Potassium 4.0 (3.5-5.1) mEq/L Chloride 100 (98-107) mEq/L Carbon Dioxide 16 L (21-32) mEq/L Anion Gap 20.0 H (5-15) BUN 14 (7-18) mg/dL Creatinine 0.9 (0.55-1.02) mg/dL Est Cr Clr Drug Dosing TNP Estimated GFR (MDRD) > 60 (>60) mL/min BUN/Creatinine Ratio 15.6 (14-18) Glucose 98 (80-115) mg/dL Calcium 8.6 (8.5-10.1) mg/dL Magnesium 1.5 L (1.8-2.4) mg/dl Total Bilirubin 21.8 H (0.2-1.0) mg/dL AST 140 H (15-37) U/L ALT 122 H (14-59) U/L Alkaline Phosphatase 213 H (46-116) U/L Creatine Kinase 60 (26-192) U/L Troponin I < 0.017 (0.00-0.056) ng/mL Total Protein 6.1 L (6.4-8.2) g/dl Albumin 1.9 L (3.4-5.0) g/dl Globulin 4.2 gm/dL Albumin/Globulin Ratio 0.5 L (1-2) TSH 3rd Generation 2.036 (0.358-3.74) uIU/mL Ethyl Alcohol 0.00 (0.00) gm% SARS-CoV-2 RNA (JESENIA) (NEGATIVE) Meds: Medications Generic Name Dose Route Start Last Admin Trade Name Freq PRN Reason Stop Dose Admin Ceftriaxone Sodium 1 gm/ 100 mls @ 200 mls/hr 07/11/20 00:15 07/11/20 01:25 Sodium Chloride IV 200 mls/hr Q24H DORINA Administration Sodium Chloride 100 mls @ 60 drops/hr 07/11/20 01:45 07/11/20 01:40 Normal Saline IV 60 drops/hr ASDIRECTED DORINA Administration Sodium Chloride 10 ml 07/10/20 21:01 07/10/20 21:24 Sodium Chloride 0.9% 10 Ml Syringe FLUSH 10 ml ASDIRECTED PRN Administration Keep Vein Open Sodium Chloride 10 ml 07/11/20 01:45 07/11/20 01:40 Sodium Chloride 0.9% 10 Ml Syringe FLUSH 10 ml BOLUS DORINA Administration Discontinued Medications Generic Name Dose Route Start Last Admin Trade Name Georgina PRN Reason Stop Dose Admin Iopamidol 100 ml 07/11/20 01:38 07/11/20 01:40 Iopamidol 755 Mg/Ml 100 Ml Bottle IVPUSH 07/11/20 01:39 30 ml ONETIME ONE Administration Lorazepam 2 mg 07/11/20 01:32 07/11/20 01:43 Lorazepam 2 Mg/Ml Sdv IVPUSH 07/11/20 01:33 2 mg ONETIME ONE Administration Methylprednisolone Sodium Succinate 125 mg 07/11/20 01:04 07/11/20 01:25 Methylprednisolone Sodium Succinate 125 Mg/2 Ml Sdv IVPUSH 07/11/20 01:05 125 mg ONETIME ONE Administration Departure - Departure Time of Disposition: 06:39 Disposition: Admitted As Inpatient 64 Condition: Fair Clinical Impression: Multifocal pneumonia, COPD exacerbation, Elevated d-dimer Hepatic cirrhosis Qualifiers: Hepatic cirrhosis type: alcoholic cirrhosis Ascites presence: with ascites Qualified Code(s): K70.31 - Alcoholic cirrhosis of liver with ascites - Discharge Information Referrals: Goldie Mcclure [employer] [Primary Care Provider] - Forms: ED Department Discharge Sepsis Event Note (ED) - Evaluation Sepsis Screening Result: No Definite Risk - Focused Exam Vital Signs: Vital Signs Temp Pulse Resp BP Pulse Ox 07/10/20 20:51 35.6 C L 84 24 H 108/76 73 L - My Orders Last 24 Hours: My Active Orders 07/10/20 21:01 EKG Documentation Completion [RC] STAT Chest 1V Frontal [CR] Stat Sodium Chloride 0.9% [Saline Flush] 10 ml FLUSH ASDIRECTED PRN 07/10/20 21:04 UA RFX CAROL AND CULT IF INDIC [URIN] Stat Blood Culture x2 Reflex Set [OM.PC] Stat Peripheral IV Insertion Adult [OM.PC] Stat 07/10/20 21:05 RT Arterial Blood Gases, ABG [RC] Click to Edit 07/10/20 21:10 Peripheral IV Care [RC] . DIRECTED 07/10/20 21:52 CULTURE BLOOD [BC] Stat 07/10/20 21:54 CULTURE BLOOD [BC] Stat 07/11/20 00:15 cefTRIAXone [Rocephin] 1 gm Sodium Chloride 0.9% [Normal Saline] 100 ml IV Q24H 07/11/20 01:15 CTA Chest W WO Contrast [Ang Chest] [CT] Stat 07/11/20 01:45 Sodium Chloride 0.9% [Normal Saline] 100 ml IV ASDIRECTED Sodium Chloride 0.9% [Saline Flush] 10 ml FLUSH BOLUS 07/11/20 06:38 INR,PT,PROTHROMBIN TIME [COAG] Stat PTT,PARTIAL THROMBOPLSTIN TIME [COAG] Stat - Assessment/Plan Last 24 Hours: My Active Orders 07/10/20 21:01 EKG Documentation Completion [RC] STAT Chest 1V Frontal [CR] Stat Sodium Chloride 0.9% [Saline Flush] 10 ml FLUSH ASDIRECTED PRN 07/10/20 21:04 UA RFX CAROL AND CULT IF INDIC [URIN] Stat Blood Culture x2 Reflex Set [OM.PC] Stat Peripheral IV Insertion Adult [OM.PC] Stat 07/10/20 21:05 RT Arterial Blood Gases, ABG [RC] Click to Edit 07/10/20 21:10 Peripheral IV Care [RC] . DIRECTED 07/10/20 21:52 CULTURE BLOOD [BC] Stat 07/10/20 21:54 CULTURE BLOOD [BC] Stat 07/11/20 00:15 cefTRIAXone [Rocephin] 1 gm Sodium Chloride 0.9% [Normal Saline] 100 ml IV Q24H 07/11/20 01:15 CTA Chest W WO Contrast [Ang Chest] [CT] Stat 07/11/20 01:45 Sodium Chloride 0.9% [Normal Saline] 100 ml IV ASDIRECTED Sodium Chloride 0.9% [Saline Flush] 10 ml FLUSH BOLUS 07/11/20 06:38 INR,PT,PROTHROMBIN TIME [COAG] Stat PTT,PARTIAL THROMBOPLSTIN TIME [COAG] Stat
[2020-07-11] MEDS ORDERED: LORazepam 2 MG/ML SDV IVPUSH ONE (01:32)
[2020-07-11] MEDS ORDERED: Iopamidol 755 Mg/ML 100 ML Bottle IVPUSH ONE (01:38)
[2020-07-11] MEDS ORDERED: Sodium Chloride 0.9% 100 ML IV SCH (01:45)
[2020-07-11] MEDS ORDERED: Sodium Chloride 0.9% 10 ML Syringe FLUSH SCH (01:45)
[2020-07-11] MEDS: Rifaximin 550 MG Tab PO SCH ×2 (09:29→20:59)
[2020-07-11] MEDS: Spironolactone 25 MG Tab PO SCH ×2 (09:29→21:01)
[2020-07-11] MEDS: Potassium Chloride 20 MEQ Tab.ER PO SCH ×2 (09:29→21:01)
[2020-07-11] MEDS: Folic Acid 1 MG Tab PO SCH (09:29)
[2020-07-11] MEDS: Propranolol 10 MG Tab PO SCH ×3 (09:29→21:00)
[2020-07-11] MEDS: Mirtazapine 15 MG Tab PO SCH (09:29)
[2020-07-11] MEDS: Lactulose Soln 10 GM/15 ML 30 ML UD Cup PO SCH (09:30)
[2020-07-11] MEDS: Magnesium Oxide 400 MG Tab PO SCH ×2 (09:30→20:58)
[2020-07-11] MEDS: prednisoLONE Soln 15 MG/5 ML UD Cup PO SCH (09:31)
--- NOTE | 2020-07-11 10:14 | PCM.HP.2 ---
H&P History of Present Illness - General Date of Service: 07/11/20 Admit Problem/Dx: Admission Diagnosis/Problem Admission Diagnosis/Problem Pneumonia - History of Present Illness Initial Comments - Free Text/Narative: 60-year-old female with history of end-stage liver disease recently discharged from our hospital for such. Patient presents to the emergency department with 3-day history of increasing shortness of breath. She states over the last several hours she has continued to worsen so she came to the emergency department. She denies any fever or chills. Patient states she quit smoking approximately 1 week ago. She has not had anything else to drink since she was here in the beginning of June. Patient does have a history of recurrent pneumonia and chronic shortness of breath. Shortness of breath now is moderate to severe. Cough has been nonproductive. In the emergency department white count was 7, hemoglobin 16.2, platelet count of 54, pH is 7.45, PCO2 of 19.7, PO2 67, bicarb 13.4. SARS-CoV-2 negative. Sodium low at 132, bicarb 16, anion gap 20, BUN to creatinine ratio 15.6, BUN 14, creatinine of 0.9, total bilirubin 21.8, magnesium 1.5, AST 140, ALT 122, alkaline phosphatase 213, albumin 1.9, D-dimer 10.9, TSH 2.036 INR 1.83, APTT 46.1. EKG showed normal sinus rhythm with ventricular rate of 82 bpm. No significant acute changes. Chest x-ray and CT scan of the chest were performed. - Related Data Allergies/Adverse Reactions: Allergies Allergy/AdvReac Type Severity Reaction Status Date / Time No Known Allergies Allergy Verified 07/11/20 08:15 Home Medications: Home Meds Potassium Chloride [Klor-Con M20] 20 meq PO BID 11/27/14 [History] Folic Acid 1 mg PO DAILY #30 tablet 10/03/17 [Rx] Propranolol HCl [Propranolol] 10 mg PO TID #60 tablet 10/03/17 [Rx] Rifaximin [Xifaxan] 550 mg PO BID #30 tablet 10/03/17 [Rx] Spironolactone [Aldactone] 50 mg PO BID #30 tablet 10/03/17 [Rx] Latanoprost [Xalatan 0.005% Ophth Soln] 1 drop EYEBOTH BEDTIME 06/11/20 [History] Tiotropium Avery [Spiriva Respimat] 2 inh PO DAILY 06/11/20 [History] ARIPiprazole [Abilify] 1 mg PO DAILY 07/11/20 [History] Lactulose 15 ml PO DAILY 07/11/20 [History] Magnesium Oxide 1,000 mg PO BID 07/11/20 [History] Mirtazapine 15 mg PO BEDTIME 07/11/20 [History] prednisoLONE [OraPred 15 MG/5ML Soln] 6.7 ml PO DAILY 07/11/20 [History] Past Medical History HEENT History: Reports: Glaucoma, Impaired Vision Other HEENT History: Wear glasses; has upper denutres and a lower partial Cardiovascular History: Reports: High Cholesterol Respiratory History: Reports: COPD, SOB Other Respiratory History: pt was down to smoking 2 cigarrettes/day and quit july 04 Gastrointestinal History: Reports: Cirrhosis, GERD, Other (See Below) Other Gastrointestinal History: enlarged spleen. Genitourinary History: Reports: UTI, Recurrent [employer] History: Reports: Musculoskeletal History: Reports: Back Pain, Chronic Other Musculoskeletal History: feet cramps Psychiatric History: Reports: Addiction, Depression Other Psychiatric History: alcohol abuse Endocrine/Metabolic History: Reports: Hypothyroidism, Other (See Below) Other Endocrine/Metabolic History: hypomagnesemia, hypokalemia Hematologic History: Reports: Anemia, B12 Deficiency, Iron Deficiency - Infectious Disease History Infectious Disease History: Reports: Chicken Pox, Influenza, Measles, Mumps - Past Surgical History HEENT Surgical History: Reports: None Cardiovascular Surgical History: Reports: None Respiratory Surgical History: Reports: None GI Surgical History: Reports: Other (See Below) Other GI Surgeries/Procedures: hemorrhoids removed Female Surgical History: Reports: Tubal Ligation Endocrine Surgical History: Reports: None Musculoskeletal Surgical History: Reports: None Dermatological Surgical History: Reports: None Social & Family History - Family History Family Medical History: No Pertinent Family History HEENT: Reports: Glaucoma - Tobacco Use Tobacco Use Status *Q: Former Tobacco User Years of Tobacco use: 40 Packs/Tins Daily: 1 Used Tobacco, but Quit: Yes Month/Year Tobacco Last Used: july 04 Tobacco Use Comment: states she hasnt had a "smoke" in a week - Caffeine Use Caffeine Use: Reports: Energy Drinks Other Caffeine Use: daily basis - Recreational Drug Use Recreational Drug Use: No H&P Review of Systems - Review of Systems: Review Of Systems: Comprehensive ROS is negative, except as noted in HPI. Exam - Exam Exam: See Below - Vital Signs Vital Signs: Last Vital Signs Temp 97.5 F 07/11/20 07:46 Pulse 75 07/11/20 09:29 Resp 17 07/11/20 07:46 BP 101/78 07/11/20 09:29 Pulse Ox 92 L 07/11/20 07:46 Weight: 142 lb - Exam General: Alert, Oriented, 4 HEENT: Mucosa Moist & [place], Normal Nasal Septum, Pupils Reactive, Scleral Icterus Neck: Supple, Trachea Midline, 2 Lungs: Clear to Auscultation, Normal Respiratory Effort Cardiovascular: Regular Rate, Regular Rhythm GI/Abdominal Exam: Normal Bowel Sounds, Soft, Non-Tender, No Organomegaly, No Distention, No Abnormal Bruit Extremities: Normal Inspection, Normal Range of Motion, Non-Tender, No Pedal E rosemary, Normal Capillary Refill Skin: Warm, Dry, Intact Neuro Extensive - Mental Status: Alert, Oriented x3, Normal Mood/Affect, Normal Cognition, Memory Intact Neuro Extensive - Motor, Sensory, Reflexes: CN II-XII Intact Psychiatric: Alert, Normal Affect, Normal Mood - Patient Data Lab Results Last 24 hrs: Laboratory Results - last 24 hr 07/10/20 07/10/20 07/10/20 Range/Units 21:20 21:44 21:52 WBC 6.95 (3.98-10.04) K/mm3 RBC 4.48 (3.98-5.22) M/mm3 Hgb 16.2 H (11.2-15.7) gm/dl Hct 45.0 H (34.1-44.9) % MCV 100.4 H D (79.4-94.8) fl MCH 36.2 H (25.6-32.2) pg MCHC 36.0 H (32.2-35.5) g/dl RDW Std Deviation 61.8 H (36.4-46.3) fL Plt Count 54 L (182-369) K/mm3 MPV 12.0 (9.4-12.3) fl Neutrophils % (Manual) 84 H (40-60) % Band Neutrophils % 0 (0-10) % Lymphocytes % (Manual) 13 L (20-40) % Atypical Lymphs % 0 % Monocytes % (Manual) 2 (2-10) % Eosinophils % (Manual) 1 (0.7-5.8) % Basophils % (Manual) 0 L (0.1-1.2) Platelet Estimate Decreased Plt Morphology Comment See note Anisocytosis 2+ moder Macrocytosis 2+ moderate Ovalocytes 1+ slight RBC Morph Comment Not Reportable PT (9.7-12.0) SECONDS INR APTT (21.7-31.4) SECONDS D-Dimer, Quantitative (0.19-0.50) mg/L Puncture Site Lt radial ABG pH 7.45 (7.35-7.45) ABG pCO2 19.7 L* (35.0-45.0) mmHg ABG pO2 67.0 L (80.0-100.0) mmHg ABG HCO3 13.4 L (22.0-26.0) meq/L ABG O2 Saturation 92.8 L (96.0-97.0) % ABG Base Excess -8.0 L (-2-2.0) Morales Test Positive A-a Gradient 165 mmHg O2 Delivery Device Nasal cannula Oxygen Flow Rate 5.0 FiO2 40.00 (21.00-100.00) % Sodium (136-145) mEq/L Potassium (3.5-5.1) mEq/L Chloride (98-107) mEq/L Carbon Dioxide (21-32) mEq/L Anion Gap (5-15) BUN (7-18) mg/dL Creatinine (0.55-1.02) mg/dL Est Cr Clr Drug Dosing Estimated GFR (MDRD) (>60) mL/min BUN/Creatinine Ratio (14-18) Glucose (80-115) mg/dL Calcium (8.5-10.1) mg/dL Magnesium (1.8-2.4) mg/dl Total Bilirubin (0.2-1.0) mg/dL AST (15-37) U/L ALT (14-59) U/L Alkaline Phosphatase (46-116) U/L Ammonia (11-32) umol/L Creatine Kinase (26-192) U/L Troponin I (0.00-0.056) ng/mL Total Protein (6.4-8.2) g/dl Albumin (3.4-5.0) g/dl Globulin gm/dL Albumin/Globulin Ratio (1-2) TSH 3rd Generation (0.358-3.74) uIU/mL Ethyl Alcohol (0.00) gm% SARS-CoV-2 RNA (JESENIA) Negative (NEGATIVE) 07/10/20 07/10/20 07/11/20 Range/Units 21:52 21:52 07:08 WBC (3.98-10.04) K/mm3 RBC (3.98-5.22) M/mm3 Hgb (11.2-15.7) gm/dl Hct (34.1-44.9) % MCV (79.4-94.8) fl MCH (25.6-32.2) pg MCHC (32.2-35.5) g/dl RDW Std Deviation (36.4-46.3) fL Plt Count (182-369) K/mm3 MPV (9.4-12.3) fl Neutrophils % (Manual) (40-60) % Band Neutrophils % (0-10) % Lymphocytes % (Manual) (20-40) % Atypical Lymphs % % Monocytes % (Manual) (2-10) % Eosinophils % (Manual) (0.7-5.8) % Basophils % (Manual) (0.1-1.2) Platelet Estimate Plt Morphology Comment Anisocytosis Macrocytosis Ovalocytes RBC Morph Comment PT 19.3 H (9.7-12.0) SECONDS INR 1.83 APTT 46.1 H (21.7-31.4) SECONDS D-Dimer, Quantitative 10.88 H (0.19-0.50) mg/L Puncture Site ABG pH (7.35-7.45) ABG pCO2 (35.0-45.0) mmHg ABG pO2 (80.0-100.0) mmHg ABG HCO3 (22.0-26.0) meq/L ABG O2 Saturation (96.0-97.0) % ABG Base Excess (-2-2.0) Morales Test A-a Gradient mmHg O2 Delivery Device Oxygen Flow Rate FiO2 (21.00-100.00) % Sodium 132 L (136-145) mEq/L Potassium 4.0 (3.5-5.1) mEq/L Chloride 100 (98-107) mEq/L Carbon Dioxide 16 L (21-32) mEq/L Anion Gap 20.0 H (5-15) BUN 14 (7-18) mg/dL Creatinine 0.9 (0.55-1.02) mg/dL Est Cr Clr Drug Dosing TNP Estimated GFR (MDRD) > 60 (>60) mL/min BUN/Creatinine Ratio 15.6 (14-18) Glucose 98 (80-115) mg/dL Calcium 8.6 (8.5-10.1) mg/dL Magnesium 1.5 L (1.8-2.4) mg/dl Total Bilirubin 21.8 H (0.2-1.0) mg/dL AST 140 H (15-37) U/L ALT 122 H (14-59) U/L Alkaline Phosphatase 213 H (46-116) U/L Ammonia (11-32) umol/L Creatine Kinase 60 (26-192) U/L Troponin I < 0.017 (0.00-0.056) ng/mL Total Protein 6.1 L (6.4-8.2) g/dl Albumin 1.9 L (3.4-5.0) g/dl Globulin 4.2 gm/dL Albumin/Globulin Ratio 0.5 L (1-2) TSH 3rd Generation 2.036 (0.358-3.74) uIU/mL Ethyl Alcohol 0.00 (0.00) gm% SARS-CoV-2 RNA (JESENIA) (NEGATIVE) 07/11/20 Range/Units 07:08 WBC (3.98-10.04) K/mm3 RBC (3.98-5.22) M/mm3 Hgb (11.2-15.7) gm/dl Hct (34.1-44.9) % MCV (79.4-94.8) fl MCH (25.6-32.2) pg MCHC (32.2-35.5) g/dl RDW Std Deviation (36.4-46.3) fL Plt Count (182-369) K/mm3 MPV (9.4-12.3) fl Neutrophils % (Manual) (40-60) % Band Neutrophils % (0-10) % Lymphocytes % (Manual) (20-40) % Atypical Lymphs % % Monocytes % (Manual) (2-10) % Eosinophils % (Manual) (0.7-5.8) % Basophils % (Manual) (0.1-1.2) Platelet Estimate Plt Morphology Comment Anisocytosis Macrocytosis Ovalocytes RBC Morph Comment PT (9.7-12.0) SECONDS INR APTT (21.7-31.4) SECONDS D-Dimer, Quantitative (0.19-0.50) mg/L Puncture Site ABG pH (7.35-7.45) ABG pCO2 (35.0-45.0) mmHg ABG pO2 (80.0-100.0) mmHg ABG HCO3 (22.0-26.0) meq/L ABG O2 Saturation (96.0-97.0) % ABG Base Excess (-2-2.0) Morales Test A-a Gradient mmHg O2 Delivery Device Oxygen Flow Rate FiO2 (21.00-100.00) % Sodium (136-145) mEq/L Potassium (3.5-5.1) mEq/L Chloride (98-107) mEq/L Carbon Dioxide (21-32) mEq/L Anion Gap (5-15) BUN (7-18) mg/dL Creatinine (0.55-1.02) mg/dL Est Cr Clr Drug Dosing Estimated GFR (MDRD) (>60) mL/min BUN/Creatinine Ratio (14-18) Glucose (80-115) mg/dL Calcium (8.5-10.1) mg/dL Magnesium (1.8-2.4) mg/dl Total Bilirubin (0.2-1.0) mg/dL AST (15-37) U/L ALT (14-59) U/L Alkaline Phosphatase (46-116) U/L Ammonia < 10 L (11-32) umol/L Creatine Kinase (26-192) U/L Troponin I (0.00-0.056) ng/mL Total Protein (6.4-8.2) g/dl Albumin (3.4-5.0) g/dl Globulin gm/dL Albumin/Globulin Ratio (1-2) TSH 3rd Generation (0.358-3.74) uIU/mL Ethyl Alcohol (0.00) gm% SARS-CoV-2 RNA (JESENIA) (NEGATIVE) Result Diagrams: 07/10/20 21:52 07/10/20 21:52 Imaging Impressions Last 24 hrs: CTA chest: Patient did not tolerate IV contrast. Preliminary impression: 1. Multifocal, bacterial or viral including COVID-19 pneumonia. 2. Study is nondiagnostic for pulmonary embolus or thoracic aortic dissection given the lack of intravenous contrast. 3. Incidental, findings of hepatic cirrhosis, splenomegaly, and ascites. 4. Cholelithiasis Sepsis Event Note - Evaluation Sepsis Screening Result: No Definite Risk - Focused Exam Vital Signs: Vital Signs Temp Pulse Resp BP BP Pulse Ox 07/11/20 09:29 75 101/78 07/11/20 07:46 97.5 F 75 17 101/78 92 L 07/11/20 07:35 18 89/63 L 95 - Problem List (1) Hyponatremia SNOMED Code(s): 83709828 ICD Code: E87.1 - HYPO-OSMOLALITY AND HYPONATREMIA Status: Acute Current Visit: Yes (2) Multifocal pneumonia SNOMED Code(s): 317455709 ICD Code: J18.9 - PNEUMONIA, UNSPECIFIED ORGANISM Status: Acute Current Visit: Yes (3) Cirrhosis of liver SNOMED Code(s): 30628149 ICD Code: K74.60 - UNSPECIFIED CIRRHOSIS OF LIVER Status: Chronic Priority: High Current Visit: Yes Qualifiers: Hepatic cirrhosis type: alcoholic cirrhosis Ascites presence: with ascites Qualified Code(s): K70.31 - Alcoholic cirrhosis of liver with ascites (4) Hypoalbuminemia SNOMED Code(s): 700884005 ICD Code: E88.09 - OTH DISORDERS OF PLASMA-PROTEIN METABOLISM, NEC Status: Chronic Priority: Medium Current Visit: No (5) Hypomagnesemia SNOMED Code(s): 509110318 ICD Code: E83.42 - HYPOMAGNESEMIA Status: Resolved Priority: High Current Visit: No Problem List Initiated/Reviewed/Updated: Yes Orders Last 24hrs: Active Orders 24 hr Category Date Time Status Patient Status [ADT] Routine ADT 07/11/20 06:49 Active Regular Diet [DIET] Diet 07/11/20 Lunch Active CTA Chest W WO Contrast [Ang Chest] [CT] Stat Exams 07/11/20 01:15 Taken Chest 1V Frontal [CR] Stat Exams 07/10/20 21:01 Taken CULTURE BLOOD [BC] Stat Lab 07/10/20 21:52 Received CULTURE BLOOD [BC] Stat Lab 07/10/20 21:54 Received UA RFX CAROL AND CULT IF INDIC [URIN] Stat Lab 07/10/20 21:04 Ordered ARIPiprazole [Abilify] Med 07/11/20 09:00 Active 1 mg PO DAILY Dextrose 5%-Normal Saline @ 100 MLS/HR(1000ml) Med 07/11/20 10:15 Ordered Dextrose 5%-0.9% NaCl [Dextrose 5%-Normal Saline] 1,000 ml IV ASDIRECTED Folic Acid Med 07/11/20 09:00 Active 1 mg PO DAILY Lactulose [Cephulac] Med 07/11/20 09:00 Active 10 gm PO DAILY Latanoprost [Xalatan 0.005% Ophth Soln] Med 07/11/20 21:00 Active 0 ml EYEBOTH BEDTIME Magnesium Oxide Med 07/11/20 09:00 Active 1,000 mg PO BID Mirtazapine [Remeron] Med 07/11/20 09:00 Active 15 mg PO DAILY Potassium Chloride [Klor-Con M20] Med 07/11/20 09:00 Active 20 meq PO BID Propranolol [Inderal] Med 07/11/20 09:00 Active 10 mg PO TID Rifaximin [Xifaxan] Med 07/11/20 09:00 Active 550 mg PO BID Sodium Chloride 0.9% [Normal Saline] 100 ml Med 07/11/20 01:45 Active IV ASDIRECTED Sodium Chloride 0.9% [Saline Flush] Med 07/10/20 21:01 Active 10 ml FLUSH ASDIRECTED PRN Sodium Chloride 0.9% [Saline Flush] Med 07/11/20 01:45 Active 10 ml FLUSH BOLUS Spironolactone [Aldactone] Med 07/11/20 09:00 Active 50 mg PO BID Tiotropium Avery [Spiriva Respimat] Med 07/11/20 09:00 Active 0 gm INH DAILY cefTRIAXone [Rocephin] 1 gm Med 07/12/20 01:30 Active Sodium Chloride 0.9% [Normal Saline] 100 ml IV Q24H prednisoLONE [OraPred 15 MG/5ML Soln] Med 07/11/20 09:00 Active 20.1 mg PO DAILY Blood Culture x2 Reflex Set [OM.PC] Stat Oth 07/10/20 21:04 Ordered Peripheral IV Insertion Adult [OM.PC] Stat Oth 07/10/20 21:04 Ordered Resuscitation Status Routine Resus Stat 07/11/20 08:21 Ordered Medication Orders Aripiprazole (Aripiprazole 2 Mg Tab) 1 mg PO DAILY [facility] Last Admin: 07/11/20 09:30 Dose: 1 mg Documented by: ZACHERY Folic Acid (Folic Acid 1 Mg Tab) 1 mg PO DAILY [facility] Last Admin: 07/11/20 09:29 Dose: 1 mg Documented by: ZACHERY Sodium Chloride (Normal Saline) 100 mls @ 60 drops/hr IV ASDIRECTED [facility] Last Admin: 07/11/20 01:40 Dose: 60 drops/hr Documented by: DIANN Ceftriaxone Sodium 1 gm/ (Sodium Chloride) 100 mls @ 200 mls/hr IV Q24H DORINA Lactulose (Lactulose Soln 10 Gm/15 Ml 30 Ml Ud Cup) 10 gm PO DAILY [facility] Last Admin: 07/11/20 09:30 Dose: Not Given Documented by: ZACHERY Latanoprost (Latanoprost 0.005% Ophth Soln 2.5 Ml Bottle) 0 ml EYEBOTH BEDTIME DORINA Magnesium Oxide (Magnesium Oxide 400 Mg Tab) 1,000 mg PO BID [facility] Last Admin: 07/11/20 09:30 Dose: 1,000 mg Documented by: ZACHERY Mirtazapine (Mirtazapine 15 Mg Tab) 15 mg PO DAILY [facility] Last Admin: 07/11/20 09:29 Dose: 15 mg Documented by: ZACHERY Potassium Chloride (Potassium Chloride 20 Meq Tab.Er) 20 meq PO BID [facility] Last Admin: 07/11/20 09:29 Dose: 20 meq Documented by: ZACHERY Prednisolone (Prednisolone Soln 15 Mg/5 Ml Ud Cup) 20.1 mg PO DAILY [facility] Last Admin: 07/11/20 09:31 Dose: 20.1 mg Documented by: ZACHERY Propranolol HCl (Propranolol 10 Mg Tab) 10 mg PO TID [facility] Last Admin: 07/11/20 09:29 Dose: 10 mg Documented by: ZACHERY Rifaximin (Rifaximin 550 Mg Tab) 550 mg PO BID [facility] Last Admin: 07/11/20 09:29 Dose: 550 mg Documented by: ZACHERY Sodium Chloride (Sodium Chloride 0.9% 10 Ml Syringe) 10 ml FLUSH ASDIRECTED PRN PRN Reason: Keep Vein Open Last Admin: 07/10/20 21:24 Dose: 10 ml Documented by: LIBAN Sodium Chloride (Sodium Chloride 0.9% 10 Ml Syringe) 10 ml FLUSH BOLUS [facility] Last Admin: 07/11/20 01:40 Dose: 10 ml Documented by: DIANN Spironolactone (Spironolactone 25 Mg Tab) 50 mg PO BID [facility] Last Admin: 07/11/20 09:29 Dose: 50 mg Documented by: ZACHERY Tiotropium Avery (Tiotropium Avery 4 Gm Inhalation Melber (2.5mcg/1 Dose; 10 Doses)) 0 gm INH DAILY [facility] Assessment/Plan Comment:: Assessment 60-year-old female with history of severe liver disease and cirrhosis presents to the emergency department secondary to 3 days of increasing shortness of breath. CT scan of the chest showed multifocal pneumonia bacterial versus viral. COVID-19 PCR was negative. Multifocal pneumonia Tobaccoismstopped 1 week ago * CT positive for multifocal pneumonia, bacterial versus viral * Normal white count of 7 * Started on Rocephin in the emergency department * Blood cultures obtained * Nonproductive cough * Respiratory alkalosis on metabolic acidosis * Patient appears volume depleted with hemoconcentration Plan * Increase Rocephin to 2 g daily and add azithromycin. * Await blood cultures * Follow CBC * Repeat chest x-ray as needed * FiO2 to keep SPO2 greater than 90% * Offer nicotine patch * IV fluids with D5 normal saline Severe liver disease Cirrhosis Elevated D-dimer Thrombocytopenia Chronic elevated anion gap History of hepatic encephalopathy * Multiple abnormal coagulation indices secondary to liver disease. * Elevated D-dimer is not likely secondary to PE or VTE * Anticoagulation contraindication secondary to thrombocytopenia * Platelets only 54,000 * Currently on lactulose and rifaximin * Ammonia normal * At baseline mental status Plan * Continue to monitor Hyponatremia Hypomagnesemia * Sodium 132 * Magnesium 1.5 * Low sodium is likely multifactorial to include liver disease and SIADH Plan * Rehydrate with D5 normal saline * Replace magnesium Chronic: Impaired vision, liver cirrhosis, hypertension, recurrent pneumonia, chronic shortness of breath, recent smoker, GERD, hemorrhoids, enlarged spleen, recurrent UTI, substance abuse, history of gallstone, vitamin D deficiency, anemia of chronic disease, chronic electrolyte abnormality and 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 Patient has severe thrombocytopenia CODE STATUS: Full code Prognosis is poor - Mortality Measure Prognosis:: Poor
[2020-07-11] MEDS: Tiotropium Bromide 4 GM Inhalation Spray (2.5mcg/1 dose; 10 doses) INH SCH (10:22)
[2020-07-11] MEDS: Dextrose 5%-0.9% NaCl 1,000 ML IV SCH ×2 (10:57→22:44)
--- NOTE | 2020-07-11 12:39 | CR ---
Chest: Portable view of the chest was obtained. Comparison: Prior chest x-ray of 06/10/20. Patchy areas of increased density are seen on both sides of the chest, worse on the right side. Heart size and mediastinum are within normal limits for portable technique. No acute osseous finding is seen. Impression: 1. Patchy areas of increased density on both sides of the chest, worse on the right side. Findings are suspicious for pneumonia. Please rule out COVID disease. Diagnostic code #3
[2020-07-11] MEDS ORDERED: cefTRIAXone 1 GM in Sodium Chloride 0.9% 100 ML IV ONE (14:01)
[2020-07-11] MEDS ORDERED: Azithromycin 500 MG in Sodium Chloride 0.9% 250 ML IV ONE (14:05)
[2020-07-11] MEDS: Latanoprost 0.005% Ophth Soln 2.5 ML Bottle EYEBOTH SCH (21:01)
[2020-07-12] MEDS ORDERED: cefTRIAXone 1 GM in Sodium Chloride 0.9% 100 ML IV SCH (01:30)
--- NOTE | 2020-07-12 04:18 | PCM.PRNOTE ---
- Free Text/Narrative Note: Difficult IV start Requested to start a peripheral IV after several previous unsuccessful attempts by RNs Linear U/S probe was used to identify right basilic vein about 3" above antecubital fossa, successful cannulation with 20G 1.88" catheter at the 1st attempt, good flush and blood return, catheter secured, Tegaderm dressing applied. Start: 03:35 End: 03:50
[2020-07-12] MEDS ORDERED: Magnesium Sulfate/Water 4 GM in Premix Bag 1 BAG IV ONE (07:30)
--- NOTE | 2020-07-12 07:38 | PCM.PN ---
- General Info Date of Service: 07/12/20 Admission Dx/Problem (Free Text): Admission Diagnosis/Problem Admission Diagnosis/Problem Pneumonia Subjective Update: Patient has no specific complaints. No significant changes. She is on 2 L nasal cannula. - Review of Systems General: Reports: Weakness, Fatigue HEENT: Reports: No Symptoms Pulmonary: Reports: Cough, Sputum Cardiovascular: Reports: No Symptoms Gastrointestinal: Reports: No Symptoms Musculoskeletal: Reports: No Symptoms - Patient Data Vitals - Most Recent: Last Vital Signs Temp 98.2 F 07/12/20 04:08 Pulse 86 07/12/20 04:08 Resp 20 07/12/20 04:08 BP 103/58 L 07/12/20 04:08 Pulse Ox 95 07/12/20 04:08 Weight - Most Recent: 145 lb 4.8 oz I&O - Last 24 Hours: Intake & Output 07/11/20 07/12/20 07/12/20 22:59 06:59 14:59 Intake Total 1491 1330 Output Total 250 200 Balance 1241 1130 Lab Results Last 24 Hours: Laboratory Results - last 24 hr 07/11/20 07/11/20 07/12/20 Range/Units 07:08 07:08 04:52 WBC 8.93 (3.98-10.04) K/mm3 RBC 4.54 (3.98-5.22) M/mm3 Hgb 16.3 H (11.2-15.7) gm/dl Hct 46.3 H (34.1-44.9) % MCV 102.0 H (79.4-94.8) fl MCH 35.9 H (25.6-32.2) pg MCHC 35.2 (32.2-35.5) g/dl RDW Std Deviation 61.6 H (36.4-46.3) fL Plt Count 61 L (182-369) K/mm3 MPV 11.8 (9.4-12.3) fl Neut % (Auto) 87.9 H (34.0-71.1) % Lymph % (Auto) 4.7 L (19.3-51.7) % [place] % (Auto) 6.8 (4.7-12.5) % Eos % (Auto) 0 L (0.7-5.8) Baso % (Auto) 0.0 L (0.1-1.2) % Neut # (Auto) 7.85 H (1.56-6.13) K/mm3 Lymph # (Auto) 0.42 L (1.18-3.74) K/mm3 [place] # (Auto) 0.61 H (0.24-0.36) K/mm3 Eos # (Auto) 0.00 L (0.04-0.36) K/mm3 Baso # (Auto) 0.00 L (0.01-0.08) K/mm3 Manual Slide Review Abnormal smear PT 19.3 H (9.7-12.0) SECONDS INR 1.83 APTT 46.1 H (21.7-31.4) SECONDS Sodium (136-145) mEq/L Potassium (3.5-5.1) mEq/L Chloride (98-107) mEq/L Carbon Dioxide (21-32) mEq/L Anion Gap (5-15) BUN (7-18) mg/dL Creatinine (0.55-1.02) mg/dL Est Cr Clr Drug Dosing mL/min Estimated GFR (MDRD) (>60) mL/min BUN/Creatinine Ratio (14-18) Glucose (80-115) mg/dL Calcium (8.5-10.1) mg/dL Magnesium (1.8-2.4) mg/dl Total Bilirubin (0.2-1.0) mg/dL AST (15-37) U/L ALT (14-59) U/L Alkaline Phosphatase (46-116) U/L Ammonia < 10 L (11-32) umol/L C-Reactive Protein (<1.0) mg/dL Total Protein (6.4-8.2) g/dl Albumin (3.4-5.0) g/dl Globulin gm/dL Albumin/Globulin Ratio (1-2) 07/12/20 Range/Units 04:52 WBC (3.98-10.04) K/mm3 RBC (3.98-5.22) M/mm3 Hgb (11.2-15.7) gm/dl Hct (34.1-44.9) % MCV (79.4-94.8) fl MCH (25.6-32.2) pg MCHC (32.2-35.5) g/dl RDW Std Deviation (36.4-46.3) fL Plt Count (182-369) K/mm3 MPV (9.4-12.3) fl Neut % (Auto) (34.0-71.1) % Lymph % (Auto) (19.3-51.7) % [place] % (Auto) (4.7-12.5) % Eos % (Auto) (0.7-5.8) Baso % (Auto) (0.1-1.2) % Neut # (Auto) (1.56-6.13) K/mm3 Lymph # (Auto) (1.18-3.74) K/mm3 [place] # (Auto) (0.24-0.36) K/mm3 Eos # (Auto) (0.04-0.36) K/mm3 Baso # (Auto) (0.01-0.08) K/mm3 Manual Slide Review PT (9.7-12.0) SECONDS INR APTT (21.7-31.4) SECONDS Sodium 139 (136-145) mEq/L Potassium 3.8 (3.5-5.1) mEq/L Chloride 108 H (98-107) mEq/L Carbon Dioxide 15 L (21-32) mEq/L Anion Gap 19.8 H (5-15) BUN 15 (7-18) mg/dL Creatinine 0.7 (0.55-1.02) mg/dL Est Cr Clr Drug Dosing 68.93 mL/min Estimated GFR (MDRD) > 60 (>60) mL/min BUN/Creatinine Ratio 21.4 H (14-18) Glucose 134 H (80-115) mg/dL Calcium 8.0 L (8.5-10.1) mg/dL Magnesium 1.4 L (1.8-2.4) mg/dl Total Bilirubin 21.3 H (0.2-1.0) mg/dL AST 134 H (15-37) U/L ALT 104 H (14-59) U/L Alkaline Phosphatase 212 H (46-116) U/L Ammonia (11-32) umol/L C-Reactive Protein 11.4 H* (<1.0) mg/dL Total Protein 5.7 L (6.4-8.2) g/dl Albumin 1.7 L (3.4-5.0) g/dl Globulin 4.0 gm/dL Albumin/Globulin Ratio 0.4 L (1-2) David Results Last 24 Hours: Microbiology 07/10/20 21:54 Aerobic Blood Culture - Preliminary Blood - Venous - Lab Draw NO GROWTH AFTER 1 DAY Anaerobic Blood Culture - Preliminary NO GROWTH AFTER 1 DAY 07/10/20 21:52 Aerobic Blood Culture - Preliminary Blood - Venous NO GROWTH AFTER 1 DAY Anaerobic Blood Culture - Preliminary NO GROWTH AFTER 1 DAY Med Orders - Current: Current Medications Aripiprazole (Aripiprazole 2 Mg Tab) 1 mg PO DAILY [facility] Last Admin: 07/11/20 09:30 Dose: 1 mg Documented by: Azithromycin (Azithromycin 250 Mg Tab) 250 mg PO DAILY [facility] Stop: 07/15/20 09:01 Folic Acid (Folic Acid 1 Mg Tab) 1 mg PO DAILY [facility] Last Admin: 07/11/20 09:29 Dose: 1 mg Documented by: Sodium Chloride (Normal Saline) 100 mls @ 60 drops/hr IV ASDIRECTED [facility] Last Admin: 07/11/20 01:40 Dose: 60 drops/hr Documented by: Dextrose/Sodium Chloride (Dextrose 5%-Normal Saline) 1,000 mls @ 100 mls/hr IV ASDIRECTED [facility] Last Admin: 07/11/20 22:44 Dose: 100 mls/hr Documented by: Ceftriaxone Sodium 2 gm/ (Sodium Chloride) 100 mls @ 200 mls/hr IV DAILY [facility] Magnesium Sulfate 4 gm/ Premix 50 mls @ 12.5 mls/hr IV ONETIME ONE Stop: 07/12/20 11:29 Lactulose (Lactulose Soln 10 Gm/15 Ml 30 Ml Ud Cup) 10 gm PO DAILY [facility] Last Admin: 07/11/20 09:30 Dose: Not Given Documented by: Latanoprost (Latanoprost 0.005% Ophth Soln 2.5 Ml Bottle) 0 ml EYEBOTH BEDTIME [facility] Last Admin: 07/11/20 21:01 Dose: 1 drop Documented by: Magnesium Oxide (Magnesium Oxide 400 Mg Tab) 1,000 mg PO BID [facility] Last Admin: 07/11/20 20:58 Dose: 1,000 mg Documented by: Magnesium Oxide (Magnesium Oxide 400 Mg Tab) 400 mg PO BID [facility] Mirtazapine (Mirtazapine 15 Mg Tab) 15 mg PO DAILY [facility] Last Admin: 07/11/20 09:29 Dose: 15 mg Documented by: Nicotine (Nicotine 21 Mg/24 Hr Patch) 21 mg TRDERM DAILY [facility] Potassium Chloride (Potassium Chloride 20 Meq Tab.Er) 20 meq PO BID [facility] Last Admin: 07/11/20 21:01 Dose: 20 meq Documented by: Prednisolone (Prednisolone Soln 15 Mg/5 Ml Ud Cup) 20.1 mg PO DAILY [facility] Last Admin: 07/11/20 09:31 Dose: 20.1 mg Documented by: Propranolol HCl (Propranolol 10 Mg Tab) 10 mg PO TID [facility] Last Admin: 07/11/20 21:00 Dose: 10 mg Documented by: Rifaximin (Rifaximin 550 Mg Tab) 550 mg PO BID [facility] Last Admin: 07/11/20 20:59 Dose: 550 mg Documented by: Sodium Chloride (Sodium Chloride 0.9% 10 Ml Syringe) 10 ml FLUSH ASDIRECTED PRN PRN Reason: Keep Vein Open Last Admin: 07/10/20 21:24 Dose: 10 ml Documented by: Sodium Chloride (Sodium Chloride 0.9% 10 Ml Syringe) 10 ml FLUSH BOLUS [facility] Last Admin: 07/11/20 01:40 Dose: 10 ml Documented by: Spironolactone (Spironolactone 25 Mg Tab) 50 mg PO BID [facility] Last Admin: 07/11/20 21:01 Dose: 50 mg Documented by: Tiotropium Hilliards (Tiotropium Hilliards 4 Gm Inhalation [place] (2.5mcg/1 Dose; 10 Doses)) 0 gm INH DAILY [facility] Last Admin: 07/11/20 10:22 Dose: Not Given Documented by: Discontinued Medications Ceftriaxone Sodium 1 gm/ (Sodium Chloride) 100 mls @ 200 mls/hr IV Q24H [facility] Last Admin: 07/11/20 01:25 Dose: 200 mls/hr Documented by: Ceftriaxone Sodium 1 gm/ (Sodium Chloride) 100 mls @ 200 mls/hr IV Q24H [facility] Ceftriaxone Sodium 1 gm/ (Sodium Chloride) 100 mls @ 200 mls/hr IV ONETIME ONE Stop: 07/11/20 14:30 Last Admin: 07/11/20 14:55 Dose: 200 mls/hr Documented by: Azithromycin 500 mg/ Sodium (Chloride) 250 mls @ 250 mls/hr IV ONETIME ONE Stop: 07/11/20 15:04 Last Admin: 07/11/20 15:31 Dose: 250 mls/hr Documented by: Iopamidol (Iopamidol 755 Mg/Ml 100 Ml Bottle) 100 ml IVPUSH ONETIME ONE Stop: 07/11/20 01:39 Last Admin: 07/11/20 01:40 Dose: 30 ml Documented by: Lorazepam (Lorazepam 2 Mg/Ml Sdv) 2 mg IVPUSH ONETIME ONE Stop: 07/11/20 01:33 Last Admin: 07/11/20 01:43 Dose: 2 mg Documented by: Methylprednisolone Sodium Succinate (Methylprednisolone Sodium Succinate 125 Mg/2 Ml Sdv) 125 mg IVPUSH ONETIME ONE Stop: 07/11/20 01:05 Last Admin: 07/11/20 01:25 Dose: 125 mg Documented by: - Exam Quality Assessment: Supplemental Oxygen (2L) General: Alert, Oriented HEENT: Pupils Equal, Mucous Membr. Moist/[place], Scleral Icterus Neck: Supple Lungs: Clear to Auscultation, Normal Respiratory Effort Cardiovascular: Regular Rate, Regular Rhythm GI/Abdominal Exam: Normal Bowel Sounds, Soft, Non-Tender, No Organomegaly, No Distention, No Abnormal Bruit Extremities: Non-Tender Skin: Warm, Dry, Intact Psy/Mental Status: Alert, Normal Affect, Normal Mood - Patient Data Lab Results Last 24 hrs: Laboratory Results - last 24 hr 07/11/20 07/11/20 07/12/20 Range/Units 07:08 07:08 04:52 WBC 8.93 (3.98-10.04) K/mm3 RBC 4.54 (3.98-5.22) M/mm3 Hgb 16.3 H (11.2-15.7) gm/dl Hct 46.3 H (34.1-44.9) % MCV 102.0 H (79.4-94.8) fl MCH 35.9 H (25.6-32.2) pg MCHC 35.2 (32.2-35.5) g/dl RDW Std Deviation 61.6 H (36.4-46.3) fL Plt Count 61 L (182-369) K/mm3 MPV 11.8 (9.4-12.3) fl Neut % (Auto) 87.9 H (34.0-71.1) % Lymph % (Auto) 4.7 L (19.3-51.7) % [place] % (Auto) 6.8 (4.7-12.5) % Eos % (Auto) 0 L (0.7-5.8) Baso % (Auto) 0.0 L (0.1-1.2) % Neut # (Auto) 7.85 H (1.56-6.13) K/mm3 Lymph # (Auto) 0.42 L (1.18-3.74) K/mm3 [place] # (Auto) 0.61 H (0.24-0.36) K/mm3 Eos # (Auto) 0.00 L (0.04-0.36) K/mm3 Baso # (Auto) 0.00 L (0.01-0.08) K/mm3 Manual Slide Review Abnormal smear PT 19.3 H (9.7-12.0) SECONDS INR 1.83 APTT 46.1 H (21.7-31.4) SECONDS Sodium (136-145) mEq/L Potassium (3.5-5.1) mEq/L Chloride (98-107) mEq/L Carbon Dioxide (21-32) mEq/L Anion Gap (5-15) BUN (7-18) mg/dL Creatinine (0.55-1.02) mg/dL Est Cr Clr Drug Dosing mL/min Estimated GFR (MDRD) (>60) mL/min BUN/Creatinine Ratio (14-18) Glucose (80-115) mg/dL Calcium (8.5-10.1) mg/dL Magnesium (1.8-2.4) mg/dl Total Bilirubin (0.2-1.0) mg/dL AST (15-37) U/L ALT (14-59) U/L Alkaline Phosphatase (46-116) U/L Ammonia < 10 L (11-32) umol/L C-Reactive Protein (<1.0) mg/dL Total Protein (6.4-8.2) g/dl Albumin (3.4-5.0) g/dl Globulin gm/dL Albumin/Globulin Ratio (1-2) 07/12/20 Range/Units 04:52 WBC (3.98-10.04) K/mm3 RBC (3.98-5.22) M/mm3 Hgb (11.2-15.7) gm/dl Hct (34.1-44.9) % MCV (79.4-94.8) fl MCH (25.6-32.2) pg MCHC (32.2-35.5) g/dl RDW Std Deviation (36.4-46.3) fL Plt Count (182-369) K/mm3 MPV (9.4-12.3) fl Neut % (Auto) (34.0-71.1) % Lymph % (Auto) (19.3-51.7) % [place] % (Auto) (4.7-12.5) % Eos % (Auto) (0.7-5.8) Baso % (Auto) (0.1-1.2) % Neut # (Auto) (1.56-6.13) K/mm3 Lymph # (Auto) (1.18-3.74) K/mm3 [place] # (Auto) (0.24-0.36) K/mm3 Eos # (Auto) (0.04-0.36) K/mm3 Baso # (Auto) (0.01-0.08) K/mm3 Manual Slide Review PT (9.7-12.0) SECONDS INR APTT (21.7-31.4) SECONDS Sodium 139 (136-145) mEq/L Potassium 3.8 (3.5-5.1) mEq/L Chloride 108 H (98-107) mEq/L Carbon Dioxide 15 L (21-32) mEq/L Anion Gap 19.8 H (5-15) BUN 15 (7-18) mg/dL Creatinine 0.7 (0.55-1.02) mg/dL Est Cr Clr Drug Dosing 68.93 mL/min Estimated GFR (MDRD) > 60 (>60) mL/min BUN/Creatinine Ratio 21.4 H (14-18) Glucose 134 H (80-115) mg/dL Calcium 8.0 L (8.5-10.1) mg/dL Magnesium 1.4 L (1.8-2.4) mg/dl Total Bilirubin 21.3 H (0.2-1.0) mg/dL AST 134 H (15-37) U/L ALT 104 H (14-59) U/L Alkaline Phosphatase 212 H (46-116) U/L Ammonia (11-32) umol/L C-Reactive Protein 11.4 H* (<1.0) mg/dL Total Protein 5.7 L (6.4-8.2) g/dl Albumin 1.7 L (3.4-5.0) g/dl Globulin 4.0 gm/dL Albumin/Globulin Ratio 0.4 L (1-2) Result Diagrams: 07/12/20 04:52 07/12/20 04:52 David Results Last 24 hrs: Microbiology 07/10/20 21:54 Aerobic Blood Culture - Preliminary Blood - Venous - Lab Draw NO GROWTH AFTER 1 DAY Anaerobic Blood Culture - Preliminary NO GROWTH AFTER 1 DAY 07/10/20 21:52 Aerobic Blood Culture - Preliminary Blood - Venous NO GROWTH AFTER 1 DAY Anaerobic Blood Culture - Preliminary NO GROWTH AFTER 1 DAY Sepsis Event Note - Evaluation Sepsis Screening Result: No Definite Risk - Focused Exam Vital Signs: Vital Signs Temp Temp Pulse Resp BP BP Pulse Ox 07/12/20 04:08 98.2 F 86 20 103/58 L 95 07/12/20 00:07 87 100 07/12/20 00:01 97.9 F 88 24 H 100/60 07/11/20 21:42 07/11/20 21:39 87 90 L 07/11/20 21:00 84 98/69 07/11/20 20:58 86 90 L 07/11/20 20:52 97.5 F 84 20 98/69 Pulse Ox 07/12/20 04:08 07/12/20 00:07 07/12/20 00:01 07/11/20 21:42 90 L 07/11/20 21:39 07/11/20 21:00 07/11/20 20:58 07/11/20 20:52 - Problem List & Annotations (1) Hyponatremia SNOMED Code(s): 59780756 Code(s): E87.1 - HYPO-OSMOLALITY AND HYPONATREMIA Status: Acute Current Visit: Yes (2) Multifocal pneumonia SNOMED Code(s): 321800211 Code(s): J18.9 - PNEUMONIA, UNSPECIFIED ORGANISM Status: Acute Current Visit: Yes (3) Cirrhosis of liver SNOMED Code(s): 92039839 Code(s): K74.60 - UNSPECIFIED CIRRHOSIS OF LIVER Status: Chronic Priority: High Current Visit: Yes Qualifiers: Hepatic cirrhosis type: alcoholic cirrhosis Ascites presence: with ascites Qualified Code(s): K70.31 - Alcoholic cirrhosis of liver with ascites (4) Hypoalbuminemia SNOMED Code(s): 180343311 Code(s): E88.09 - OTH DISORDERS OF PLASMA-PROTEIN METABOLISM, NEC Status: Chronic Priority: Medium Current Visit: No (5) Hypomagnesemia SNOMED Code(s): 188349378 Code(s): E83.42 - HYPOMAGNESEMIA Status: Resolved Priority: High Current Visit: No - Problem List Review Problem List Initiated/Reviewed/Updated: Yes - My Orders Last 24 Hours: My Active Orders 07/11/20 08:21 Resuscitation Status Routine 07/11/20 09:00 ARIPiprazole [Abilify] 1 mg PO DAILY Folic Acid 1 mg PO DAILY Lactulose [Cephulac] 10 gm PO DAILY Magnesium Oxide 1,000 mg PO BID Mirtazapine [Remeron] 15 mg PO DAILY Potassium Chloride [Klor-Con M20] 20 meq PO BID Propranolol [Inderal] 10 mg PO TID Rifaximin [Xifaxan] 550 mg PO BID Spironolactone [Aldactone] 50 mg PO BID Tiotropium Hilliards [Spiriva Respimat] 0 gm INH DAILY prednisoLONE [OraPred 15 MG/5ML Soln] 20.1 mg PO DAILY 07/11/20 10:15 Dextrose 5%-0.9% NaCl [Dextrose 5%-Normal Saline] 1,000 ml IV ASDIRECTED 07/11/20 Lunch Regular Diet [DIET] 07/11/20 12:27 Antiembolic Devices [RC] PER UNIT ROUTINE SCD [Sequential Compression Device] [OM.PC] Routine 07/11/20 18:23 Oxygen Therapy [RC] ASDIRECTED 07/11/20 21:00 Latanoprost [Xalatan 0.005% Ophth Soln] 0 ml EYEBOTH BEDTIME 07/12/20 07:30 Magnesium Sulfate/Water [Magnesium Sulfate in Water 4 GM/50 ML] 4 gm Premix Bag 1 bag IV ONETIME 07/12/20 09:00 Azithromycin [Zithromax] 250 mg PO DAILY Magnesium Oxide 400 mg PO BID Nicotine [Habitrol] 21 mg TRDERM DAILY cefTRIAXone [Rocephin] 2 gm Sodium Chloride 0.9% [Normal Saline] 100 ml IV DAILY - Plan Plan:: Assessment 60-year-old female with history of severe liver disease and cirrhosis presents to the emergency department secondary to 3 days of increasing shortness of breath. CT scan of the chest showed multifocal pneumonia bacterial versus viral. COVID-19 PCR was negative. Multifocal pneumonia Tobaccoismstopped 1 week ago * CT positive for multifocal pneumonia, bacterial versus viral * Normal white count of 8.9 * Blood cultures pending * Cough is more productive * Patient appears volume depleted with hemoconcentration. No change with IV fluids Plan * Rocephin to 2 g daily and azithromycin. * Await blood cultures * Follow CBC * Repeat chest x-ray as needed * FiO2 to keep SPO2 greater than 90% * Offer nicotine patch * IV fluids with D5 normal saline Severe liver disease Cirrhosis Elevated D-dimer Thrombocytopenia Chronic elevated anion gap History of hepatic encephalopathy * Multiple abnormal coagulation indices secondary to liver disease. * Elevated D-dimer is not likely secondary to PE or VTE * Anticoagulation contraindication secondary to thrombocytopenia * Platelets increased to 61 * Refusing lactulose * Ammonia normal * At baseline mental status Plan * Continue to monitor Hyponatremia - resolved Hypomagnesemia- no change * Sodium 139 * Magnesium 1.4 * Low sodium is likely multifactorial to include liver disease and SIADH Plan * Rehydrate with D5 normal saline * Replace magnesium Chronic: Impaired vision, liver cirrhosis, hypertension, recurrent pneumonia, chronic shortness of breath, recent smoker, GERD, hemorrhoids, enlarged spleen, recurrent UTI, substance abuse, history of gallstone, vitamin D deficiency, anemia of chronic disease, chronic electrolyte abnormality and 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 Patient has severe thrombocytopenia CODE STATUS: Full code Prognosis is poor
[2020-07-12] MEDS: cefTRIAXone 2 GM in Sodium Chloride 0.9% 100 ML IV SCH (08:47)
[2020-07-12] MEDS: Magnesium Oxide 400 MG Tab PO SCH ×2 (08:51→21:09)
[2020-07-12] MEDS: Spironolactone 25 MG Tab PO SCH ×2 (08:52→21:09)
[2020-07-12] MEDS: Folic Acid 1 MG Tab PO SCH (08:53)
[2020-07-12] MEDS: Rifaximin 550 MG Tab PO SCH ×2 (08:53→21:08)
[2020-07-12] MEDS: Azithromycin 250 MG Tab PO SCH (08:54)
[2020-07-12] MEDS: Mirtazapine 15 MG Tab PO SCH (08:54)
[2020-07-12] MEDS: Potassium Chloride 20 MEQ Tab.ER PO SCH ×2 (08:55→21:09)
[2020-07-12] MEDS: Nicotine 21 MG/24 Hr Patch TRDERM SCH (08:55)
[2020-07-12] MEDS: Lactulose Soln 10 GM/15 ML 30 ML UD Cup PO SCH (08:55)
[2020-07-12] MEDS: prednisoLONE Soln 15 MG/5 ML UD Cup PO SCH (08:56)
[2020-07-12] MEDS: Propranolol 10 MG Tab PO SCH ×3 (08:56→21:08)
[2020-07-12] MEDS ORDERED: Magnesium Oxide 400 MG Tab PO SCH (09:00)
[2020-07-12] MEDS: Tiotropium Bromide 4 GM Inhalation Spray (2.5mcg/1 dose; 10 doses) INH SCH (09:24)
[2020-07-12] MEDS: Dextrose 5%-0.9% NaCl 1,000 ML IV SCH (15:21)
[2020-07-12] MEDS ORDERED: Magnesium Sulfate/Water 2 GM/50 ML BAG IV ONE (18:00)
[2020-07-12] MEDS ORDERED: Furosemide 40 MG/4 ML VIAL IVPUSH ONE (20:58)
[2020-07-12] MEDS: Latanoprost 0.005% Ophth Soln 2.5 ML Bottle EYEBOTH SCH (21:09)
[2020-07-13] MEDS: cefTRIAXone 2 GM in Sodium Chloride 0.9% 100 ML IV SCH (08:36)
[2020-07-13] MEDS: Lactulose Soln 10 GM/15 ML 30 ML UD Cup PO SCH (08:37)
[2020-07-13] MEDS: Spironolactone 25 MG Tab PO SCH ×2 (08:40→21:31)
[2020-07-13] MEDS: Magnesium Oxide 400 MG Tab PO SCH ×2 (08:41→21:30)
[2020-07-13] MEDS: Potassium Chloride 20 MEQ Tab.ER PO SCH ×2 (08:42→21:31)
[2020-07-13] MEDS: Propranolol 10 MG Tab PO SCH ×2 (08:42→21:55)
[2020-07-13] MEDS: Folic Acid 1 MG Tab PO SCH (08:43)
[2020-07-13] MEDS: Mirtazapine 15 MG Tab PO SCH (08:43)
[2020-07-13] MEDS: Azithromycin 250 MG Tab PO SCH (08:43)
[2020-07-13] MEDS: Rifaximin 550 MG Tab PO SCH ×2 (08:43→21:31)
[2020-07-13] MEDS: prednisoLONE Soln 15 MG/5 ML UD Cup PO SCH (08:44)
[2020-07-13] MEDS: Nicotine 21 MG/24 Hr Patch TRDERM SCH (08:46)
--- NOTE | 2020-07-13 08:52 | CT ---
CT chest Technique: Multiple axial sections through the chest were obtained. No significant intravenous contrast is noted. I have a technologist note stating that there was extravasation of the intravenous access. Findings: Thoracic aorta shows mild atherosclerotic change without aneurysm. Mild coronary artery calcification is seen. Pulmonary arteries are not opacified. No pericardial thickening is seen. There is ascites being seen on both sides of the abdomen. Slightly nodular appearance of the liver is seen suspicious for cirrhosis. Calcification is noted within the gallbladder most likely representing gallstone. Spleen is enlarged measuring approximately 15.4 cm. Patchy areas of increased density are seen on both sides of the chest. Findings are worse on the right side. No pleural effusions are seen. Bone window settings were reviewed which show scattered degenerative change within the spine. Impression: 1. Multiple parenchymal densities on both sides of the chest, worse on the right side. Findings are suspicious for diffuse pneumonia. Please rule out COVID disease. 2. No contrast was given due to IV malfunction. No pulmonary opacification is seen. 3. Single gallstone which is calcified within the gallbladder. 4. Cirrhosis within the liver. Splenomegaly. Bilateral ascites within the abdomen. Diagnostic code #3 I agree with preliminary report from [facility], finalized on 07/11/20, 4:04 AM CDT MTDD
--- NOTE | 2020-07-13 09:38 | CR ---
Chest: Portable view of the chest was obtained. Comparison: Prior chest CT study of 07/11/20 and chest x-ray 07/10/20. Patchy areas of increased density are seen within the chest. Mild increased interstitial change is noted which is slightly more prominent than on recent study. This is most likely due to technique. Heart size and mediastinum are normal. Bony structures are grossly intact. Impression: 1. Slight areas of increased density densities are seen within the right lung. 2. Increasing interstitial change from prior study which is most likely due to technique. Diagnostic code #3
[2020-07-13] MEDS ORDERED: Furosemide 40 MG/4 ML VIAL IVPUSH ONE (09:56)
--- NOTE | 2020-07-13 09:59 | PCM.PN ---
- General Info Date of Service: 07/13/20 Admission Dx/Problem (Free Text): Admission Diagnosis/Problem Admission Diagnosis/Problem Pneumonia Subjective Update: Patient had an episode of hypoxemia yesterday. She was placed on BiPAP and given Lasix secondary to presumed CHF. This morning chest x-ray is consistent with fluid overload and proBNP is up to 1400. Repeat Covid is negative. Patient did have IV fluids running for the last 2 days to help correct her met abolic derangement. This morning patient states she is feeling well. She denies any shortness of breath. She still requires BiPAP at 14/7 with 15 L bled in. Functional Status: Reports: Pain Controlled - Review of Systems General: Reports: No Symptoms HEENT: Reports: No Symptoms Pulmonary: Reports: No Symptoms Cardiovascular: Reports: No Symptoms Gastrointestinal: Reports: No Symptoms Musculoskeletal: Reports: No Symptoms Psychiatric: Reports: No Symptoms - Patient Data Vitals - Most Recent: Last Vital Signs Temp 97.5 F 07/13/20 07:49 Pulse 87 07/13/20 08:42 Resp 18 07/13/20 07:49 BP 109/81 07/13/20 08:42 Pulse Ox 100 07/13/20 07:49 Weight - Most Recent: 143 lb 1.6 oz I&O - Last 24 Hours: Intake & Output 07/12/20 07/13/20 07/13/20 22:59 06:59 14:59 Intake Total 1278 1200 Output Total 250 850 Balance 1028 350 Lab Results Last 24 Hours: Laboratory Results - last 24 hr 07/13/20 07/13/20 Range/Units 05:38 05:38 WBC 7.66 (3.98-10.04) K/mm3 RBC 4.56 (3.98-5.22) M/mm3 Hgb 16.4 H (11.2-15.7) gm/dl Hct 46.9 H (34.1-44.9) % MCV 102.9 H (79.4-94.8) fl MCH 36.0 H (25.6-32.2) pg MCHC 35.0 (32.2-35.5) g/dl RDW Std Deviation 62.9 H (36.4-46.3) fL Plt Count 56 L (182-369) K/mm3 MPV 11.8 (9.4-12.3) fl Neut % (Auto) 88.6 H (34.0-71.1) % Lymph % (Auto) 4.6 L (19.3-51.7) % [place] % (Auto) 6.0 (4.7-12.5) % Eos % (Auto) 0 L (0.7-5.8) Baso % (Auto) 0.1 (0.1-1.2) % Neut # (Auto) 6.79 H (1.56-6.13) K/mm3 Lymph # (Auto) 0.35 L (1.18-3.74) K/mm3 [place] # (Auto) 0.46 H (0.24-0.36) K/mm3 Eos # (Auto) 0.00 L (0.04-0.36) K/mm3 Baso # (Auto) 0.01 (0.01-0.08) K/mm3 Manual Slide Review Abnormal smear Sodium 141 (136-145) mEq/L Potassium 3.7 (3.5-5.1) mEq/L Chloride 108 H (98-107) mEq/L Carbon Dioxide 18 L (21-32) mEq/L Anion Gap 18.7 H (5-15) BUN 16 (7-18) mg/dL Creatinine 0.9 (0.55-1.02) mg/dL Est Cr Clr Drug Dosing 53.61 mL/min Estimated GFR (MDRD) > 60 (>60) mL/min BUN/Creatinine Ratio 17.8 (14-18) Glucose 105 (80-115) mg/dL Calcium 8.2 L (8.5-10.1) mg/dL Phosphorus 2.8 (2.6-4.7) mg/dL Magnesium 2.0 (1.8-2.4) mg/dl Total Bilirubin 20.5 H (0.2-1.0) mg/dL AST 160 H (15-37) U/L ALT 95 H (14-59) U/L Alkaline Phosphatase 212 H (46-116) U/L C-Reactive Protein 11.9 H* (<1.0) mg/dL Total Protein 5.6 L (6.4-8.2) g/dl Albumin 1.5 L (3.4-5.0) g/dl Globulin 4.1 gm/dL Albumin/Globulin Ratio 0.4 L (1-2) David Results Last 24 Hours: Microbiology 07/10/20 21:54 Aerobic Blood Culture - Preliminary Blood - Venous - Lab Draw NO GROWTH AFTER 2 DAYS Anaerobic Blood Culture - Preliminary NO GROWTH AFTER 2 DAYS 07/10/20 21:52 Aerobic Blood Culture - Preliminary Blood - Venous NO GROWTH AFTER 2 DAYS Anaerobic Blood Culture - Preliminary NO GROWTH AFTER 2 DAYS Med Orders - Current: Current Medications Aripiprazole (Aripiprazole 2 Mg Tab) 1 mg PO DAILY [facility] Last Admin: 07/13/20 08:40 Dose: 1 mg Documented by: Azithromycin (Azithromycin 250 Mg Tab) 250 mg PO DAILY [facility] Stop: 07/15/20 09:01 Last Admin: 07/13/20 08:43 Dose: 250 mg Documented by: Folic Acid (Folic Acid 1 Mg Tab) 1 mg PO DAILY [facility] Last Admin: 07/13/20 08:43 Dose: 1 mg Documented by: Furosemide (Furosemide 40 Mg/4 Ml Vial) 40 mg IVPUSH NOW ONE Stop: 07/13/20 09:57 Ceftriaxone Sodium 2 gm/ (Sodium Chloride) 100 mls @ 200 mls/hr IV DAILY [facility] Last Admin: 07/13/20 08:36 Dose: 200 mls/hr Documented by: Lactulose (Lactulose Soln 10 Gm/15 Ml 30 Ml Ud Cup) 10 gm PO DAILY [facility] Last Admin: 07/13/20 08:37 Dose: 10 gm Documented by: Latanoprost (Latanoprost 0.005% Ophth Soln 2.5 Ml Bottle) 0 ml EYEBOTH BEDTIME [facility] Last Admin: 07/12/20 21:09 Dose: 1 drop Documented by: Magnesium Oxide (Magnesium Oxide 400 Mg Tab) 1,000 mg PO BID [facility] Last Admin: 07/13/20 08:41 Dose: 1,000 mg Documented by: Mirtazapine (Mirtazapine 15 Mg Tab) 15 mg PO DAILY [facility] Last Admin: 07/13/20 08:43 Dose: 15 mg Documented by: Miscellaneous Information (Remove Nicotine Patch) 1 ea TRDERM DAILY [facility] Last Admin: 07/13/20 09:46 Dose: Not Given Documented by: Nicotine (Nicotine 21 Mg/24 Hr Patch) 21 mg TRDERM DAILY [facility] Last Admin: 07/13/20 08:46 Dose: Not Given Documented by: Potassium Chloride (Potassium Chloride 20 Meq Tab.Er) 20 meq PO BID [facility] Last Admin: 07/13/20 08:42 Dose: 20 meq Documented by: Prednisolone (Prednisolone Soln 15 Mg/5 Ml Ud Cup) 20.1 mg PO DAILY [facility] Last Admin: 07/13/20 08:44 Dose: 20.1 mg Documented by: Propranolol HCl (Propranolol 10 Mg Tab) 10 mg PO TID [facility] Last Admin: 07/13/20 08:42 Dose: 10 mg Documented by: Rifaximin (Rifaximin 550 Mg Tab) 550 mg PO BID [facility] Last Admin: 07/13/20 08:43 Dose: 550 mg Documented by: Sodium Chloride (Sodium Chloride 0.9% 10 Ml Syringe) 10 ml FLUSH ASDIRECTED PRN PRN Reason: Keep Vein Open Last Admin: 07/10/20 21:24 Dose: 10 ml Documented by: Spironolactone (Spironolactone 25 Mg Tab) 50 mg PO BID [facility] Last Admin: 07/13/20 08:40 Dose: 50 mg Documented by: Tiotropium [place] (Tiotropium [place] 4 Gm Inhalation Marissa (2.5mcg/1 Dose; 10 Doses)) 0 gm INH DAILY [facility] Last Admin: 07/12/20 09:24 Dose: Not Given Documented by: Discontinued Medications Furosemide (Furosemide 40 Mg/4 Ml Vial) 40 mg IVPUSH NOW ONE Stop: 07/12/20 20:59 Last Admin: 07/12/20 21:04 Dose: 40 mg Documented by: Ceftriaxone Sodium 1 gm/ (Sodium Chloride) 100 mls @ 200 mls/hr IV Q24H [facility] Last Admin: 07/11/20 01:25 Dose: 200 mls/hr Documented by: Sodium Chloride (Normal Saline) 100 mls @ 60 drops/hr IV ASDIRECTED [facility] Last Admin: 07/11/20 01:40 Dose: 60 drops/hr Documented by: Ceftriaxone Sodium 1 gm/ (Sodium Chloride) 100 mls @ 200 mls/hr IV Q24H [facility] Dextrose/Sodium Chloride (Dextrose 5%-Normal Saline) 1,000 mls @ 100 mls/hr IV ASDIRECTED [facility] Last Admin: 07/12/20 15:21 Dose: 100 mls/hr Documented by: Ceftriaxone Sodium 1 gm/ (Sodium Chloride) 100 mls @ 200 mls/hr IV ONETIME ONE Stop: 07/11/20 14:30 Last Admin: 07/11/20 14:55 Dose: 200 mls/hr Documented by: Azithromycin 500 mg/ Sodium (Chloride) 250 mls @ 250 mls/hr IV ONETIME ONE Stop: 07/11/20 15:04 Last Admin: 07/11/20 15:31 Dose: 250 mls/hr Documented by: Magnesium Sulfate 4 gm/ Premix 50 mls @ 12.5 mls/hr IV ONETIME ONE Stop: 07/12/20 11:29 Last Admin: 07/12/20 08:49 Dose: 12.5 mls/hr Documented by: Magnesium Sulfate (Magnesium Sulfate In Water 2 Gm/50 Ml) 2 gm in 50 mls @ 25 mls/hr IV ONETIME ONE Stop: 07/12/20 19:59 Last Admin: 07/12/20 18:30 Dose: 25 mls/hr Documented by: Iopamidol (Iopamidol 755 Mg/Ml 100 Ml Bottle) 100 ml IVPUSH ONETIME ONE Stop: 07/11/20 01:39 Last Admin: 07/11/20 01:40 Dose: 30 ml Documented by: Lorazepam (Lorazepam 2 Mg/Ml Sdv) 2 mg IVPUSH ONETIME ONE Stop: 07/11/20 01:33 Last Admin: 07/11/20 01:43 Dose: 2 mg Documented by: Magnesium Oxide (Magnesium Oxide 400 Mg Tab) 400 mg PO BID [facility] Last Admin: 07/12/20 10:39 Dose: Not Given Documented by: Methylprednisolone Sodium Succinate (Methylprednisolone Sodium Succinate 125 Mg/2 Ml Sdv) 125 mg IVPUSH ONETIME ONE Stop: 07/11/20 01:05 Last Admin: 07/11/20 01:25 Dose: 125 mg Documented by: Sodium Chloride (Sodium Chloride 0.9% 10 Ml Syringe) 10 ml FLUSH BOLUS [facility] Last Admin: 07/11/20 01:40 Dose: 10 ml Documented by: - Exam Quality Assessment: Supplemental Oxygen General: Alert, Oriented HEENT: Pupils Equal, Mucous Membr. Moist/[place] Neck: Supple Lungs: Normal Respiratory Effort, Decreased Breath Sounds ( Works), Crackles (Minimal crackles.) Cardiovascular: Regular Rate, Regular Rhythm GI/Abdominal Exam: Normal Bowel Sounds, Soft, Non-Tender, No Organomegaly, Distended (Nontender) Extremities: Normal Inspection, Normal Range of Motion, Non-Tender, No Pedal Edema, Normal Capillary Refill Peripheral Pulses: 2+: Posterior Tibial (L), Posterior Tibial (R), Dorsalis Pedis (L), Dorsalis Pedis (R) Skin: Warm, Dry, Intact Neurological: No New Focal Deficit Psy/Mental Status: Alert, Normal Affect, Normal Mood - Patient Data Lab Results Last 24 hrs: Laboratory Results - last 24 hr 07/13/20 07/13/20 Range/Units 05:38 05:38 WBC 7.66 (3.98-10.04) K/mm3 RBC 4.56 (3.98-5.22) M/mm3 Hgb 16.4 H (11.2-15.7) gm/dl Hct 46.9 H (34.1-44.9) % MCV 102.9 H (79.4-94.8) fl MCH 36.0 H (25.6-32.2) pg MCHC 35.0 (32.2-35.5) g/dl RDW Std Deviation 62.9 H (36.4-46.3) fL Plt Count 56 L (182-369) K/mm3 MPV 11.8 (9.4-12.3) fl Neut % (Auto) 88.6 H (34.0-71.1) % Lymph % (Auto) 4.6 L (19.3-51.7) % [place] % (Auto) 6.0 (4.7-12.5) % Eos % (Auto) 0 L (0.7-5.8) Baso % (Auto) 0.1 (0.1-1.2) % Neut # (Auto) 6.79 H (1.56-6.13) K/mm3 Lymph # (Auto) 0.35 L (1.18-3.74) K/mm3 [place] # (Auto) 0.46 H (0.24-0.36) K/mm3 Eos # (Auto) 0.00 L (0.04-0.36) K/mm3 Baso # (Auto) 0.01 (0.01-0.08) K/mm3 Manual Slide Review Abnormal smear Sodium 141 (136-145) mEq/L Potassium 3.7 (3.5-5.1) mEq/L Chloride 108 H (98-107) mEq/L Carbon Dioxide 18 L (21-32) mEq/L Anion Gap 18.7 H (5-15) BUN 16 (7-18) mg/dL Creatinine 0.9 (0.55-1.02) mg/dL Est Cr Clr Drug Dosing 53.61 mL/min Estimated GFR (MDRD) > 60 (>60) mL/min BUN/Creatinine Ratio 17.8 (14-18) Glucose 105 (80-115) mg/dL Calcium 8.2 L (8.5-10.1) mg/dL Phosphorus 2.8 (2.6-4.7) mg/dL Magnesium 2.0 (1.8-2.4) mg/dl Total Bilirubin 20.5 H (0.2-1.0) mg/dL AST 160 H (15-37) U/L ALT 95 H (14-59) U/L Alkaline Phosphatase 212 H (46-116) U/L C-Reactive Protein 11.9 H* (<1.0) mg/dL Total Protein 5.6 L (6.4-8.2) g/dl Albumin 1.5 L (3.4-5.0) g/dl Globulin 4.1 gm/dL Albumin/Globulin Ratio 0.4 L (1-2) Result Diagrams: 07/13/20 05:38 07/13/20 05:38 David Results Last 24 hrs: Microbiology 07/10/20 21:54 Aerobic Blood Culture - Preliminary Blood - Venous - Lab Draw NO GROWTH AFTER 2 DAYS Anaerobic Blood Culture - Preliminary NO GROWTH AFTER 2 DAYS 07/10/20 21:52 Aerobic Blood Culture - Preliminary Blood - Venous NO GROWTH AFTER 2 DAYS Anaerobic Blood Culture - Preliminary NO GROWTH AFTER 2 DAYS Sepsis Event Note - Evaluation Sepsis Screening Result: No Definite Risk - Focused Exam Vital Signs: Vital Signs Temp Pulse Resp BP Pulse Ox Pulse Ox 07/13/20 08:42 87 109/81 07/13/20 07:49 97.5 F 87 18 109/81 100 07/13/20 04:16 28 H 07/13/20 03:54 97.5 F 83 101/53 L 96 07/13/20 01:30 99 07/12/20 23:13 98.2 F 87 28 H 105/60 91 L - Problem List & Annotations (1) Hyponatremia SNOMED Code(s): 12518499 Code(s): E87.1 - HYPO-OSMOLALITY AND HYPONATREMIA Status: Acute Current Visit: Yes (2) Multifocal pneumonia SNOMED Code(s): 109589249 Code(s): J18.9 - PNEUMONIA, UNSPECIFIED ORGANISM Status: Acute Current Visit: Yes (3) Cirrhosis of liver SNOMED Code(s): 30682499 Code(s): K74.60 - UNSPECIFIED CIRRHOSIS OF LIVER Status: Chronic Priority: High Current Visit: Yes Qualifiers: Hepatic cirrhosis type: alcoholic cirrhosis Ascites presence: with ascites Qualified Code(s): K70.31 - Alcoholic cirrhosis of liver with ascites (4) Hypoalbuminemia SNOMED Code(s): 930672285 Code(s): E88.09 - OTH DISORDERS OF PLASMA-PROTEIN METABOLISM, NEC Status: Chronic Priority: Medium Current Visit: No (5) Hypomagnesemia SNOMED Code(s): 277268228 Code(s): E83.42 - HYPOMAGNESEMIA Status: Resolved Priority: High Current Visit: No - Problem List Review Problem List Initiated/Reviewed/Updated: Yes - My Orders Last 24 Hours: My Active Orders 07/12/20 09:00 Azithromycin [Zithromax] 250 mg PO DAILY Nicotine [Habitrol] 21 mg TRDERM DAILY cefTRIAXone [Rocephin] 2 gm Sodium Chloride 0.9% [Normal Saline] 100 ml IV DAILY 07/12/20 13:22 Dietary Supplements [RC] TIDMEALS 07/12/20 20:58 RT BiPAP/CPAP [RC] ASDIRECTED 07/13/20 03:45 Pulse Oximetry Continuous Monitoring [OM.PC] Routine 07/13/20 09:00 Remove Patch 1 ea TRDERM DAILY 07/13/20 09:55 PRO B-TYPE NATRIUR PEPT,BNPPRO [CHEM] Stat 07/13/20 09:56 Furosemide [Lasix] 40 mg IVPUSH NOW ONE 07/13/20 09:57 CORONAVIRUS COVID-19 JESENIA [MOLEC] Stat - Plan Plan:: Assessment 60-year-old female with history of severe liver disease and cirrhosis presents to the emergency department secondary to 3 days of increasing shortness of breath. CT scan of the chest showed multifocal pneumonia bacterial versus viral. COVID-19 PCR was negative. CHF - new onset fluid overload secondary to overhydration * Total of only 1 pound positive weight gain over hospitalization. First weight in ER was on a standing scale. First weight was 146, but a few hours later on the medical floor the first weight was 142. Today's weight is 143. * I's and O's are not consistent with daily weights. It appears she has had a 4 L positive fluid balance, but it appears not all urine output has been collected. * Chest x-ray consistent with pulmonary congestion * Given Lasix 40 mg IV last night Plan * Continue BiPAP at 14/7 with 15 L bled in to titrate SPO2 92% or above * Lasix 40 mg IV twice daily * Continue daily weights and I's and O's * Echocardiogram Multifocal pneumonia Tobaccoismstopped 1 week ago * CT positive for multifocal pneumonia, bacterial versus viral * Normal white count: Patient's underlying liver disease is likely making her immunosuppressed low * Blood cultures pending * Cough is more productive * Patient appears volume depleted with hemoconcentration. No change with IV fluids Plan * Rocephin to 2 g daily and azithromycin. * Await blood cultures * Follow CBCno change in white count or hemoglobin. Platelets still 56 * Repeat chest x-ray as needed * FiO2 to keep SPO2 greater than 90% * Offer nicotine patch Severe liver disease Cirrhosis Elevated D-dimer Thrombocytopenia Chronic elevated anion gap History of hepatic encephalopathy * Multiple abnormal coagulation indices secondary to liver disease. * Elevated D-dimer is not likely secondary to PE or VTE. Is likely secondary to coagulopathy due to liver disease * Anticoagulation contraindication secondary to thrombocytopenia * Platelets 56 * Refusing lactulose * Ammonia normal * At baseline mental status Plan * Continue to monitor Hyponatremia - resolved Hypomagnesemia-resolved * Sodium 139 * Magnesium 2.1 Plan * Continue to monitor Chronic: Impaired vision, liver cirrhosis, hypertension, recurrent pneumonia, chronic shortness of breath, recent smoker, GERD, hemorrhoids, enlarged spleen, recurrent UTI, substance abuse, history of gallstone, vitamin D deficiency, anemia of chronic disease, chronic electrolyte abnormality and 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 Patient has severe thrombocytopenia CODE STATUS: Full code Prognosis is poor
[2020-07-13] MEDS ORDERED: Sodium Chloride 0.9% 1,000 ML ONE (11:42)
--- NOTE | 2020-07-13 11:58 | PCM.SN.2 ---
- Free Text/Narrative Note: Approximately 30 minutes after receiving her Lasix 40 mg IV patient became hypotensive, dropping her saturations, and tachycardic. I was called to the patient's room and she appeared comfortable and blood pressures have returned to systolic above 90 and a map above 65. Should continue to be tachycardic in the 130s with an irregular rate on telemetry strip. EKG showed new onset atrial fibrillation with RVR. Patient was then given a 500 mL bolus of normal saline, Cardizem 5 mg IV x2, and placed on a Cardizem drip at 5 mL an hour. Patient's blood pressure stabilized with a map above 65, heart rate in the 90s, and saturations above 92% on BiPAP at 65%.
[2020-07-13] MEDS ORDERED: Diltiazem 100 MG in Sodium Chloride 0.9% 100 ML IV SCH (12:30)
[2020-07-13] MEDS ORDERED: Diltiazem 50 MG/10 ML SDV IVPUSH ONE ×2 (12:40→12:42)
[2020-07-13] MEDS ORDERED: Sodium Chloride 0.9% 500 ML IV ONE ×2 (12:43→19:00)
[2020-07-13] MEDS: Sodium Chloride 0.9% 1,000 ML IV SCH ×2 (13:28→18:47)
--- NOTE | 2020-07-13 14:03 | PCM.EKG ---
#1 Interpretation EKG Date: 07/13/20 Time: 12:02 Rhythm: A-Fib Rate (Beats/Min): 141 [place]: Normal P-Wave: Absent QRS: Normal ST-T: Normal QT: Normal EKG Interpretation Comments: Atrial fibrillation with RVR
[2020-07-13] MEDS: Tiotropium Bromide 4 GM Inhalation Spray (2.5mcg/1 dose; 10 doses) INH SCH (14:50)
[2020-07-13] MEDS: Potassium Chloride 10 MEQ in Premix Bag 1 BAG IV SCH ×3 (18:47→21:06)
[2020-07-13] MEDS ORDERED: Potassium Chloride 10% 20 MEQ/15 ML Soln 15 ML UD Cup PO ONE (20:24)
--- NOTE | 2020-07-13 21:20 | PCM.EKG ---
#1 Interpretation EKG Date: 07/13/20 Time: 21:06 Rhythm: NSR Rate (Beats/Min): 76 [place]: Normal P-Wave: Absent QRS: Normal ST-T: Normal QT: Prolonged Comparison: Change From Previous EKG EKG Interpretation Comments: Sinus rhythm with ventricular rate of 76 bpm. Mildly prolonged QT.
[2020-07-13] MEDS: Latanoprost 0.005% Ophth Soln 2.5 ML Bottle EYEBOTH SCH (21:32)
[2020-07-13] MEDS ORDERED: Potassium Chloride 20 MEQ Tab.ER PO ONE (22:00)
[2020-07-14] MEDS: Sodium Chloride 0.9% 1,000 ML IV SCH (04:41)
[2020-07-14] MEDS ORDERED: Magnesium Sulfate/Water 4 GM in Premix Bag 1 BAG IV ONE (08:41)
--- NOTE | 2020-07-14 08:44 | CR ---
Chest: Portable view of the chest was obtained. Comparison: Prior chest x-ray performed on 07/13/20. Mild increasing interstitial change is noted within both lungs from prior study. Heart size and mediastinum are stable. Bony structures are osteopenic. Slight scoliosis is noted within the spine. Impression: 1. Mild increasing interstitial change from prior study. 2. Other portions of the 2 view chest x-ray are unchanged from previous study. Diagnostic code #3
[2020-07-14] MEDS ORDERED: Furosemide 20 MG/2 ML VIAL IVPUSH ONE ×2 (09:00→15:00)
[2020-07-14] MEDS ORDERED: Albumin 25% 12.5 GM/50 ML BAG IV ONE ×2 (09:00→15:00)
[2020-07-14] MEDS: cefTRIAXone 2 GM in Sodium Chloride 0.9% 100 ML IV SCH (09:02)
[2020-07-14] MEDS: Potassium Chloride 10 MEQ in Premix Bag 1 BAG IV SCH ×4 (09:04→12:56)
[2020-07-14] MEDS: Propranolol 10 MG Tab PO SCH ×4 (09:06→22:04)
[2020-07-14] MEDS: Potassium Chloride 20 MEQ Tab.ER PO SCH ×2 (09:07→22:05)
[2020-07-14] MEDS: Azithromycin 250 MG Tab PO SCH (09:07)
[2020-07-14] MEDS: Rifaximin 550 MG Tab PO SCH ×2 (09:08→22:03)
[2020-07-14] MEDS: Folic Acid 1 MG Tab PO SCH (09:08)
[2020-07-14] MEDS: Magnesium Oxide 400 MG Tab PO SCH ×2 (09:09→22:02)
[2020-07-14] MEDS: Spironolactone 25 MG Tab PO SCH ×2 (09:09→22:03)
[2020-07-14] MEDS: Mirtazapine 15 MG Tab PO SCH (09:09)
[2020-07-14] MEDS: Lactulose Soln 10 GM/15 ML 30 ML UD Cup PO SCH (09:10)
[2020-07-14] MEDS: Nicotine 21 MG/24 Hr Patch TRDERM SCH (09:10)
[2020-07-14] MEDS: prednisoLONE Soln 15 MG/5 ML UD Cup PO SCH (09:10)
--- NOTE | 2020-07-14 09:33 | PCM.SN.2 ---
- Free Text/Narrative Note: Consideration of severe sepsis: Patient has multisystem dysfunction secondary to her liver failure and her current worsening condition is unlikely due to sepsis. Patient's hypotension (common in end-stage liver disease), elevated bilirubin (by definition secondary to end-stage liver disease), thrombocytopenia (secondary to end-stage liver disease), and both chest x-ray and BNP demonstrated her respiratory issues are secondary to pulmonary edema also due to the above. Patient's atrial fibrillation and treatment with Cardizem also contributed to her hypotension. Lactic acid level would be of no benefit since in this patient's case is too nonspecific. Anything that can cause poor tissue perfusion from any of the forms of shock, medications, exercise, etc. can cause an elevated lactic acid. In her case she has multiple reasons for poor tissue perfusion, see above. Also, fluid boluses are thoroughly inappropriate since the patient is in pulmonary edema requiring BiPAP.
--- NOTE | 2020-07-14 09:43 | PCM.EKG ---
#1 Interpretation EKG Date: 07/14/20 Time: 05:58 Rhythm: NSR Rate (Beats/Min): 77 [place]: Normal P-Wave: Present QRS: Normal ST-T: Normal QT: Normal (QTc 451) #2 Interpretation EKG Date: 07/14/20 Time: 06:07 Rhythm: NSR Rate (Beats/Min): 77 [place]: Normal P-Wave: Present QRS: Normal ST-T: Normal QT: Prolonged (QTc 522) Comparison: Change From Previous EKG EKG Interpretation Comments: Sinus rhythm with prolonged QTc of 533. T wave flattening in the lateral leads which is mildly worse from yesterday's EKGs
--- NOTE | 2020-07-14 11:33 | US ---
Limited abdominal ultrasound: Multiple real-time images of the upper right abdomen were obtained. Comparison: Prior abdominal ultrasound of 06/10/20. Study was obtained as an ascites screening. Findings: Moderate amount of fluid is seen around the liver and right upper quadrant. Minimal fluid is seen within both lower quadrants. No significant fluid is seen within the left upper quadrant. Impression: 1. Ascites as described above. Diagnostic code #3
--- NOTE | 2020-07-14 13:03 | PCM.PN ---
- General Info Date of Service: 07/14/20 Admission Dx/Problem (Free Text): Admission Diagnosis/Problem Admission Diagnosis/Problem Pneumonia Subjective Update: Yesterday evening patient had some significantly low blood pressures secondary to Cardizem. Cardizem was stopped and she was given a bolus of amiodarone and started on amiodarone drip. She converted to sinus rhythm, but QTC prolongated to greater than 530. Amiodarone was stopped and she continues in sinus rhythm at this time. Urine output was poor, so patient was given albumin and Lasix with good results in both urine output and in blood pressure. Blood pressures now are stable. She continues on BiPAP at 14/7 at 65% with oxygen saturations in the low 90s. Ultrasound the abdomen did show some moderate ascites but not enough to cause restriction of her lungs. She does state that she is feeling better and is having better breathing. Functional Status: Reports: Pain Controlled - Review of Systems General: Reports: No Symptoms HEENT: Reports: No Symptoms Pulmonary: Reports: No Symptoms Cardiovascular: Reports: No Symptoms Gastrointestinal: Reports: No Symptoms Musculoskeletal: Reports: No Symptoms - Patient Data Vitals - Most Recent: Last Vital Signs Temp 97.5 F 07/14/20 08:00 Pulse 79 07/14/20 09:06 Resp 20 07/14/20 10:00 BP 105/68 07/14/20 10:00 Pulse Ox 95 07/14/20 12:49 Weight - Most Recent: 148 lb 9.6 oz I&O - Last 24 Hours: Intake & Output 07/13/20 07/14/20 07/14/20 22:59 06:59 14:59 Intake Total 541 2672 Output Total 400 300 425 Balance 141 2372 -425 Lab Results Last 24 Hours: Laboratory Results - last 24 hr 07/13/20 07/13/20 07/14/20 Range/Units 13:00 13:15 06:42 WBC 5.86 (3.98-10.04) K/mm3 RBC 4.40 (3.98-5.22) M/mm3 Hgb 15.8 H (11.2-15.7) gm/dl Hct 45.4 H (34.1-44.9) % MCV 103.2 H (79.4-94.8) fl MCH 35.9 H (25.6-32.2) pg MCHC 34.8 (32.2-35.5) g/dl RDW Std Deviation 63.0 H (36.4-46.3) fL Plt Count 49 L (182-369) K/mm3 MPV 11.2 (9.4-12.3) fl Neut % (Auto) 89.9 H (34.0-71.1) % Lymph % (Auto) 4.9 L (19.3-51.7) % [place] % (Auto) 4.3 L (4.7-12.5) % Eos % (Auto) 0 L (0.7-5.8) Baso % (Auto) 0.2 (0.1-1.2) % Neut # (Auto) 5.27 (1.56-6.13) K/mm3 Lymph # (Auto) 0.29 L (1.18-3.74) K/mm3 [place] # (Auto) 0.25 (0.24-0.36) K/mm3 Eos # (Auto) 0.00 L (0.04-0.36) K/mm3 Baso # (Auto) 0.01 (0.01-0.08) K/mm3 Manual Slide Review Abnormal smear Puncture Site Lt radial ABG pH 7.43 (7.35-7.45) ABG pCO2 23.1 L (35.0-45.0) mmHg ABG pO2 63.0 L (80.0-100.0) mmHg ABG HCO3 15.0 L (22.0-26.0) meq/L ABG O2 Saturation 89.8 L (96.0-97.0) % ABG Base Excess -6.7 L (-2-2.0) Morales Test Positive A-a Gradient 372 mmHg O2 Delivery Device Bipap PEEP 7.0 cmH20 Pressure Support 14.0 cmH2O Sodium (136-145) mEq/L Potassium (3.5-5.1) mEq/L Chloride (98-107) mEq/L Carbon Dioxide (21-32) mEq/L Anion Gap (5-15) BUN (7-18) mg/dL Creatinine (0.55-1.02) mg/dL Est Cr Clr Drug Dosing mL/min Estimated GFR (MDRD) (>60) mL/min BUN/Creatinine Ratio (14-18) Glucose (80-115) mg/dL Calcium (8.5-10.1) mg/dL Magnesium (1.8-2.4) mg/dl Total Bilirubin (0.2-1.0) mg/dL AST (15-37) U/L ALT (14-59) U/L Alkaline Phosphatase (46-116) U/L Troponin I < 0.017 (0.00-0.056) ng/mL C-Reactive Protein (<1.0) mg/dL Total Protein (6.4-8.2) g/dl Albumin (3.4-5.0) g/dl Globulin gm/dL Albumin/Globulin Ratio (1-2) 07/14/20 Range/Units 06:42 WBC (3.98-10.04) K/mm3 RBC (3.98-5.22) M/mm3 Hgb (11.2-15.7) gm/dl Hct (34.1-44.9) % MCV (79.4-94.8) fl MCH (25.6-32.2) pg MCHC (32.2-35.5) g/dl RDW Std Deviation (36.4-46.3) fL Plt Count (182-369) K/mm3 MPV (9.4-12.3) fl Neut % (Auto) (34.0-71.1) % Lymph % (Auto) (19.3-51.7) % [place] % (Auto) (4.7-12.5) % Eos % (Auto) (0.7-5.8) Baso % (Auto) (0.1-1.2) % Neut # (Auto) (1.56-6.13) K/mm3 Lymph # (Auto) (1.18-3.74) K/mm3 [place] # (Auto) (0.24-0.36) K/mm3 Eos # (Auto) (0.04-0.36) K/mm3 Baso # (Auto) (0.01-0.08) K/mm3 Manual Slide Review Puncture Site ABG pH (7.35-7.45) ABG pCO2 (35.0-45.0) mmHg ABG pO2 (80.0-100.0) mmHg ABG HCO3 (22.0-26.0) meq/L ABG O2 Saturation (96.0-97.0) % ABG Base Excess (-2-2.0) Morales Test A-a Gradient mmHg O2 Delivery Device PEEP cmH20 Pressure Support cmH2O Sodium 139 (136-145) mEq/L Potassium 3.5 (3.5-5.1) mEq/L Chloride 108 H (98-107) mEq/L Carbon Dioxide 19 L (21-32) mEq/L Anion Gap 15.5 H (5-15) BUN 19 H (7-18) mg/dL Creatinine 0.8 (0.55-1.02) mg/dL Est Cr Clr Drug Dosing 60.31 mL/min Estimated GFR (MDRD) > 60 (>60) mL/min BUN/Creatinine Ratio 23.8 H (14-18) Glucose 94 (80-115) mg/dL Calcium 7.8 L (8.5-10.1) mg/dL Magnesium 1.5 L (1.8-2.4) mg/dl Total Bilirubin 20.8 H (0.2-1.0) mg/dL AST 161 H (15-37) U/L ALT 84 H (14-59) U/L Alkaline Phosphatase 217 H (46-116) U/L Troponin I (0.00-0.056) ng/mL C-Reactive Protein 12.7 H* (<1.0) mg/dL Total Protein 5.5 L (6.4-8.2) g/dl Albumin 1.5 L (3.4-5.0) g/dl Globulin 4.0 gm/dL Albumin/Globulin Ratio 0.4 L (1-2) David Results Last 24 Hours: Microbiology 07/10/20 21:54 Aerobic Blood Culture - Preliminary Blood - Venous - Lab Draw NO GROWTH AFTER 3 DAYS Anaerobic Blood Culture - Preliminary NO GROWTH AFTER 3 DAYS 07/10/20 21:52 Aerobic Blood Culture - Preliminary Blood - Venous NO GROWTH AFTER 3 DAYS Anaerobic Blood Culture - Preliminary NO GROWTH AFTER 3 DAYS Med Orders - Current: Current Medications Aripiprazole (Aripiprazole 2 Mg Tab) 1 mg PO DAILY [facility] Last Admin: 07/14/20 09:08 Dose: 1 mg Documented by: Azithromycin (Azithromycin 250 Mg Tab) 250 mg PO DAILY [facility] Stop: 07/15/20 09:01 Last Admin: 07/14/20 09:07 Dose: 250 mg Documented by: Folic Acid (Folic Acid 1 Mg Tab) 1 mg PO DAILY [facility] Last Admin: 07/14/20 09:08 Dose: 1 mg Documented by: Ceftriaxone Sodium 2 gm/ (Sodium Chloride) 100 mls @ 200 mls/hr IV DAILY [facility] Last Admin: 07/14/20 09:02 Dose: 200 mls/hr Documented by: Diltiazem HCl 100 mg/ Sodium (Chloride) 100 mls @ 5 mls/hr IV TITRATE [facility]; Protocol Last Titration: 07/13/20 19:15 Dose: 0 mg/hr, 0 mls/hr Documented by: Sodium Chloride (Normal Saline) 1,000 mls @ 100 mls/hr IV ASDIRECTED [facility] Last Admin: 07/14/20 04:41 Dose: 50 mls/hr Documented by: Amiodarone HCl/Dextrose (Nexterone In Dextrose 360 Mg/200 Ml) 360 mg in 200 mls @ 16.7 mls/hr IV ASDIRECTED [facility]; Protocol Last Infusion: 07/14/20 06:32 Dose: 0 mls/hr Documented by: Lactulose (Lactulose Soln 10 Gm/15 Ml 30 Ml Ud Cup) 10 gm PO DAILY [facility] Last Admin: 07/14/20 09:10 Dose: 10 gm Documented by: Latanoprost (Latanoprost 0.005% Ophth Soln 2.5 Ml Bottle) 0 ml EYEBOTH BEDTIME [facility] Last Admin: 07/13/20 21:32 Dose: 1 drop Documented by: Magnesium Oxide (Magnesium Oxide 400 Mg Tab) 1,000 mg PO BID [facility] Last Admin: 07/14/20 09:09 Dose: 1,000 mg Documented by: Mirtazapine (Mirtazapine 15 Mg Tab) 15 mg PO DAILY [facility] Last Admin: 07/14/20 09:09 Dose: 15 mg Documented by: Miscellaneous Information (Remove Nicotine Patch) 1 ea TRDERM DAILY [facility] Last Admin: 07/14/20 09:10 Dose: Not Given Documented by: Nicotine (Nicotine 21 Mg/24 Hr Patch) 21 mg TRDERM DAILY [facility] Last Admin: 07/14/20 09:10 Dose: Not Given Documented by: Potassium Chloride (Potassium Chloride 20 Meq Tab.Er) 20 meq PO BID [facility] Last Admin: 07/14/20 09:07 Dose: 20 meq Documented by: Prednisolone (Prednisolone Soln 15 Mg/5 Ml Ud Cup) 20.1 mg PO DAILY [facility] Last Admin: 07/14/20 09:10 Dose: 20.1 mg Documented by: Propranolol HCl (Propranolol 10 Mg Tab) 10 mg PO TID [facility] Last Admin: 07/14/20 09:06 Dose: 10 mg Documented by: Rifaximin (Rifaximin 550 Mg Tab) 550 mg PO BID [facility] Last Admin: 07/14/20 09:08 Dose: 550 mg Documented by: Sodium Chloride (Sodium Chloride 0.9% 10 Ml Syringe) 10 ml FLUSH ASDIRECTED PRN PRN Reason: Keep Vein Open Last Admin: 07/10/20 21:24 Dose: 10 ml Documented by: Spironolactone (Spironolactone 25 Mg Tab) 50 mg PO BID [facility] Last Admin: 07/14/20 09:09 Dose: 50 mg Documented by: Tiotropium [place] (Tiotropium [place] 4 Gm Inhalation [place] (2.5mcg/1 Dose; 10 Doses)) 0 gm INH DAILY [facility] Last Admin: 07/13/20 14:50 Dose: Not Given Documented by: Discontinued Medications Diltiazem HCl (Diltiazem 50 Mg/10 Ml Sdv) 5 mg IVPUSH ONETIME ONE Stop: 07/13/20 12:41 Last Admin: 07/13/20 18:51 Dose: 5 mg Documented by: Diltiazem HCl (Diltiazem 50 Mg/10 Ml Sdv) 5 mg IVPUSH ONETIME ONE Stop: 07/13/20 12:43 Last Admin: 07/13/20 12:46 Dose: 5 mg Documented by: Furosemide (Furosemide 40 Mg/4 Ml Vial) 40 mg IVPUSH NOW ONE Stop: 07/12/20 20:59 Last Admin: 07/12/20 21:04 Dose: 40 mg Documented by: Furosemide (Furosemide 40 Mg/4 Ml Vial) 40 mg IVPUSH NOW ONE Stop: 07/13/20 09:57 Last Admin: 07/13/20 11:00 Dose: 40 mg Documented by: Furosemide (Furosemide 20 Mg/2 Ml Vial) 20 mg IVPUSH ONETIME ONE Stop: 07/14/20 09:01 Last Admin: 07/14/20 09:30 Dose: 20 mg Documented by: Ceftriaxone Sodium 1 gm/ (Sodium Chloride) 100 mls @ 200 mls/hr IV Q24H [facility] Last Admin: 07/11/20 01:25 Dose: 200 mls/hr Documented by: Sodium Chloride (Normal Saline) 100 mls @ 60 drops/hr IV ASDIRECTED [facility] Last Admin: 07/11/20 01:40 Dose: 60 drops/hr Documented by: Ceftriaxone Sodium 1 gm/ (Sodium Chloride) 100 mls @ 200 mls/hr IV Q24H [facility] Dextrose/Sodium Chloride (Dextrose 5%-Normal Saline) 1,000 mls @ 100 mls/hr IV ASDIRECTED [facility] Last Admin: 07/12/20 15:21 Dose: 100 mls/hr Documented by: Ceftriaxone Sodium 1 gm/ (Sodium Chloride) 100 mls @ 200 mls/hr IV ONETIME ONE Stop: 07/11/20 14:30 Last Admin: 07/11/20 14:55 Dose: 200 mls/hr Documented by: Azithromycin 500 mg/ Sodium (Chloride) 250 mls @ 250 mls/hr IV ONETIME ONE Stop: 07/11/20 15:04 Last Admin: 07/11/20 15:31 Dose: 250 mls/hr Documented by: Magnesium Sulfate 4 gm/ Premix 50 mls @ 12.5 mls/hr IV ONETIME ONE Stop: 07/12/20 11:29 Last Admin: 07/12/20 08:49 Dose: 12.5 mls/hr Documented by: Magnesium Sulfate (Magnesium Sulfate In Water 2 Gm/50 Ml) 2 gm in 50 mls @ 25 mls/hr IV ONETIME ONE Stop: 07/12/20 19:59 Last Admin: 07/12/20 18:30 Dose: 25 mls/hr Documented by: Sodium Chloride (Normal Saline) Confirm Administered Dose 1,000 mls @ as directed .ROUTE .STK-MED ONE Stop: 07/13/20 11:43 Last Admin: 07/13/20 13:49 Dose: Not Given Documented by: Sodium Chloride (Normal Saline) 500 mls @ 999 mls/hr IV .BOLUS ONE Stop: 07/13/20 13:13 Last Admin: 07/13/20 13:01 Dose: 999 mls/hr Documented by: Potassium Chloride 10 meq/ (Premix) 100 mls @ 100 mls/hr IV Q1H [facility] Stop: 07/13/20 20:59 Last Admin: 07/13/20 21:06 Dose: Not Given Documented by: Amiodarone HCl/Dextrose (Nexterone In Dextrose 150 Mg/100 Ml) 100 mls @ 600 mls/hr IV .BOLUS ONE; Protocol Stop: 07/13/20 19:27 Last Admin: 07/13/20 19:45 Dose: 600 mls/hr Documented by: Amiodarone HCl/Dextrose (Nexterone In Dextrose 360 Mg/200 Ml) 360 mg in 200 mls @ 33.333 mls/hr IV ASDIRECTED [facility]; Protocol Last Admin: 07/13/20 19:47 Dose: 33.333 mls/hr Documented by: Sodium Chloride (Normal Saline) 500 mls @ 999 mls/hr IV ONETIME ONE Stop: 07/13/20 19:30 Last Admin: 07/13/20 19:00 Dose: 999 mls/hr Documented by: Potassium Chloride 10 meq/ (Premix) 100 mls @ 100 mls/hr IV Q1H [facility] Stop: 07/14/20 12:44 Last Admin: 07/14/20 12:56 Dose: 100 mls/hr Documented by: Magnesium Sulfate 4 gm/ Premix 50 mls @ 12.5 mls/hr IV ONETIME ONE Stop: 07/14/20 12:40 Last Admin: 07/14/20 09:04 Dose: 12.5 mls/hr Documented by: Albumin Human (Flexbumin 25%) 12.5 gm in 50 mls @ 100 mls/hr IV ONETIME ONE Stop: 07/14/20 09:29 Last Admin: 07/14/20 09:23 Dose: 100 mls/hr Documented by: Iopamidol (Iopamidol 755 Mg/Ml 100 Ml Bottle) 100 ml IVPUSH ONETIME ONE Stop: 07/11/20 01:39 Last Admin: 07/11/20 01:40 Dose: 30 ml Documented by: Lorazepam (Lorazepam 2 Mg/Ml Sdv) 2 mg IVPUSH ONETIME ONE Stop: 07/11/20 01:33 Last Admin: 07/11/20 01:43 Dose: 2 mg Documented by: Magnesium Oxide (Magnesium Oxide 400 Mg Tab) 400 mg PO BID [facility] Last Admin: 07/12/20 10:39 Dose: Not Given Documented by: Methylprednisolone Sodium Succinate (Methylprednisolone Sodium Succinate 125 Mg/2 Ml Sdv) 125 mg IVPUSH ONETIME ONE Stop: 07/11/20 01:05 Last Admin: 07/11/20 01:25 Dose: 125 mg Documented by: Potassium Chloride (Potassium Chloride 20 Meq Tab.Er) 40 meq PO ONETIME ONE Stop: 07/13/20 22:01 Last Admin: 07/13/20 21:53 Dose: 40 meq Documented by: Sodium Chloride (Sodium Chloride 0.9% 10 Ml Syringe) 10 ml FLUSH [facility]OLUS [facility] Last Admin: 07/11/20 01:40 Dose: 10 ml Documented by: - Exam Quality Assessment: Supplemental Oxygen (BiPAP) General: Alert HEENT: Pupils Equal, Mucous Membr. Moist/Poth, Scleral Icterus Neck: Supple Lungs: Crackles (Throughout). No: Normal Respiratory Effort (Increased rate) Cardiovascular: Regular Rate, Regular Rhythm GI/Abdominal Exam: Normal Bowel Sounds, Soft, Distended. No: Guarding, Rigid, Rebound Extremities: Normal Inspection, Normal Range of Motion, Non-Tender, No Pedal Edema, Normal Capillary Refill Skin: Warm, Dry, Intact Psy/Mental Status: Alert, Normal Affect, Normal Mood - Patient Data Lab Results Last 24 hrs: Laboratory Results - last 24 hr 07/13/20 07/13/20 07/14/20 Range/Units 13:00 13:15 06:42 WBC 5.86 (3.98-10.04) K/mm3 RBC 4.40 (3.98-5.22) M/mm3 Hgb 15.8 H (11.2-15.7) gm/dl Hct 45.4 H (34.1-44.9) % MCV 103.2 H (79.4-94.8) fl MCH 35.9 H (25.6-32.2) pg MCHC 34.8 (32.2-35.5) g/dl RDW Std Deviation 63.0 H (36.4-46.3) fL Plt Count 49 L (182-369) K/mm3 MPV 11.2 (9.4-12.3) fl Neut % (Auto) 89.9 H (34.0-71.1) % Lymph % (Auto) 4.9 L (19.3-51.7) % [place] % (Auto) 4.3 L (4.7-12.5) % Eos % (Auto) 0 L (0.7-5.8) Baso % (Auto) 0.2 (0.1-1.2) % Neut # (Auto) 5.27 (1.56-6.13) K/mm3 Lymph # (Auto) 0.29 L (1.18-3.74) K/mm3 [place] # (Auto) 0.25 (0.24-0.36) K/mm3 Eos # (Auto) 0.00 L (0.04-0.36) K/mm3 Baso # (Auto) 0.01 (0.01-0.08) K/mm3 Manual Slide Review Abnormal smear Puncture Site Lt radial ABG pH 7.43 (7.35-7.45) ABG pCO2 23.1 L (35.0-45.0) mmHg ABG pO2 63.0 L (80.0-100.0) mmHg ABG HCO3 15.0 L (22.0-26.0) meq/L ABG O2 Saturation 89.8 L (96.0-97.0) % ABG Base Excess -6.7 L (-2-2.0) Morales Test Positive A-a Gradient 372 mmHg O2 Delivery Device Bipap PEEP 7.0 cmH20 Pressure Support 14.0 cmH2O Sodium (136-145) mEq/L Potassium (3.5-5.1) mEq/L Chloride (98-107) mEq/L Carbon Dioxide (21-32) mEq/L Anion Gap (5-15) BUN (7-18) mg/dL Creatinine (0.55-1.02) mg/dL Est Cr Clr Drug Dosing mL/min Estimated GFR (MDRD) (>60) mL/min BUN/Creatinine Ratio (14-18) Glucose (80-115) mg/dL Calcium (8.5-10.1) mg/dL Magnesium (1.8-2.4) mg/dl Total Bilirubin (0.2-1.0) mg/dL AST (15-37) U/L ALT (14-59) U/L Alkaline Phosphatase (46-116) U/L Troponin I < 0.017 (0.00-0.056) ng/mL C-Reactive Protein (<1.0) mg/dL Total Protein (6.4-8.2) g/dl Albumin (3.4-5.0) g/dl Globulin gm/dL Albumin/Globulin Ratio (1-2) 07/14/20 Range/Units 06:42 WBC (3.98-10.04) K/mm3 RBC (3.98-5.22) M/mm3 Hgb (11.2-15.7) gm/dl Hct (34.1-44.9) % MCV (79.4-94.8) fl MCH (25.6-32.2) pg MCHC (32.2-35.5) g/dl RDW Std Deviation (36.4-46.3) fL Plt Count (182-369) K/mm3 MPV (9.4-12.3) fl Neut % (Auto) (34.0-71.1) % Lymph % (Auto) (19.3-51.7) % [place] % (Auto) (4.7-12.5) % Eos % (Auto) (0.7-5.8) Baso % (Auto) (0.1-1.2) % Neut # (Auto) (1.56-6.13) K/mm3 Lymph # (Auto) (1.18-3.74) K/mm3 [place] # (Auto) (0.24-0.36) K/mm3 Eos # (Auto) (0.04-0.36) K/mm3 Baso # (Auto) (0.01-0.08) K/mm3 Manual Slide Review Puncture Site ABG pH (7.35-7.45) ABG pCO2 (35.0-45.0) mmHg ABG pO2 (80.0-100.0) mmHg ABG HCO3 (22.0-26.0) meq/L ABG O2 Saturation (96.0-97.0) % ABG Base Excess (-2-2.0) Morales Test A-a Gradient mmHg O2 Delivery Device PEEP cmH20 Pressure Support cmH2O Sodium 139 (136-145) mEq/L Potassium 3.5 (3.5-5.1) mEq/L Chloride 108 H (98-107) mEq/L Carbon Dioxide 19 L (21-32) mEq/L Anion Gap 15.5 H (5-15) BUN 19 H (7-18) mg/dL Creatinine 0.8 (0.55-1.02) mg/dL Est Cr Clr Drug Dosing 60.31 mL/min Estimated GFR (MDRD) > 60 (>60) mL/min BUN/Creatinine Ratio 23.8 H (14-18) Glucose 94 (80-115) mg/dL Calcium 7.8 L (8.5-10.1) mg/dL Magnesium 1.5 L (1.8-2.4) mg/dl Total Bilirubin 20.8 H (0.2-1.0) mg/dL AST 161 H (15-37) U/L ALT 84 H (14-59) U/L Alkaline Phosphatase 217 H (46-116) U/L Troponin I (0.00-0.056) ng/mL C-Reactive Protein 12.7 H* (<1.0) mg/dL Total Protein 5.5 L (6.4-8.2) g/dl Albumin 1.5 L (3.4-5.0) g/dl Globulin 4.0 gm/dL Albumin/Globulin Ratio 0.4 L (1-2) Result Diagrams: 07/14/20 06:42 07/14/20 06:42 David Results Last 24 hrs: Microbiology 07/10/20 21:54 Aerobic Blood Culture - Preliminary Blood - Venous - Lab Draw NO GROWTH AFTER 3 DAYS Anaerobic Blood Culture - Preliminary NO GROWTH AFTER 3 DAYS 07/10/20 21:52 Aerobic Blood Culture - Preliminary Blood - Venous NO GROWTH AFTER 3 DAYS Anaerobic Blood Culture - Preliminary NO GROWTH AFTER 3 DAYS Sepsis Event Note - Evaluation Sepsis Screening Result: No Definite Risk - Focused Exam Vital Signs: Vital Signs Temp Pulse Pulse Resp BP BP Pulse Ox 07/14/20 12:49 07/14/20 10:00 20 105/68 92 L 07/14/20 09:06 79 96/49 L 07/14/20 09:00 20 96/49 L 94 L 07/14/20 08:00 97.5 F 22 H 83/53 L 95 07/14/20 07:00 20 91/53 L 94 L 07/14/20 06:29 07/14/20 06:00 24 H 90/59 L 95 07/14/20 05:00 77 12 91/54 L 95 07/14/20 04:00 97.9 F 77 18 92/55 L 95 07/14/20 03:00 12 89/54 L 07/14/20 02:00 26 H 92/58 L 95 Pulse Ox 07/14/20 12:49 95 07/14/20 10:00 07/14/20 09:06 07/14/20 09:00 07/14/20 08:00 07/14/20 07:00 07/14/20 06:29 96 07/14/20 06:00 07/14/20 05:00 07/14/20 04:00 07/14/20 03:00 07/14/20 02:00 - Problem List & Annotations (1) Hyponatremia SNOMED Code(s): 67638773 Code(s): E87.1 - HYPO-OSMOLALITY AND HYPONATREMIA Status: Acute Current Visit: Yes (2) Multifocal pneumonia SNOMED Code(s): 339483879 Code(s): J18.9 - PNEUMONIA, UNSPECIFIED ORGANISM Status: Acute Current Visit: Yes (3) Cirrhosis of liver SNOMED Code(s): 81746611 Code(s): K74.60 - UNSPECIFIED CIRRHOSIS OF LIVER Status: Chronic Priority: High Current Visit: Yes Qualifiers: Hepatic cirrhosis type: alcoholic cirrhosis Ascites presence: with ascites Qualified Code(s): K70.31 - Alcoholic cirrhosis of liver with ascites (4) Hypoalbuminemia SNOMED Code(s): 843920529 Code(s): E88.09 - OTH DISORDERS OF PLASMA-PROTEIN METABOLISM, NEC Status: Chronic Priority: Medium Current Visit: No (5) Hypomagnesemia SNOMED Code(s): 073073158 Code(s): E83.42 - HYPOMAGNESEMIA Status: Resolved Priority: High Current Visit: No - Problem List Review Problem List Initiated/Reviewed/Updated: Yes - My Orders Last 24 Hours: My Active Orders 07/13/20 12:20 Patient Status [ADT] Routine 07/13/20 12:30 Diltiazem [Cardizem] 100 mg Sodium Chloride 0.9% [Normal Saline] 100 ml IV TITRATE 07/13/20 13:30 Sodium Chloride 0.9% [Normal Saline] 1,000 ml IV ASDIRECTED 07/13/20 21:03 EKG 12 Lead [EK] Routine 07/13/20 21:04 EKG Documentation Completion [RC] ASDIRECTED 07/13/20 21:20 Urinary Catheter Assessment [RC] Q4HR 07/13/20 21:30 Insert Franco Catheter [Insert Urinary Catheter] [OM.PC] Q24H 07/13/20 21:38 Amiodarone In Dextrose,Iso-Osm [Nexterone in Dextrose 360 MG/200 ML] 360 mg in 200 ml IV ASDIRECTED 07/14/20 02:42 EKG Documentation Completion [RC] ASDIRECTED 07/14/20 06:00 EKG 12 Lead [EK] Routine 07/14/20 07:27 Rectal Tube Insertion [OM.PC] Routine 07/15/20 05:11 C-REACTIVE PROTEIN [CHEM] AM CBC WITH AUTO DIFF [HEME] AM CMP [COMPREHENSIVE METABOLIC PN,CMP] [CHEM] AM MAGNESIUM [CHEM] AM PHOSPHORUS [CHEM] AM 07/16/20 05:11 C-REACTIVE PROTEIN [CHEM] AM CBC WITH AUTO DIFF [HEME] AM CMP [COMPREHENSIVE METABOLIC PN,CMP] [CHEM] AM MAGNESIUM [CHEM] AM PHOSPHORUS [CHEM] AM 07/17/20 05:11 C-REACTIVE PROTEIN [CHEM] AM CBC WITH AUTO DIFF [HEME] AM CMP [COMPREHENSIVE METABOLIC PN,CMP] [CHEM] AM MAGNESIUM [CHEM] AM PHOSPHORUS [CHEM] AM 07/18/20 05:11 C-REACTIVE PROTEIN [CHEM] AM CBC WITH AUTO DIFF [HEME] AM CMP [COMPREHENSIVE METABOLIC PN,CMP] [CHEM] AM MAGNESIUM [CHEM] AM PHOSPHORUS [CHEM] AM - Plan Plan:: Assessment 60-year-old female with history of severe liver disease and cirrhosis presents to the emergency department secondary to 3 days of increasing shortness of breath. CT scan of the chest showed multifocal pneumonia bacterial versus viral. COVID-19 PCR was negative. CHF -pulmonary edema: From fluid overload and hypoalbuminemia * Positive fluid balance Of 6 L, but output is likely under recorded secondary to incontinence. * Weight gain between 2 and 6 pounds depending on which initial scale and subsequent scales are being used * Continues on BiPAP * Franco placed for strict I's and O's * Chest x-ray consistent with pulmonary congestion * Echocardiogram: Tracing consistent with atrial fibrillation/flutter. Summary: 1. Left ventricular ejection fraction, by visual estimation is 60 to 65%. 2. Normal left ventricular systolic function. 3. Mild septal left ventricular hypertrophy. 4. Low normal right ventricular systolic function. 5. Mild tricuspid valve regurgitation. 6. The right ventricular systolic pressure is mild to moderately elevated at 39.0 mmHg. 7. The study was performed with the patient in atrial fibrillation/flutter. 8. No regional wall motion abnormalities. Plan * Continue BiPAP at 14/7 with 65% O2 * Lasix 20 mg IV with albumin 12.5 mg times at least 2 today * Continue daily weights and I's and O's Multifocal pneumonia Tobaccoismstopped 1 week ago * CT positive for multifocal pneumonia, bacterial versus viral * Normal white count: Patient's underlying liver disease is likely making her immunosuppressed low * Blood cultures negative so far * Chest x-ray today shows increased vascular congestion consistent with CHF Plan * Rocephin to 2 g daily and azithromycin. * Following blood cultures * Follow CBCno change in white count or hemoglobin. * Repeat chest x-ray as needed * FiO2 to keep SPO2 greater than 90% * Offer nicotine patch * Continue BiPAP Severe liver disease Cirrhosis Elevated D-dimer Thrombocytopenia Chronic elevated anion gap History of hepatic encephalopathy * Multiple abnormal coagulation indices secondary to liver disease. * Elevated D-dimer is not likely secondary to PE or VTE. Is likely secondary to coagulopathy due to liver disease * Anticoagulation contraindication secondary to thrombocytopenia * Platelets 49 * Received 2 doses of lactulose yesterday and now has several loose stools * Ammonia normal on admission * At baseline mental status Plan * Continue to monitor Hyponatremia - resolved Hypomagnesemia * Sodium 139 * Magnesium 1.5 * Potassium is 3.5 Plan * Supplement magnesium * Give 40 mEq of potassium to try to keep potassium greater than 4 Chronic: Impaired vision, liver cirrhosis, hypertension, recurrent pneumonia, chronic shortness of breath, recent smoker, GERD, hemorrhoids, enlarged spleen, recurrent UTI, substance abuse, history of gallstone, vitamin D deficiency, anemia of chronic disease, chronic electrolyte abnormality and 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 Patient has severe thrombocytopenia CODE STATUS: Full code Prognosis is poor
[2020-07-14] MEDS ORDERED: oxyCODONE 5 MG Tab PO PRN (13:16)
[2020-07-14] MEDS: Mupirocin Oint 22 GM Tube TOP SCH (22:05)
[2020-07-14] MEDS: Hydrocortisone 1% Crm 30 GM Tube TOP SCH (22:06)
[2020-07-14] MEDS: Latanoprost 0.005% Ophth Soln 2.5 ML Bottle EYEBOTH SCH (22:07)
[2020-07-15] MEDS ORDERED: Magnesium Sulfate/Water 4 GM in Premix Bag 1 BAG IV ONE (08:26)
[2020-07-15] MEDS ORDERED: Potassium Chloride 20 MEQ Tab.ER PO SCH (09:00)
[2020-07-15] MEDS: cefTRIAXone 2 GM in Sodium Chloride 0.9% 100 ML IV SCH (09:03)
[2020-07-15] MEDS: prednisoLONE Soln 15 MG/5 ML UD Cup PO SCH (09:08)
[2020-07-15] MEDS: Azithromycin 250 MG Tab PO SCH (09:10)
[2020-07-15] MEDS: Folic Acid 1 MG Tab PO SCH (09:10)
[2020-07-15] MEDS: Potassium Chloride 20 MEQ Tab.ER PO SCH (09:10)
[2020-07-15] MEDS: Spironolactone 25 MG Tab PO SCH (09:10)
[2020-07-15] MEDS: Rifaximin 550 MG Tab PO SCH (09:10)
[2020-07-15] MEDS: Mirtazapine 15 MG Tab PO SCH (09:10)
[2020-07-15] MEDS: Propranolol 10 MG Tab PO SCH (09:11)
[2020-07-15] MEDS: Magnesium Oxide 400 MG Tab PO SCH (09:11)
[2020-07-15] MEDS: Hydrocortisone 1% Crm 30 GM Tube TOP SCH ×2 (09:12→14:06)
[2020-07-15] MEDS: Mupirocin Oint 22 GM Tube TOP SCH (09:12)
[2020-07-15] MEDS: Lactulose Soln 10 GM/15 ML 30 ML UD Cup PO SCH (09:12)
[2020-07-15] MEDS: Nicotine 21 MG/24 Hr Patch TRDERM SCH (09:13)
[2020-07-15] MEDS ORDERED: Albumin 25% 12.5 GM/50 ML BAG IV ONE (09:22)
[2020-07-15] MEDS ORDERED: Furosemide 20 MG/2 ML VIAL IVPUSH ONE (09:23)
--- NOTE | 2020-07-15 10:10 | CR ---
Chest: Portable view of the chest was obtained. Comparison: Prior chest x-ray of 07/14/20. Diffuse interstitial change is seen within both lungs. Interstitial change appears increased from prior exam. Heart size and mediastinum are within normal limits for portable technique. Bony structures are grossly intact. Impression: 1. Increasing interstitial change. Please correlate if this represents diffuse infection or represents worsening pulmonary vascular congestion. 2. No other acute finding is seen. Diagnostic code #3
--- NOTE | 2020-07-15 12:35 | PCM.DCSUM1 ---
Discharge Summary - Hospital Course HPI Initial Comments: 60-year-old female with history of end-stage liver disease recently discharged from our hospital for such. Patient presents to the emergency department with 3-day history of increasing shortness of breath. She states over the last several hours she has continued to worsen so she came to the emergency department. She denies any fever or chills. Patient states she quit smoking approximately 1 week ago. She has not had anything else to drink since she was here in the beginning of June. Patient does have a history of recurrent pneumonia and chronic shortness of breath. Shortness of breath now is moderate to severe. Cough has been nonproductive. In the emergency department white count was 7, hemoglobin 16.2, platelet count of 54, pH is 7.45, PCO2 of 19.7, PO2 67, bicarb 13.4. SARS-CoV-2 negative. Sodium low at 132, bicarb 16, anion gap 20, BUN to creatinine ratio 15.6, BUN 14, creatinine of 0.9, total bilirubin 21.8, magnesium 1.5, AST 140, ALT 122, alkaline phosphatase 213, albumin 1.9, D-dimer 10.9, TSH 2.036 INR 1.83, APTT 46.1. EKG showed normal sinus rhythm with ventricular rate of 82 bpm. No significant acute changes. Chest x-ray and CT scan of the chest were performed. Assessment/Plan Comment:: Assessment 60-year-old female with history of severe liver disease and cirrhosis presents to the emergency department secondary to 3 days of increasing shortness of breath. CT scan of the chest showed multifocal pneumonia bacterial versus viral. COVID-19 PCR was negative. Multifocal pneumonia Tobaccoismstopped 1 week ago * CT positive for multifocal pneumonia, bacterial versus viral * Normal white count of 7 * Started on Rocephin in the emergency department * Blood cultures obtained * Nonproductive cough * Respiratory alkalosis on metabolic acidosis * Patient appears volume depleted with hemoconcentration Plan * Increase Rocephin to 2 g daily and add azithromycin. * Await blood cultures * Follow CBC * Repeat chest x-ray as needed * FiO2 to keep SPO2 greater than 90% * Offer nicotine patch * IV fluids with D5 normal saline Severe liver disease Cirrhosis Elevated D-dimer Thrombocytopenia Chronic elevated anion gap History of hepatic encephalopathy * Multiple abnormal coagulation indices secondary to liver disease. * Elevated D-dimer is not likely secondary to PE or VTE * Anticoagulation contraindication secondary to thrombocytopenia * Platelets only 54,000 * Currently on lactulose and rifaximin * Ammonia normal * At baseline mental status Plan * Continue to monitor Hyponatremia Hypomagnesemia * Sodium 132 * Magnesium 1.5 * Low sodium is likely multifactorial to include liver disease and SIADH Plan * Rehydrate with D5 normal saline * Replace magnesium Chronic: Impaired vision, liver cirrhosis, hypertension, recurrent pneumonia, chronic shortness of breath, recent smoker, GERD, hemorrhoids, enlarged spleen, recurrent UTI, substance abuse, history of gallstone, vitamin D deficiency, anemia of chronic disease, chronic electrolyte abnormality and 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 Patient has severe thrombocytopenia CODE STATUS: Full code Prognosis is poor - Mortality Measure Prognosis:: Poor Diagnosis: Stroke: No - Discharge Data Discharge Date: 07/15/20 Discharge Disposition: DC/Tfer to Acute Hospital 02 Condition: Serious - Referral to Home Health Primary Care Physician: oGldie Mcclure NP - Discharge Diagnosis/Problem(s) (1) Hyponatremia SNOMED Code(s): 84407712 ICD Code: E87.1 - HYPO-OSMOLALITY AND HYPONATREMIA Status: Acute Current Visit: Yes (2) Multifocal pneumonia SNOMED Code(s): 453921730 ICD Code: J18.9 - PNEUMONIA, UNSPECIFIED ORGANISM Status: Acute Current Visit: Yes (3) Cirrhosis of liver SNOMED Code(s): 79963261 ICD Code: K74.60 - UNSPECIFIED CIRRHOSIS OF LIVER Status: Chronic Priority: High Current Visit: Yes Qualifiers: Hepatic cirrhosis type: alcoholic cirrhosis Ascites presence: with ascites Qualified Code(s): K70.31 - Alcoholic cirrhosis of liver with ascites (4) Hypoalbuminemia SNOMED Code(s): 775716126 ICD Code: E88.09 - OTH DISORDERS OF PLASMA-PROTEIN METABOLISM, NEC Status: Chronic Priority: Medium Current Visit: No (5) Hypomagnesemia SNOMED Code(s): 553840838 ICD Code: E83.42 - HYPOMAGNESEMIA Status: Resolved Priority: High Current Visit: No - Patient Summary/Data Hospital Course: Patient was admitted to the floor and started on Rocephin and azithromycin. Patient was put on IV fluids secondary to poor oral intake and hypovolemia. Patient has significantly low albumin secondary to her end-stage renal disease and developed increasing pulmonary congestion. On the second day of hospitalization she developed severe hypoxemia requiring BiPAP and Lasix. Next morning patient was given another 40 mg of IV Lasix and 30 minutes later she was found to be in A. fib with RVR. Patient was transferred to the ICU where she was placed on a Cardizem drip. Cardizem drip did improve her rate, but also her blood pressure worsened. She was switched to amiodarone and she converted to normal sinus rhythm by the next morning. Patient was given several fluid boluses because of low blood pressures and had a significantly positive fluid balance of approximately 6 L. Yesterday patient was given Lasix 20 mg with albumin 12.5 mg x 2 and did have a 1 L negative fluid balance and 1 pound weight loss. This morning patient's chest x-ray worsened and oxygenation was not improving. She had some improvement on her oxygenation overnight with BiPAP settings of 14/7 and FiO2 was dropped down to 60 from 65. Late this morning oxygen saturations were in the upper 80s on 65% and chest x-ray was worse. At this point patient was felt to need a higher level of care and transfer to [facility] in [place] was arranged. At time of discharge she continued on BiPAP of 14/7 at 75% FiO2. Oxygen saturations were in the low 90s. Covid negative x2. CT of the chest on 07/11/2020 Multiple parenchymal densities on both sides of the chest, worse on the right. Findings are suspicious for diffuse pneumonia. Echocardiogram: 1. Left ventricular ejection fraction, by visual estimation, is 60 to 65%. 2. Normal left ventricular systolic function. 3. Mild septal left ventricular hypertrophy. 4. Low normal right ventricular systolic function. 5. Mild tricuspid valve regurgitation. 6. The right ventricular systolic pressure is mild to moderately elevated at 39 mmHg. 7. This study was performed with the patient in atrial fibrillation/flutter. 8. No regional wall motion abnormalities. - Discharge Plan *PRESCRIPTION DRUG MONITORING PROGRAM REVIEWED*: No *COPY OF PRESCRIPTION DRUG MONITORING REPORT IN PATIENT HOA: No Home Medications: Home Meds Potassium Chloride [Klor-Con M20] 20 meq PO BID 11/27/14 [History] Folic Acid 1 mg PO DAILY #30 tablet 10/03/17 [Rx] Propranolol HCl [Propranolol] 10 mg PO TID #60 tablet 10/03/17 [Rx] Rifaximin [Xifaxan] 550 mg PO BID #30 tablet 10/03/17 [Rx] Spironolactone [Aldactone] 50 mg PO BID #30 tablet 10/03/17 [Rx] Latanoprost [Xalatan 0.005% Ophth Soln] 1 drop EYEBOTH BEDTIME 06/11/20 [History] Tiotropium Mcintosh [Spiriva Respimat] 2 inh PO DAILY 06/11/20 [History] ARIPiprazole [Abilify] 1 mg PO DAILY 07/11/20 [History] Lactulose 15 ml PO DAILY 07/11/20 [History] Magnesium Oxide 1,000 mg PO BID 07/11/20 [History] Mirtazapine 15 mg PO BEDTIME 07/11/20 [History] prednisoLONE [OraPred 15 MG/5ML Soln] 6.7 ml PO DAILY 07/11/20 [History] Oxygen Therapy Mode: BiPAP (21/10 at 75% O2) Patient Handouts: Sepsis, Diagnosis, Adult, Steps to Quit Smoking, Sepsis, Self Care, Adult Forms: ED Department Discharge Referrals: Goldie Mcclure DIE [employer] ENGINEER [Primary Care Provider] - - Discharge Summary/Plan Comment DC Time >30 min.: Yes - General Info Date of Service: 07/15/20 Admission Dx/Problem (Free Text: Admission Diagnosis/Problem Admission Diagnosis/Problem Pneumonia Subjective Update: Patient states she feels better. - Review of Systems General: Reports: Weakness, Fatigue HEENT: Reports: No Symptoms Pulmonary: Reports: Shortness of Breath Cardiovascular: Reports: No Symptoms Gastrointestinal: Reports: No Symptoms Musculoskeletal: Reports: No Symptoms Neurological: Reports: No Symptoms - Patient Data Vitals - Most Recent: Last Vital Signs Temp 97.9 F 07/15/20 08:00 Pulse 93 07/15/20 09:11 Resp 24 H 07/15/20 10:00 BP 94/77 07/15/20 10:00 Pulse Ox 87 L 07/15/20 11:03 Weight - Most Recent: 147 lb 3.2 oz I&O - Last 24 hours: Intake & Output 07/14/20 07/15/20 07/15/20 22:59 06:59 14:59 Intake Total 3517 150 Output Total 3809 750 170 Balance 1592 -750 -20 Lab Results - Last 24 hrs: Laboratory Results - last 24 hr 07/15/20 07/15/20 Range/Units 05:40 05:40 WBC 4.64 (3.98-10.04) K/mm3 RBC 4.02 (3.98-5.22) M/mm3 Hgb 14.7 (11.2-15.7) gm/dl Hct 41.5 (34.1-44.9) % MCV 103.2 H (79.4-94.8) fl MCH 36.6 H (25.6-32.2) pg MCHC 35.4 (32.2-35.5) g/dl RDW Std Deviation 62.1 H (36.4-46.3) fL Plt Count 41 L (182-369) K/mm3 MPV 12.2 (9.4-12.3) fl Neut % (Auto) 89.7 H (34.0-71.1) % Lymph % (Auto) 5.8 L (19.3-51.7) % [facility] % (Auto) 4.1 L (4.7-12.5) % Eos % (Auto) 0 L (0.7-5.8) Baso % (Auto) 0.0 L (0.1-1.2) % Neut # (Auto) 4.16 (1.56-6.13) K/mm3 Lymph # (Auto) 0.27 L (1.18-3.74) K/mm3 [facility] # (Auto) 0.19 L (0.24-0.36) K/mm3 Eos # (Auto) 0.00 L (0.04-0.36) K/mm3 Baso # (Auto) 0.00 L (0.01-0.08) K/mm3 Manual Slide Review Abnormal smear Sodium 143 (136-145) mEq/L Potassium 3.4 L (3.5-5.1) mEq/L Chloride 109 H (98-107) mEq/L Carbon Dioxide 23 (21-32) mEq/L Anion Gap 14.4 (5-15) BUN 19 H (7-18) mg/dL Creatinine 0.6 (0.55-1.02) mg/dL Est Cr Clr Drug Dosing 80.42 mL/min Estimated GFR (MDRD) > 60 (>60) mL/min BUN/Creatinine Ratio 31.7 H (14-18) Glucose 86 (80-115) mg/dL Calcium 8.2 L (8.5-10.1) mg/dL Phosphorus 2.9 (2.6-4.7) mg/dL Magnesium 1.6 L (1.8-2.4) mg/dl Total Bilirubin 22.0 H (0.2-1.0) mg/dL AST 126 H (15-37) U/L ALT 68 H (14-59) U/L Alkaline Phosphatase 206 H (46-116) U/L C-Reactive Protein 12.1 H* (<1.0) mg/dL Total Protein 5.1 L (6.4-8.2) g/dl Albumin 1.7 L (3.4-5.0) g/dl Globulin 3.4 gm/dL Albumin/Globulin Ratio 0.5 L (1-2) CAROL Results - Last 24 hrs: Microbiology 07/10/20 21:54 Aerobic Blood Culture - Preliminary Blood - Venous - Lab Draw NO GROWTH AFTER 4 DAYS Anaerobic Blood Culture - Preliminary NO GROWTH AFTER 4 DAYS 07/10/20 21:52 Aerobic Blood Culture - Preliminary Blood - Venous NO GROWTH AFTER 4 DAYS Anaerobic Blood Culture - Preliminary NO GROWTH AFTER 4 DAYS Med Orders - Current: Current Medications Aripiprazole (Aripiprazole 2 Mg Tab) 1 mg PO DAILY [facility] Last Admin: 07/15/20 09:10 Dose: 1 mg Documented by: Folic Acid (Folic Acid 1 Mg Tab) 1 mg PO DAILY [facility] Last Admin: 07/15/20 09:10 Dose: 1 mg Documented by: Hydrocortisone (Hydrocortisone 1% Crm 30 Gm Tube) 0 gm TOP QID [facility] Last Admin: 07/15/20 09:12 Dose: 1 applic Documented by: Ceftriaxone Sodium 2 gm/ (Sodium Chloride) 100 mls @ 200 mls/hr IV DAILY [facility] Last Admin: 07/15/20 09:03 Dose: 200 mls/hr Documented by: Diltiazem HCl 100 mg/ Sodium (Chloride) 100 mls @ 5 mls/hr IV TITRATE DORINA; Pr otocol Last Titration: 07/13/20 19:15 Dose: 0 mg/hr, 0 mls/hr Documented by: Sodium Chloride (Normal Saline) 1,000 mls @ 100 mls/hr IV ASDIRECTED [facility] Last Admin: 07/14/20 04:41 Dose: 50 mls/hr Documented by: Amiodarone HCl/Dextrose (Nexterone In Dextrose 360 Mg/200 Ml) 360 mg in 200 mls @ 16.7 mls/hr IV ASDIRECTED [facility]; Protocol Last Infusion: 07/14/20 06:32 Dose: 0 mls/hr Documented by: Lactulose (Lactulose Soln 10 Gm/15 Ml 30 Ml Ud Cup) 10 gm PO DAILY [facility] Last Admin: 07/15/20 09:12 Dose: 10 gm Documented by: Latanoprost (Latanoprost 0.005% Ophth Soln 2.5 Ml Bottle) 0 ml EYEBOTH BEDTIME [facility] Last Admin: 07/14/20 22:07 Dose: 1 drop Documented by: Magnesium Oxide (Magnesium Oxide 400 Mg Tab) 1,000 mg PO BID [facility] Last Admin: 07/15/20 09:11 Dose: 1,000 mg Documented by: Mirtazapine (Mirtazapine 15 Mg Tab) 15 mg PO DAILY [facility] Last Admin: 07/15/20 09:10 Dose: 15 mg Documented by: Miscellaneous Information (Remove Nicotine Patch) 1 ea TRDERM DAILY [facility] Last Admin: 07/15/20 09:13 Dose: Not Given Documented by: Mupirocin (Mupirocin Oint 22 Gm Tube) 0 gm TOP TID [facility] Last Admin: 07/15/20 09:12 Dose: 1 applicful Documented by: Nicotine (Nicotine 21 Mg/24 Hr Patch) 21 mg TRDERM DAILY [facility] Last Admin: 07/15/20 09:13 Dose: Not Given Documented by: Oxycodone HCl (Oxycodone 5 Mg Tab) 5 mg PO Q4H PRN PRN Reason: Pain Last Admin: 07/14/20 13:47 Dose: 5 mg Documented by: Potassium Chloride (Potassium Chloride 20 Meq Tab.Er) 20 meq PO BID [facility] Last Admin: 07/15/20 09:10 Dose: 20 meq Documented by: Potassium Chloride (Potassium Chloride 20 Meq Tab.Er) 40 meq PO BID [facility] Stop: 07/15/20 21:01 Last Admin: 07/15/20 09:11 Dose: 40 meq Documented by: Prednisolone (Prednisolone Soln 15 Mg/5 Ml Ud Cup) 20.1 mg PO DAILY [facility] Last Admin: 07/15/20 09:08 Dose: 20.1 mg Documented by: Propranolol HCl (Propranolol 10 Mg Tab) 10 mg PO TID [facility] Last Admin: 07/15/20 09:11 Dose: 10 mg Documented by: Rifaximin (Rifaximin 550 Mg Tab) 550 mg PO BID [facility] Last Admin: 07/15/20 09:10 Dose: 550 mg Documented by: Sodium Chloride (Sodium Chloride 0.9% 10 Ml Syringe) 10 ml FLUSH ASDIRECTED PRN PRN Reason: Keep Vein Open Last Admin: 07/10/20 21:24 Dose: 10 ml Documented by: Spironolactone (Spironolactone 25 Mg Tab) 50 mg PO BID [facility] Last Admin: 07/15/20 09:10 Dose: 50 mg Documented by: Tiotropium Mcintosh (Tiotropium Mcintosh 4 Gm Inhalation [place] (2.5mcg/1 Dose; 10 Doses)) 0 gm INH DAILY [facility] Last Admin: 07/13/20 14:50 Dose: Not Given Documented by: Discontinued Medications Azithromycin (Azithromycin 250 Mg Tab) 250 mg PO DAILY [facility] Stop: 07/15/20 09:01 Last Admin: 07/15/20 09:10 Dose: 250 mg Documented by: Diltiazem HCl (Diltiazem 50 Mg/10 Ml Sdv) 5 mg IVPUSH ONETIME ONE Stop: 07/13/20 12:41 Last Admin: 07/13/20 18:51 Dose: 5 mg Documented by: Diltiazem HCl (Diltiazem 50 Mg/10 Ml Sdv) 5 mg IVPUSH ONETIME ONE Stop: 07/13/20 12:43 Last Admin: 07/13/20 12:46 Dose: 5 mg Documented by: Furosemide (Furosemide 40 Mg/4 Ml Vial) 40 mg IVPUSH NOW ONE Stop: 07/12/20 20:59 Last Admin: 07/12/20 21:04 Dose: 40 mg Documented by: Furosemide (Furosemide 40 Mg/4 Ml Vial) 40 mg IVPUSH NOW ONE Stop: 07/13/20 09:57 Last Admin: 07/13/20 11:00 Dose: 40 mg Documented by: Furosemide (Furosemide 20 Mg/2 Ml Vial) 20 mg IVPUSH ONETIME ONE Stop: 07/14/20 09:01 Last Admin: 07/14/20 09:30 Dose: 20 mg Documented by: Furosemide (Furosemide 20 Mg/2 Ml Vial) 20 mg IVPUSH ONETIME ONE Stop: 07/14/20 15:01 Last Admin: 07/14/20 15:25 Dose: 20 mg Documented by: Furosemide (Furosemide 20 Mg/2 Ml Vial) 20 mg IVPUSH ONETIME ONE Stop: 07/15/20 09:24 Last Admin: 07/15/20 09:28 Dose: 20 mg Documented by: Ceftriaxone Sodium 1 gm/ (Sodium Chloride) 100 mls @ 200 mls/hr IV Q24H [facility] Last Admin: 07/11/20 01:25 Dose: 200 mls/hr Documented by: Sodium Chloride (Normal Saline) 100 mls @ 60 drops/hr IV ASDIRECTED [facility] Last Admin: 07/11/20 01:40 Dose: 60 drops/hr Documented by: Ceftriaxone Sodium 1 gm/ (Sodium Chloride) 100 mls @ 200 mls/hr IV Q24H [facility] Dextrose/Sodium Chloride (Dextrose 5%-Normal Saline) 1,000 mls @ 100 mls/hr IV ASDIRECTED [facility] Last Admin: 07/12/20 15:21 Dose: 100 mls/hr Documented by: Ceftriaxone Sodium 1 gm/ (Sodium Chloride) 100 mls @ 200 mls/hr IV ONETIME ONE Stop: 07/11/20 14:30 Last Admin: 07/11/20 14:55 Dose: 200 mls/hr Documented by: Azithromycin 500 mg/ Sodium (Chloride) 250 mls @ 250 mls/hr IV ONETIME ONE Stop: 07/11/20 15:04 Last Admin: 07/11/20 15:31 Dose: 250 mls/hr Documented by: Magnesium Sulfate 4 gm/ Premix 50 mls @ 12.5 mls/hr IV ONETIME ONE Stop: 07/12/20 11:29 Last Admin: 07/12/20 08:49 Dose: 12.5 mls/hr Documented by: Magnesium Sulfate (Magnesium Sulfate In Water 2 Gm/50 Ml) 2 gm in 50 mls @ 25 mls/hr IV ONETIME ONE Stop: 07/12/20 19:59 Last Admin: 07/12/20 18:30 Dose: 25 mls/hr Documented by: Sodium Chloride (Normal Saline) Confirm Administered Dose 1,000 mls @ as directed .ROUTE .STK-MED ONE Stop: 07/13/20 11:43 Last Admin: 07/13/20 13:49 Dose: Not Given Documented by: Sodium Chloride (Normal Saline) 500 mls @ 999 mls/hr IV .BOLUS ONE Stop: 07/13/20 13:13 Last Admin: 07/13/20 13:01 Dose: 999 mls/hr Documented by: Potassium Chloride 10 meq/ (Premix) 100 mls @ 100 mls/hr IV Q1H [facility] Stop: 07/13/20 20:59 Last Admin: 07/13/20 21:06 Dose: Not Given Documented by: Amiodarone HCl/Dextrose (Nexterone In Dextrose 150 Mg/100 Ml) 100 mls @ 600 mls/hr IV .BOLUS ONE; Protocol Stop: 07/13/20 19:27 Last Admin: 07/13/20 19:45 Dose: 600 mls/hr Documented by: Amiodarone HCl/Dextrose (Nexterone In Dextrose 360 Mg/200 Ml) 360 mg in 200 mls @ 33.333 mls/hr IV ASDIRECTED [facility]; Protocol Last Admin: 07/13/20 19:47 Dose: 33.333 mls/hr Documented by: Sodium Chloride (Normal Saline) 500 mls @ 999 mls/hr IV ONETIME ONE Stop: 07/13/20 19:30 Last Admin: 07/13/20 19:00 Dose: 999 mls/hr Documented by: Potassium Chloride 10 meq/ (Premix) 100 mls @ 100 mls/hr IV Q1H [facility] Stop: 07/14/20 12:44 Last Admin: 07/14/20 12:56 Dose: 100 mls/hr Documented by: Magnesium Sulfate 4 gm/ Premix 50 mls @ 12.5 mls/hr IV ONETIME ONE Stop: 07/14/20 12:40 Last Admin: 07/14/20 09:04 Dose: 12.5 mls/hr Documented by: Albumin Human (Flexbumin 25%) 12.5 gm in 50 mls @ 100 mls/hr IV ONETIME ONE Stop: 07/14/20 09:29 Last Admin: 07/14/20 09:23 Dose: 100 mls/hr Documented by: Albumin Human (Flexbumin 25%) 12.5 gm in 50 mls @ 100 mls/hr IV ONETIME ONE Stop: 07/14/20 15:29 Last Admin: 07/14/20 15:24 Dose: 100 mls/hr Documented by: Magnesium Sulfate 4 gm/ Premix 50 mls @ 12.5 mls/hr IV ONETIME ONE Stop: 07/15/20 12:25 Last Admin: 07/15/20 08:57 Dose: 12.5 mls/hr Documented by: Albumin Human (Flexbumin 25%) 12.5 gm in 50 mls @ 100 mls/hr IV ONETIME ONE Stop: 07/15/20 09:51 Last Admin: 07/15/20 09:30 Dose: 100 mls/hr Documented by: Iopamidol (Iopamidol 755 Mg/Ml 100 Ml Bottle) 100 ml IVPUSH ONETIME ONE Stop: 07/11/20 01:39 Last Admin: 07/11/20 01:40 Dose: 30 ml Documented by: Lorazepam (Lorazepam 2 Mg/Ml Sdv) 2 mg IVPUSH ONETIME ONE Stop: 07/11/20 01:33 Last Admin: 07/11/20 01:43 Dose: 2 mg Documented by: Magnesium Oxide (Magnesium Oxide 400 Mg Tab) 400 mg PO BID [facility] Last Admin: 07/12/20 10:39 Dose: Not Given Documented by: Methylprednisolone Sodium Succinate (Methylprednisolone Sodium Succinate 125 Mg/2 Ml Sdv) 125 mg IVPUSH ONETIME ONE Stop: 07/11/20 01:05 Last Admin: 07/11/20 01:25 Dose: 125 mg Documented by: Potassium Chloride (Potassium Chloride 20 Meq Tab.Er) 40 meq PO ONETIME ONE Stop: 07/13/20 22:01 Last Admin: 07/13/20 21:53 Dose: 40 meq Documented by: Sodium Chloride (Sodium Chloride 0.9% 10 Ml Syringe) 10 ml FLUSH BOLUS [facility] Last Admin: 07/11/20 01:40 Dose: 10 ml Documented by: - Exam Quality Assessment: Reports: Supplemental Oxygen, Urine Catheter General: Reports: Alert HEENT: Reports: Pupils Equal, Mucous Membr. Moist/[place], Scleral Icterus Neck: Reports: Supple Lungs: Reports: Rales. Denies: Normal Respiratory Effort (Increased respiratory effort and rate) Cardiovascular: Reports: Regular Rate, Regular Rhythm GI/Abdominal Exam: Normal Bowel Sounds, Soft, Non-Tender, No Distention Extremities: Normal Inspection, Normal Range of Motion, Non-Tender, No Pedal Edema, Normal Capillary Refill Psy/Mental Status: Reports: Alert, Normal Affect, Normal Mood
== END 2020-07-15 13:25 | DRG 194 ==
LOC: JD.ED 20:39 → JD.MS 07-11 06:49 → JD.ICU 07-13 12:20
PROVIDERS: ADMIT Family Medicine; ATTEND Family Medicine
PROC: 5A09457 Assistance with Respiratory Ventilation, 24-96 Consecutive Hours, Continuous Positive Airway Pressure (ICD-10-PCS; principal; 2020-07-11)
DX: J15.9 Unspecified bacterial pneumonia (principal); E87.3 Alkalosis; E87.2 Acidosis; E87.1 Hypo-osmolality and hyponatremia; J12.9 Viral pneumonia, unspecified; K76.9 Liver disease, unspecified; Z20.822 Contact with and (suspected) exposure to COVID-19; D69.6 Thrombocytopenia, unspecified; K72.90 Hepatic failure, unspecified without coma; E83.42 Hypomagnesemia; H54.7 Unspecified visual loss; K21.9 Gastro-esophageal reflux disease without esophagitis; F19.10 Other psychoactive substance abuse, uncomplicated; E55.9 Vitamin D deficiency, unspecified; D63.8 Anemia in other chronic diseases classified elsewhere; K70.31 Alcoholic cirrhosis of liver with ascites; E88.09 Other disorders of plasma-protein metabolism, not elsewhere classified; E86.1 Hypovolemia; I48.91 Unspecified atrial fibrillation; Z87.891 Personal history of nicotine dependence; Z87.01 Personal history of pneumonia (recurrent); Z87.440 Personal history of urinary (tract) infections; Z79.899 Other long term (current) drug therapy; I11.0 Hypertensive heart disease with heart failure; I50.9 Heart failure, unspecified
CPT/HCPCS: 36410; 36415; 36600; 51702; 71045; 71045-26; 71275; 71275-26; 76705; 76705-26; 80053; 80307; 82140; 82550; 82803; 83735; 83880; 84100; 84145; 84443; 84484; 85007; 85025; 85027; 85379; 85610; 85730; 86140; 87040; 93005; 93010; 93306; 94660; 94760; 96365; 96375; 99222; 99233; 99239; 99284; 99285-25; A9270-GY; J0282; J0456; J0696; J1940; J2060; J2930; J3475; J3480; J3490; J7030; J7042; J7050; P9047; Q9967; U0002